=== PATIENT | male | born 1940 | race Caucasian/White ===

== ENCOUNTER 2018-06-26 02:35 | Inpatient (IN) ==
--- NOTE | 2018-06-26 04:06 | ED ---
HPI General Chief Complaint: Fall Stated Complaint: Fell left hip/thigh injury x3hrs Time Seen by Provider: 06/26/18 03:18 History of Present Illness HPI Narrative: Patient fell today in his office while turning of the computers he landed on his left hip he was unable to stand on his own they called paramedics EVAC came and helped stand him up asked if they wanted to be transported to the hospital patient declined transportation but the paramedics help get the patient into the [facility] scar[facility] drove him to our ER complaining of severe left hip pain unable to weight-bear at this time he also has an abrasion to his right forearm no other complaints at this time significant as 3 weeks ago he had an IR interventional radiology did a vascular stent into a prior 9-year-old AAA graft there is no signs of hypotension no signs of tachycardic however he does have pain in the similar area where the iliac artery was entered on the left. MD complaint: fall Onset (ago): hour(s) (11pm 3 hrs prior to presentation) Fall witnessed: yes, by family Place fall occurred: home Loss of consciousness: none Prolonged down time: no Related Data Home Medications Medication Instructions Recorded Confirmed amlodipine 5 mg PO DAILY 05/03/18 06/26/18 lisinopril 20 mg PO DAILY 05/03/18 06/26/18 Allergies Allergy/AdvReac Type Severity Reaction Status Date / Time Sulfa (Sulfonamide Allergy Intermediate Hives,SOB Verified 06/26/18 03:27 Antibiotics) Review of Systems ROS: all other systems reviewed are negative [facility] Social History Social History Substance History: No History of Abuse Second Hand Smoke Exposure: Yes Smoking Status: Current every day smoker Tobacco Type: Cigarettes How Often Do You Have a Drink Containing Alcohol: 2 to 3 times a week Recent Travel [facility] within the Last 8 Weeks: No Recent Out of Country Travel within the Last 8 Weeks: No Immunization History Tetanus Immunization: Unsure Hx Influenza Vaccine This Season: Yes Exam Narrative Exam Narrative: GENERAL: pt in pain can not weigh bare left leg hip SKIN: Warm and dry. bruise abrasion hematoma to right forearm HEAD: Atraumatic. Normocephalic. EYES: Pupils equal and round. No scleral icterus. No injection or drainage. ENT: No nasal bleeding or discharge. Mucous membranes pink and moist. NECK: Trachea midline. No JVD. CARDIOVASCULAR: Regular rate and rhythm. RESPIRATORY: No accessory muscle use. Clear to auscultation. Breath sounds equal bilaterally. GASTROINTESTINAL: Abdomen soft, non-tender, nondistended. Hepatic and splenic margins not palpable. MUSCULOSKELETAL: Extremities unable to weigh bare and severe pain with internal rotation of the femoral head increased pain , pulse 2+ pedal distal NO obvious deformities. No obvious shortening NEUROLOGICAL: Awake and alert. No obvious cranial nerve deficits. Motor grossly within normal limits. Five out of 5 muscle strength in the arms and legs. Normal speech. PSYCHIATRIC: Appropriate mood and affect; insight and judgment normal. Course Initial Documented Vital Signs Temperature 97.9 F 06/26/18 02:43 Pulse Rate 91 H 06/26/18 02:43 Respiratory Rate 18 06/26/18 02:43 Blood Pressure 135/62 06/26/18 02:43 Pulse Oximetry 95 06/26/18 02:43 Last Documented Vital Signs Temperature 97.9 F 06/26/18 02:43 Pulse Rate 80 06/26/18 04:33 Respiratory Rate 18 06/26/18 04:33 Blood Pressure 164/85 H 06/26/18 04:33 Pulse Oximetry 97 06/26/18 04:33 Medical Decision Making [facility] Narrative Medical decision making narrative: pt has left femur neck fracture and need surgery , Dr Fernandez admits pt to [facility] and Ortho will be consulted for OR today pt stable and awke and alert lebs and morphine for transfer to [facility] for OR Medical Screen Exam Complete: Yes Emergency Medical Condition: Yes Differential Diagnosis Differential Diagnosis: femur fracture vs hip frax vs pelvic fracture vs hip contusion vs injue=ry to recent graph ileac stent other Lab Data Result diagrams: 06/26/18 04:20 06/26/18 04:20 Lab Results 06/26/18 06/26/18 06/26/18 Range/Units 04:20 04:20 04:20 CBC w Diff Auto diff final WBC 16.2 H (4.0-11.0) th/mm3 RBC 4.61 (4.50-5.90) mil/mm3 Hgb 15.4 (13.0-17.0) gm/dL Hct 46.1 (39.0-51.0) % MCV 99.9 (80.0-100.0) fL MCH 33.5 (27.0-34.0) pg MCHC 33.5 (32.0-36.0) % RDW 13.0 (11.6-17.2) % Plt Count 198 (150-450) th/mm3 MPV 8.8 (7.0-11.0) fL Neut % (Auto) 76.7 H (16.0-70.0) % Lymph % (Auto) 15.3 (9.0-44.0) % [place] % (Auto) 7.0 (0.0-8.0) % Eos % (Auto) 0.6 (0.0-4.0) % Baso % (Auto) 0.4 (0.0-2.0) % Neut # (Auto) 12.4 H (1.8-7.7) th/mm3 Lymph # (Auto) 2.5 (1.0-4.8) th/mm3 [place] # (Auto) 1.1 H (0.0-0.9) th/mm3 Eos # (Auto) 0.1 (0.0-0.4) th/mm3 Baso # (Auto) 0.1 (0.0-0.2) th/mm3 WBC Differential . Differential Comment . PT 9.8 (9.8-11.6) sec INR 1.0 Ratio Sodium 143 (136-145) meq/L Potassium 4.3 (3.5-5.1) meq/L Chloride 105 (98-107) meq/L Carbon Dioxide 29.0 (21.0-32.0) meq/L Anion Gap 9 (5-15) meq/L BUN 31 H (7-18) mg/dL Creatinine 1.50 H (0.60-1.30) mg/dL Estimated GFR 45 L (>89) mL/min Random Glucose 146 H (74-106) mg/dL Calcium 9.0 (8.5-10.1) mg/dL Total Bilirubin 0.3 (0.2-1.0) mg/dL AST 37 (15-37) U/L ALT 32 (12-78) U/L Alkaline Phosphatase 77 (45-117) U/L Total Protein 7.0 (6.4-8.2) g/dL Albumin 3.8 (3.4-5.0) g/dL Imaging Data Radiologist's impression: Hip X-Ray 06/26/18 04:00 CONCLUSION: 1. Left femoral neck fracture. Discharge Plan Discharge Disposition Patient Disposition: 30 Still Patient Physicians Team ED Provider: Tyler Herron Primary Care Provider: Hilario Martins Attending Provider: Isabelle Christian Other Providers: Stephon Barragan Discharge Interventions Interventions: ED Discharge Assessment Last Done: 06/26/18 06:41 Status ED Status: Admitted Patient
[2018-06-26 04:33] LABS: Baso # (Auto) 0.1 th/mm3 (0.0-0.2); Baso % (Auto) 0.4 % (0.0-2.0); Eos # (Auto) 0.1 th/mm3 (0.0-0.4); Eos % (Auto) 0.6 % (0.0-4.0); Hematocrit 46.1 % (39.0-51.0); Hemoglobin 15.4 gm/dL (13.0-17.0); Lymph # (Auto) 2.5 th/mm3 (1.0-4.8); Lymph % (Auto) 15.3 % (9.0-44.0); Mean Corpuscular HGB Conc 33.5 % (32.0-36.0); Mean Corpuscular Hemoglobin 33.5 pg (27.0-34.0); Mean Corpuscular Volume 99.9 fL (80.0-100.0); Mean Platelet Volume 8.8 fL (7.0-11.0); Mono # (Auto) 1.1 th/mm3 (0.0-0.9); Neut # (Auto) 12.4 th/mm3 (1.8-7.7); Neut % (Auto) 76.7 % (16.0-70.0); Platelet Count 198 th/mm3 (150-450); Red Blood Count 4.61 mil/mm3 (4.50-5.90); White Blood Count 16.2 th/mm3 (4.0-11.0)
[2018-06-26 04:48] LABS: Chloride 105 meq/L (98-107); Potassium 4.3 meq/L (3.5-5.1); Sodium 143 meq/L (136-145)
--- NOTE | 2018-06-26 04:49 | XR ---
EXAM DATE: 06/26/2018 4:26 AM EDT AGE/SEX: 78 years / Male INDICATIONS: Left hip pain post fall today CLINICAL DATA: This is the patient's initial encounter. Patient reports that signs and symptoms have been present for 1 day and indicates a pain score of 8/10. MEDICAL/SURGICAL HISTORY: None. None. COMPARISON: POI, CT ABDOMEN AND PELVIS W/O CONTRAST, 03/22/2018. . FINDINGS: Transverse left femoral neck fracture with mild impaction. Remaining osseous structures are intact. K issing iliac stents in place. Soft tissues are grossly unremarkable. CONCLUSION: 1. Left femoral neck fracture. Electronically signed by: Jayden Guthrie MD 06/26/2018 4:48 AM EDT
[2018-06-26 04:52] LABS: Albumin 3.8 g/dL (3.4-5.0); Anion Gap 9 meq/L (5-15); Blood Urea Nitrogen 31 mg/dL (7-18); Glucose,Random 146 mg/dL (74-106)
[2018-06-26 04:55] LABS: Alanine Aminotransferase 32 U/L (12-78); Aspartate Aminotransferase 37 U/L (15-37); Glomerular Filtration Rate 45 mL/min (>89)
[2018-06-26 04:58] LABS: Alkaline Phosphatase 77 U/L (45-117)
[2018-06-26] MEDS ORDERED: Bisacodyl 10 MG Supp RECTAL PRN (05:00)
[2018-06-26] MEDS ORDERED: Acetaminophen 325 MG Tablet PO PRN (05:00)
[2018-06-26] MEDS ORDERED: Morphine Inj 4 MG/ML Vial IV.PUSH PRN ×2 (05:00→09:46)
[2018-06-26] MEDS: Sod Chloride 0.9% Inj 1,000 ML IV.CONT SCH ×4 (05:31→17:14)
[2018-06-26 05:32] LABS: Prothrombin Time 9.8 sec (9.8-11.6)
[2018-06-26] MEDS ORDERED: Morphine Inj 4 MG/ML Vial IV.PUSH ONE (06:29)
--- NOTE | 2018-06-26 09:39 | P.HPIM ---
History of Present Illness Primary Care Physician: Hilario Martins MD Chief Complaint: I fell History of Present Illness: 78-year-old white male with a history of hypertension, previous history of AAA repair sustained a fall yesterday evening around 11 PM. He states he felt slightly lightheaded however did not lose consciousness after the fall. He complained of significant left hip pain after the fall sustaining a left hip fracture. He denies any other symptoms of chest pain, shortness of breath, palpitations, nor dizziness. He was transferred up to the main hospital for surgical intervention with orthopedics. Inpatient Certification: I certify that the inpatient services were ordered in accordance with Medicare regulations governing the order. This includes certification that hospital inpatient services are reasonable and necessary and in the case of services not specified as inpatient-only under 42 CFR 419.22(n), that they are appropriately provided as inpatient services in accordance to with the 2-midnight benchmark under 43 CFR 412.3(e) Estimated Total Length of Stay (Days): 2 Plans for Post Hospital Care: Not yet determined Review of Systems All other systems reviewed negative except as stated in HPI [facility] - History History Provided By: Patient - Medical History Medical History: Medical History (Last Updated 06/26/18 @ 09:31 by Urmila Fernandez MD) BPH (benign prostatic hyperplasia) AAA (abdominal aortic aneurysm) Cataract Hernia Hypertension Kidney stones Metal bone fixation hardware in place Prostate disorder - Surgical History Surgical History: Surgical History (Last Updated 06/26/18 @ 09:33 by Urmlia Fernandez MD) Hx of hernia repair S/P surgical manipulation of ankle joint History of AAA (abdominal aortic aneurysm) repair Hx of appendectomy - Family History Family History: Family History (Last Updated 06/26/18 @ 09:34 by Urmila Fernandez MD) Mother FHx: stomach cancer - Social History I have reviewed the patient's Social History: Yes - Tobacco History Second Hand Smoke Exposure: Yes Tobacco Use In Past 30 Days: Yes Smoking Status: Current every day smoker Tobacco Type: Cigarettes - Alcohol History How Often Do You Have a Drink Containing Alcohol: 4 or more times a week - Substance Use History Substance History: No History of Abuse - Travel History Recent Travel in the [place] Within the Last 8 Weeks: No Recent Travel Out of the Country Within the Last 8 Weeks: No - Immunization History Tetanus Immunization: Unsure Hx Influenza Vaccine This Season: Yes Medications and Allergies Active Medications: Active Medications Acetaminophen (Tylenol) 650 mg PO Q4H PRN PRN Reason: Temp > 100.4 Al Hydroxide/Mg Hydroxide (Milk Of Magnesia Liq) 30 ml PO Q12H PRN PRN Reason: Mild Constipation Bisacodyl (Dulcolax Supp) 10 mg RECTAL DAILY PRN PRN Reason: SEVERE CONSITIPATION Sodium Chloride (Ns Inj) 1,000 mls @ 100 mls/hr IV.CONT .Q10H [facility] Last Infusion: 06/26/18 06:40 Dose: 100 mls/hr Sodium Chloride (Ns Inj) 1,000 mls @ 100 mls/hr IV.CONT .Q10H [facility] Lactulose (Lactulose Liq) 30 ml PO DAILY PRN PRN Reason: SEVERE CONSITIPATION Morphine Sulfate (Morphine Inj) 2 mg IV.PUSH Q4H PRN PRN Reason: PAIN 6-10 Ondansetron HCl (Zofran Inj) 4 mg IV.PUSH Q6H PRN PRN Reason: NAUSEA OR VOMITING Senna/Docusate Sodium (Libby-Colace) 1 tab PO BID [facility] Sennosides (Senokot) 17.2 mg PO Q12H PRN PRN Reason: Moderate Constipation Allergies Allergy/AdvReac Type Severity Reaction Status Date / Time Sulfa (Sulfonamide Allergy Intermediate Hives,SOB Verified 06/26/18 03:27 Antibiotics) Home Medications Medication Instructions Recorded Confirmed Type amlodipine 5 mg PO DAILY 05/03/18 06/26/18 History lisinopril 20 mg PO DAILY 05/03/18 06/26/18 History Exam Vital signs: Vital Signs 06/26/18 02:43 06/26/18 04:33 Temperature 97.9 F Pulse Rate 91 H 80 Respiratory Rate 18 18 Blood Pressure 135/62 164/85 H Pulse Oximetry 95 97 Intake & Output 06/25/18 06/26/18 06/26/18 18:59 06:59 18:59 Intake Total 100 / 100 Balance 100 / 100 Weight 90.6 kg Intake: IV 100 / 100 NS Inj 1,000 ML @ 100 mls/hr IV 100 / 100 .CONT .Q10H [facility] Rx#:[id number] Narrative: GENERAL: Well-nourished well-developed white male in no acute distress SKIN: Right forearm abrasions from fall HEAD: Atraumatic. Normocephalic. EYES: Pupils equal and round. No scleral icterus. No injection or drainage. ENT: No nasal bleeding or discharge. Mucous membranes pink and moist. NECK: Trachea midline. No JVD. CARDIOVASCULAR: Regular rate and rhythm. RESPIRATORY: No accessory muscle use. Clear to auscultation. Breath sounds equal bilaterally. GASTROINTESTINAL: Abdomen soft, non-tender, nondistended. Hepatic and splenic margins not palpable. MUSCULOSKELETAL: Extremities without clubbing, cyanosis, or edema. Left hip tenderness with external rotation NEUROLOGICAL: Awake and alert to person place time. No obvious cranial nerve deficits. Motor grossly within normal limits bilateral upper extremities PSYCHIATRIC: Appropriate mood and affect; insight and judgment normal. Results - Labs CBC & Chem 7: 06/26/18 04:20 06/26/18 04:20 Labs: Short CBC 06/26/18 Range/Units 04:20 WBC 16.2 H (4.0-11.0) th/mm3 Hgb 15.4 (13.0-17.0) gm/dL Hct 46.1 (39.0-51.0) % Plt Count 198 (150-450) th/mm3 BMP 06/26/18 04:20 Sodium 143 Potassium 4.3 Chloride 105 Carbon Dioxide 29.0 BUN 31 H Creatinine 1.50 H Calcium 9.0 Liver Function 06/26/18 Range/Units 04:20 Total Bilirubin 0.3 (0.2-1.0) mg/dL AST 37 (15-37) U/L ALT 32 (12-78) U/L Alkaline Phosphatase 77 (45-117) U/L Albumin 3.8 (3.4-5.0) g/dL - Imaging Impressions Hip X-Ray 06/26/18 04:00 CONCLUSION: 1. Left femoral neck fracture. Caprini VTE Risk Assessment Caprini VTE Risk Assessment: Moderate/High Risk (score >= 2) Caprini Risk Assessment Model: Point Value = 1 Point Value = 2 Point Value = 3 Point Value = 5 Age 41-60 Minor surgery BMI > 25 kg/m2 Swollen legs Varicose veins or History of unexplained or recurrent spontaneous Oral contraceptives or hormone replacement Sepsis (< 1 month) Serious lung disease, including pneumonia (< 1 month) Abnormal pulmonary function Acute myocardial infarction Congestive heart failure (< 1 month) History of inflammatory bowel disease Medical patient at bed rest Age 61-74 Arthroscopic surgery Major open surgery (> 45 min) Laparoscopic surgery (> 45 min) Malignancy Confined to bed (> 72 hours) Immobilizing plaster cast Central venous access Age >= 75 History of VTE Family history of VTE Factor V Leiden Prothrombin 30250D Lupus anticoagulant Anticardiolipin antibodies Elevated serum homocysteine Heparin-induced thrombocytopenia Other congenital or acquired thrombophilia Stroke (< 1 month) Elective arthroplasty Hip, pelvis, or leg fracture Acute spinal cord injury (< 1 month) Prophylaxis Regimen: Total Risk Factor Score Risk Level Prophylaxis Regimen 0-1 Low Early ambulation 2 Moderate Order ONE of the following: *Sequential Compression Device (SCD) *Heparin 5000 units SQ BID 3-4 Higher Order ONE of the following medications: *Heparin 5000 units SQ TID *Enoxaparin/Lovenox 40 mg SQ daily (WT < 150 kg, CrCl > 30 mL/min) *Enoxaparin/Lovenox 30 mg SQ daily (WT < 150 kg, CrCl > 10-29 mL/min) *Enoxaparin/Lovenox 30 mg SQ BID (WT < 150 kg, CrCl > 30 mL/min) AND/OR *Sequential Compression Device (SCD) 5 or more Highest Order ONE of the following medications: *Heparin 5000 units SQ TID (Preferred with Epidurals) *Enoxaparin/Lovenox 40 mg SQ daily (WT < 150 kg, CrCl > 30 mL/min) *Enoxaparin/Lovenox 30 mg SQ daily (WT < 150 kg, CrCl > 10-29 mL/min) *Enoxaparin/Lovenox 30 mg SQ BID (WT < 150 kg, CrCl > 30 mL/min) AND *Sequential Compression Device (SCD) Assessment and Plan - Plan 78-year-old white male with a history of hypertension presents after a fall sustaining a 1. Left femoral neck fracturepatient is currently n.p.o. with pain control IV morphine for orthopedic surgery evaluation for surgical intervention 2. Hypertension, chronic essentialresume home Amlodipine and lisinopril 3. DVT prophylaxisanticoagulation after surgical repair 4. Tobacco abuse-cessation counseling
[2018-06-26] MEDS ORDERED: Post-op Orders (for Pharmacy) OTHER STA (09:46)
--- NOTE | 2018-06-26 09:46 | P.CONOP ---
[facility] Orthopedics Consult Note - [facility] Consult date: 06/26/18 Chief complaint: femur neck fracture Narrative: Karson is a 78-year-old male. He was at home last night. He was going to turn off his computers. He lost his balance and fell. He denies syncope or loss of consciousness. He landed on his left side. He had immediate left hip pain. Pain was severe and intense when he fell. He was unable to stand or ambulate. He presented to the emergency room where x-rays revealed a displaced left femoral neck fracture. He is currently awake and alert on the orthopedic floor. His only complaint is left hip. Pain is improved with rest and is worse with any motion. He lives at home independently with his . He denies any hip pain prior to his fall. Review of Systems Patient denies fevers, chills, weight loss, headache, visual changes, hearing loss, chest pain, palpitations, shortness of breath, nausea, vomiting, no urinary changes, diarrhea, bowel changes, neck pain, back pain, skin rashes, weakness of extremities, easy bleeding, enlarged lymph nodes, numbness of extremities, anxiety, or depression. Patient's social history, past medical history, and family history were reviewed on chart and with patient. [facility] - History History Provided By: Patient - Medical History Medical History: Medical History (Last Reviewed 06/26/18 @ 09:43 by Stephon Barragan MD) BPH (benign prostatic hyperplasia) AAA (abdominal aortic aneurysm) Cataract Hernia Hypertension Kidney stones Metal bone fixation hardware in place Prostate disorder - Surgical History Surgical History: Surgical History (Last Reviewed 06/26/18 @ 09:43 by Stephon Barragan MD) Hx of hernia repair S/P surgical manipulation of ankle joint History of AAA (abdominal aortic aneurysm) repair Hx of appendectomy - Family History Family History: Family History (Last Reviewed 06/26/18 @ 09:43 by Stephon Barragan MD) Mother FHx: stomach cancer - Social History I have reviewed the patient's Social History: Yes - Tobacco History Second Hand Smoke Exposure: Yes Tobacco Use In Past 30 Days: Yes Smoking Status: Current every day smoker Tobacco Type: Cigarettes - Alcohol History How Often Do You Have a Drink Containing Alcohol: 4 or more times a week - Substance Use History Substance History: No History of Abuse - Travel History Recent Travel in the [facility] Within the Last 8 Weeks: No Recent Travel Out of the Country Within the Last 8 Weeks: No - Immunization History Tetanus Immunization: Unsure Hx Influenza Vaccine This Season: Yes Medications and Allergies Active Medications: Active Medications Acetaminophen (Tylenol) 650 mg PO Q4H PRN PRN Reason: Temp > 100.4 Al Hydroxide/Mg Hydroxide (Milk Of Magnesia Liq) 30 ml PO Q12H PRN PRN Reason: Mild Constipation Amlodipine Besylate (Norvasc) 5 mg PO DAILY [facility] Bisacodyl (Dulcolax Supp) 10 mg RECTAL DAILY PRN PRN Reason: SEVERE CONSITIPATION Sodium Chloride (Ns Inj) 1,000 mls @ 100 mls/hr IV.CONT .Q10H [facility] Last Infusion: 06/26/18 06:40 Dose: 100 mls/hr Sodium Chloride (Ns Inj) 1,000 mls @ 100 mls/hr IV.CONT .Q10H [facility] Lactulose (Lactulose Liq) 30 ml PO DAILY PRN PRN Reason: SEVERE CONSITIPATION Lisinopril (Prinivil) 20 mg PO DAILY [facility] Morphine Sulfate (Morphine Inj) 2 mg IV.PUSH Q4H PRN PRN Reason: PAIN 6-10 Ondansetron HCl (Zofran Inj) 4 mg IV.PUSH Q6H PRN PRN Reason: NAUSEA OR VOMITING Senna/Docusate Sodium (Libby-Colace) 1 tab PO BID [facility] Sennosides (Senokot) 17.2 mg PO Q12H PRN PRN Reason: Moderate Constipation Allergies Allergy/AdvReac Type Severity Reaction Status Date / Time Sulfa (Sulfonamide Allergy Intermediate Hives,SOB Verified 06/26/18 03:27 Antibiotics) Home Medications Medication Instructions Recorded Confirmed Type amlodipine 5 mg PO DAILY 05/03/18 06/26/18 History lisinopril 20 mg PO DAILY 05/03/18 06/26/18 History Exam Vital signs: Vital Signs 06/26/18 02:43 06/26/18 04:33 06/26/18 08:00 Temperature 97.9 F 98.5 F Pulse Rate 91 H 80 60 Respiratory Rate 18 18 16 Blood Pressure 135/62 164/85 H 123/71 Pulse Oximetry 95 97 93 L Intake & Output 06/25/18 06/26/18 06/26/18 18:59 06:59 18:59 Intake Total 100 / 100 Balance 100 / 100 Weight 90.6 kg Intake: IV 100 / 100 NS Inj 1,000 ML @ 100 mls/hr IV 100 / 100 .CONT .Q10H [facility] Rx#:[id number] Narrative: Davi is a pleasant 78-year-old male. General: Awake and alert. No acute distress. Appears well-developed well- nourished Head: Normocephalic, atraumatic pupils are equal Neck: Soft, nontender, trachea midline Abdomen: Soft, nondistended Examination of right arm reveals no pain or deformity with shoulder, elbow, or wrist motion. Skin is intact. Radial pulse is palpable. Normal capillary refill in fingers. Sensation is intact in radial, ulnar, and median nerve distributions. [employer] Specialist strength is +5. No lymphadenopathy noted. Examination of left arm reveals no pain or deformity with shoulder, elbow, or wrist motion. Skin is intact. Radial pulse is palpable. Normal capillary refill in fingers. Sensation is intact in radial, ulnar, and median nerve distributions. [employer] Specialist strength is +5. No lymphadenopathy noted. Examination of left lower extremity reveals pain with any hip motion. He has no pain or deformity around his knee, tibia, or ankle. Skin is intact. Sensation is intact in left foot. Dorsalis pedis pulse is palpable. Normal capillary refill and feet. Thigh and calf compartments are soft. No lymphadenopathy noted. +5 strength of ankle dorsiflexion and plantarflexion. Examination of right lower extremity reveals no pain or deformity with hip, knee , or ankle motion. Skin is intact. Sensation is intact in right foot. Dorsalis pedis pulse is palpable. Normal capillary refill and feet. Thigh and calf compartments are soft. No lymphadenopathy noted. +5 strength of ankle dorsiflexion and plantarflexion. Results - Labs Result Diagrams: 06/26/18 04:20 06/26/18 04:20 Labs: Laboratory Results - last 24 hr 06/26/18 06/26/18 06/26/18 04:20 04:20 04:20 CBC w Diff Auto diff final WBC 16.2 H RBC 4.61 Hgb 15.4 Hct 46.1 MCV 99.9 MCH 33.5 MCHC 33.5 RDW 13.0 Plt Count 198 MPV 8.8 Neut % (Auto) 76.7 H Lymph % (Auto) 15.3 [place] % (Auto) 7.0 Eos % (Auto) 0.6 Baso % (Auto) 0.4 Neut # (Auto) 12.4 H Lymph # (Auto) 2.5 [place] # (Auto) 1.1 H Eos # (Auto) 0.1 Baso # (Auto) 0.1 WBC Differential . Differential Comment . PT 9.8 INR 1.0 Sodium 143 Potassium 4.3 Chloride 105 Carbon Dioxide 29.0 Anion Gap 9 BUN 31 H Creatinine 1.50 H Estimated GFR 45 L Random Glucose 146 H Calcium 9.0 Total Bilirubin 0.3 AST 37 ALT 32 Alkaline Phosphatase 77 Total Protein 7.0 Albumin 3.8 Blood Type Antibody Screen 06/26/18 05:10 CBC w Diff WBC RBC Hgb Hct MCV MCH MCHC RDW Plt Count MPV Neut % (Auto) Lymph % (Auto) [place] % (Auto) Eos % (Auto) Baso % (Auto) Neut # (Auto) Lymph # (Auto) [place] # (Auto) Eos # (Auto) Baso # (Auto) WBC Differential Differential Comment PT INR Sodium Potassium Chloride Carbon Dioxide Anion Gap BUN Creatinine Estimated GFR Random Glucose Calcium Total Bilirubin AST ALT Alkaline Phosphatase Total Protein Albumin Blood Type O Positive Antibody Screen Negative - Diagnostic results Imaging: Impressions Hip X-Ray 06/26/18 04:00 CONCLUSION: 1. Left femoral neck fracture. Hip x-ray: report reviewed, image reviewed Assessment and Plan - Assessment and Plan Davi has a displaced left femoral neck fracture. X-rays reviewed revealing displaced femoral neck fracture. Treatment options were discussed with him. At this point I would recommend a left hip hemiarthroplasty. The risk and benefits of surgery were discussed in depth with patient. All of his questions were answered. The risk and benefits of surgery were discussed in depth with patient. The risk of surgery include bleeding, infection, injuries to arteries, nerves, or blood vessels, infection, wound complications, leg length discrepancy, hip dislocation, trochanteric bursitis, painful hardware, and need for further surgery. I also discussed medical complications including blood clots, pneumonia, stroke, heart attack, and . Informed consent was obtained and all questions were answered. N.p.o.--plan on surgery this morning Calcium and vitamin D supplementation Physical therapy consult Follow-up with Dr. Barragan in 2 weeks MICHELs, Nelli Jacques A mid-level provider in my office (nurse practitioner or physician pediatric dental assistant) may see this patient on follow-up visits and continue to implement the objectives of this plan including: Starting or adjusting medications, injections , cast application, orthotics, brace application, physical therapy, radiological studies (including x-ray, MRI, CT, ultrasound, bone scan), vascular studies, neurologic studies, specialist consultation, and proceeding with surgical management, as appropriate.
[2018-06-26] MEDS ORDERED: ceFAZolin 2 GM Premix Inj 2 GM/50 ML PIGGYBACK IV.SIG ONE (09:52)
[2018-06-26] MEDS ORDERED: Phenylephrine/NS 1000 MCG/10ML Syringe IV.PUSH ONE (10:00)
[2018-06-26] MEDS ORDERED: Neostigmine Inj 5 MG/5 ML Syringe IV.PUSH ONE (10:00)
[2018-06-26] MEDS ORDERED: Lidocaine PF 1% Inj 5 ML Syringe OTHER ONE (10:00)
[2018-06-26] MEDS ORDERED: Glycopyrrolate Inj 1 MG/5 ML Syringe IV.PUSH ONE (10:00)
--- NOTE | 2018-06-26 10:50 | P.OP ---
- Preoperative Diagnosis (1) Left displaced femoral neck fracture Date of procedure: 06/26/18 Procedure: Left hip hemiarthroplasty Anesthesia: GETA Surgeon: Stephon Barragan MD Reconciliation Clerk: GURJIT Wilkins PA-C The surgical procedure was assisted by my physician child care center assistant director. My P.A. presence was necessary throughout this case for the manipulation and positioning of the surgical extremity. My P.A. was assisting me throughout the duration of this procedure. The skill set of a physician child care center assistant director was medically necessary to complete this procedure. During the surgical case the surgical rn was working at the back table and the physician child care center assistant director was directly assisting me. Operation and Findings: PLAN OF ACTIVITY Weight bear as tolerated. IMPLANTS USED DePuy Corail size [16] stem with size [53+5] bipolar head and [standard] neck. DETAILS OF PROCEDURE This patient was brought into the operating room and placed on the OR table. The patient was given anesthesia. The patient received IV antibiotics. The patient was then placed in lateral decubitus position. The hip and leg were prepped with alcohol, followed by Hibiclens and draped in a usual sterile fashion. Clean air was used for this procedure. Time out procedure was performed. The procedure began with a 5 inch incision over the posterolateral hip. The subcutaneous tissue was dissected with the Bovie. The iliotibial band were split in line with fibers. The Charnley retractor was placed. The piriformis and external rotators were released from the femur and tagged with a #1 Vicryl suture. The capsule is now incised and tagged with #1 Vicryl. The femoral neck fracture was now visualized. A corkscrew was now used to remove the femoral head. The femoral head was sized and measured. Soft tissue was now protected. The hip skid was placed underneath the femoral neck. An oscillating saw was used to make a femoral neck cut. At this point attention was turned to preparation of the proximal femur. A box osteotome was used to remove the lateral cortex of the femoral neck. The T- handle reamer was used to open the femoral canal. Next, the canal was broached. A lateralizing reamer was used to help lateralize the prosthesis. At this point a trial head and neck were placed. The hip was reduced. The patient was found to have excellent stability with good range of motion. Trial components were removed. Soft tissue and bone were thoroughly irrigated. A Corail stem was now opened. The stem was now impacted into the proximal femur. Care was taken to keep appropriate anteversion. The head and neck were now impacted onto the stem. The hip was again reduced. The hip was found to have good range of motion and good stability. Leg lengths were clinically equal. The wound was thoroughly irrigated. The capsule, piriformis and iliotibial band were closed with #1 Vicryl. Subcutaneous tissue was closed with 3-0 Vicryl. The skin was closed with pierre. A sterile dressing was applied with Primapore. The patient was placed into a knee immobilizer. The patient was awakened and transferred to the recovery room in stable condition. Needle and sponge counts were correct.
[2018-06-26] MEDS ORDERED: fentaNYL Citrate Inj 100 MCG/2 ML Ampul ONE (11:17)
[2018-06-26] MEDS: Senna/Docusate Sodium 8.6/50 MG Tablet PO SCH ×2 (11:30→20:26)
--- NOTE | 2018-06-26 11:55 | ECG ---
Date Performed: 06/26/2018 Time Performed: 09:34:24 PTAGE: 78 years EKG: ECTOPIC ATRIAL RHYTHM WITH FIRST DEGREE AV BLOCK WITH OCCASIONAL SUPRAVENTRICULAR PREMATURE COMPLEXES INDETERMINATE AXIS INCOMPLETE RIGHT BUNDLE BRANCH BLOCK ST DEVIATION AND MODERATE T-WAVE A BNORMALITY, CONSIDER INFERIOR ISCHEMIA ABNORMAL ECG PREVIOUS TRACING : 09/01/2011 13.11 DOCTOR: Gregorio Galeana Interpretating Date/Time 06/26/2018 11:53:41
--- NOTE | 2018-06-26 12:23 | XR ---
EXAM DATE: 06/26/2018 12:14 PM EDT AGE/SEX: 78 years / Male INDICATIONS: Post-op CLINICAL DATA: This is the patient's initial encounter. Patient reports that signs and symptoms have been present for 1 day and indicates a pain score of Nonresponsive. MEDICAL/SURGICAL HISTORY: None. None. COMPARISON: HPO, HIP LEFT W AP PELVIS 2V, 06/26/2018. . FINDINGS: Left hip arthroplasty appears well seated. Skin pierre and underlying subcutaneous air are noted con sistent with postoperative state. No fractures. CONCLUSION: Status post left hip arthroplasty. Electronically signed by: Darnell Childress MD 06/26/2018 12:21 PM EDT
[2018-06-26] MEDS: Calcium/Vitamin D 250/125 MG Tablet PO SCH ×2 (13:59→17:16)
[2018-06-26] MEDS: ceFAZolin Inj 2,000 MG in Sodium Chlor 0.9% Inj 80 ML IV.SIG SCH ×2 (13:59→20:26)
--- NOTE | 2018-06-26 22:04 | ECG ---
Date Performed: 06/26/2018 Time Performed: 11:27:32 PTAGE: 78 years EKG: ECTOPIC ATRIAL RHYTHM WITH FIRST DEGREE AV BLOCK INDETERMINATE AXIS INFERIOR MYOCARDIAL INF ARCTION , PROBABLY OLD ABNORMAL ECG PREVIOUS TRACING : 06/26/2018 09.34 DOCTOR: Gregorio Galeana Interpretating Date/Time 06/26/2018 22:01:48
[2018-06-27] MEDS: Sod Chloride 0.9% Inj 1,000 ML IV.CONT SCH ×6 (02:37→23:11)
[2018-06-27 04:46] LABS: Baso # (Auto) 0.1 th/mm3 (0.0-0.2); Baso % (Auto) 0.6 % (0.0-2.0); Eos % (Auto) 0.1 % (0.0-4.0); Hematocrit 39.5 % (39.0-51.0); Hemoglobin 13.1 gm/dL (13.0-17.0); Lymph # (Auto) 2.7 th/mm3 (1.0-4.8); Mean Corpuscular HGB Conc 33.2 % (32.0-36.0); Mean Corpuscular Hemoglobin 33.7 pg (27.0-34.0); Mean Corpuscular Volume 101.7 fL (80.0-100.0); Mean Platelet Volume 9.8 fL (7.0-11.0); Mono # (Auto) 1.7 th/mm3 (0.0-0.9); Mono % (Auto) 13.5 % (0.0-8.0); Neut # (Auto) 8.4 th/mm3 (1.8-7.7); Neut % (Auto) 64.8 % (16.0-70.0); Platelet Count 150 th/mm3 (150-450); Red Blood Count 3.88 mil/mm3 (4.50-5.90); Red Cell Distribution Width 13.4 % (11.6-17.2); White Blood Count 12.9 th/mm3 (4.0-11.0)
[2018-06-27] MEDS: ceFAZolin Inj 2,000 MG in Sodium Chlor 0.9% Inj 80 ML IV.SIG SCH (04:50)
[2018-06-27 05:09] LABS: Albumin 3.1 g/dL (3.4-5.0); Anion Gap 8 meq/L (5-15); Aspartate Aminotransferase 39 U/L (15-37); Blood Urea Nitrogen 24 mg/dL (7-18); Calcium 8.6 mg/dL (8.5-10.1); Carbon Dioxide 26.8 meq/L (21.0-32.0); Chloride 107 meq/L (98-107); Glomerular Filtration Rate 71 mL/min (>89); Glucose,Random 107 mg/dL (74-106); Potassium 4.4 meq/L (3.5-5.1); Sodium 142 meq/L (136-145)
[2018-06-27 05:11] LABS: Alanine Aminotransferase 22 U/L (12-78)
[2018-06-27 05:13] LABS: Alkaline Phosphatase 58 U/L (45-117); Total Protein 6.2 g/dL (6.4-8.2)
--- NOTE | 2018-06-27 06:48 | P.PNOP ---
Subjective Interval history: Resting comfortably. Doing well POD 1 from left hip hemiarthroplasty. Knee immobilizer in place Physical Exam Vital signs: Vital Signs 06/26/18 08:00 06/26/18 11:09 06/26/18 11:15 Temperature 98.5 F 98.2 F Pulse Rate 60 64 67 Respiratory Rate 16 19 15 Blood Pressure 123/71 107/54 L 148/67 H Pulse Oximetry 93 L 92 L 96 06/26/18 11:30 06/26/18 11:45 06/26/18 12:00 Temperature 97.4 F L Pulse Rate 79 80 68 Respiratory Rate 18 18 14 Blood Pressure 144/65 H 134/60 99/55 L Pulse Oximetry 98 95 94 L 06/26/18 12:15 06/26/18 16:00 06/26/18 20:00 Temperature 98.4 F 98.3 F Pulse Rate 80 57 L 66 Respiratory Rate 20 14 18 Blood Pressure 126/87 122/61 141/73 H Pulse Oximetry 95 93 L 94 L 06/27/18 00:00 06/27/18 00:30 06/27/18 04:00 Temperature 98.6 F 99.9 F H Pulse Rate 71 78 Respiratory Rate 18 16 18 Blood Pressure 163/75 H 143/69 H Pulse Oximetry 97 94 L Intake & Output 06/26/18 06/26/18 06/27/18 06:59 18:59 06:59 Intake Total 100 / 100 1721 / 1721 1200 / 1200 Output Total 50 / 50 Balance 100 / 100 1671 / 1671 1200 / 1200 Weight 90.6 kg 90.265 kg Intake: IV 100 / 100 1000 / 1000 1200 / 1200 NS Inj 1,000 ML @ 100 mls/hr IV 100 / 100 900 / 900 1000 / 1000 .CONT .Q10H ANTHONY Rx#:[id number] Ancef Inj 2,000 MG In NS Inj 80 100 / 100 200 / 200 ML @ 200 mls/hr IV.SIG Q8H ANTHONY Rx#:[id number] Oral 421 / 421 Anesthesia Amount 300 / 300 Output: Estimated Blood Loss 50 / 50 Other: # Voids 3 Date of Last Bowel Movement 06/25/18 Weight On Admission 90.265 kg Narrative: Left lower extremity: Clean dry dressings intact. Mild swelling. Mild tenderness with range of motion of hip. Knee immobilizer in place. Distally intact sensation with good capillary refills. Active dorsiflexion and plantarflexion of the foot. Results - Labs CBC & Chem 7: 06/27/18 03:35 06/27/18 03:38 Laboratory Results - last 24 hr 06/26/18 06/27/18 06/27/18 05:10 03:35 03:38 WBC 12.9 H RBC 3.88 L Hgb 13.1 D Hct 39.5 MCV 101.7 H MCH 33.7 MCHC 33.2 RDW 13.4 Plt Count 150 MPV 9.8 Neut % (Auto) 64.8 Lymph % (Auto) 21.0 [place] % (Auto) 13.5 H Eos % (Auto) 0.1 Baso % (Auto) 0.6 Neut # (Auto) 8.4 H Lymph # (Auto) 2.7 [place] # (Auto) 1.7 H Eos # (Auto) 0.0 Baso # (Auto) 0.1 WBC Differential . Differential Comment Auto diff final Sodium 142 Potassium 4.4 Chloride 107 Carbon Dioxide 26.8 Anion Gap 8 BUN 24 H Creatinine 1.02 Estimated GFR 71 L Random Glucose 107 H Calcium 8.6 Total Bilirubin 0.6 AST 39 H ALT 22 Alkaline Phosphatase 58 Total Protein 6.2 L D Albumin 3.1 L D Blood Type O Positive Antibody Screen Negative - Imaging Impressions Hip X-Ray 06/26/18 00:00 CONCLUSION: Status post left hip arthroplasty. Hip X-Ray 06/26/18 04:00 CONCLUSION: 1. Left femoral neck fracture. Assessment and Plan - Assessment and Plan Left hip hemiarthroplasty POD 1 Physical therapy weightbearing as tolerated with posterior hip precautions Knee immobilizer while in bed Maintain dressing for 6 days then remove dressing and replacement Primapore. Beginning 07/07/2018 begin adding Xeroform over incision as well as Primapore. Incentive spirometry Lovenox Case management for rehab placement Follow-up appointment with Dr. Fernandez or PA in 2 weeks
--- NOTE | 2018-06-27 08:52 | P.PN ---
Subjective Interval history: Patient doing well overnight. Reports tolerating PO, has no current concerns. Patient feels that he will be able to care for himself at home with help from his . Denies fever or chills. Physical Exam Vital signs: Vital Signs 06/26/18 11:09 06/26/18 11:15 06/26/18 11:30 Temperature 98.2 F Pulse Rate 64 67 79 Respiratory Rate 19 15 18 Blood Pressure 107/54 L 148/67 H 144/65 H Pulse Oximetry 92 L 96 98 06/26/18 11:45 06/26/18 12:00 06/26/18 12:15 Temperature 97.4 F L Pulse Rate 80 68 80 Respiratory Rate 18 14 20 Blood Pressure 134/60 99/55 L 126/87 Pulse Oximetry 95 94 L 95 06/26/18 16:00 06/26/18 20:00 06/27/18 00:00 Temperature 98.4 F 98.3 F 98.6 F Pulse Rate 57 L 66 71 Respiratory Rate 14 18 18 Blood Pressure 122/61 141/73 H 163/75 H Pulse Oximetry 93 L 94 L 97 06/27/18 00:30 06/27/18 04:00 Temperature 99.9 F H Pulse Rate 78 Respiratory Rate 16 18 Blood Pressure 143/69 H Pulse Oximetry 94 L Intake & Output 06/26/18 06/27/18 06/27/18 18:59 06:59 18:59 Intake Total 1721 / 1721 1275 / 1275 1000 / 1000 Output Total 50 / 50 Balance 1671 / 1671 1275 / 1275 1000 / 1000 Weight 90.265 kg Intake: IV 1000 / 1000 1200 / 1200 1000 / 1000 LR 1000 mL Inj 1,000 ML @ 50 1000 / 1000 mls/hr IV.CONT .Q20H ANTHONY Rx#: [id number] NS Inj 1,000 ML @ 100 mls/hr IV 900 / 900 1000 / 1000 .CONT .Q10H ANTHONY Rx#:[id number] Ancef Inj 2,000 MG In NS Inj 80 100 / 100 200 / 200 ML @ 200 mls/hr IV.SIG Q8H ANTHONY Rx#:[id number] Oral 421 / 421 75 / 75 Anesthesia Amount 300 / 300 Output: Estimated Blood Loss 50 / 50 Other: # Voids 3 3 Date of Last Bowel Movement 09/14/18 Weight On Admission 90.265 kg Narrative: GENERAL: well nourished male, in NAD SKIN: Warm and dry. HEAD: Normocephalic. EYES: No scleral icterus. No injection or drainage. NECK: Supple, trachea midline. No JVD or lymphadenopathy. CARDIOVASCULAR: Regular rate and rhythm without murmurs, gallops, or rubs. RESPIRATORY: Breath sounds equal bilaterally. No accessory muscle use. GASTROINTESTINAL: Abdomen soft, non-tender, nondistended. MUSCULOSKELETAL: No cyanosis, or edema. BACK: Nontender without obvious deformity. No CVA tenderness. EXTREMITIES: L Knee immobilizer in place. Distally intact sensation with good capillary refills. Results - Labs CBC & Chem 7: 06/27/18 03:35 06/27/18 03:38 Laboratory Results - last 24 hr 06/27/18 06/27/18 03:35 03:38 WBC 12.9 H RBC 3.88 L Hgb 13.1 D Hct 39.5 MCV 101.7 H MCH 33.7 MCHC 33.2 RDW 13.4 Plt Count 150 MPV 9.8 Neut % (Auto) 64.8 Lymph % (Auto) 21.0 [place] % (Auto) 13.5 H Eos % (Auto) 0.1 Baso % (Auto) 0.6 Neut # (Auto) 8.4 H Lymph # (Auto) 2.7 [place] # (Auto) 1.7 H Eos # (Auto) 0.0 Baso # (Auto) 0.1 WBC Differential . Differential Comment Auto diff final Sodium 142 Potassium 4.4 Chloride 107 Carbon Dioxide 26.8 Anion Gap 8 BUN 24 H Creatinine 1.02 Estimated GFR 71 L Random Glucose 107 H Calcium 8.6 Total Bilirubin 0.6 AST 39 H ALT 22 Alkaline Phosphatase 58 Total Protein 6.2 L D Albumin 3.1 L D - Imaging Impressions Hip X-Ray 06/26/18 00:00 CONCLUSION: Status post left hip arthroplasty. Assessment and Plan - Plan 1. 78 y/o CM with PMHx of AAA s/p repair admitted for IP mgmt of Left femoral neck fx s/p Left hip hemiarthroplasty , POD#1, doing well and pending rehab placement 1. Post op care Managed by Ortho PT weightbearing as tolerated with posterior hip precautions Knee immobilizer while in bed Maintain dressing for 6 days then remove dressing and replacement Primapore. Beginning 07/07/2018 begin adding Xeroform over incision as well as Primapore. Incentive spirometry Lovenox for PPX Case management for rehab placement Follow-up appointment with Dr. Fernandez or PA in 2 weeks upon D/C 2. Hypertension, chronic essential cont. home Amlodipine and Lisinopril 3. HX OF AAA s/p repair: noted. 4. Leukocytosis: afebrile, likely stress reaction due to fx, WBC 12.9 from 16.2 , no signs of infection. F/U CBC in AM. 5. ALMA: Creatinine 1.02 from 1.50, tolerating PO, advised cont. adequate hydration. 6. Dispo: pending placement, rehab versus home with home health 7. DVT PPX: Lovenox 8. Dispo: pending rehab placement per PT reccs
[2018-06-27] MEDS ORDERED: amLODIPine 5 MG Tablet PO SCH (09:00)
[2018-06-27] MEDS: Enoxaparin Inj 40 MG/0.4 ML Syringe SQ SCH (09:29)
[2018-06-27] MEDS: Calcium/Vitamin D 250/125 MG Tablet PO SCH ×3 (09:29→18:08)
[2018-06-27] MEDS: Senna/Docusate Sodium 8.6/50 MG Tablet PO SCH ×2 (09:30→21:16)
[2018-06-27] MEDS: Lisinopril 20 MG Tablet PO SCH (09:31)
[2018-06-27] MEDS: amLODIPine 5 MG Tablet PO SCH (21:16)
--- NOTE | 2018-06-28 06:47 | P.PNOP ---
Subjective Interval history: Resting comfortably. States that he is progressing well with physical therapy. Physical Exam Vital signs: Vital Signs 06/27/18 08:00 06/27/18 12:00 06/27/18 15:28 Temperature 98.7 F 99.0 F 98.9 F Pulse Rate 68 63 80 Respiratory Rate 18 16 17 Blood Pressure 158/63 H 106/55 L 116/56 L Pulse Oximetry 92 L 92 L 93 L 06/27/18 19:40 06/27/18 21:18 06/28/18 01:00 Temperature 100 F H 99.5 F Pulse Rate 86 79 Respiratory Rate 16 17 17 Blood Pressure 110/87 128/62 Pulse Oximetry 96 96 06/28/18 01:30 06/28/18 05:02 06/28/18 05:49 Temperature 98.8 F Pulse Rate 77 Respiratory Rate 17 16 17 Blood Pressure 151/80 H Pulse Oximetry 94 L Intake & Output 06/27/18 06/27/18 06/28/18 06:59 18:59 06:59 Intake Total 1275 / 1275 1880 / 1880 1000 / 1000 Balance 1275 / 1275 1880 / 1880 1000 / 1000 Intake: IV 1200 / 1200 1000 / 1000 1000 / 1000 LR 1000 mL Inj 1,000 ML @ 50 1000 / 1000 1000 / 1000 mls/hr IV.CONT .Q20H ANTHONY Rx#: [id number] NS Inj 1,000 ML @ 100 mls/hr IV 1000 / 1000 .CONT .Q10H ANTHONY Rx#:[id number] Ancef Inj 2,000 MG In NS Inj 80 200 / 200 ML @ 200 mls/hr IV.SIG Q8H ANTHONY Rx#:[id number] Oral 75 / 75 880 / 880 Other: # Voids 3 4 Date of Last Bowel Movement 06/25/18 06/25/18 06/25/18 Narrative: Left lower extremity: Clean dry dressings intact. Knee immobilizer in place. Active dorsiflexion plantar flexion of foot. Intact sensation distally with good capillary refills. No calf tenderness negative Homans sign Results - Labs CBC & Chem 7: 06/27/18 03:35 06/27/18 03:38 Assessment and Plan - Assessment and Plan Left hip hemiarthroplasty POD 2 Physical therapy weightbearing as tolerated with posterior hip precautions Knee immobilizer while in bed Maintain dressing for 6 days then remove dressing and replacement Primapore. Beginning 07/07/2018 begin adding Xeroform over incision as well as Primapore. Incentive spirometry Lovenox Case management for rehab placement - ortho cleared Follow-up appointment with Dr. Fernandez or PA in 2 weeks
[2018-06-28] MEDS: Enoxaparin Inj 40 MG/0.4 ML Syringe SQ SCH (08:18)
[2018-06-28] MEDS: Calcium/Vitamin D 250/125 MG Tablet PO SCH ×3 (08:19→18:08)
[2018-06-28] MEDS: Senna/Docusate Sodium 8.6/50 MG Tablet PO SCH ×2 (08:19→21:14)
[2018-06-28] MEDS: Lisinopril 20 MG Tablet PO SCH (08:19)
--- NOTE | 2018-06-28 09:22 | P.DS ---
Date of admission: 06/26/18 04:58 Primary care physician: Hilario Martins MD Attending physician on discharge: Tiara Dutta Anticipated date of discharge: 06/28/18 Brief History from admission: 78-year-old white male with a history of hypertension, previous history of AAA repair sustained a fall yesterday evening around 11 PM. He states he felt slightly lightheaded however did not lose consciousness after the fall. He complained of significant left hip pain after the fall sustaining a left hip fracture. He denies any other symptoms of chest pain, shortness of breath, palpitations, nor dizziness. He was transferred up to the main hospital for surgical intervention with orthopedics. Patient update on day of discharge: Patient seen and examined. Reports he is feeling well. Denies pain. No CP, SOB, abdominal pain, N/V. Tolerating PO but appetite decreased because he does not care for the hospital food. Denies fever or chills. DS: Diagnosis - Discharge Diagnosis (1) Left displaced femoral neck fracture Status: Acute DS: Medications - Discharge Medications Prescriptions: hydrocodone-acetaminophen [Epsom] 1 tab PO Q4-6H PRN #40 tab PRN Reason: Acute Pain rivaroxaban [Xarelto] 10 mg PO DAILY #14 tab DS: Summary Hospital Course: 78-year-old male with history of hypertension and AAA repair admitted on 06/26 for left hip fracture after a fall. Orthopedic surgery was consulted and patient underwent a left hip hemiarthroplasty on 06/26. He did well postoperatively and was cleared for discharge on 06/28. He was discharged in stable condition to a SNF. - Time Spent with Patient Total time spent providing and/or coordinating discharge services: Greater than 30 minutes - Quality: VTE Deep Vein Thrombosis/Pulmonary Embolism Present on Admission: No Exam Vital signs: Vital Signs 06/27/18 12:00 06/27/18 15:28 06/27/18 19:40 Temperature 99.0 F 98.9 F 100 F H Pulse Rate 63 80 86 Respiratory Rate 16 17 16 Blood Pressure 106/55 L 116/56 L 110/87 Pulse Oximetry 92 L 93 L 96 06/27/18 21:18 06/28/18 01:00 06/28/18 01:30 Temperature 99.5 F Pulse Rate 79 Respiratory Rate 17 17 17 Blood Pressure 128/62 Pulse Oximetry 96 06/28/18 05:02 06/28/18 05:49 Temperature 98.8 F Pulse Rate 77 Respiratory Rate 16 17 Blood Pressure 151/80 H Pulse Oximetry 94 L Intake & Output 06/27/18 06/28/18 06/28/18 18:59 06:59 18:59 Intake Total 1880 / 1880 1000 / 1000 Balance 1880 / 1880 1000 / 1000 Intake: IV 1000 / 1000 1000 / 1000 LR 1000 mL Inj 1,000 ML @ 50 1000 / 1000 1000 / 1000 mls/hr IV.CONT .Q20H ANTHONY Rx#: [id number] Oral 880 / 880 Other: # Voids 4 Date of Last Bowel Movement 06/25/18 06/25/18 Narrative: GENERAL: WN, WD [] resting in bed in NAD. SKIN: Warm and dry. HEENT: AT/NC. Pupils equal and round. MMM. NECK: Supple no tender LAD or JVD. HEART: RRR no m/r/g. LUNGS: CTAB without wheezes or crackles. ABDOMEN: +BS, soft, NT, ND. EXTREMITIES: No LE edema. 2+ pedal pulses. NEURO: Awake and alert. Nonfocal. PSYCH: Appropriate mood and affect. Results Procedures completed during hospitalization: 06/26/18: Left hip hemiarthroplasty - Impressions ITS Impressions Hip X-Ray 06/26/18 04:00 CONCLUSION: 1. Left femoral neck fracture. Discharge Plan - Discharge Disposition Patient Disposition: Discharge to SNF - Discharge Condition Condition: Stable - Discharge Order Discharge Orders: Discharge Order (Routine); Ordered 06/28/18 Ordered By: Tiara Dutta Orthopedic Clear for Discharge (Routine); Ordered 06/28/18 Ordered By: José Miguel Pettit - Discharge Details Anticipated Discharge Date: 06/28/18 - Physicians Team Primary Care Provider: Hilario Martins Attending Provider: Tiara Dutta Other Providers: Stephon Barragan MD ; [facility] ; [employer]
[2018-06-28 09:54] LABS: Hematocrit 35.9 % (39.0-51.0); Hemoglobin 12.1 gm/dL (13.0-17.0); Mean Corpuscular HGB Conc 33.8 % (32.0-36.0); Mean Corpuscular Hemoglobin 33.7 pg (27.0-34.0); Mean Corpuscular Volume 99.8 fL (80.0-100.0); Mean Platelet Volume 10.5 fL (7.0-11.0); Platelet Count 148 th/mm3 (150-450); Red Cell Distribution Width 13.4 % (11.6-17.2); White Blood Count 15.5 th/mm3 (4.0-11.0)
[2018-06-28 10:17] LABS: Calcium 9.2 mg/dL (8.5-10.1); Carbon Dioxide 26.8 meq/L (21.0-32.0); Potassium 3.9 meq/L (3.5-5.1)
[2018-06-28] MEDS: Sod Chloride 0.9% Inj 1,000 ML IV.CONT SCH ×4 (10:39→18:20)
[2018-06-28 12:44] VITALS: RESP 18
--- NOTE | 2018-06-28 16:30 | ECHRPT ---
Indication: Atrial Fib and Flutter CONCLUSIONS The left ventricular systolic function is normal with an estimated ejection fraction in the range of 55-60%. Normal left ventricular size and wall thickness. No regional wall abnormalities. Grade 1 Diastolic Dysfunction. No significant Valvular Heart Disease.. The estimated pulmonary arterial pressure is 41 mmHg. Echolucency likely represents epicardial fat pad rather than a pericardial effusion. However, a tiny insignificant pericardial effusion can not be ruled out completely. No prior echo for comparison. BP: / HR: 72 Rhythm: Afib MEASUREMENTS (Male / Female) Normal Values Technical Quality:Technically difficult study 2D ECHO LV Diastolic Diameter PLAX 5.1 cm 4.2 - 5.9 / 3.9 - 5.3 cm LV Systolic Diameter PLAX 3.6 cm IVS Diastolic Thickness 1.1 cm 0.6 - 1.0 / 0.6 - 0.9 cm LVPW Diastolic Thickness 1.1 cm 0.6 - 1.0 / 0.6 - 0.9 cm LV Relative Wall Thickness 0.4 RV Internal Dim ED PLAX 3.8 cm LVOT Diameter 2.2 cm Aortic Root Diameter 3.0 cm LA Systolic Diameter LX 3.9 cm 3.0 - 4.0 / 2.7 - 3.8 cm DOPPLER AV Peak Velocity 147.0 cm/s AV Peak Gradient 8.6 mmHg LVOT Peak Velocity 118.0 cm/s LVOT Peak Gradient 5.6 mmHg AV Area Cont Eq pk 3.1 cm Mitral E Point Velocity 80.0 cm/s Mitral A Point Velocity 101.0 cm/s Mitral E to A Ratio 0.8 LV E' Lateral Velocity 11.0 cm/s Mitral E to LV E' Lateral Ratio 7.3 LV E' Septal Velocity 11.9 cm/s Mitral E to LV E' Septal Ratio 6.7 TR Peak Velocity 277.0 cm/s TR Peak Gradient 30.7 mmHg Right Atrial Pressure 10.0 mmHg Pulmonary Artery Systolic Pressu 40.7 mmHg Right Ventricular Systolic Press 40.7 mmHg PV Peak Velocity 99.5 cm/s PV Peak Gradient 4.0 mmHg FINDINGS LEFT VENTRICLE Normal left ventricular size. Wall thickness is normal. The left ventricular systolic function is normal with an estimated ejection fraction in the range of 55-60%. Grade 1 Diastolic Dysfunction RIGHT VENTRICLE Normal right ventricular size and systolic function. LEFT ATRIUM The left atrial size is normal. RIGHT ATRIUM The right atrial size is normal. ATRIAL SEPTUM Normal atrial septal thickness without atrial level shunting by limited color doppler interrogation. AORTA The aortic root and proximal ascending aorta are normal in size on limited imaging. MITRAL VALVE Trace mitral valve regurgitation. AORTIC VALVE Trileaflet aortic valve. Trace aortic valve regurgitation. TRICUSPID VALVE There is trace tricuspid valve regurgitation. The estimated pulmonary arterial pressure is 41 mmHg. PULMONARY VALVE No pulmonary valve regurgitation or stenosis. VESSELS The inferior vena cava is normal in size. PERICARDIUM No pericardial effusion. OTHER FINDINGS Echolucency likely represents epicardial fat pad rather than a pericardial effusion. However, a tiny insignificant pericardial effusion can not be ruled out completely. Wing Wu MD (Electronically Signed) Final Date:28 June 2018 16:29
[2018-06-28] MEDS: amLODIPine 5 MG Tablet PO SCH (21:15)
[2018-06-29] MEDS: Sod Chloride 0.9% Inj 1,000 ML IV.CONT SCH ×4 (02:40→15:50)
--- NOTE | 2018-06-29 06:22 | P.PNOP ---
Subjective Interval history: POd 3 s/p right hip hemiarthroplasty doing well. pain controlled. out of bed with therapy and walker Physical Exam Vital signs: Vital Signs 06/28/18 08:00 06/28/18 12:00 06/28/18 16:00 Temperature 98.5 F 98.6 F 98.7 F Pulse Rate 88 67 66 Respiratory Rate 20 18 18 Blood Pressure 128/61 102/54 L 108/53 L Pulse Oximetry 93 L 96 94 L 06/28/18 20:00 06/28/18 20:18 06/29/18 00:00 Temperature 98.3 F 98.7 F Pulse Rate 70 63 73 Respiratory Rate 18 18 Blood Pressure 100/59 L 118/60 Pulse Oximetry 93 L 94 L 06/29/18 00:26 06/29/18 04:00 Temperature 98.6 F Pulse Rate 84 72 Respiratory Rate 18 Blood Pressure 110/62 Pulse Oximetry 94 L Intake & Output 06/28/18 06/28/18 06/29/18 06:59 18:59 06:59 Intake Total 1000 / 1000 600 / 600 Balance 1000 / 1000 600 / 600 Intake: IV 1000 / 1000 LR 1000 mL Inj 1,000 ML @ 50 1000 / 1000 mls/hr IV.CONT .Q20H ANTHONY Rx#: [id number] Oral 600 / 600 Other: # Voids 3 3 Date of Last Bowel Movement 06/25/18 06/25/18 # Bowel Movements 1 Narrative: RLE: dressing clean and dry. intact. NVI. +CKS Results - Labs CBC & Chem 7: 06/28/18 07:53 06/28/18 07:53 Laboratory Results - last 24 hr 06/28/18 06/28/18 07:53 07:53 WBC 15.5 H RBC 3.60 L Hgb 12.1 L Hct 35.9 L MCV 99.8 MCH 33.7 MCHC 33.8 RDW 13.4 Plt Count 148 L MPV 10.5 Sodium 141 Potassium 3.9 Chloride 105 Carbon Dioxide 26.8 Anion Gap 9 BUN 27 H Creatinine 0.86 Estimated GFR 86 L Random Glucose 94 Calcium 9.2 - Procedures 06/26/18: Left hip hemiarthroplasty Assessment and Plan - Assessment and Plan Left hip hemiarthroplasty POD 3 Physical therapy weightbearing as tolerated with posterior hip precautions Knee immobilizer while in bed Maintain dressing for 6 days then remove dressing and replacement Primapore. Beginning 07/07/2018 begin adding Xeroform over incision as well as Primapore. Incentive spirometry Lovenox Case management for rehab placement - ortho cleared DC today to rehab Follow-up appointment with Dr. Fernandez or PA in 2 weeks
[2018-06-29] MEDS: Lisinopril 20 MG Tablet PO SCH (08:08)
[2018-06-29] MEDS: Calcium/Vitamin D 250/125 MG Tablet PO SCH ×2 (08:08→12:22)
[2018-06-29] MEDS: Enoxaparin Inj 40 MG/0.4 ML Syringe SQ SCH (08:08)
[2018-06-29] MEDS: Senna/Docusate Sodium 8.6/50 MG Tablet PO SCH (08:08)
[2018-06-29 10:03] VITALS: O2SAT 96
--- NOTE | 2018-06-29 10:28 | P.PNIM ---
Subjective Interval history: POD3 s/p R hip hemiarthroplasty. D/C order placed yesterday but awaiting bed at SNF. Pt denies complaints. Pain is controlled. No CP, SOB, abdominal pain, N/V. Tolerating PO. Had a BM yesterday. Physical Exam Vital signs: Vital Signs 06/28/18 12:00 06/28/18 16:00 06/28/18 20:00 Temperature 98.6 F 98.7 F 98.3 F Pulse Rate 67 66 70 Respiratory Rate 18 18 18 Blood Pressure 102/54 L 108/53 L 100/59 L Pulse Oximetry 96 94 L 93 L 06/28/18 20:18 06/29/18 00:00 06/29/18 00:26 Temperature 98.7 F Pulse Rate 63 73 84 Respiratory Rate 18 Blood Pressure 118/60 Pulse Oximetry 94 L 06/29/18 04:00 06/29/18 08:00 Temperature 98.6 F 98.2 F Pulse Rate 72 78 Respiratory Rate 18 18 Blood Pressure 110/62 125/61 Pulse Oximetry 94 L 96 Intake & Output 06/28/18 06/29/18 06/29/18 18:59 06:59 18:59 Intake Total 600 / 600 Balance 600 / 600 Intake: Oral 600 / 600 Other: # Voids 3 3 Date of Last Bowel Movement 06/25/18 06/29/18 # Bowel Movements 1 Narrative: GENERAL: WN, WD male resting in bed in [facility]. SKIN: Warm and dry. HEENT: AT/NC. Pinpoint pupils bilaterally. MMM. HEART: RRR no m/r/g. LUNGS: CTAB without wheezes or crackles. ABDOMEN: +BS, soft, NT, ND. EXTREMITIES: RLE with dressing over hip, C/D/I. No LE edema. Neurovascular intact. NEURO: Awake and alert. Results - Labs CBC & Chem 7: 06/28/18 07:53 06/28/18 07:53 - Procedures 06/26/18: Left hip hemiarthroplasty Assessment and Plan - Assessment (1) Left displaced femoral neck fracture Code(s): S72.002A - Fracture of unspecified part of neck of left femur, initial encounter for closed fracture Status: Acute - Plan 78-year-old male with a history of AAA status post repair and hypertension admitted on for left hip fracture. 1. Left femoral neck fracture Orthopedic surgery consulted POD3 s/p L hip hemiarthroplasty Doing well postoperatively Reccs per ortho: * PT weightbearing as tolerated with posterior hip precautions * Knee immobilizer while in bed * Maintain dressing for 6 days then remove dressing and replacement Primapore. Beginning 07/07/2018 begin adding Xeroform over incision as well as Primapore Clear for discharge Case management assisting with SNF placement Incentive spirometer 2. Hypertension BP is stable Amlodipine has been held for low BPs Continue lisinopril 3. Leukocytosis WBC 15.5 on 06/28 Patient remains afebrile and no clinical signs of infection Likely stress reaction due to fracture and recent surgery 4. DAVID Resolved Creatinine down to 0.86 from 1.50 on admission DVT prophylaxis: Lovenox in house, Xarelto on discharge Code Status: Full Discussed Condition With: Patient Discharge Planning: DC to rehab/SNF when bed placement available
[2018-06-29 13:36] VITALS: BP 153/60; PULSE 80; TEMP 98.1
== END 2018-06-29 17:04 ==
LOC: PHED 02:35 → PHEDA 04:58 → N06 07:10
PROVIDERS: ADMIT Family Medicine; ATTEND Family Medicine

== ENCOUNTER 2018-08-03 14:41 | Inpatient (IN) ==
--- NOTE | 2018-08-03 14:54 | ED ---
HPI General Chief complaint: Weakness Stated complaint: Evac/BP Time Seen by Provider: 08/03/18 14:47 Source: patient Mode of arrival: EMS Limitations: no limitations History of Present Illness HPI Narrative: Patient states that Dr. Fernandez performed a left hip surgery approximately 2 months ago. According to patient he has had a complaint of generalized weakness over the last 3-4 days. Today when he was seen by therapist/physical therapist he was advised to call 911 because he was so weak he could not stand on his own. patient denied n/v/d/fever/...occasional dry cough. Patient's primary care physician is Dr. Encarnacion. Past medical history significant for AAA repair, hernia repair, appendectomy, kidney stones, hypertension, BPH. Related Data Home Medications Medication Instructions Recorded Confirmed lisinopril 20 mg PO DAILY 05/03/18 08/04/18 alfuzosin 10 mg PO HS 08/04/18 08/04/18 finasteride 5 mg PO HS 08/04/18 08/04/18 Previous Rx's Medication Instructions Recorded hydrocodone-acetaminophen [[facility]] 1 tab PO Q4-6H PRN #40 tab 06/27/18 rivaroxaban [Xarelto] 10 mg PO DAILY #14 tab 06/27/18 Allergies Allergy/AdvReac Type Severity Reaction Status Date / Time Sulfa (Sulfonamide Allergy Intermediate Hives,SOB Verified 08/03/18 15:01 Antibiotics) [facility] Social History Social History Substance History: No History of Abuse Second Hand Smoke Exposure: No Smoking Status: Former smoker Tobacco Type: Cigarettes How Often Do You Have a Drink Containing Alcohol: 4 or more times a week Recent Travel in [facility] within the Last 8 Weeks: No Recent Out of Country Travel within the Last 8 Weeks: No Exam Narrative Exam Narrative: GENERAL: Elderly male in no apparent distress. However he was noted to be hypotensive initially with a systolic in the 90s SKIN: Warm and dry. Negative jaundice or icterus.. Fully well-healed surgical wound to left hip HEAD: Atraumatic. Normocephalic. EYES: Pupils equal and round. No scleral icterus. No injection or drainage. ENT: No nasal bleeding or discharge. Mucous membranes pink and moist. NECK: Trachea midline. No JVD. CARDIOVASCULAR: Regular rate and rhythm. no rubs or gallops RESPIRATORY: No accessory muscle use. Clear to auscultation. Breath sounds equal bilaterally. GASTROINTESTINAL: Abdomen soft, tenderness to percussion over right upper quadrant , nondistended. No rebound or guarding... Patient arrived with in dwelling cath from home MUSCULOSKELETAL: Extremities without clubbing, cyanosis, or edema. No obvious deformities. NEUROLOGICAL: Awake and alert. No obvious cranial nerve deficits. Motor grossly within normal limits. Five out of 5 muscle strength in the arms and legs. Normal speech. PSYCHIATRIC: Appropriate mood and affect; insight and judgment normal. Course Initial Documented Vital Signs Temperature 97.7 F 08/03/18 14:53 Pulse Rate 82 08/03/18 14:53 Respiratory Rate 16 08/03/18 14:53 Blood Pressure 101/62 08/03/18 14:53 Pulse Oximetry 95 08/03/18 14:53 Last Documented Vital Signs Temperature 98.8 F 08/05/18 08:27 Pulse Rate 76 08/05/18 09:00 Respiratory Rate 24 08/05/18 04:00 Blood Pressure 135/66 08/05/18 04:00 Pulse Oximetry 95 08/05/18 08:00 Critical Care Time Critical Care Time: Yes Total Critical Care Time: 45 Attestation: Aggregate critical care time was 45 minutes. Time to perform other separately billable procedures was not included in the critical care time. My time did not include minutes spent treating any other patients simultaneously or on activities that did not directly contribute to the patient's treatment. The services I provided to this patient were to treat and/or prevent clinically significant deterioration I provided critical care services requiring my management, as noted below: Chart data review, documentation time, medication orders and management, vital sign assessments/reviewing monitor data, ordering and reviewing lab tests, ordering and interpreting/reviewing x-rays and diagnostic studies, care of the patient and discussion of the patient with the admitting physicians. Medical Decision Making MDM Narrative Medical decision making narrative: Leukocytosis with left shift of 82% 15,000 WBC, no anemia and normal platelet count Prerenal azotemia with a BUN of 59 over a creatinine of 1.4, and decreased GFR of 49. 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 As soon as the patient's LFTs were noted to be elevated and his leukocytosis present the patient was provided with Zosyn and Flagyl IV, patient was given 1 L normal saline bolus, and another 1 L repeated in 500 cc bolus aliquots. Case discussed fully with medical team for admission and further evaluation. Medical Screen Exam Complete: Yes Emergency Medical Condition: Yes Lab Data Lab results reviewed: Yes I reviewed the patient's lab results. Result diagrams: 08/04/18 04:25 08/05/18 04:25 Lab Results 08/03/18 08/03/18 08/03/18 Range/Units 15:22 16:05 16:05 CBC w Diff Auto diff final WBC 15.0 H (4.0-11.0) th/mm3 RBC 4.18 L (4.50-5.90) mil/mm3 Hgb 13.3 (13.0-17.0) gm/dL Hct 39.8 (39.0-51.0) % MCV 95.2 (80.0-100.0) fL MCH 31.9 (27.0-34.0) pg MCHC 33.5 (32.0-36.0) % RDW 13.8 (11.6-17.2) % Plt Count 165 D (150-450) th/mm3 MPV 9.5 (7.0-11.0) fL Neut % (Auto) 81.7 H (16.0-70.0) % Lymph % (Auto) 12.0 (9.0-44.0) % [place] % (Auto) 5.5 (0.0-8.0) % Eos % (Auto) 0.3 (0.0-4.0) % Baso % (Auto) 0.5 (0.0-2.0) % Neut # (Auto) 12.3 H (1.8-7.7) th/mm3 Lymph # (Auto) 1.8 (1.0-4.8) th/mm3 [place] # (Auto) 0.8 (0.0-0.9) th/mm3 Eos # (Auto) 0.0 (0.0-0.4) th/mm3 Baso # (Auto) 0.1 (0.0-0.2) th/mm3 WBC Differential . Differential Comment . Sodium 145 (136-145) meq/L Potassium 3.9 (3.5-5.1) meq/L Chloride 109 H (98-107) meq/L Carbon Dioxide 21.3 (21.0-32.0) meq/L Anion Gap 15 (5-15) meq/L BUN 59 H (7-18) mg/dL Creatinine 1.40 H (0.60-1.30) mg/dL Estimated GFR 49 L (>89) mL/min POC Glucose 88 (68-110) mg/dl Random Glucose 88 (74-106) mg/dL Lactic Acid (0.4-2.0) mmol/L Calcium 8.9 (8.5-10.1) mg/dL Total Bilirubin 1.2 H (0.2-1.0) mg/dL Direct Bilirubin (0.0-0.2) mg/dL Indirect Bilirubin (0.0-0.8) mg/dL AST 253 H (15-37) U/L ALT 104 H (12-78) U/L Alkaline Phosphatase 287 H (45-117) U/L Total Creatine Kinase 474 H (39-308) U/L CK-MB (CK-2) 37.1 H (0.5-3.6) ng/mL CK-MB (CK-2) % 7.8 H* (0.0-4.0) % Troponin I Less than 0.02 L (0.02-0.05) ng/mL Total Protein 6.3 L (6.4-8.2) g/dL Albumin 2.5 L (3.4-5.0) g/dL Ur Collection Type Urine Color (Yellw/Straw) Urine Clarity (Clear) Urine pH (5.0-8.5) Ur Specific Williams (1.002-1.035) Urine Protein (Neg-Trace) mg/dL Urine Glucose (UA) (Negative) mg/dL Urine Ketones (Negative) mg/dL Urine Occult Blood (Negative) Urine Nitrate (Negative) Urine Bilirubin (Negative) Urine Urobilinogen (Less than 2) mg/dL Ur Leukocyte Esterase (Negative) Urine RBC (0-3) /hpf Urine WBC (0-5) /hpf Urine WBC Clumps (None) Ur Renal Epithelial Cell (None) /hpf Urine Bacteria (None) /hpf Micro UA Comment Ur Microscopic Review Urine Culture Comments Nasal Screen MRSA (PCR) Acetaminophen (10.0-30.0) mcg/mL Hepatitis A IgM Ab (Nonreactive) Hep Bs Antigen (Nonreactive) Hep B Core IgM Ab (Nonreactive) Hep C IgG Ab (Nonreactive) 08/03/18 08/03/18 08/03/18 Range/Units 16:05 16:55 18:55 CBC w Diff WBC (4.0-11.0) th/mm3 RBC (4.50-5.90) mil/mm3 Hgb (13.0-17.0) gm/dL Hct (39.0-51.0) % MCV (80.0-100.0) fL MCH (27.0-34.0) pg MCHC (32.0-36.0) % RDW (11.6-17.2) % Plt Count (150-450) th/mm3 MPV (7.0-11.0) fL Neut % (Auto) (16.0-70.0) % Lymph % (Auto) (9.0-44.0) % [place] % (Auto) (0.0-8.0) % Eos % (Auto) (0.0-4.0) % Baso % (Auto) (0.0-2.0) % Neut # (Auto) (1.8-7.7) th/mm3 Lymph # (Auto) (1.0-4.8) th/mm3 [place] # (Auto) (0.0-0.9) th/mm3 Eos # (Auto) (0.0-0.4) th/mm3 Baso # (Auto) (0.0-0.2) th/mm3 WBC Differential Differential Comment Sodium (136-145) meq/L Potassium (3.5-5.1) meq/L Chloride (98-107) meq/L Carbon Dioxide (21.0-32.0) meq/L Anion Gap (5-15) meq/L BUN (7-18) mg/dL Creatinine (0.60-1.30) mg/dL Estimated GFR (>89) mL/min POC Glucose (68-110) mg/dl Random Glucose (74-106) mg/dL Lactic Acid 2.5 H 2.0 (0.4-2.0) mmol/L Calcium (8.5-10.1) mg/dL Total Bilirubin (0.2-1.0) mg/dL Direct Bilirubin (0.0-0.2) mg/dL Indirect Bilirubin (0.0-0.8) mg/dL AST (15-37) U/L ALT (12-78) U/L Alkaline Phosphatase (45-117) U/L Total Creatine Kinase (39-308) U/L CK-MB (CK-2) (0.5-3.6) ng/mL CK-MB (CK-2) % (0.0-4.0) % Troponin I (0.02-0.05) ng/mL Total Protein (6.4-8.2) g/dL Albumin (3.4-5.0) g/dL Ur Collection Type Cath Urine Color Yellow (Yellw/Straw) Urine Clarity Cloudy H (Clear) Urine pH 7.5 (5.0-8.5) Ur Specific Williams 1.020 (1.002-1.035) Urine Protein 100 H (Neg-Trace) mg/dL Urine Glucose (UA) Negative (Negative) mg/dL Urine Ketones Negative (Negative) mg/dL Urine Occult Blood Moderate H (Negative) Urine Nitrate Negative (Negative) Urine Bilirubin Small H (Negative) Urine Urobilinogen 1.0 (Less than 2) mg/dL Ur Leukocyte Esterase Moderate H (Negative) Urine RBC 15-50 H (0-3) /hpf Urine WBC Innumerable H (0-5) /hpf Urine WBC Clumps Many H (None) Ur Renal Epithelial Cell 1-5 H (None) /hpf Urine Bacteria Many H (None) /hpf Micro UA Comment Cath-culture ind Ur Microscopic Review Microscopic reviewed Urine Culture Comments Cath-cult indicated Nasal Screen MRSA (PCR) Acetaminophen (10.0-30.0) mcg/mL Hepatitis A IgM Ab (Nonreactive) Hep Bs Antigen (Nonreactive) Hep B Core IgM Ab (Nonreactive) Hep C IgG Ab (Nonreactive) 08/03/18 08/03/18 08/04/18 Range/Units 18:55 23:53 04:25 CBC w Diff Auto diff final WBC 13.0 H (4.0-11.0) th/mm3 RBC 3.96 L (4.50-5.90) mil/mm3 Hgb 12.5 L (13.0-17.0) gm/dL Hct 38.3 L (39.0-51.0) % MCV 96.8 (80.0-100.0) fL MCH 31.6 (27.0-34.0) pg MCHC 32.6 (32.0-36.0) % RDW 14.2 (11.6-17.2) % Plt Count 153 (150-450) th/mm3 MPV 9.8 (7.0-11.0) fL Neut % (Auto) 82.1 H (16.0-70.0) % Lymph % (Auto) 11.4 (9.0-44.0) % [place]ague % (Auto) 6.0 (0.0-8.0) % Eos % (Auto) 0.4 (0.0-4.0) % Baso % (Auto) 0.1 (0.0-2.0) % Neut # (Auto) 10.6 H (1.8-7.7) th/mm3 Lymph # (Auto) 1.5 (1.0-4.8) th/mm3 [place] # (Auto) 0.8 (0.0-0.9) th/mm3 Eos # (Auto) 0.1 (0.0-0.4) th/mm3 Baso # (Auto) 0.0 (0.0-0.2) th/mm3 WBC Differential . Differential Comment . Sodium (136-145) meq/L Potassium (3.5-5.1) meq/L Chloride (98-107) meq/L Carbon Dioxide (21.0-32.0) meq/L Anion Gap (5-15) meq/L BUN (7-18) mg/dL Creatinine (0.60-1.30) mg/dL Estimated GFR (>89) mL/min POC Glucose (68-110) mg/dl Random Glucose (74-106) mg/dL Lactic Acid (0.4-2.0) mmol/L Calcium (8.5-10.1) mg/dL Total Bilirubin (0.2-1.0) mg/dL Direct Bilirubin (0.0-0.2) mg/dL Indirect Bilirubin (0.0-0.8) mg/dL AST (15-37) U/L ALT (12-78) U/L Alkaline Phosphatase (45-117) U/L Total Creatine Kinase (39-308) U/L CK-MB (CK-2) (0.5-3.6) ng/mL CK-MB (CK-2) % (0.0-4.0) % Troponin I (0.02-0.05) ng/mL Total Protein (6.4-8.2) g/dL Albumin (3.4-5.0) g/dL Ur Collection Type Urine Color (Yellw/Straw) Urine Clarity (Clear) Urine pH (5.0-8.5) Ur Specific Williams (1.002-1.035) Urine Protein (Neg-Trace) mg/dL Urine Glucose (UA) (Negative) mg/dL Urine Ketones (Negative) mg/dL Urine Occult Blood (Negative) Urine Nitrate (Negative) Urine Bilirubin (Negative) Urine Urobilinogen (Less than 2) mg/dL Ur Leukocyte Esterase (Negative) Urine RBC (0-3) /hpf Urine WBC (0-5) /hpf Urine WBC Clumps (None) Ur Renal Epithelial Cell (None) /hpf Urine Bacteria (None) /hpf Micro UA Comment Ur Microscopic Review Urine Culture Comments Nasal Screen MRSA (PCR) Cancelled Acetaminophen (10.0-30.0) mcg/mL Hepatitis A IgM Ab Nonreactive (Nonreactive) Hep Bs Antigen Nonreactive (Nonreactive) Hep B Core IgM Ab Nonreactive (Nonreactive) Hep C IgG Ab Nonreactive (Nonreactive) 08/04/18 08/04/18 08/04/18 Range/Units 04:25 04:25 04:25 CBC w Diff WBC (4.0-11.0) th/mm3 RBC (4.50-5.90) mil/mm3 Hgb (13.0-17.0) gm/dL Hct (39.0-51.0) % MCV (80.0-100.0) fL MCH (27.0-34.0) pg MCHC (32.0-36.0) % RDW (11.6-17.2) % Plt Count (150-450) th/mm3 MPV (7.0-11.0) fL Neut % (Auto) (16.0-70.0) % Lymph % (Auto) (9.0-44.0) % [place] % (Auto) (0.0-8.0) % Eos % (Auto) (0.0-4.0) % Baso % (Auto) (0.0-2.0) % Neut # (Auto) (1.8-7.7) th/mm3 Lymph # (Auto) (1.0-4.8) th/mm3 [place] # (Auto) (0.0-0.9) th/mm3 Eos # (Auto) (0.0-0.4) th/mm3 Baso # (Auto) (0.0-0.2) th/mm3 WBC Differential Differential Comment Sodium 150 H (136-145) meq/L Potassium 4.8 D (3.5-5.1) meq/L Chloride 114 H (98-107) meq/L Carbon Dioxide 23.0 (21.0-32.0) meq/L Anion Gap 13 (5-15) meq/L BUN 56 H (7-18) mg/dL Creatinine 1.40 H (0.60-1.30) mg/dL Estimated GFR 49 L (>89) mL/min POC Glucose (68-110) mg/dl Random Glucose 80 (74-106) mg/dL Lactic Acid 1.9 (0.4-2.0) mmol/L Calcium 8.4 L (8.5-10.1) mg/dL Total Bilirubin 1.2 H (0.2-1.0) mg/dL Direct Bilirubin (0.0-0.2) mg/dL Indirect Bilirubin (0.0-0.8) mg/dL AST 237 H (15-37) U/L ALT 93 H (12-78) U/L Alkaline Phosphatase 277 H (45-117) U/L Total Creatine Kinase 477 H (39-308) U/L CK-MB (CK-2) 36.3 H (0.5-3.6) ng/mL CK-MB (CK-2) % 7.6 H* (0.0-4.0) % Troponin I Less than 0.02 L (0.02-0.05) ng/mL Total Protein 5.8 L (6.4-8.2) g/dL Albumin 2.3 L (3.4-5.0) g/dL Ur Collection Type Urine Color (Yellw/Straw) Urine Clarity (Clear) Urine pH (5.0-8.5) Ur Specific Williams (1.002-1.035) Urine Protein (Neg-Trace) mg/dL Urine Glucose (UA) (Negative) mg/dL Urine Ketones (Negative) mg/dL Urine Occult Blood (Negative) Urine Nitrate (Negative) Urine Bilirubin (Negative) Urine Urobilinogen (Less than 2) mg/dL Ur Leukocyte Esterase (Negative) Urine RBC (0-3) /hpf Urine WBC (0-5) /hpf Urine WBC Clumps (None) Ur Renal Epithelial Cell (None) /hpf Urine Bacteria (None) /hpf Micro UA Comment Ur Microscopic Review Urine Culture Comments Nasal Screen MRSA (PCR) Acetaminophen (10.0-30.0) mcg/mL Hepatitis A IgM Ab (Nonreactive) Hep Bs Antigen (Nonreactive) Hep B Core IgM Ab (Nonreactive) Hep C IgG Ab (Nonreactive) 08/04/18 08/04/18 08/05/18 Range/Units 04:25 15:00 04:25 CBC w Diff WBC (4.0-11.0) th/mm3 RBC (4.50-5.90) mil/mm3 Hgb (13.0-17.0) gm/dL Hct (39.0-51.0) % MCV (80.0-100.0) fL MCH (27.0-34.0) pg MCHC (32.0-36.0) % RDW (11.6-17.2) % Plt Count (150-450) th/mm3 MPV (7.0-11.0) fL Neut % (Auto) (16.0-70.0) % Lymph % (Auto) (9.0-44.0) % [place] % (Auto) (0.0-8.0) % Eos % (Auto) (0.0-4.0) % Baso % (Auto) (0.0-2.0) % Neut # (Auto) (1.8-7.7) th/mm3 Lymph # (Auto) (1.0-4.8) th/mm3 [place] # (Auto) (0.0-0.9) th/mm3 Eos # (Auto) (0.0-0.4) th/mm3 Baso # (Auto) (0.0-0.2) th/mm3 WBC Differential Differential Comment Sodium 153 H (136-145) meq/L Potassium 3.5 D (3.5-5.1) meq/L Chloride 119 H (98-107) meq/L Carbon Dioxide 19.7 L (21.0-32.0) meq/L Anion Gap 14 (5-15) meq/L BUN 51 H (7-18) mg/dL Creatinine 1.30 (0.60-1.30) mg/dL Estimated GFR 54 L (>89) mL/min POC Glucose (68-110) mg/dl Random Glucose 89 (74-106) mg/dL Lactic Acid (0.4-2.0) mmol/L Calcium 8.1 L (8.5-10.1) mg/dL Total Bilirubin 1.1 H (0.2-1.0) mg/dL Direct Bilirubin 0.5 H (0.0-0.2) mg/dL Indirect Bilirubin 0.6 (0.0-0.8) mg/dL AST 232 H (15-37) U/L ALT 81 H (12-78) U/L Alkaline Phosphatase 260 H (45-117) U/L Total Creatine Kinase (39-308) U/L CK-MB (CK-2) (0.5-3.6) ng/mL CK-MB (CK-2) % (0.0-4.0) % Troponin I (0.02-0.05) ng/mL Total Protein 5.4 L (6.4-8.2) g/dL Albumin 2.1 L (3.4-5.0) g/dL Ur Collection Type Urine Color (Yellw/Straw) Urine Clarity (Clear) Urine pH (5.0-8.5) Ur Specific Williams (1.002-1.035) Urine Protein (Neg-Trace) mg/dL Urine Glucose (UA) (Negative) mg/dL Urine Ketones (Negative) mg/dL Urine Occult Blood (Negative) Urine Nitrate (Negative) Urine Bilirubin (Negative) Urine Urobilinogen (Less than 2) mg/dL Ur Leukocyte Esterase (Negative) Urine RBC (0-3) /hpf Urine WBC (0-5) /hpf Urine WBC Clumps (None) Ur Renal Epithelial Cell (None) /hpf Urine Bacteria (None) /hpf Micro UA Comment Ur Microscopic Review Urine Culture Comments Nasal Screen MRSA (PCR) Not detected Acetaminophen Less than 2.0 L (10.0-30.0) mcg/mL Hepatitis A IgM Ab (Nonreactive) Hep Bs Antigen (Nonreactive) Hep B Core IgM Ab (Nonreactive) Hep C IgG Ab (Nonreactive) 08/05/18 Range/Units 08:15 CBC w Diff WBC (4.0-11.0) th/mm3 RBC (4.50-5.90) mil/mm3 Hgb (13.0-17.0) gm/dL Hct (39.0-51.0) % MCV (80.0-100.0) fL MCH (27.0-34.0) pg MCHC (32.0-36.0) % RDW (11.6-17.2) % Plt Count (150-450) th/mm3 MPV (7.0-11.0) fL Neut % (Auto) (16.0-70.0) % Lymph % (Auto) (9.0-44.0) % [place] % (Auto) (0.0-8.0) % Eos % (Auto) (0.0-4.0) % Baso % (Auto) (0.0-2.0) % Neut # (Auto) (1.8-7.7) th/mm3 Lymph # (Auto) (1.0-4.8) th/mm3 [place] # (Auto) (0.0-0.9) th/mm3 Eos # (Auto) (0.0-0.4) th/mm3 Baso # (Auto) (0.0-0.2) th/mm3 WBC Differential Differential Comment Sodium (136-145) meq/L Potassium (3.5-5.1) meq/L Chloride (98-107) meq/L Carbon Dioxide (21.0-32.0) meq/L Anion Gap (5-15) meq/L BUN (7-18) mg/dL Creatinine (0.60-1.30) mg/dL Estimated GFR (>89) mL/min POC Glucose (68-110) mg/dl Random Glucose (74-106) mg/dL Lactic Acid (0.4-2.0) mmol/L Calcium (8.5-10.1) mg/dL Total Bilirubin (0.2-1.0) mg/dL Direct Bilirubin (0.0-0.2) mg/dL Indirect Bilirubin (0.0-0.8) mg/dL AST (15-37) U/L ALT (12-78) U/L Alkaline Phosphatase (45-117) U/L Total Creatine Kinase 469 H (39-308) U/L CK-MB (CK-2) 34.7 H (0.5-3.6) ng/mL CK-MB (CK-2) % 7.4 H* (0.0-4.0) % Troponin I (0.02-0.05) ng/mL Total Protein (6.4-8.2) g/dL Albumin (3.4-5.0) g/dL Ur Collection Type Urine Color (Yellw/Straw) Urine Clarity (Clear) Urine pH (5.0-8.5) Ur Specific Williams (1.002-1.035) Urine Protein (Neg-Trace) mg/dL Urine Glucose (UA) (Negative) mg/dL Urine Ketones (Negative) mg/dL Urine Occult Blood (Negative) Urine Nitrate (Negative) Urine Bilirubin (Negative) Urine Urobilinogen (Less than 2) mg/dL Ur Leukocyte Esterase (Negative) Urine RBC (0-3) /hpf Urine WBC (0-5) /hpf Urine WBC Clumps (None) Ur Renal Epithelial Cell (None) /hpf Urine Bacteria (None) /hpf Micro UA Comment Ur Microscopic Review Urine Culture Comments Nasal Screen MRSA (PCR) Acetaminophen (10.0-30.0) mcg/mL Hepatitis A IgM Ab (Nonreactive) Hep Bs Antigen (Nonreactive) Hep B Core IgM Ab (Nonreactive) Hep C IgG Ab (Nonreactive) Imaging Data Attestation: I personally reviewed and interpreted this imaging study as follows : Radiologist's impression: Chest X-Ray 08/03/18 14:47 CONCLUSION: No acute cardiopulmonary disease. Head CT 08/03/18 14:47 CONCLUSION: 1. 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 2. Nothing acute. Chest CTA 08/03/18 14:48 CONCLUSION: 1. Minimal pleural-parenchymal scarring or atelectasis in the right upper lobe. Lungs are otherwise clear. 2. No pulmonary embolus. 3. Atherosclerotic calcification of the coronary arteries. 4. Probable hepatic cysts in the left hepatic lobe. Ultrasound could be performed for confirmation if clinically warranted. Liver Ultrasound 08/03/18 16:43 CONCLUSION: 1. Hepatic and renal cysts. 2. Findings suggesting cirrhosis. 3. Small volume ascites. 4. Sonographic findings suggesting underlying medical renal disease. Abdomen/Pelvis CT 08/04/18 00:00 CONCLUSION: 1. The liver is enlarged and heterogeneous characteristic of hepatocellular disease such as cirrhosis. Several stable hepatic cysts are again demonstrated. No dilated biliary ducts. There is a trace of ascites adjacent to the liver. 2. 1.1 cm stone in the left renal pelvis without causing significant hydronephrosis. There is residual iodinated contrast in both kidneys which obscures visualization of small nonobstructing renal calculi. There are bilateral stable renal cysts. 3. No significant change in the aneurysmal sac compared to the prior study. 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 4. Scattered diverticulosis of the sigmoid colon without inflammatory changes. 5. Aggarwal catheter positioned within a right-sided bladder diverticulum. Recommend check urine output. If there is a discrepancy with regards to urine output, may consider repositioning the Aggarwal catheter. Bile Acid Absorption NM 08/05/18 00:00 CONCLUSION: 1. Negative examination. 2. Normal gallbladder ejection fraction. Patient was asymptomatic during CCK demonstration. Videofluoroscopic Swallow 08/05/18 00:00 CONCLUSION: Recurrent penetration of the supraglottic larynx with thin barium and nectar thick barium with significant pooling in the paired valleculae and piriform sinuses with both substances. Abdomen X-Ray 08/05/18 06:00 CONCLUSION: 1. Bilateral renal calculi demonstrated on CT exam are noted on radiograph, as above. Discharge Plan Discharge Disposition Patient Disposition: 30 Still Patient Discharge Condition Condition: Fair Discharge Details Diagnosis: Dehydration, Abdominal pain, acute, right upper quadrant, Liver cell injury, UTI (urinary tract infection) due to urinary indwelling catheter Physicians Team ED Provider: Ortiz Sandhu Primary Care Provider: Hilario Encarnacion Attending Provider: Rowena Belle Other Providers: Kimberlee Hernandez ; Ben Wyatt ; Perez Guzman ; [employer] Status ED Status: Left Department Discharge Information Discharge Date/Time: 08/03/18 22:08
--- NOTE | 2018-08-03 15:52 | XR ---
EXAM DATE: 08/03/2018 2:47 PM EDT AGE/SEX: 78 years / Male INDICATIONS: Fever, weakness, and low blood pressure. CLINICAL DATA: This is the patient's initial encounter. Patient reports that signs and symptoms have been present for 2 days and indicates a pain score of 0/10. MEDICAL/SURGICAL HISTORY: None. Abdominal aortic aneurysm repair. COMPARISON: No prior exams available for comparison. FINDINGS: The lungs are clear without infiltrate, nodule, or mass. There is no appreciable pleural effusion fo r technique. Heart and mediastinum are unremarkable. CONCLUSION: No acute cardiopulmonary disease. Electronically signed by: Cory Montgomery MD 08/03/2018 3:50 PM EDT
[2018-08-03 16:16] LABS: Baso # (Auto) 0.1 th/mm3 (0.0-0.2); Baso % (Auto) 0.5 % (0.0-2.0); Eos % (Auto) 0.3 % (0.0-4.0); Hematocrit 39.8 % (39.0-51.0); Hemoglobin 13.3 gm/dL (13.0-17.0); Lymph # (Auto) 1.8 th/mm3 (1.0-4.8); Mean Corpuscular HGB Conc 33.5 % (32.0-36.0); Mean Corpuscular Hemoglobin 31.9 pg (27.0-34.0); Mean Corpuscular Volume 95.2 fL (80.0-100.0); Mean Platelet Volume 9.5 fL (7.0-11.0); Mono # (Auto) 0.8 th/mm3 (0.0-0.9); Mono % (Auto) 5.5 % (0.0-8.0); Neut # (Auto) 12.3 th/mm3 (1.8-7.7); Neut % (Auto) 81.7 % (16.0-70.0); Platelet Count 165 th/mm3 (150-450); Red Blood Count 4.18 mil/mm3 (4.50-5.90); Red Cell Distribution Width 13.8 % (11.6-17.2)
[2018-08-03 16:26] LABS: Chloride 109 meq/L (98-107); Potassium 3.9 meq/L (3.5-5.1); Sodium 145 meq/L (136-145)
[2018-08-03 16:29] LABS: Calcium 8.9 mg/dL (8.5-10.1)
[2018-08-03 16:30] LABS: Albumin 2.5 g/dL (3.4-5.0); Anion Gap 15 meq/L (5-15); Blood Urea Nitrogen 59 mg/dL (7-18); Carbon Dioxide 21.3 meq/L (21.0-32.0); Glucose,Random 88 mg/dL (74-106)
[2018-08-03 16:33] LABS: Alanine Aminotransferase 104 U/L (12-78); Aspartate Aminotransferase 253 U/L (15-37); Glomerular Filtration Rate 49 mL/min (>89)
[2018-08-03 16:35] LABS: Total Protein 6.3 g/dL (6.4-8.2)
[2018-08-03 16:36] LABS: Alkaline Phosphatase 287 U/L (45-117); Creatine Kinase 474 U/L (39-308)
[2018-08-03] MEDS ORDERED: Piperacil/Tazo 2.25 GM Premix 50 ML IV.SIG ONE (16:43)
[2018-08-03] MEDS ORDERED: Sod Chloride 0.9% Inj 1,000 ML IV.SIG ONE (16:44)
[2018-08-03 16:48] LABS: Creatine Kinase MB 37.1 ng/mL (0.5-3.6)
[2018-08-03 16:51] LABS: CKMB Percent 7.8 % (0.0-4.0)
[2018-08-03 16:56] LABS: Bilirubin,Urine Small (Negative); Clarity,Urine Cloudy (Clear); Color,Urine Yellow (Yellw/Straw); Glucose,Urine (UA) Negative (Negative); Leukocyte Esterase,Urine Moderate (Negative); Nitrite,Urine Negative (Negative); PH,Urine 7.5 (5.0-8.5)
[2018-08-03 17:01] LABS: Bacteria,Urine Many /hpf; WBC,Urine Innumerable /hpf (0-5)
[2018-08-03] MEDS ORDERED: Sodium Chlor 0.9% Inj 500 ML IV.SIG SCH ×2 (18:00→19:00)
--- NOTE | 2018-08-03 18:08 | CT ---
EXAM DATE: 08/03/2018 3:17 PM EDT AGE/SEX: 78 years / Male INDICATIONS: Generalized weakness, cough and shortness of breath. Recent hip surgery two months ago. CLINICAL DATA: This is the patient's initial encounter. Patient reports that signs and symptoms have been present for 3 days and indicates a pain score of 0/10. MEDICAL/SURGICAL HISTORY: Aneurysm, abdominal. Hypertension. Renal calculi. BPH. Abdominal aort ic aneurysm repair. Appendectomy. Hernia repair. Hip surgery. RADIATION DOSE: 63.71 CTDI (mGy) COMPARISON: [facility], CT BRAIN W/O CONTRAST, 05/23/2015. . TECHNIQUE: CT of the head without contrast. Using automated exposure control and adjustment of the mA and/or kV according to patient size, radiation dose was kept as low as reasonably achievable to ob tain optimal diagnostic quality images. DICOM format image data is available electronically for revi ew and comparison. FINDINGS: Cerebrum: The ventricles are normal for age. Symmetric, mild cortical atrophy. Old lacunar type inf arct in the right basal ganglia. No evidence of midline shift, mass lesion, hemorrhage or acute infar ction. No extraaxial fluid collections are seen. Posterior Fossa: The cerebellum and brainstem are intact. The 4th ventricle is midline. The cerebe llopontine angle is unremarkable. Extracranial: The visualized portion of the orbits is intact. Skull: The calvaria is intact. No evidence of skull fracture. CONCLUSION: 1. 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 2. Nothing acute. Electronically signed by: Juan Robles MD 08/03/2018 6:06 PM EDT
--- NOTE | 2018-08-03 18:12 | CT ---
EXAM DATE: 08/03/2018 3:17 PM EDT AGE/SEX: 78 years / Male INDICATIONS: Generalized weakness, cough and shortness of breath. Recent hip surgery two months ago. CLINICAL DATA: This is the patient's initial encounter. Patient reports that signs and symptoms have been present for 3 days and indicates a pain score of 0/10. MEDICAL/SURGICAL HISTORY: Aneurysm, abdominal. Hypertension. Renal calculi. Abdominal aortic aneu rysm repair. Hernia surgery. Hip surgery. RADIATION DOSE: 18.10 CTDI (mGy) COMPARISON: No prior exams available for comparison. TECHNIQUE: Volumetric scanning was performed using a multi-row detector CT scanner during bolus infu tawnya of 65 ml Omnipaque 350 (iohexol) nonionic water-soluble contrast as a single exam dose. The fanny a was post processed with a variety of visualization algorithms including full volume maximum intensi ty projection and sliding thin slab reformation. Using automated exposure control and adjustment of the mA and/or kV according to patient size, radiation dose was kept as low as reasonably achievable t o obtain optimal diagnostic quality images. DICOM format image data is available electronically for review and comparison. FINDINGS: Pulmonary Arteries: No filling defects are seen in the pulmonary arteries out to the subsegmental ve ssels. The left and right pulmonary arteries are normal in diameter. Lung: Pleural parenchymal scarring or atelectasis posteriorly in the right upper lung. Lungs are oth erwise clear.. Effusion: None. Mediastinum: No evidence of mediastinal or hilar adenopathy. Athetotic calcification of the coronary arteries.. Other: The axilla is unremarkable. Hypodense lesions in the left hepatic lobe are probably cysts. Th e largest measures 2.5 cm in diameter.. CONCLUSION: 1. Minimal pleural-parenchymal scarring or atelectasis in the right upper lobe. Lungs are otherwise clear. 2. No pulmonary embolus. 3. Atherosclerotic calcification of the coronary arteries. 4. Probable hepatic cysts in the left hepatic lobe. Ultrasound could be performed for confirmation i f clinically warranted. Electronically signed by: Juan Robles MD 08/03/2018 6:11 PM EDT
[2018-08-03] MEDS ORDERED: Morphine Inj 4 MG/ML Vial IV.PUSH PRN (18:30)
--- NOTE | 2018-08-03 19:41 | US ---
EXAM DATE: 08/03/2018 4:43 PM EDT AGE/SEX: 78 years / Male INDICATIONS: Elevated LFT's. Possible obstructive hepatitis. CLINICAL DATA: This is the patient's initial encounter. Patient reports that signs and symptoms have been present for 1 day and indicates a pain score of 3/10. MEDICAL/SURGICAL HISTORY: Aneurysm, abdominal. Hypertension. Renal calculi. BPH. Cataract. Hernia. Abdominal aortic aneurysm repair. Appendectomy. Left hip replacement. Right hernia repair . Left surgical manipulation of ankle joint. COMPARISON: POI, CT ABDOMEN AND PELVIS W/O CONTRAST, 03/22/2018 and September 04, 2010 . . MEASUREMENTS: Liver:__ 19.8 cm. Common Bile Duct:__ 3mm. Right Kidney:__ 11.1 x 5.0 x 5.0 cm. FINDINGS: Liver: A heterogeneous echotexture to the liver parenchyma with a lobulated contour. 2.9 cm anechoic focus with posterior acoustical enhancement involving the left lobe consistent with a cyst. A 2.4 cm rim calcified lesion involving the dome of the liver smaller from 2009. No solid mass. No ductal dila tation. Portal Vein: Hepatopedal flow seen in portal vein. Common Duct: No intraluminal mass or stone visualized. Gallbladder: Demonstrates no wall thickening or pericholecystic fluid. No stones visualized. Pancreas: Not well visualized. Right Kidney: Cortical thinning observed. No hydronephrosis. 17 mm anechoic focus involving the lowe r pole and 24 mm anechoic focus involving the lower pole. 7 mm anechoic focus involving the anterior midpole. No solid mass. Other: None. CONCLUSION: 1. Hepatic and renal cysts. 2. Findings suggesting cirrhosis. 3. Small volume ascites. 4. Sonographic findings suggesting underlying medical renal disease. Electronically signed by: Denilson Sharma MD 08/03/2018 7:39 PM EDT
[2018-08-03] MEDS: Sod Chloride 0.9% Inj 1,000 ML IV.CONT SCH (21:52)
[2018-08-03 22:44] LABS: Hepatitis A IgM Antibody Nonreactive (Nonreactive); Hepatitits B Surface Antigen Nonreactive (Nonreactive)
[2018-08-04] MEDS: Piperacil/Tazo 3.375 GM Premix 50 ML IV.SIG SCH ×4 (00:38→23:29)
[2018-08-04] MEDS ORDERED: Chlorhexidine Gluconate 2% 1 Pack (2 Cloths) TOPICAL PRN (04:00)
[2018-08-04] MEDS: Chlorhexidine Gluconate 2% 1 Pack (2 Cloths) TOPICAL SCH (04:50)
[2018-08-04 05:02] LABS: Baso % (Auto) 0.1 % (0.0-2.0); Eos # (Auto) 0.1 th/mm3 (0.0-0.4); Eos % (Auto) 0.4 % (0.0-4.0); Hematocrit 38.3 % (39.0-51.0); Hemoglobin 12.5 gm/dL (13.0-17.0); Lymph # (Auto) 1.5 th/mm3 (1.0-4.8); Lymph % (Auto) 11.4 % (9.0-44.0); Mean Corpuscular HGB Conc 32.6 % (32.0-36.0); Mean Corpuscular Hemoglobin 31.6 pg (27.0-34.0); Mean Corpuscular Volume 96.8 fL (80.0-100.0); Mean Platelet Volume 9.8 fL (7.0-11.0); Mono # (Auto) 0.8 th/mm3 (0.0-0.9); Neut # (Auto) 10.6 th/mm3 (1.8-7.7); Neut % (Auto) 82.1 % (16.0-70.0); Platelet Count 153 th/mm3 (150-450); Red Blood Count 3.96 mil/mm3 (4.50-5.90); Red Cell Distribution Width 14.2 % (11.6-17.2)
[2018-08-04 05:23] LABS: Alanine Aminotransferase 93 U/L (12-78); Albumin 2.3 g/dL (3.4-5.0); Alkaline Phosphatase 277 U/L (45-117); Anion Gap 13 meq/L (5-15); Aspartate Aminotransferase 237 U/L (15-37); Blood Urea Nitrogen 56 mg/dL (7-18); Calcium 8.4 mg/dL (8.5-10.1); Chloride 114 meq/L (98-107); Glomerular Filtration Rate 49 mL/min (>89); Glucose,Random 80 mg/dL (74-106); Potassium 4.8 meq/L (3.5-5.1); Sodium 150 meq/L (136-145); Total Protein 5.8 g/dL (6.4-8.2)
--- NOTE | 2018-08-04 06:57 | ECG ---
Date Performed: 08/03/2018 Time Performed: 15:20:47 PTAGE: 78 years EKG: ECTOPIC ATRIAL RHYTHM With PACs INDETERMINATE AXIS Nonspecific T wave changes ABNORMAL RHYT HM ECG No significant change from prior electrocardiogram. PREVIOUS TRACING : 06/26/2018 11.27 DOCTOR: Sarmad Ariza Interpretating Date/Time 08/04/2018 06:55:28
[2018-08-04] MEDS ORDERED: Diatrizoate Meglum/Diatrizoate Sod Liq 9 ML UDC PO ONE (07:13)
[2018-08-04 08:21] LABS: Creatine Kinase 477 U/L (39-308)
[2018-08-04 08:33] LABS: Creatine Kinase MB 36.3 ng/mL (0.5-3.6)
--- NOTE | 2018-08-04 09:02 | P.HP ---
History of Present Illness Primary Care Physician: Hilario Martins MD Chief Complaint: Profound weakness History of Present Illness: 78-year-old male with known history of hypertension, benign prostatic hypertrophy, indwelling Aggarwal catheter who presented to hospital because of profound weakness, decreased appetite. Patient was just recently admitted to hospital and underwent left hip hemiarthroplasty. Patient states that he went to rehab center for approximately 2 weeks and then was discharged home with home health care. Patient has been doing home health care for the last 2 weeks and over the last 5 days he has had significantly decreased appetite, difficulty in swallowing, he is not really ate anything in 5 days. He states that he has been drinking fluids. Apparently home health care did come by and evaluate the patient he was unable to ambulate so they brought him to the hospital for evaluation. Upon workup in the emergency department patient found to have multiple medical problems to include sepsis. Acute urinary tract infection. Patient states that he is going to Dr. Guzman for benign prostatic hypertrophy. He states that he was on Flomax in the past but it did not help. He was put on another medication but he does not know the name of it. He indicates that his Aggarwal was just changed 1 week ago. Workup also indicated acute liver injury which could be possible shock liver from sepsis/ rhabdomyolysis. Patient states that he has not drank any alcohol in over a month. Upon medical record review patient had normal liver functions approximately 1 month ago. Review of records do not indicate any medication that can cause acute liver injury. Patient admitted to ICU for continued monitoring and management. - Diagnosis (1) Sepsis (2) Elevated liver enzymes (3) Rhabdomyolysis (4) UTI (urinary tract infection) due to urinary indwelling catheter (5) Leukocytosis (6) Dysphagia Inpatient Certification: I certify that the inpatient services were ordered in accordance with Medicare regulations governing the order. This includes certification that hospital inpatient services are reasonable and necessary and in the case of services not specified as inpatient-only under 42 CFR 419.22(n), that they are appropriately provided as inpatient services in accordance to with the 2-midnight benchmark under 43 CFR 412.3(e) Estimated Total Length of Stay (Days): 2 Plans for Post Hospital Care: Home Review of Systems All other systems reviewed negative except as stated in HPI Gastrointestinal: Reports abdominal pain, Reports difficulty swallowing Neurologic: Reports unsteadiness, Reports weakness PMFSH - History History Provided By: Patient - Medical History Medical History: Medical History (Last Reviewed 08/04/18 @ 08:48 by SOREN Hdz) AAA (abdominal aortic aneurysm) BPH (benign prostatic hyperplasia) Cataract Hernia Hypertension Kidney stones Metal bone fixation hardware in place Prostate disorder - Surgical History Surgical History: Surgical History (Last Reviewed 08/04/18 @ 08:48 by SOREN Hdz) History of hip surgery History of AAA (abdominal aortic aneurysm) repair Hx of appendectomy Hx of hernia repair S/P surgical manipulation of ankle joint - Family History Family History: Family History (Last Reviewed 08/04/18 @ 08:48 by SOREN Hdz) Mother FHx: stomach cancer - Tobacco History Second Hand Smoke Exposure: No Tobacco Use In Past 30 Days: No Smoking Status: Former smoker Tobacco Type: Cigarettes - Alcohol History How Often Do You Have a Drink Containing Alcohol: 4 or more times a week - Substance Use History Substance History: No History of Abuse - Travel History Recent Travel in the [place] Within the Last 8 Weeks: No Recent Travel Out of the Country Within the Last 8 Weeks: No - Immunization History Tetanus Immunization: Unsure Hx Influenza Vaccine This Season: No Medications and Allergies Active Medications: Active Medications Chlorhexidine Gluconate (Chlorhexidine 2% Cloth) 3 pack TOPICAL DAILY@0400 ANTHONY Stop: 08/09/18 03:59 Last Admin: 08/04/18 04:50 Dose: 3 pack Chlorhexidine Gluconate (Chlorhexidine 2% Cloth) 3 pack TOPICAL DAILY@0400 PRN PRN Reason: Extra cloth needed Stop: 08/09/18 03:59 Sodium Chloride (Ns Inj) 500 mls @ 0 mls/hr IV.SIG BOLUS ANTHONY Last Infusion: 08/03/18 19:50 Dose: Infused Sodium Chloride (Ns Inj) 500 mls @ 0 mls/hr IV.SIG BOLUS ANTHONY Last Infusion: 08/03/18 19:50 Dose: Infused Sodium Chloride (Ns Inj) 1,000 mls @ 100 mls/hr IV.CONT .Q10H ANTHONY Last Admin: 08/03/18 21:52 Dose: 100 mls/hr Piperacillin/Tazobactam/Dextrose (Zosyn 3.375 Gm Premix) 50 mls @ 100 mls/hr IV.SIG Q8H ANTHONY Last Infusion: 08/04/18 01:08 Dose: Infused Lisinopril (Prinivil) 20 mg PO DAILY [facility] Morphine Sulfate (Morphine Inj) 2 mg IV.PUSH Q4H PRN PRN Reason: pain Ondansetron HCl (Zofran Inj) 4 mg IV.PUSH Q8H PRN PRN Reason: nausea Rivaroxaban (Xarelto) 10 mg PO DAILY [facility] Allergies Allergy/AdvReac Type Severity Reaction Status Date / Time Sulfa (Sulfonamide Allergy Intermediate Hives,SOB Verified 08/03/18 15:01 Antibiotics) Home Medications Medication Instructions Recorded Confirmed Type lisinopril 20 mg PO DAILY 05/03/18 08/04/18 History alfuzosin 10 mg PO HS 08/04/18 08/04/18 History finasteride 5 mg PO HS 08/04/18 08/04/18 History Exam Vital signs: Vital Signs 08/03/18 14:53 08/03/18 15:03 08/03/18 16:00 Temperature 97.7 F Pulse Rate 82 77 72 Respiratory Rate 16 16 Blood Pressure 101/62 101/72 Pulse Oximetry 95 96 08/03/18 16:24 08/03/18 17:33 08/03/18 18:57 Temperature Pulse Rate 84 82 Respiratory Rate 16 16 20 Blood Pressure 129/68 105/59 L 110/57 L Pulse Oximetry 96 94 L 08/03/18 19:00 08/03/18 20:00 08/03/18 21:23 Temperature Pulse Rate 88 98 H Respiratory Rate 27 H Blood Pressure 118/64 Pulse Oximetry 94 L 08/03/18 22:00 08/03/18 23:00 08/04/18 00:00 Temperature 98.1 F Pulse Rate 76 76 78 Respiratory Rate 17 31 H 29 H Blood Pressure 134/62 134/63 133/66 Pulse Oximetry 90 L 96 92 L 08/04/18 01:00 08/04/18 02:00 08/04/18 03:00 Temperature Pulse Rate 74 74 80 Respiratory Rate 15 15 33 H Blood Pressure 121/62 116/64 127/76 Pulse Oximetry 96 96 97 08/04/18 03:15 08/04/18 04:00 08/04/18 04:39 Temperature 97.3 F L Pulse Rate 74 Respiratory Rate 17 Blood Pressure 136/64 Pulse Oximetry 96 95 08/04/18 05:00 08/04/18 06:00 Temperature Pulse Rate 78 74 Respiratory Rate 25 H 18 Blood Pressure 125/65 127/61 Pulse Oximetry 94 L 95 Intake & Output 08/03/18 08/04/18 08/04/18 18:59 06:59 18:59 Intake Total 1050 / 1050 1150 / 1150 Output Total 450 / 450 Balance 1050 / 1050 700 / 700 Weight 88.5 kg 76.6 kg Intake: IV 1050 / 1050 1150 / 1150 Zosyn 2.25 GM Premix 50 ML @ 50 / 50 100 mls/hr IV.SIG ONCE ONE Rx#: [id number] Zosyn 3.375 GM Premix 50 ML @ 50 / 50 100 mls/hr IV.SIG Q8H ANTHONY Rx#: [id number] NS Inj 1,000 ML @ Wide Open IV. 1000 / 1000 SIG BOLUS ONE Rx#:[id number] NS Inj 500 ML @ Wide Open IV. 1000 / 1000 SIG BOLUS ANTHONY Rx#:[id number] Flagyl 500 MG Inj 100 ML @ 100 100 / 100 mls/hr IV.SIG ONCE ONE Rx#: [id number] Output: Urine Amount (Catheter) 450 / 450 Indwelling Urethral Catheter 450 / 450 Other: Weight On Admission 76.2 kg Narrative: GENERAL: Well-developed, well-nourished, in no acute distress. alert and orientated HEENT: Head is normocephalic without any lesions or masses noted. Facial features are symmetric. Eyes: Pupils equal round reactive to light. Extraocular muscles are intact. Conjunctivae were clear. Oropharyngeal: Pharynx without any erythema edema. Tongue is midline without deviation. Buccal mucosa is moist without any masses or lesions NECK: Supple without any masses. Trachea midline no deviation. No JVD, no bruits are appreciated CARDIAC: Regular rhythm, regular rate. S1/S2 are heard. No murmurs gallops or rubs. LUNGS: Clear to auscultation bilaterally. No wheeze, rhonchi or rales. No use of accessory muscles on inspiration or expiration. ABDOMEN: Soft, diffuse bilateral upper quadrant tenderness. Nondistended. Bowel sounds heard in all 4 quadrants. No organomegaly or masses. Negative rebound, negative guarding. Indwelling Aggarwal noted EXTREMITIES: No edema, pulses are equal bilaterally. No cyanosis or clubbing NEUROLOGY: Mood and affect appear appropriate. Cranial nerves II through XII grossly intact. Muscle strength 5/5 in upper and lower extremities bilaterally. Deep tendon reflexes are 2+ in upper and lower extremities bilaterally. Results - Labs CBC & Chem 7: 08/04/18 04:25 08/05/18 04:25 Labs: Laboratory Results - last 24 hr 08/03/18 08/03/18 08/03/18 15:22 16:05 16:05 CBC w Diff Auto diff final WBC 15.0 H RBC 4.18 L Hgb 13.3 Hct 39.8 MCV 95.2 MCH 31.9 MCHC 33.5 RDW 13.8 Plt Count 165 D MPV 9.5 Neut % (Auto) 81.7 H Lymph % (Auto) 12.0 Walton % (Auto) 5.5 Eos % (Auto) 0.3 Baso % (Auto) 0.5 Neut # (Auto) 12.3 H Lymph # (Auto) 1.8 Walton # (Auto) 0.8 Eos # (Auto) 0.0 Baso # (Auto) 0.1 WBC Differential . Differential Comment . Sodium 145 Potassium 3.9 Chloride 109 H Carbon Dioxide 21.3 Anion Gap 15 BUN 59 H Creatinine 1.40 H Estimated GFR 49 L POC Glucose 88 Random Glucose 88 Lactic Acid Calcium 8.9 Total Bilirubin 1.2 H AST 253 H ALT 104 H Alkaline Phosphatase 287 H Total Creatine Kinase 474 H CK-MB (CK-2) 37.1 H CK-MB (CK-2) % 7.8 H* Troponin I Less than 0.02 L Total Protein 6.3 L Albumin 2.5 L Ur Collection Type Urine Color Urine Clarity Urine pH Ur Specific [place] Urine Protein Urine Glucose (UA) Urine Ketones Urine Occult Blood Urine Nitrate Urine Bilirubin Urine Urobilinogen Ur Leukocyte Esterase Urine RBC Urine WBC Urine WBC Clumps Ur Renal Epithelial Cell Urine Bacteria Micro UA Comment Ur Microscopic Review Urine Culture Comments Nasal Screen MRSA (PCR) Acetaminophen Hepatitis A IgM Ab Hep Bs Antigen Hep B Core IgM Ab Hep C IgG Ab 08/03/18 08/03/18 08/03/18 16:05 16:55 18:55 CBC w Diff WBC RBC Hgb Hct MCV MCH MCHC RDW Plt Count MPV Neut % (Auto) Lymph % (Auto) Walton % (Auto) Eos % (Auto) Baso % (Auto) Neut # (Auto) Lymph # (Auto) Walton # (Auto) Eos # (Auto) Baso # (Auto) WBC Differential Differential Comment Sodium Potassium Chloride Carbon Dioxide Anion Gap BUN Creatinine Estimated GFR POC Glucose Random Glucose Lactic Acid 2.5 H 2.0 Calcium Total Bilirubin AST ALT Alkaline Phosphatase Total Creatine Kinase CK-MB (CK-2) CK-MB (CK-2) % Troponin I Total Protein Albumin Ur Collection Type Cath Urine Color Yellow Urine Clarity Cloudy H Urine pH 7.5 Ur Specific [place] 1.020 Urine Protein 100 H Urine Glucose (UA) Negative Urine Ketones Negative Urine Occult Blood Moderate H Urine Nitrate Negative Urine Bilirubin Small H Urine Urobilinogen 1.0 Ur Leukocyte Esterase Moderate H Urine RBC 15-50 H Urine WBC Innumerable H Urine WBC Clumps Many H Ur Renal Epithelial Cell 1-5 H Urine Bacteria Many H Micro UA Comment Cath-culture ind Ur Microscopic Review Microscopic reviewed Urine Culture Comments Cath-cult indicated Nasal Screen MRSA (PCR) Acetaminophen Hepatitis A IgM Ab Hep Bs Antigen Hep B Core IgM Ab Hep C IgG Ab 08/03/18 08/03/18 08/04/18 18:55 23:53 04:25 CBC w Diff Auto diff final WBC 13.0 H RBC 3.96 L Hgb 12.5 L Hct 38.3 L MCV 96.8 MCH 31.6 MCHC 32.6 RDW 14.2 Plt Count 153 MPV 9.8 Neut % (Auto) 82.1 H Lymph % (Auto) 11.4 Walton % (Auto) 6.0 Eos % (Auto) 0.4 Baso % (Auto) 0.1 Neut # (Auto) 10.6 H Lymph # (Auto) 1.5 Walton # (Auto) 0.8 Eos # (Auto) 0.1 Baso # (Auto) 0.0 WBC Differential . Differential Comment . Sodium Potassium Chloride Carbon Dioxide Anion Gap BUN Creatinine Estimated GFR POC Glucose Random Glucose Lactic Acid Calcium Total Bilirubin AST ALT Alkaline Phosphatase Total Creatine Kinase CK-MB (CK-2) CK-MB (CK-2) % Troponin I Total Protein Albumin Ur Collection Type Urine Color Urine Clarity Urine pH Ur Specific [place] Urine Protein Urine Glucose (UA) Urine Ketones Urine Occult Blood Urine Nitrate Urine Bilirubin Urine Urobilinogen Ur Leukocyte Esterase Urine RBC Urine WBC Urine WBC Clumps Ur Renal Epithelial Cell Urine Bacteria Micro UA Comment Ur Microscopic Review Urine Culture Comments Nasal Screen MRSA (PCR) Cancelled Acetaminophen Hepatitis A IgM Ab Nonreactive Hep Bs Antigen Nonreactive Hep B Core IgM Ab Nonreactive Hep C IgG Ab Nonreactive 08/04/18 08/04/18 08/04/18 04:25 04:25 04:25 CBC w Diff WBC RBC Hgb Hct MCV MCH MCHC RDW Plt Count MPV Neut % (Auto) Lymph % (Auto) Walton % (Auto) Eos % (Auto) Baso % (Auto) Neut # (Auto) Lymph # (Auto) Walton # (Auto) Eos # (Auto) Baso # (Auto) WBC Differential Differential Comment Sodium 150 H Potassium 4.8 D Chloride 114 H Carbon Dioxide 23.0 Anion Gap 13 BUN 56 H Creatinine 1.40 H Estimated GFR 49 L POC Glucose Random Glucose 80 Lactic Acid 1.9 Calcium 8.4 L Total Bilirubin 1.2 H AST 237 H ALT 93 H Alkaline Phosphatase 277 H Total Creatine Kinase 477 H CK-MB (CK-2) CK-MB (CK-2) % Troponin I Less than 0.02 L Total Protein 5.8 L Albumin 2.3 L Ur Collection Type Urine Color Urine Clarity Urine pH Ur Specific [place] Urine Protein Urine Glucose (UA) Urine Ketones Urine Occult Blood Urine Nitrate Urine Bilirubin Urine Urobilinogen Ur Leukocyte Esterase Urine RBC Urine WBC Urine WBC Clumps Ur Renal Epithelial Cell Urine Bacteria Micro UA Comment Ur Microscopic Review Urine Culture Comments Nasal Screen MRSA (PCR) Acetaminophen Hepatitis A IgM Ab Hep Bs Antigen Hep B Core IgM Ab Hep C IgG Ab 08/04/18 04:25 CBC w Diff WBC RBC Hgb Hct MCV MCH MCHC RDW Plt Count MPV Neut % (Auto) Lymph % (Auto) Walton % (Auto) Eos % (Auto) Baso % (Auto) Neut # (Auto) Lymph # (Auto) Walton # (Auto) Eos # (Auto) Baso # (Auto) WBC Differential Differential Comment Sodium Potassium Chloride Carbon Dioxide Anion Gap BUN Creatinine Estimated GFR POC Glucose Random Glucose Lactic Acid Calcium Total Bilirubin AST ALT Alkaline Phosphatase Total Creatine Kinase CK-MB (CK-2) CK-MB (CK-2) % Troponin I Total Protein Albumin Ur Collection Type Urine Color Urine Clarity Urine pH Ur Specific [place] Urine Protein Urine Glucose (UA) Urine Ketones Urine Occult Blood Urine Nitrate Urine Bilirubin Urine Urobilinogen Ur Leukocyte Esterase Urine RBC Urine WBC Urine WBC Clumps Ur Renal Epithelial Cell Urine Bacteria Micro UA Comment Ur Microscopic Review Urine Culture Comments Nasal Screen MRSA (PCR) Acetaminophen Less than 2.0 L Hepatitis A IgM Ab Hep Bs Antigen Hep B Core IgM Ab Hep C IgG Ab - Imaging Impressions Chest X-Ray 08/03/18 14:47 CONCLUSION: No acute cardiopulmonary disease. Head CT 08/03/18 14:47 CONCLUSION: 1. 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 2. Nothing acute. Chest CTA 08/03/18 14:48 CONCLUSION: 1. Minimal pleural-parenchymal scarring or atelectasis in the right upper lobe. Lungs are otherwise clear. 2. No pulmonary embolus. 3. Atherosclerotic calcification of the coronary arteries. 4. Probable hepatic cysts in the left hepatic lobe. Ultrasound could be performed for confirmation if clinically warranted. Liver Ultrasound 08/03/18 16:43 CONCLUSION: 1. Hepatic and renal cysts. 2. Findings suggesting cirrhosis. 3. Small volume ascites. 4. Sonographic findings suggesting underlying medical renal disease. Caprini VTE Risk Assessment Caprini VTE Risk Assessment: Moderate/High Risk (score >= 2) Caprini Risk Assessment Model: Point Value = 1 Point Value = 2 Point Value = 3 Point Value = 5 Age 41-60 Minor surgery BMI > 25 kg/m2 Swollen legs Varicose veins or History of unexplained or recurrent spontaneous Oral contraceptives or hormone replacement Sepsis (< 1 month) Serious lung disease, including pneumonia (< 1 month) Abnormal pulmonary function Acute myocardial infarction Congestive heart failure (< 1 month) History of inflammatory bowel disease Medical patient at bed rest Age 61-74 Arthroscopic surgery Major open surgery (> 45 min) Laparoscopic surgery (> 45 min) Malignancy Confined to bed (> 72 hours) Immobilizing plaster cast Central venous access Age >= 75 History of VTE Family history of VTE Factor V Leiden Prothrombin [id number] Lupus anticoagulant Anticardiolipin antibodies Elevated serum homocysteine Heparin-induced thrombocytopenia Other congenital or acquired thrombophilia Stroke (< 1 month) Elective arthroplasty Hip, pelvis, or leg fracture Acute spinal cord injury (< 1 month) Prophylaxis Regimen: Total Risk Factor Score Risk Level Prophylaxis Regimen 0-1 Low Early ambulation 2 Moderate Order ONE of the following: *Sequential Compression Device (SCD) *Heparin 5000 units SQ BID 3-4 Higher Order ONE of the following medications: *Heparin 5000 units SQ TID *Enoxaparin/Lovenox 40 mg SQ daily (WT < 150 kg, CrCl > 30 mL/min) *Enoxaparin/Lovenox 30 mg SQ daily (WT < 150 kg, CrCl > 10-29 mL/min) *Enoxaparin/Lovenox 30 mg SQ BID (WT < 150 kg, CrCl > 30 mL/min) AND/OR *Sequential Compression Device (SCD) 5 or more Highest Order ONE of the following medications: *Heparin 5000 units SQ TID (Preferred with Epidurals) *Enoxaparin/Lovenox 40 mg SQ daily (WT < 150 kg, CrCl > 30 mL/min) *Enoxaparin/Lovenox 30 mg SQ daily (WT < 150 kg, CrCl > 10-29 mL/min) *Enoxaparin/Lovenox 30 mg SQ BID (WT < 150 kg, CrCl > 30 mL/min) AND *Sequential Compression Device (SCD) Assessment and Plan - Assessment (1) Sepsis Code(s): A41.9 - Sepsis, unspecified organism Status: Acute (2) Elevated liver enzymes Code(s): R74.8 - Abnormal levels of other serum enzymes Status: Acute (3) Rhabdomyolysis Code(s): M62.82 - Rhabdomyolysis Status: Acute (4) UTI (urinary tract infection) due to urinary indwelling catheter Code(s): T83.511A - Infection and inflammatory reaction due to indwelling urethral catheter, initial encounter; N39.0 - Urinary tract infection, site not specified Status: Acute (5) Leukocytosis Code(s): D72.829 - Elevated white blood cell count, unspecified Status: Acute (6) Dysphagia Code(s): R13.10 - Dysphagia, unspecified Status: Acute - Plan Sepsis -Met criteria on admission with leukocytosis, lactic acidosis, urinary tract infection -Patient started on Zosyn -Influenza testing was negative -Chest x-ray did not indicate any acute abnormality, pulmonary angiogram did not indicate any infectious process, -Blood cultures are pending -Urine cultures pending Acute liver enzyme elevation, unknown etiology -Upon review of laboratory studies it appears that the patient has had acute liver enzyme elevation since 06/27/2018 -Hepatitis profile was negative, Tylenol level was negative -Liver ultrasound shows hepatic and renal cyst, findings suggestive of cirrhosis , small amount of ascites -We will obtain CT of the abdomen and pelvis to evaluate for any other etiology -Consult GI for further recommendations Profound weakness -This is multifactorial with patient not eating for 5 days, decreased appetite, urinary tract infection, rhabdomyolysis -CT the brain was unremarkable for any acute abnormality -Physical therapy evaluation Rhabdomyolysis -Likely secondary to inactivity at home, patient not on any medications that could cause rhabdomyolysis -Continue IV fluids -Continue monitor his CK-MB Complicated urinary tract infection -Patient does have indwelling Aggarwal that was just replaced 1 week ago -Patient states that he is on medications for large prostate, however he does not know the name, will need to obtain from urologist/family -Await urine culture -May need to consult urologist for Aggarwal replacement Dysphagia -Speech therapy consulted for swallow evaluation -Patient may benefit from modified barium swallow hypertension -Continue home medications DVT prevention -Patient is on Xarelto
[2018-08-04 09:28] LABS: CKMB Percent 7.6 % (0.0-4.0)
[2018-08-04] MEDS: Rivaroxaban 10 MG Tablet PO SCH (09:36)
[2018-08-04] MEDS: Sod Chloride 0.9% Inj 1,000 ML IV.CONT SCH ×3 (09:42→20:17)
[2018-08-04] MEDS: Lisinopril 20 MG Tablet PO SCH (10:08)
--- NOTE | 2018-08-04 10:57 | CT ---
EXAM DATE: 08/04/2018 10:24 AM EDT AGE/SEX: 78 years / Male INDICATIONS: Right upper quadrant pain. Elevated LFT's. General weakness. CLINICAL DATA: This is the patient's initial encounter. Patient reports that signs and symptoms have been present for 1 week and indicates a pain score of 3/10. MEDICAL/SURGICAL HISTORY: Aneurysm, abdominal. Renal calculi. Hypertension. BPH. Abdominal aortic aneurysm repair. Appendectomy. Inguinal hernia repair. RADIATION DOSE: 15.21 CTDI (mGy) COMPARISON: [facility], CT ABDOMEN AND PELVIS W/O CONTRAST, 03/22/2018. . TECHNIQUE: Multiple contiguous axial images were obtained through the abdomen. Images were obtained using multiple row detector helical technique. Using automated exposure control and adjustment of the mA and/or kV according to patient size, radiation dose was kept as low as reasonably achievable to o btain optimal diagnostic quality images. DICOM format image data is available electronically for rev iew and comparison. Lack of IV contrast limits the diagnosis for certain organ pathology FINDINGS: Lower Lungs: The visualized lower lungs are clear. Liver: The liver is prominent and heterogeneous in appearance suggestive of hepatocellular disease. S everal hepatic cysts are again demonstrated which appear to be stable. The largest cyst measures appr oximately 2.8 cm in the left lobe. These were also noted on a recent ultrasound. No dilated biliary d ucts are demonstrated. There is a trace of ascites adjacent to the liver. The gallbladder is grossly unremarkable. Spleen: Homogeneous density without enlargement. Pancreas: Unremarkable without mass or calcification. Kidneys: The kidneys are normal in size, shape and position.. There is a 1.1 cm stone in the left re nal pelvis not causing any significant hydronephrosis. There may be a tiny stone in the proximal righ t ureter not causing any significant hydronephrosis. There appears to be some residual iodinated cont rast in both kidneys which obscure the visualization of renal calculi bilaterally. There are bilatera l renal cysts which appear to be stable compared to the prior examination. There is a cyst along the lower pole the right kidney measuring 2.4 cm. There is a cyst along the mid pole the left kidney mxaimiliano uring 3.5 cm. The mid to distal ureters are nondilated. Adrenal Glands: Unremarkable. Aorta: Evidence of previous aortic aneurysm repair with stent graft. The aneurysmal sac measures ap proximately 6.1 cm in its AP diameter. This is about the same compared to the prior examination. 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 Bowel/Mesentery: The bowel loops are grossly unremarkable. The cecum and sigmoid colon have a normal configuration. Scattered diverticulosis of the sigmoid colon without inflammatory changes. Abdominal Wall: Intact. Retroperitoneum: No evidence of adenopathy in the retrocrural, para-aortic, or deep pelvic regions. Bladder: There is a Aggarwal catheter in urinary bladder which is filled with iodinated contrast. The t ip of the Aggarwal catheter appears to be in a right-sided bladder diverticulum. There is a prominent le ft-sided bladder diverticulum. Several smaller diverticula are also noted. Reproductive Organs: No abnormal masses or calcifications seen. Inguinal: The inguinal region is unremarkable without evidence of adenopathy. Bony Structures: Stable bony degenerative changes. There is a left hip prosthesis in place. Stable c ompression of L3. CONCLUSION: 1. The liver is enlarged and heterogeneous characteristic of hepatocellular disease such as cirrhosi s. Several stable hepatic cysts are again demonstrated. No dilated biliary ducts. There is a trace of ascites adjacent to the liver. 2. 1.1 cm stone in the left renal pelvis without causing significant hydronephrosis. There is residu al iodinated contrast in both kidneys which obscures visualization of small nonobstructing renal calc vicky. There are bilateral stable renal cysts. 3. No significant change in the aneurysmal sac compared to the prior study. 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 4. Scattered diverticulosis of the sigmoid colon without inflammatory changes. 5. Aggarwal catheter positioned within a right-sided bladder diverticulum. Recommend check urine output . If there is a discrepancy with regards to urine output, may consider repositioning the Aggarwal cathet er. Electronically signed by: Devan Frost MD 08/04/2018 10:55 AM EDT
--- NOTE | 2018-08-04 18:16 | MB ---
cc: Perez Guzman MD DATE: 08/04/2018 REASON FOR CONSULTATION: 1. Recurrent urinary retention. 2. Benign prostatic hypertrophy. HISTORY OF PRESENT ILLNESS: The patient is a 78-year-old male with history of BPH with recurrent urinary retention with chronic indwelling Aggarwal catheter, presented to the ER yesterday following physical therapy due to profound weakness, decreased appetite and dehydration. During workup, he was found to have elevated liver enzymes. The patient was admitted to the ICU for continued monitoring and management. The patient had CT abdomen and pelvis with contrast this morning, which showed the Aggarwal catheter in his bladder with the tip of the catheter in a small diverticula on his right side of his bladder; however, the catheter had been draining well. He also was found to have a 1 cm stone in his left renal pelvis that was not causing any hydronephrosis. Urology was consulted for his recurrent urinary retention and chronic Aggarwal catheter. He was scheduled for a cystoscopy yesterday morning in my office in preparation for possible TURP, but he did not show as he obviously presented to the ER with the above problems. The patient currently has been on Flomax. He was recently also started on finasteride 5 mg daily. Currently, he denies any abdominal pain, flank pain, fever or chills, just feels very weak and lethargic. PAST MEDICAL HISTORY: Significant for abdominal aortic aneurysm, BPH, cataracts, hernia, hypertension, kidney stones. PAST SURGICAL HISTORY: He has had a AAA repair, appendectomy, hernia repair, hip surgery. FAMILY HISTORY: Negative for urolithiasis or genitourinary malignancies. MEDICATIONS: Include: 1. Flomax 0.4 mg daily. 2. Finasteride 5 mg daily. 3. Lisinopril. 4. Zosyn. 5. Xarelto 10 mg daily. SOCIAL HISTORY: Smoked cigarettes in the past. Occasional alcohol. Denies illicit drug use. He is currently and retired. ALLERGIES: SULFA. REVIEW OF SYSTEMS: See HPI. All other systems reviewed and otherwise negative. PHYSICAL EXAMINATION: VITAL SIGNS: Temperature 97.5, pulse 74, respiratory rate 15, BP 120/60, saturating 96% on 2 liters nasal cannula oxygen. GENERAL: He is alert, oriented x3, in no apparent distress. He appears older than his staged age. HEENT: Head is normocephalic, atraumatic. Neck is supple, trachea midline. No JVD. Eyes: No scleral icterus. Extraocular muscles intact. External hearing is normal. LUNGS: Clear to auscultation bilaterally. No wheeze or rhonchi. HEART: Regular rate and rhythm. No murmurs, gallops, rubs. ABDOMEN: Soft, nontender, nondistended, positive bowel sounds. GENITOURINARY: He has no CVA tenderness bilaterally. His bladder is nonpalpable. His catheter is currently draining clear but concentrated yellow urine. Phallus was normal. Testicles normal in size and consistency without mass. RECTAL EXAM: Not indicated at this time. EXTREMITIES: Nontender. No clubbing, cyanosis or edema. PSYCHIATRIC: Normal. Flat affect, but answers questions appropriately. NEUROLOGIC: Cranial nerves 2-12 intact. Strength 4/5 in all 4 extremities. SKIN: No ulcers or rashes noted. Warm and dry. LABORATORY DATA: White count 13,000, hemoglobin 12.5, hematocrit 38.3, platelet count 153, sodium 150, potassium 4.0, chloride 104, bicarbonate 23, BUN 56, creatinine 1.40. Urine shows moderate blood, small leukocyte esterase. Culture is currently pending. IMAGING STUDIES: CT abdomen and pelvis with IV contrast images were reviewed with grade 3 apical support. The patient has a chronic indwelling Aggarwal catheter with the tip inside the right eye diverticulum, also has a 1 cm nonobstructing left renal stone. ASSESSMENT AND PLAN: The patient is a 78-year-old male with history of benign prostatic hypertrophy with recurrent urinary retention managed with indwelling Aggarwal catheter, known left renal stone, presents with weakness, fatigue, dehydration and possible urinary tract infection. PLAN: 1. We will restart him on his Flomax and his finasteride. 2. Recommend continuing Aggarwal catheter for now as it seems to be draining. Recommend doing postvoid residuals as needed, but as long as the catheter is draining, no need to reposition at this time. Medical management per ICU team. He can follow up as an outpatient for cystoscopy. We will also obtain a KUB in the morning just to evaluate the left-sided stone. Perez Guzman MD EMF/ct , 05:04 PM , 05:15 PM
--- NOTE | 2018-08-04 19:59 | MB ---
cc: Ben Wyatt MD DATE: 08/04/2018 REASON FOR REFERRAL: Elevated liver function tests. Thank you for the consultation. HISTORY OF PRESENT ILLNESS: A 78-year-old gentleman who has multiple medical problems. The patient had recent surgery to his left hip. The patient was doing okay. He was in the hospital for extended period of time and then he went home with home health 2 weeks, but in the last 5 days, he had significant decrease in his appetite, difficulty swallowing. He is not eating anything for about days and just drinking fluid. The patient had what it looked like UTI with urosepsis and the patient had significant drop in his blood pressure and ended up having almost presyncope. The patient was found to have elevated liver function tests. He also had abdominal pain in the right upper quadrant according to him. He denies any previous GI problem. He is aware that he was told that he has liver damage from drinking alcohol. Currently lying in bed, seems to be comfortable. No complaint at this point, but worried about his symptoms. REVIEW OF SYSTEMS: All 12-point negative except for HPI. PAST MEDICAL HISTORY: Significant for AAA, BPH, cataract, hernia, hypertension, kidney stones, metal bone fixation, prostate disorder. PAST SURGICAL HISTORY: Hip surgery, aortic aneurysm repair, appendectomy, hernia repair. FAMILY HISTORY: Significant for stomach cancer. SOCIAL HISTORY: Negative for tobacco or alcohol at this time. He was heavy drinker and smoker up to about 3 weeks. MEDICATIONS: Reviewed in the chart. ALLERGIES: SULFA. PHYSICAL EXAMINATION: VITAL SIGNS: Stable at this time. No fever. HEENT: Pupils round, reactive to light. NECK: Supple. CHEST: Clear to auscultation and percussion. CARDIAC: Regular rate and rhythm. No murmur or gallop. ABDOMEN: Soft. The patient has tenderness in the right upper quadrant. Positive bowel sounds. Questionable rebound in the right upper quadrant. EXTREMITIES: No edema, clubbing, or cyanosis. NEUROLOGIC: Intact. No focal abnormality. PSYCHOLOGIC: Appropriate. LABORATORY DATA: White count 13.0, hemoglobin 12.5, platelets 153, total bilirubin 1.2, AST 237, ALT 93, alkaline phosphatase 277, seems like the patient has high creatinine kinase. Albumin 2.3, total protein 5.8, BUN 56, creatinine 1.4. Urine consistent with urine infection. Acetaminophen less than 2. Serology negative for hepatitis B, C and A. The patient has gram-negative rods in the urine. CT scan showed enlarged liver heterogeneous character consistent with cirrhosis with several hepatic cysts, 1.1 stone in the left kidney, no hydronephrosis. Ultrasound, hepatic and renal cyst, cirrhosis changes on the ultrasound, small volume ascites, underlying renal disease. ASSESSMENT AND PLAN: A 78-year-old male who has what it looked like urosepsis, hypotension. This could be shock liver, rhabdomyolysis, but also possibility of cholecystitis cannot be ruled out, especially with the pain that the patient is experiencing, so I am going to order a HIDA scan, we will monitor his liver function test, further plan depends on the findings on these tests. Ben Wyatt MD AH/sv , 06:57 PM , 07:12 PM
[2018-08-05] MEDS: Chlorhexidine Gluconate 2% 1 Pack (2 Cloths) TOPICAL SCH (05:16)
[2018-08-05 05:48] LABS: Alanine Aminotransferase 81 U/L (12-78); Albumin 2.1 g/dL (3.4-5.0); Alkaline Phosphatase 260 U/L (45-117); Anion Gap 14 meq/L (5-15); Aspartate Aminotransferase 232 U/L (15-37); Blood Urea Nitrogen 51 mg/dL (7-18); Calcium 8.1 mg/dL (8.5-10.1); Carbon Dioxide 19.7 meq/L (21.0-32.0); Chloride 119 meq/L (98-107); Glomerular Filtration Rate 54 mL/min (>89); Glucose,Random 89 mg/dL (74-106); Potassium 3.5 meq/L (3.5-5.1); Sodium 153 meq/L (136-145); Total Protein 5.4 g/dL (6.4-8.2)
--- NOTE | 2018-08-05 07:53 | XR ---
EXAM DATE: 08/05/2018 6:00 AM EDT AGE/SEX: 78 years / Male INDICATIONS: Calculi. CLINICAL DATA: This is the patient's subsequent encounter. Patient reports that signs and symptoms h ave been present for 3 days and indicates a pain score of 5/10. MEDICAL/SURGICAL HISTORY: Renal calculi. Aneurysm, abdominal. Hypertension. BPH. Hernia. Abdomi nal aortic aneurysm repair. Left hip replacement. Right hernia repair. Left surgical manipulation of ankle joint. Appendectomy. COMPARISON: [facility], CT ABDOMEN & PELVIS W/O CONTRAST, 08/04/2018. . FINDINGS: The 1 cm calculus in the mid left renal pelvis noted on CT exams is demonstrated on radiograph. Ther e are additional calyceal calculi noted bilaterally with adjacent 5 mm and 4 mm calculi in the right renal pelvis. Endoluminal aortic stent graft in place with calcified aortic and left iliac aneurysm s acs. Nonobstructive bowel gas pattern. Left hip arthroplasty in place. Degenerative changes in the lo wer lumbar spine and right hip. CONCLUSION: 1. Bilateral renal calculi demonstrated on CT exam are noted on radiograph, as above. Electronically signed by: Jayden Guthrie MD 08/05/2018 7:52 AM EDT
[2018-08-05] MEDS: Finasteride 5 MG Tablet PO SCH (08:53)
[2018-08-05] MEDS: Dextrose 5%/NaCl 0.45% Inj 1,000 ML IV.CONT SCH ×2 (08:55→20:03)
[2018-08-05] MEDS: Lisinopril 20 MG Tablet PO SCH (08:56)
[2018-08-05] MEDS: Piperacil/Tazo 3.375 GM Premix 50 ML IV.SIG SCH ×3 (08:56→23:50)
[2018-08-05] MEDS: Rivaroxaban 10 MG Tablet PO SCH (08:57)
[2018-08-05] MEDS ORDERED: Sincalide Inj 5 MCG Vial IV.PUSH ONE (11:05)
--- NOTE | 2018-08-05 11:26 | P.PN ---
Subjective Interval history: 78-year-old male who is seen and examined today for follow-up on elevated liver enzymes, profound weakness, dysphagia. Patient resting in bed comfortably. Patient states that he is still very weak, vital signs are stable, patient remains afebrile. Physical Exam Vital signs: Vital Signs 08/04/18 14:34 08/04/18 16:17 08/04/18 20:00 Temperature 99.0 F 98.7 F Pulse Rate 80 84 Respiratory Rate 26 H 24 Blood Pressure 115/67 123/58 L Pulse Oximetry 96 93 L 93 L 08/04/18 20:15 08/04/18 22:00 08/05/18 00:00 Temperature 98 F Pulse Rate 74 74 Respiratory Rate 26 H 20 Blood Pressure 124/58 L Pulse Oximetry 94 L 92 L 08/05/18 02:00 08/05/18 04:00 08/05/18 08:00 Temperature Pulse Rate 80 78 Respiratory Rate 27 H 24 Blood Pressure 135/66 Pulse Oximetry 90 L 95 08/05/18 08:27 Temperature 98.8 F Pulse Rate Respiratory Rate Blood Pressure Pulse Oximetry Intake & Output 08/04/18 08/05/18 08/05/18 18:59 06:59 18:59 Intake Total 1100 / 1100 1050 / 1050 1050 / 1050 Output Total 400 / 400 425 / 425 Balance 700 / 700 625 / 625 1050 / 1050 Weight 77.6 kg Intake: IV 1100 / 1100 1050 / 1050 1050 / 1050 NS Inj 1,000 ML @ 100 mls/hr IV 1000 / 1000 1000 / 1000 1000 / 1000 .CONT .Q10H ANTHONY Rx#:[id number] Zosyn 3.375 GM Premix 50 ML @ 100 / 100 50 / 50 50 / 50 100 mls/hr IV.SIG Q8H ANTHONY Rx#: [id number] Output: Urine Amount (Catheter) 400 / 400 425 / 425 Indwelling Urethral Catheter 400 / 400 425 / 425 Other: Date of Last Bowel Movement 08/05/18 # Bowel Movements 1 Narrative: GENERAL: Well-developed, well-nourished, in no acute distress. alert and orientated HEENT: Head is normocephalic without any lesions or masses noted. Facial features are symmetric. Eyes: Extraocular muscles are intact. Conjunctivae were clear. NECK: Supple without any masses. Trachea midline no deviation. No JVD, CARDIAC: Regular rhythm, regular rate. S1/S2 are heard. No murmurs gallops or rubs. LUNGS: Clear to auscultation bilaterally. No wheeze, rhonchi or rales. No use of accessory muscles on inspiration or expiration. ABDOMEN: Soft, nontender. Nondistended. Bowel sounds heard in all 4 quadrants. No organomegaly or masses. Negative rebound, negative guarding EXTREMITIES: No edema, pulses are equal bilaterally. No cyanosis or clubbing NEUROLOGY: Mood and affect appear appropriate. Cranial nerves II through XII grossly intact. Moving all extremities, speech is clear - Urinary Catheter Management Indwelling Urethral Catheter Cath placed during this visit: yes Reason for continuing: Acute urinary retention Insertion date: 07/30/18 Results - Labs CBC & Chem 7: 08/04/18 04:25 08/05/18 04:25 Laboratory Results - last 24 hr 08/03/18 08/04/18 08/05/18 16:55 15:00 04:25 Sodium 153 H Potassium 3.5 D Chloride 119 H Carbon Dioxide 19.7 L Anion Gap 14 BUN 51 H Creatinine 1.30 Estimated GFR 54 L Random Glucose 89 Calcium 8.1 L Total Bilirubin 1.1 H Direct Bilirubin 0.5 H Indirect Bilirubin 0.6 AST 232 H ALT 81 H Alkaline Phosphatase 260 H Total Protein 5.4 L Albumin 2.1 L Ur Collection Type Cath Urine Color Yellow Urine Clarity Cloudy H Urine pH 7.5 Ur Specific [place] 1.020 Urine Protein 100 H Urine Glucose (UA) Negative Urine Ketones Negative Urine Occult Blood Moderate H Urine Nitrate Negative Urine Bilirubin Small H Urine Urobilinogen 1.0 Ur Leukocyte Esterase Moderate H Urine RBC 15-50 H Urine WBC Innumerable H Urine WBC Clumps Many H Ur Renal Epithelial Cell 1-5 H Urine Bacteria Many H Micro UA Comment Cath-culture ind Ur Microscopic Review Microscopic reviewed Urine Culture Comments Cath-cult indicated Nasal Screen MRSA (PCR) Not detected Microbiology 08/03/18 16:10 Blood - Peripheral Aerobic Blood Culture - Preliminary No growth in 2 days 08/03/18 16:10 Blood - Peripheral Anaerobic Blood Culture - Preliminary No growth in 2 days 08/03/18 16:05 Blood - Peripheral Aerobic Blood Culture - Preliminary No growth in 2 days 08/03/18 16:05 Blood - Peripheral Anaerobic Blood Culture - Preliminary No growth in 2 days 08/03/18 16:55 Clean Catch Urine Urine Culture - Final Citrobacter koseri - Imaging Impressions Abdomen X-Ray 08/05/18 06:00 CONCLUSION: 1. Bilateral renal calculi demonstrated on CT exam are noted on radiograph, as above. Assessment and Plan - Assessment (1) Sepsis Code(s): A41.9 - Sepsis, unspecified organism Status: Acute (2) Elevated liver enzymes Code(s): R74.8 - Abnormal levels of other serum enzymes Status: Acute (3) Rhabdomyolysis Code(s): M62.82 - Rhabdomyolysis Status: Acute (4) UTI (urinary tract infection) due to urinary indwelling catheter Code(s): T83.511A - Infection and inflammatory reaction due to indwelling urethral catheter, initial encounter; N39.0 - Urinary tract infection, site not specified Status: Acute (5) Leukocytosis Code(s): D72.829 - Elevated white blood cell count, unspecified Status: Acute (6) Dysphagia Code(s): R13.10 - Dysphagia, unspecified Status: Acute - Plan Sepsis -Met criteria on admission with leukocytosis, lactic acidosis, urinary tract infection -Patient was continued on Zosyn, will change to oral antibiotics when patient clinically stable -Influenza testing was negative -Chest x-ray did not indicate any acute abnormality, pulmonary angiogram did not indicate any infectious process, -Blood cultures are negative for 2 days -Urine cultures indicating Citrobacter koseri Acute liver enzyme elevation, unknown etiology -Upon review of laboratory studies it appears that the patient has had acute liver enzyme elevation since 06/27/2018 -Hepatitis profile was negative, Tylenol level was negative -Liver ultrasound shows hepatic and renal cyst, findings suggestive of cirrhosis , small amount of ascites -CT the abdomen did indicate liver is enlarged characteristic of hepatocellular disease such as cirrhosis. Several stable hepatic cyst. No dilated biliary ducts. Trace of ascites. -Consult GI for further recommendations -Awaiting HIDA scan Profound weakness -This is multifactorial with patient not eating for 5 days, decreased appetite, urinary tract infection, rhabdomyolysis -CT the brain was unremarkable for any acute abnormality -Physical therapy evaluation was performed and recommending physical therapy at rehab Rhabdomyolysis -Likely secondary to inactivity at home, patient not on any medications that could cause rhabdomyolysis -Continue IV fluids -Continue monitor his CK-MB Complicated urinary tract infection -Patient does have indwelling Aggarwal that was just replaced 1 week ago -Patient resumed on medication for benign prostatic hypertrophy to include finasteride -Urine culture indicating Citrobacter Koseri -Urology consulted and following the patient -CT scan does show 1.1 cm pelvis without causing significant hydronephrosis. Follow-up KUB does show bilateral renal calculi Dysphagia -Speech therapy consulted who indicated that the patient will require mechanical soft diet with thickened liquids, recommending modified barium swallow -Obtain modified barium swallow hypertension -Continue home medications DVT prevention -Patient is on Xarelto
--- NOTE | 2018-08-05 11:52 | NM ---
EXAM DATE: 08/05/2018 11:45 AM EDT AGE/SEX: 78 years / Male INDICATIONS: Abdominal pain. CLINICAL DATA: This is the patient's initial encounter. Patient reports that signs and symptoms have been present for 1 day and indicates a pain score of 3/10. MEDICAL/SURGICAL HISTORY: Hypertension. Inguinal hernia repair. Abdominal aortic aneurysm. COMPARISON: [facility], CT ABDOMEN & PELVIS W/O CONTRAST, 08/04/2018. . DOSE: 4 mCi Tc-99m mebrofenin i.v. Medication: 1.5 mcg Cholecystokinin IV No symptomatic response Cholecystokinin was administered by slow infusion over 8 minutes beginning at 60 minutes. minutes. TECHNIQUE: Following the intravenous administration of radiotracer, dynamic sequential images were pe rformed with continuous acquisition. Time-activity curves were generated. FINDINGS: Hepatic Kinetics: There is prompt uptake of radiotracer in the liver. No focal defects are seen. Ther e is normal rate of washout from the hepatic parenchyma. Biliary Clearance: Activity is first seen in the extrahepatic biliary system at 10 minutes. There is normal excretion into the small bowel. Gallbladder: Activity is first seen in the gallbladder at 20 minutes. Post-CCK: After CCK administration, there is emptying of the gallbladder with a 57% ejection fraction . Common bile duct kinetics are normal and there is no evidence of biliary obstruction. No symptomat ic response after cholecystokinin infusion. Biliary-Enteric Reflux: None observed. CONCLUSION: 1. Negative examination. 2. Normal gallbladder ejection fraction. Patient was asymptomatic during CCK demonstration. Electronically signed by: Jayden Guthrie MD 08/05/2018 11:50 AM EDT
[2018-08-05 12:06] LABS: Creatine Kinase MB 34.7 ng/mL (0.5-3.6)
[2018-08-05 12:11] LABS: CKMB Percent 7.4 % (0.0-4.0)
--- NOTE | 2018-08-05 13:41 | FL ---
EXAM DATE: 08/05/2018 1:35 PM EDT AGE/SEX: 78 years / Male INDICATIONS: Dysphagia. CLINICAL DATA: This is the patient's subsequent encounter. Patient reports that signs and symptoms h ave been present for 4 - 6 days and indicates a pain score of 0/10. MEDICAL/SURGICAL HISTORY: Hypertension. BPH. Hernia. Abdominal aortic aneurysm repair. Left hip replacement. Right hernia repair. Left surgical manipulation of ankle joint. Angioplasty. COMPARISON: None. FLUORO TIME: 2.1 IMAGE COUNT: 0 FINDINGS: A modified barium swallow was performed with speech pathology. Patient was given a variety of liquids to swallow. There is recurrent penetration of the supraglottic larynx with thin barium and nectar th ick barium. Significant pooling occurs in the paired valleculae and piriform sinuses with both substa nces. No naty aspiration occurs. For a full detailed report, see report by the speech pathologist. CONCLUSION: Recurrent penetration of the supraglottic larynx with thin barium and nectar thick barium with signif icant pooling in the paired valleculae and piriform sinuses with both substances. Electronically signed by: Nigel Nelson MD 08/05/2018 1:40 PM EDT
--- NOTE | 2018-08-05 18:46 | P.PNGI ---
Subjective Interval history: Lying in bed seems to be more comfortable, still complaining of abdominal pain in the midepigastric and right upper quadrant, patient had MRI which was unremarkable, liver enzymes still elevated but no sign of biliary obstruction Physical Exam Vital signs: Vital Signs 08/04/18 20:00 08/04/18 20:15 08/04/18 22:00 Temperature 98.7 F Pulse Rate 84 74 Respiratory Rate 24 26 H Blood Pressure 123/58 L Pulse Oximetry 93 L 94 L 08/05/18 00:00 08/05/18 02:00 08/05/18 04:00 Temperature 98 F Pulse Rate 74 80 78 Respiratory Rate 20 27 H 24 Blood Pressure 124/58 L 135/66 Pulse Oximetry 92 L 90 L 08/05/18 08:00 08/05/18 08:27 08/05/18 09:00 Temperature 98.8 F Pulse Rate 76 Respiratory Rate Blood Pressure Pulse Oximetry 95 08/05/18 15:26 08/05/18 16:00 Temperature Pulse Rate 78 78 Respiratory Rate 22 27 H Blood Pressure 138/64 Pulse Oximetry 92 L 97 Intake & Output 08/04/18 08/05/18 08/05/18 18:59 06:59 18:59 Intake Total 1100 / 1100 1050 / 1050 1100 / 1100 Output Total 400 / 400 425 / 425 Balance 700 / 700 625 / 625 1100 / 1100 Weight 77.6 kg Intake: IV 1100 / 1100 1050 / 1050 1100 / 1100 NS Inj 1,000 ML @ 100 mls/hr IV 1000 / 1000 1000 / 1000 1000 / 1000 .CONT .Q10H ANTHONY Rx#:[id number] Zosyn 3.375 GM Premix 50 ML @ 100 / 100 50 / 50 100 / 100 100 mls/hr IV.SIG Q8H ANTHONY Rx#: [id number] Output: Urine Amount (Catheter) 400 / 400 425 / 425 Indwelling Urethral Catheter 400 / 400 425 / 425 Other: Date of Last Bowel Movement 08/05/18 08/04/18 # Bowel Movements 1 - Constitutional no acute distress - Routine HEENT Exam Head: Present: normocephalic Eye: Present: EOMI, PERRL ENT: Present: mucous membranes moist - Routine Neck Exam Present: supple, full ROM - Routine Respiratory Exam Present: CTA bilaterally - Routine Cardiovascular Exam Present: RRR, S1 - Routine Abdominal Exam Present: soft, tenderness - Urinary Catheter Management Indwelling Urethral Catheter Cath placed during this visit: yes Reason for continuing: Acute urinary retention Insertion date: 07/30/18 Results - Labs CBC & Chem 7: 08/04/18 04:25 08/05/18 04:25 Laboratory Results - last 24 hr 08/04/18 08/05/18 08/05/18 15:00 04:25 08:15 Sodium 153 H Potassium 3.5 D Chloride 119 H Carbon Dioxide 19.7 L Anion Gap 14 BUN 51 H Creatinine 1.30 Estimated GFR 54 L Random Glucose 89 Calcium 8.1 L Total Bilirubin 1.1 H Direct Bilirubin 0.5 H Indirect Bilirubin 0.6 AST 232 H ALT 81 H Alkaline Phosphatase 260 H Total Creatine Kinase 469 H CK-MB (CK-2) 34.7 H CK-MB (CK-2) % 7.4 H* Total Protein 5.4 L Albumin 2.1 L Nasal Screen MRSA (PCR) Not detected Microbiology 08/03/18 16:10 Blood - Peripheral Aerobic Blood Culture - Preliminary No growth in 2 days 08/03/18 16:10 Blood - Peripheral Anaerobic Blood Culture - Preliminary No growth in 2 days 08/03/18 16:05 Blood - Peripheral Aerobic Blood Culture - Preliminary No growth in 2 days 08/03/18 16:05 Blood - Peripheral Anaerobic Blood Culture - Preliminary No growth in 2 days 08/03/18 16:55 Clean Catch Urine Urine Culture - Final Citrobacter koseri - Imaging Impressions Bile Acid Absorption NM 08/05/18 00:00 CONCLUSION: 1. Negative examination. 2. Normal gallbladder ejection fraction. Patient was asymptomatic during CCK demonstration. Videofluoroscopic Swallow 08/05/18 00:00 CONCLUSION: Recurrent penetration of the supraglottic larynx with thin barium and nectar thick barium with significant pooling in the paired valleculae and piriform sinuses with both substances. Abdomen X-Ray 08/05/18 06:00 CONCLUSION: 1. Bilateral renal calculi demonstrated on CT exam are noted on radiograph, as above. Assessment and Plan - Plan 78-year-old gentleman with elevated liver function test most likely related to rhabdomyolysis, patient complaining of abdominal pain could be related to kidney disease but cannot rule out peptic ulcer disease so I will be planning on doing upper endoscopy tomorrow Further plan depends on the finding
[2018-08-05] MEDS ORDERED: Melatonin 5 MG Tablet PO ONE (20:30)
[2018-08-05] MEDS: Sod Chloride 0.9% Inj 1,000 ML IV.CONT SCH (21:52)
[2018-08-06] MEDS: Chlorhexidine Gluconate 2% 1 Pack (2 Cloths) TOPICAL SCH (03:04)
[2018-08-06 05:20] LABS: Chloride 119 meq/L (98-107); Potassium 3.2 meq/L (3.5-5.1); Sodium 153 meq/L (136-145)
[2018-08-06 05:26] LABS: Calcium 8.4 mg/dL (8.5-10.1)
[2018-08-06 05:27] LABS: Albumin 2.1 g/dL (3.4-5.0); Anion Gap 11 meq/L (5-15); Blood Urea Nitrogen 49 mg/dL (7-18); Glucose,Random 153 mg/dL (74-106)
[2018-08-06 05:29] LABS: Aspartate Aminotransferase 249 U/L (15-37)
[2018-08-06 05:30] LABS: Alanine Aminotransferase 80 U/L (12-78); Glomerular Filtration Rate 45 mL/min (>89)
[2018-08-06 05:31] LABS: Total Protein 5.5 g/dL (6.4-8.2)
[2018-08-06 05:32] LABS: Alkaline Phosphatase 264 U/L (45-117); Creatine Kinase 470 U/L (39-308)
[2018-08-06 05:33] LABS: Baso % (Auto) 0.2 % (0.0-2.0); Eos # (Auto) 0.1 th/mm3 (0.0-0.4); Eos % (Auto) 0.5 % (0.0-4.0); Hematocrit 35.3 % (39.0-51.0); Hemoglobin 12.1 gm/dL (13.0-17.0); Lymph # (Auto) 1.7 th/mm3 (1.0-4.8); Lymph % (Auto) 11.8 % (9.0-44.0); Mean Corpuscular HGB Conc 34.4 % (32.0-36.0); Mean Corpuscular Hemoglobin 32.3 pg (27.0-34.0); Mono # (Auto) 1.1 th/mm3 (0.0-0.9); Neut # (Auto) 11.2 th/mm3 (1.8-7.7); Neut % (Auto) 79.5 % (16.0-70.0); Platelet Count 145 th/mm3 (150-450); Red Blood Count 3.76 mil/mm3 (4.50-5.90); Red Cell Distribution Width 14.6 % (11.6-17.2); White Blood Count 14.1 th/mm3 (4.0-11.0)
[2018-08-06 06:01] LABS: Creatine Kinase MB 32.4 ng/mL (0.5-3.6)
[2018-08-06 06:05] LABS: Corrected White Blood Count 13.2 th/mm3 (4.0-11.0); Eosinophils 1 % (0-4); Lymphocytes 19 % (9-44); Metamyelocytes 4 % (0-1); Monocytes 6 % (0-8); Myelocytes 1 % (0-0); RBC Morphology Normal (Normal); Tallied Nucleated RBC 7 (0-0)
[2018-08-06 06:06] LABS: Platelet Morphology Normal (Normal)
[2018-08-06 06:10] LABS: CKMB Percent 6.9 % (0.0-4.0)
[2018-08-06] MEDS: Dextrose 5%/NaCl 0.45% Inj 1,000 ML IV.CONT SCH (06:27)
[2018-08-06] MEDS ORDERED: Ketamine Inj 500 MG/10 ML Vial ONE (07:25)
[2018-08-06] MEDS ORDERED: Chlorhexidine Gluconate 2% 1 Pack (2 Cloths) TOPICAL ONE (07:25)
[2018-08-06] MEDS ORDERED: Metoprolol Tartrate 25 MG Tablet PO ONE (07:25)
[2018-08-06] MEDS ORDERED: Lidocaine PF 1% Inj 5 ML Syringe INFILTRATN ONE (07:49)
--- NOTE | 2018-08-06 07:58 | P.PCN ---
Date of procedure: 08/06/18 Procedure: THANK YOU FOR THE REFERRAL Indication; right upper quadrant pain, midepigastric pain, drop in his hemoglobin Procedure Performed; upper endoscopy with biopsy, bleeding control from an ulcer After informing the patient about procedure and possible complications consent was signed. history and physical were updated. Patient was taken to the procedure room and placed in position. Time out was completed. Adequate sedation was performed by anesthesia provider. Upper Endoscopy, the scope was placed in the mouth advanced under video guide to the second portion of the duodenum, then the scope was withdrawal to the stomach and retro-flexion was performed, the scope was withdrawal to the esophagus then out of the mouth without any immediate complication Findings; Esophagus: Grade C esophagitis Stomach severe gastritis biopsy was done from the antrum Duodenum multiple ulcers in the duodenum bulb and in the duodenum 1 of them was deep most likely the reason for the pain, patient also has one ulcer that was oozing blood which was cauterized to control the bleeding Recommendations; 1- Supportive care 2- ok to transfer to recovery area then discharge per protocol 3-no NSAIDs 4-cardiac diet 5- EGD as needed 6-follow-up biopsy 7-no alcohol 8-Protonix 40 mg daily 9-monitor hemoglobin
[2018-08-06] MEDS ORDERED: Sodium Chlor 0.9% Inj 500 ML IV.SIG SCH (08:00)
--- NOTE | 2018-08-06 08:00 | P.PNGI ---
Subjective Interval history: Patient laying in bed, still complaining of some abdominal discomfort epigastric and right upper quadrant Physical Exam Vital signs: Vital Signs 08/05/18 08:00 08/05/18 08:27 08/05/18 09:00 Temperature 98.8 F Pulse Rate 76 Respiratory Rate Blood Pressure Pulse Oximetry 95 08/05/18 15:26 08/05/18 16:00 08/05/18 20:00 Temperature 97.7 F Pulse Rate 78 78 80 Respiratory Rate 22 27 H 22 Blood Pressure 138/64 131/59 L Pulse Oximetry 92 L 97 96 08/06/18 00:00 08/06/18 04:00 08/06/18 06:52 Temperature 97.4 F L 97 F L 98.2 F Pulse Rate 77 78 70 Respiratory Rate 18 20 18 Blood Pressure 122/60 128/74 121/66 Pulse Oximetry 95 95 100 Intake & Output 08/05/18 08/06/18 08/06/18 18:59 06:59 18:59 Intake Total 1100 / 1100 1890 / 1890 Output Total 425 / 425 300 / 300 Balance 675 / 675 1590 / 1590 Weight 77.9 kg Intake: IV 1100 / 1100 1890 / 1890 D5W/1/2 NS Inj 1,000 ML @ 84 1840 / 1840 mls/hr IV.CONT .[id number] ANTHONY Rx# :[id number] NS Inj 1,000 ML @ 100 mls/hr IV 1000 / 1000 .CONT .Q10H ANTHONY Rx#:[id number] Zosyn 3.375 GM Premix 50 ML @ 100 / 100 50 / 50 100 mls/hr IV.SIG Q8H ANTHONY Rx#: [id number] Output: Urine Amount (Catheter) 425 / 425 300 / 300 Indwelling Urethral Catheter 425 / 425 300 / 300 Other: Date of Last Bowel Movement 08/04/18 # Bowel Movements 1 - Constitutional no acute distress - Routine HEENT Exam Head: Present: normocephalic Eye: Present: EOMI, PERRL ENT: Present: mucous membranes moist - Routine Neck Exam Present: supple, full ROM - Routine Respiratory Exam Present: CTA bilaterally - Routine Abdominal Exam Present: soft, tenderness (Tenderness in the midepigastric and right upper quadrant) - Urinary Catheter Management Indwelling Urethral Catheter Cath placed during this visit: yes Reason for continuing: Chronic Urinary Retention Insertion date: 07/30/18 Results - Labs CBC & Chem 7: 08/06/18 04:20 08/06/18 04:20 Laboratory Results - last 24 hr 08/05/18 08/06/18 08/06/18 08:15 04:20 04:20 CBC w Diff Slide review pending WBC 14.1 H Corrected WBC 13.2 H RBC 3.76 L Hgb 12.1 L Hct 35.3 L MCV 94.0 MCH 32.3 MCHC 34.4 RDW 14.6 Plt Count 145 L MPV 9.0 Neut % (Auto) 79.5 H Lymph % (Auto) 11.8 [place] % (Auto) 8.0 Eos % (Auto) 0.5 Baso % (Auto) 0.2 Neut # (Auto) 11.2 H Lymph # (Auto) 1.7 [place] # (Auto) 1.1 H Eos # (Auto) 0.1 Baso # (Auto) 0.0 WBC Differential Manual diff final Seg Neuts % (Manual) 63 Band Neuts % (Manual) 6 Lymphocytes % (Manual) 19 Monocytes % (Manual) 6 Eosinophils % (Manual) 1 Metamyelocytes % (Man) 4 H Myelocytes % (Man) 1 H Abs Neuts (Manual) 9.8 H Nucleated RBCs/100 WBC 7 H Differential Comment . Platelet Estimate Low L Platelet Morphology Normal RBC Morphology Normal Sodium 153 H Potassium 3.2 L Chloride 119 H Carbon Dioxide 23.0 Anion Gap 11 BUN 49 H Creatinine 1.50 H Estimated GFR 45 L Random Glucose 153 H Calcium 8.4 L Total Bilirubin 1.0 AST 249 H ALT 80 H Alkaline Phosphatase 264 H Total Creatine Kinase 469 H 470 H CK-MB (CK-2) 34.7 H 32.4 H CK-MB (CK-2) % 7.4 H* 6.9 H* Total Protein 5.5 L Albumin 2.1 L Microbiology 08/03/18 16:10 Blood - Peripheral Aerobic Blood Culture - Preliminary No growth in 2 days 08/03/18 16:10 Blood - Peripheral Anaerobic Blood Culture - Preliminary No growth in 2 days 08/03/18 16:05 Blood - Peripheral Aerobic Blood Culture - Preliminary No growth in 2 days 08/03/18 16:05 Blood - Peripheral Anaerobic Blood Culture - Preliminary No growth in 2 days 08/03/18 16:55 Clean Catch Urine Urine Culture - Final Citrobacter koseri - Imaging Impressions Bile Acid Absorption NM 08/05/18 00:00 CONCLUSION: 1. Negative examination. 2. Normal gallbladder ejection fraction. Patient was asymptomatic during CCK demonstration. Videofluoroscopic Swallow 08/05/18 00:00 CONCLUSION: Recurrent penetration of the supraglottic larynx with thin barium and nectar thick barium with significant pooling in the paired valleculae and piriform sinuses with both substances. Assessment and Plan - Plan 78-year-old gentleman with elevated liver function test most likely related to rhabdomyolysis, patient complaining of abdominal pain could be related to kidney disease but cannot rule out peptic ulcer disease so I will be planning on doing upper endoscopy tomorrow Further plan depends on the finding 08/06/2018 patient is doing okay today still having some discomfort, had upper endoscopy done Findings; Esophagus: Grade C esophagitis Stomach severe gastritis biopsy was done from the antrum Duodenum multiple ulcers in the duodenum bulb and in the duodenum 1 of them was deep most likely the reason for the pain, patient also has one ulcer that was oozing blood which was cauterized to control the bleeding Recommendations; 1- Supportive care 2- ok to transfer to recovery area then discharge per protocol 3-no NSAIDs 4-cardiac diet 5- EGD as needed 6-follow-up biopsy 7-no alcohol 8-Protonix 40 mg daily 9-monitor hemoglobin
--- NOTE | 2018-08-06 10:02 | CT ---
EXAM DATE: 08/06/2018 9:59 AM EDT AGE/SEX: 78 years / Male INDICATIONS: Dysphagia, thick speech. Evaluate for cerebrovascular accident. CLINICAL DATA: This is the patient's subsequent encounter. Patient reports that signs and symptoms h ave been present for 3 days and indicates a pain score of 0/10. MEDICAL/SURGICAL HISTORY: Aneurysm, abdominal. Hypertension. Renal calculi. BPH. Abdominal aort ic aneurysm repair. Appendectomy. Inguinal hernia repair. RADIATION DOSE: 68.26 CTDI (mGy) ; Patient motion COMPARISON: [facility], CT HEAD W/O CONTRAST, 08/03/2018. . TECHNIQUE: CT of the head without contrast. Using automated exposure control and adjustment of the mA and/or kV according to patient size, radiation dose was kept as low as reasonably achievable to ob tain optimal diagnostic quality images. DICOM format image data is available electronically for revi ew and comparison. FINDINGS: Cerebrum: The ventricles are normal for age. No evidence of midline shift, mass lesion, hemorrhage or acute infarction. No extraaxial fluid collections are seen. Posterior Fossa: The cerebellum and brainstem are intact. The 4th ventricle is midline. The cerebe llopontine angle is unremarkable. Extracranial: The visualized portion of the orbits is intact. Skull: The calvaria is intact. No evidence of skull fracture. CONCLUSION: 1. No acute intracranial abnormalities. Remote lacunar infarct right basal ganglia. . Electronically signed by: Bandar Stewart MD 08/06/2018 10:00 AM EDT
--- NOTE | 2018-08-06 10:16 | CT ---
EXAM DATE: 08/06/2018 10:03 AM EDT AGE/SEX: 78 years / Male INDICATIONS: Dysphagia, thick speech. Evaluate for radiculopathy. CLINICAL DATA: This is the patient's initial encounter. Patient reports that signs and symptoms have been present for 3 days and indicates a pain score of 2/10. MEDICAL/SURGICAL HISTORY: Aneurysm, abdominal. Renal calculi. Hypertension. BPH. Abdominal aortic aneurysm repair. Appendectomy. Inguinal hernia repair. RADIATION DOSE: 26.54 CTDI (mGy) COMPARISON: No prior exams available for comparison. TECHNIQUE: Contiguous axial images were obtained using helical multirow detector technique. The vol umetric data was post-processed with multiplanar reconstruction in oblique axial, sagittal, and coron al planes. Using automated exposure control and adjustment of the mA and/or kV according to patient s ize, radiation dose was kept as low as reasonably achievable to obtain optimal diagnostic quality thanh ges. DICOM format image data is available electronically for review and comparison. FINDINGS: No acute fracture or spondylolisthesis. Broad-based disc osteophyte complexes at C5-6-7 results in mi ld AP canal and lateral recess stenosis. No prevertebral soft tissue swelling. No bony destructive changes. Mild facet arthropathy. CONCLUSION: 1. No acute findings. 2. Broad-based disc protrusions with some osteophytic ridging at C5-7 with mild AP canal and lateral recess stenosis. Electronically signed by: Bandar Stewart MD 08/06/2018 10:15 AM EDT
[2018-08-06] MEDS: Lisinopril 20 MG Tablet PO SCH (10:23)
[2018-08-06] MEDS: Finasteride 5 MG Tablet PO SCH (10:24)
[2018-08-06] MEDS: Rivaroxaban 10 MG Tablet PO SCH (10:24)
[2018-08-06] MEDS: Piperacil/Tazo 3.375 GM Premix 50 ML IV.SIG SCH ×2 (10:26→16:00)
[2018-08-06] MEDS ORDERED: Potassium Chloride 25 MEQ Effervescent Tablet PO ONE (13:02)
--- NOTE | 2018-08-06 13:05 | P.PN ---
Subjective Interval history: 78-year-old male who was seen and examined today after just getting back from endoscopy. Patient appears to be very lethargic. Could be secondary to anesthesia. However in light of the patient's presentation of profound weakness , thick speech, new onset dysphagia, concerning for any acute neurological abnormality. Patient denies any new problems. Vital signs are stable. Patient remains afebrile. Physical Exam Vital signs: Vital Signs 08/05/18 15:26 08/05/18 16:00 08/05/18 20:00 Temperature 97.7 F Pulse Rate 78 78 80 Respiratory Rate 22 27 H 22 Blood Pressure 138/64 131/59 L Pulse Oximetry 92 L 97 96 08/06/18 00:00 08/06/18 04:00 08/06/18 06:52 Temperature 97.4 F L 97 F L 98.2 F Pulse Rate 77 78 70 Respiratory Rate 18 20 18 Blood Pressure 122/60 128/74 121/66 Pulse Oximetry 95 95 100 08/06/18 08:07 08/06/18 08:25 08/06/18 08:45 Temperature 97.5 F L Pulse Rate 70 76 Respiratory Rate 12 16 Blood Pressure 113/51 L 125/62 Pulse Oximetry 95 95 95 08/06/18 08:50 Temperature 97.6 F Pulse Rate 72 Respiratory Rate 16 Blood Pressure 133/63 Pulse Oximetry 93 L Intake & Output 08/05/18 08/06/18 08/06/18 18:59 06:59 18:59 Intake Total 1100 / 1100 1890 / 1890 700 / 700 Output Total 425 / 425 300 / 300 Balance 675 / 675 1590 / 1590 700 / 700 Weight 77.9 kg Intake: IV 1100 / 1100 1890 / 1890 D5W/1/2 NS Inj 1,000 ML @ 84 1840 / 1840 mls/hr IV.CONT .[id number] ANTHONY Rx# :[id number] Inj 1,000 ML @ 100 mls/hr IV 1000 / 1000 .CONT .Q10H ANTHONY Rx#:[id number] Zosyn 3.375 GM Premix 50 ML @ 100 / 100 50 / 50 100 mls/hr IV.SIG Q8H ANTHONY Rx#: [id number] Anesthesia Amount 700 / 700 Output: Urine Amount (Catheter) 425 / 425 300 / 300 Indwelling Urethral Catheter 425 / 425 300 / 300 Other: Date of Last Bowel Movement 08/04/18 08/06/18 # Bowel Movements 1 Narrative: GENERAL: Well-developed, well-nourished, in no acute distress. Appears to be lethargic, however but answers questions appropriately HEENT: Head is normocephalic without any lesions or masses noted. Facial features are symmetric. Eyes: Extraocular muscles are intact. Conjunctivae were clear. NECK: Supple without any masses. Trachea midline no deviation. No JVD, CARDIAC: Regular rhythm, regular rate. S1/S2 are heard. No murmurs gallops or rubs. LUNGS: Clear to auscultation bilaterally. No wheeze, rhonchi or rales. No use of accessory muscles on inspiration or expiration. ABDOMEN: Soft, nontender. Nondistended. Bowel sounds heard in all 4 quadrants. No organomegaly or masses. Negative rebound, negative guarding EXTREMITIES: No edema, pulses are equal bilaterally. No cyanosis or clubbing NEUROLOGY: Mood and affect appear appropriate. Cranial nerves II through XII grossly intact. Moving all extremities, speech is very thick and difficult to comprehend. This has been worsening over the last couple days - Urinary Catheter Management Indwelling Urethral Catheter Cath placed during this visit: yes, but has since been removed by the nurse Reason for continuing: Acute urinary retention Insertion date: 07/30/18 Removal date: 07/30/18 Removal time: 00:00 Results - Labs CBC & Chem 7: 08/06/18 04:20 08/06/18 04:20 Laboratory Results - last 24 hr 08/06/18 08/06/18 04:20 04:20 CBC w Diff Slide review pending WBC 14.1 H Corrected WBC 13.2 H RBC 3.76 L Hgb 12.1 L Hct 35.3 L MCV 94.0 MCH 32.3 MCHC 34.4 RDW 14.6 Plt Count 145 L MPV 9.0 Neut % (Auto) 79.5 H Lymph % (Auto) 11.8 [place] % (Auto) 8.0 Eos % (Auto) 0.5 Baso % (Auto) 0.2 Neut # (Auto) 11.2 H Lymph # (Auto) 1.7 [place] # (Auto) 1.1 H Eos # (Auto) 0.1 Baso # (Auto) 0.0 WBC Differential Manual diff final Seg Neuts % (Manual) 63 Band Neuts % (Manual) 6 Lymphocytes % (Manual) 19 Monocytes % (Manual) 6 Eosinophils % (Manual) 1 Metamyelocytes % (Man) 4 H Myelocytes % (Man) 1 H Abs Neuts (Manual) 9.8 H Nucleated RBCs/100 WBC 7 H Differential Comment . Platelet Estimate Low L Platelet Morphology Normal RBC Morphology Normal Sodium 153 H Potassium 3.2 L Chloride 119 H Carbon Dioxide 23.0 Anion Gap 11 BUN 49 H Creatinine 1.50 H Estimated GFR 45 L Random Glucose 153 H Calcium 8.4 L Total Bilirubin 1.0 AST 249 H ALT 80 H Alkaline Phosphatase 264 H Total Creatine Kinase 470 H CK-MB (CK-2) 32.4 H CK-MB (CK-2) % 6.9 H* Total Protein 5.5 L Albumin 2.1 L Microbiology 08/03/18 16:10 Blood - Peripheral Aerobic Blood Culture - Preliminary No growth in 3 days 08/03/18 16:10 Blood - Peripheral Anaerobic Blood Culture - Preliminary No growth in 3 days 08/03/18 16:05 Blood - Peripheral Aerobic Blood Culture - Preliminary No growth in 3 days 08/03/18 16:05 Blood - Peripheral Anaerobic Blood Culture - Preliminary No growth in 3 days 08/03/18 16:55 Clean Catch Urine Urine Culture - Final Citrobacter koseri - Imaging Impressions Videofluoroscopic Swallow 08/05/18 00:00 CONCLUSION: Recurrent penetration of the supraglottic larynx with thin barium and nectar thick barium with significant pooling in the paired valleculae and piriform sinuses with both substances. Cervical Spine CT 08/06/18 00:00 CONCLUSION: 1. No acute findings. 2. Broad-based disc protrusions with some osteophytic ridging at C5-7 with mild AP canal and lateral recess stenosis. Head CT 08/06/18 00:00 CONCLUSION: 1. No acute intracranial abnormalities. Remote lacunar infarct right basal ganglia. . Assessment and Plan - Assessment (1) Sepsis Code(s): A41.9 - Sepsis, unspecified organism Status: Acute (2) Elevated liver enzymes Code(s): R74.8 - Abnormal levels of other serum enzymes Status: Acute (3) Rhabdomyolysis Code(s): M62.82 - Rhabdomyolysis Status: Acute (4) UTI (urinary tract infection) due to urinary indwelling catheter Code(s): T83.511A - Infection and inflammatory reaction due to indwelling urethral catheter, initial encounter; N39.0 - Urinary tract infection, site not specified Status: Acute (5) Leukocytosis Code(s): D72.829 - Elevated white blood cell count, unspecified Status: Acute (6) Dysphagia Code(s): R13.10 - Dysphagia, unspecified Status: Acute - Plan Sepsis -Met criteria on admission with leukocytosis, lactic acidosis, urinary tract infection -Patient was continued on Zosyn, will change to oral antibiotics when patient clinically stable -Influenza testing was negative -Chest x-ray did not indicate any acute abnormality, pulmonary angiogram did not indicate any infectious process, -Blood cultures are negative for 3 days -Urine cultures indicating Citrobacter koseri Neurological symptoms to include dysphagia, change in mentation, profound weakness, thick speech -Initial CT scan did not indicate any acute abnormality, did indicate remote infarct in the basal ganglia -Patient does have elevated liver enzymes, obtain ammonia level to evaluate for hepatic encephalopathy -MRI was requested, however patient is refusing to have MRI performed. Repeat CT was done today which did not indicate any acute abnormality -CT of the cervical spine did not indicate any abnormality that would contribute to his dysphagia -Neurology consultation will be requested for further recommendations Acute liver enzyme elevation, unknown etiology -Upon review of laboratory studies it appears that the patient has had acute liver enzyme elevation since 06/27/2018 -Hepatitis profile was negative, Tylenol level was negative -Liver ultrasound shows hepatic and renal cyst, findings suggestive of cirrhosis , small amount of ascites -CT the abdomen did indicate liver is enlarged characteristic of hepatocellular disease such as cirrhosis. Several stable hepatic cyst. No dilated biliary ducts. Trace of ascites. -Consult GI for further recommendations -HIDA scan did not indicate any acute biliary abnormality Profound weakness -This is multifactorial with patient not eating for 5 days, decreased appetite, urinary tract infection, rhabdomyolysis -CT the brain was unremarkable for any acute abnormality -Physical therapy evaluation was performed and recommending physical therapy at rehab Dysphagia -Speech therapy consulted who indicated that the patient will require mechanical soft diet with thickened liquids, recommending modified barium swallow -Modified barium swallow was performed and did indicate significant pharyngeal phase dysphagia -EGD was performed which did indicate esophagitis, gastritis, gastric ulcers, bleeding ulcers which were cauterized Hypernatremia -Likely secondary to poor p.o. intake -Continue D5 half-normal saline -Continue monitor sodium level rhabdomyolysis -Likely secondary to inactivity at home, patient not on any medications that could cause rhabdomyolysis -Continue IV fluids -Continue monitor his CK-MB Complicated urinary tract infection -Patient does have indwelling Aggarwal that was just replaced 1 week ago -Patient resumed on medication for benign prostatic hypertrophy to include finasteride -Urine culture indicating Citrobacter Koseri -Urology consulted and following the patient -CT scan does show 1.1 cm pelvis without causing significant hydronephrosis. Follow-up KUB does show bilateral renal calculi hypertension -Continue home medications DVT prevention -Patient is on Xarelto (4) UTI (urinary tract infection) due to urinary indwelling catheter Qualifiers: Indwelling urinary catheter type: indwelling urethral catheter Encounter type : sequela Qualified Code(s): T83.511S - Infection and inflammatory reaction due to indwelling urethral catheter, sequela; N39.0 - Urinary tract infection, site not specified
[2018-08-06 17:44] LABS: ABG Base Excess -3.8 mmol/L (-2-2); ABG PCO2 36 mmHg (38-42); ABG PO2 89 mmHg (61-120)
[2018-08-06 18:13] LABS: Folate 7.1 ng/mL (3.1-17.5)
--- NOTE | 2018-08-06 20:23 | MB ---
cc: Te Ospina MD DATE: 08/06/2018 HISTORY OF PRESENT ILLNESS: A 78-year-old left-handed male with hypertension. Otherwise, he tells me he is very healthy. He was admitted to the emergency room 08/03/2018. Had a hip surgery 2 months ago. Some generalized weakness and abdominal pain, according to the nurse. He has a history of AAA repair, hypertension, BPH. He was awake and alert at that time, moving all his extremities. He has been a little lethargic here. I was asked to see him for change in mental status, possibly some slurred speech. He had some slight aspiration on modified barium swallow. REVIEW OF SYSTEMS: He denies any diabetes, hypercholesterolemia, ID, CABG, cardiac arrhythmia, stent, angioplasty, AFib, Coumadin, renal, hepatic or pulmonary disease, thyroid disease, lupus, ulcer, cancer or stroke. SOCIAL HISTORY: He is a smoker and I have asked him to quit. He has 2 gins a day, seems like half a glass of gin, 2 drinks of that a day. Lives with his . FAMILY HISTORY: Positive for cancer in his mother. Negative for seizure, stroke. MEDICATIONS AT HOME: He was on finasteride, alfuzosin, Xarelto 10 a day, lisinopril, [place]. PAST MEDICAL HISTORY: As above. Evidently on Xarelto due to the recent hip surgery. PHYSICAL EXAMINATION: VITAL SIGNS: Afebrile, 72, 18, 140/50. NECK: There are no carotid bruits. HEART: Regular rate and rhythm. I did not detect a murmur. NEUROLOGIC: Pupils are equal. He has full visual pack. Extraocular movements intact without nystagmus. Face is symmetric with normal sensation. Tongue was midline. No drift. He has normal strength in bilateral upper and, at best testing, bilateral lower extremities. Toes downgoing bilaterally. DTRs absent throughout. Pinprick seemed to be diminished a little bit distally in the lower legs, otherwise intact throughout face and arms bilaterally. Not ataxic on [id number]. Speech is a little bit slow, minimally slurred, but not aphasic. He knew the year, but not the month. Short-term memory was 0/3 at 2 minutes, 1/3 at 4 minutes. LABORATORY DATA: White count is 14,000. Otherwise, his CBC was essentially normal. Sedimentation rate is 39. UA had many white cells, and he had a UTI on 08/03/2018. His sodium is 153 and initially was 145, his creatinine is 1.5. It had been normal prior. BUN is 49, initially it was 59. His LFTs are elevated with an AST of 250 and that has continued throughout the last several days. CPK was 470. Troponin was negative. B12 is pending. Thyroid is normal. RPR is pending. DIAGNOSTIC DATA: A CT scan of the brain shows old right lacunar infarct, otherwise normal. A CT of the cervical spine was basically negative. Mild DJD. Abdominal and pelvis CT: Liver looked enlarged as if he had cirrhosis, trace ascites, left kidney stone. IMPRESSION AND PLAN: Probably more of a metabolic problem, evidently has some cirrhosis. We will check an MRI of the brain, carotid ultrasound with the old small lacunar infarct. I note his ammonia level was elevated to 83. Check a blood gas on him, but looks probably more of a metabolic problem than a primary neurological problem, apparently from the liver. I would hold off on any sedatives on him. We can check an EEG. Apparently, significant alcohol use. MD MAYRA Branch/davin , 05:29 PM , 05:37 PM
--- NOTE | 2018-08-06 21:37 | US ---
EXAM DATE: 08/06/2018 9:31 PM EDT AGE/SEX: 78 years / Male INDICATIONS: Weakness. Dysphagia. CLINICAL DATA: This is the patient's initial encounter. Patient reports that signs and symptoms have been present for 1 day and indicates a pain score of 0/10. MEDICAL/SURGICAL HISTORY: Aneurysm, abdominal. Hypertension. BPH. Kidney stones. Prostate diso rder. Abdominal aortic aneurysm repair. Appendectomy. Hernia repair. COMPARISON: . VELOCITY PARAMETERS: ICA/CCA Ratio: Right 1.0 , Left 0.7 ICA: Right 135 cm/sec, Left 83 cm/sec CCA: Right 132 cm/sec, Left 118 cm/sec ECA: Right 175 cm/sec, Left 86 cm/sec Vertebral: Right 78 cm/sec antegrade, Left 81 cm/sec antegrade FINDINGS: Right Carotid: Scattered plaque in the common carotid artery. No significant plaque is visualized.Th e waveforms are within normal limits. Left Carotid: Scattered plaque in the common carotid artery. No significant plaque is visualized. Th e waveforms are within normal limits. Other: None. CONCLUSION: 1. Right Internal Carotid Artery: Findings indicate <50% stenosis. 2. Left Internal Carotid Artery: Findings indicate <50% stenosis. Electronically signed by: Jayden Guthrie MD 08/06/2018 9:35 PM EDT
[2018-08-07] MEDS: Dextrose 5%/NaCl 0.45% Inj 1,000 ML IV.CONT SCH ×3 (00:17→23:56)
[2018-08-07] MEDS: Piperacil/Tazo 3.375 GM Premix 50 ML IV.SIG SCH ×3 (00:17→18:12)
[2018-08-07] MEDS: Chlorhexidine Gluconate 2% 1 Pack (2 Cloths) TOPICAL SCH (05:08)
[2018-08-07 06:16] LABS: Baso % (Auto) 0.1 % (0.0-2.0); Eos # (Auto) 0.1 th/mm3 (0.0-0.4); Eos % (Auto) 0.9 % (0.0-4.0); Hematocrit 35.4 % (39.0-51.0); Hemoglobin 12.1 gm/dL (13.0-17.0); Lymph # (Auto) 2.1 th/mm3 (1.0-4.8); Mean Corpuscular HGB Conc 34.1 % (32.0-36.0); Mean Corpuscular Hemoglobin 32.3 pg (27.0-34.0); Mean Corpuscular Volume 94.7 fL (80.0-100.0); Mean Platelet Volume 9.7 fL (7.0-11.0); Mono # (Auto) 0.9 th/mm3 (0.0-0.9); Mono % (Auto) 6.2 % (0.0-8.0); Neut # (Auto) 11.9 th/mm3 (1.8-7.7); Neut % (Auto) 78.8 % (16.0-70.0); Platelet Count 150 th/mm3 (150-450); Red Blood Count 3.74 mil/mm3 (4.50-5.90); Red Cell Distribution Width 14.9 % (11.6-17.2)
[2018-08-07 06:20] LABS: Chloride 119 meq/L (98-107); Potassium 3.2 meq/L (3.5-5.1); Sodium 153 meq/L (136-145)
[2018-08-07 06:23] LABS: Albumin 1.9 g/dL (3.4-5.0); Calcium 8.4 mg/dL (8.5-10.1)
[2018-08-07 06:24] LABS: Anion Gap 11 meq/L (5-15); Blood Urea Nitrogen 53 mg/dL (7-18); Glucose,Random 127 mg/dL (74-106)
[2018-08-07 06:27] LABS: Alanine Aminotransferase 73 U/L (12-78); Aspartate Aminotransferase 243 U/L (15-37); Glomerular Filtration Rate 39 mL/min (>89)
[2018-08-07 06:28] LABS: Total Protein 5.1 g/dL (6.4-8.2)
[2018-08-07 06:30] LABS: Alkaline Phosphatase 241 U/L (45-117); Creatine Kinase 446 U/L (39-308)
[2018-08-07 07:00] LABS: Creatine Kinase MB 29.1 ng/mL (0.5-3.6)
[2018-08-07 07:04] LABS: CKMB Percent 6.5 % (0.0-4.0)
[2018-08-07 07:21] LABS: Eosinophils 1 % (0-4); Lymphocytes 8 % (9-44); Metamyelocytes 6 % (0-1); Monocytes 12 % (0-8); Promyelocyte 1 % (0-0); Tallied Nucleated RBC 1 (0-0)
[2018-08-07 07:22] LABS: Platelet Estimate Normal (Normal); Platelet Morphology Normal (Normal); RBC Morphology Normal (Normal); Toxic Granulation 1+
--- NOTE | 2018-08-07 09:55 | MR ---
EXAM DATE: 08/07/2018 9:44 AM EDT AGE/SEX: 78 years / Male INDICATIONS: . Dysphagia. CLINICAL DATA: This is the patient's initial encounter. Patient reports that signs and symptoms have been present for 2 days and indicates a pain score of 5/10. MEDICAL/SURGICAL HISTORY: Non-responsive. . Orthopedic. COMPARISON: [facility], CT HEAD W/O CONTRAST, 08/06/2018. . TECHNIQUE: Multiplanar, multisequence examination of the brain was performed without contrast. FINDINGS: Cerebrum: There is mild generalized atrophy with ventricular size within normal limits given the degr ee of atrophy. No midline shift, mass lesion, hemorrhage or acute infarction. No extraaxial fluid c ollections are seen. The pituitary gland and suprasellar cistern are normal in configuration. There is an old lacune in the right basal ganglia with prominent perivascular spaces bilaterally. White Matter: There is mild periventricular and subcortical white matter signal change. Posterior Fossa: The cerebellum and brainstem demonstrate no acute abnormality. The 4th ventricle is midline. The cerebellopontine angle is within normal limits. The cerebellar tonsils are normal in p osition. Diffusion Imaging: No areas of restricted diffusion are seen. Extracranial: The visualized sinuses are clear. CONCLUSION: 1. No acute intracranial abnormality is identified. There are no findings to indicate recent ischemi a. 2. Chronic findings include generalized atrophy and chronic periventricular white matter change tessa acteristic of chronic microvascular ischemia. Electronically signed by: Donny Monroe MD 08/07/2018 9:54 AM EDT
--- NOTE | 2018-08-07 09:59 | MR ---
EXAM DATE: 08/07/2018 9:44 AM EDT AGE/SEX: 78 years / Male INDICATIONS: . Dysphagia. CLINICAL DATA: This is the patient's initial encounter. Patient reports that signs and symptoms have been present for 2 days and indicates a pain score of 5/10. MEDICAL/SURGICAL HISTORY: Non-responsive. . Orthopedic. COMPARISON: [facility], CT CERVICAL SPINE W/O CONTRAST, 08/06/2018. . TECHNIQUE: Multiplanar, multisequence MRI examination of the cervical spine was performed without co ntrast. FINDINGS: Vertebrae: No bone marrow signal is appreciated. Vertebral body height is maintained. Alignment: No anterolisthesis or retrolisthesis. Cord: Normal signal. Post Fossa: The cerebellar tonsils are normal in position. The craniocervical junction and C1-C2 level demonstrate no acute abnormality. C2-C3: No disc herniation, canal stenosis, or neural foraminal stenosis. C3-C4: Disc desiccation with endplate osteophytes anteriorly and mild posterior disc osteophyte comp leo with small uncovertebral osteophytes. No spinal canal stenosis or neural foraminal stenosis is pr esent. C4-C5: Disc desiccation with endplate osteophytes anteriorly. There is mild posterior disc osteophyt e complex. No spinal canal stenosis or neural foraminal stenosis is appreciated. C5-C6: Decreased disc height with disc desiccation and endplate osteophytes anteriorly. There is lik thais a posterior diffuse disc osteophyte complex with left paracentral disc protrusion. These changes abut the spinal cord mildly narrowing the canal. There is at least mild bilateral neural foraminal na rrowing. C6-C7: Mild decreased disc height with diffuse posterior disc osteophyte complex, largest in a left paracentral location. This material abuts the spinal cord and mildly narrows the canal. There is mild neural foraminal narrowing bilaterally. C7-T1: No disc herniation, canal stenosis, or neural foraminal stenosis. Other: The visualized surrounding structures demonstrate no acute abnormality. CONCLUSION: 1. MRI confirms mild spinal canal stenosis at C5-C6 and C6-C7, as above. 2. No acute cervical spine abnormality is identified. Electronically signed by: Donny Monroe MD 08/07/2018 9:58 AM EDT
--- NOTE | 2018-08-07 10:11 | P.PNGI ---
Subjective Interval history: Patient was at the radiology department getting MRI he received lorazepam because of claustrophobia so he was very sleepy, unable to give good history, talking to the nursing staff the patient was doing okay he denied any abdominal pain and no sign of rectal bleeding, he had some deterioration of his mental status and that is what triggered the MRI Physical Exam Vital signs: Vital Signs 08/06/18 10:31 08/06/18 11:00 08/06/18 12:00 Temperature 98.5 F Pulse Rate 78 74 72 Respiratory Rate 25 H 17 18 Blood Pressure 116/60 115/51 L 140/50 L Pulse Oximetry 95 96 94 L 08/06/18 16:00 08/06/18 16:05 08/06/18 17:00 Temperature 98.2 F Pulse Rate 84 84 72 Respiratory Rate 25 H 29 H 22 Blood Pressure 86/54 L 111/63 84/44 L Pulse Oximetry 93 L 94 L 95 08/06/18 17:02 08/06/18 17:09 08/06/18 17:37 Temperature Pulse Rate 72 72 Respiratory Rate 24 22 Blood Pressure 89/54 L 117/63 Pulse Oximetry 95 97 96 08/06/18 18:00 08/06/18 20:00 08/06/18 20:11 Temperature 97.3 F L Pulse Rate 70 70 Respiratory Rate 22 16 Blood Pressure 100/50 L Pulse Oximetry 95 94 L 08/07/18 00:00 08/07/18 04:00 08/07/18 08:00 Temperature 97.3 F L 97.3 F L 98.2 F Pulse Rate 77 74 75 Respiratory Rate 14 14 19 Blood Pressure 99/57 L 108/43 L 117/55 L Pulse Oximetry 94 L 97 Intake & Output 08/06/18 08/07/18 08/07/18 18:59 06:59 18:59 Intake Total 800 / 800 210 / 210 Output Total 275 / 275 Balance 525 / 525 210 / 210 Weight 78.3 kg Intake: IV 100 / 100 210 / 210 D5W/1/2 NS Inj 1,000 ML @ 84 160 / 160 mls/hr IV.CONT .[id number] ANTHONY Rx# :[id number] Zosyn 3.375 GM Premix 50 ML @ 100 / 100 50 / 50 100 mls/hr IV.SIG Q8H ANTHONY Rx#: [id number] Anesthesia Amount 700 / 700 Output: Urine Amount (Catheter) 275 / 275 Indwelling Urethral Catheter 275 / 275 Other: Date of Last Bowel Movement 08/06/18 08/06/18 # Incontinent Bowel Movements 4 - Constitutional no acute distress, somnolent - Routine HEENT Exam Head: Present: normocephalic Eye: Present: EOMI, PERRL ENT: Present: mucous membranes moist - Routine Neck Exam Present: supple, full ROM - Routine Respiratory Exam Present: CTA bilaterally - Routine Cardiovascular Exam Present: RRR, S1, S2 - Routine Abdominal Exam Present: soft, normoactive bowel sounds, tenderness - Routine Extremities Exam Present: normal capillary refill - Routine Skin Exam Present: intact - Routine Neurological Exam Patient just received lorazepam for MRI and he is arousable but not oriented - Urinary Catheter Management Indwelling Urethral Catheter Cath placed during this visit: yes, but has since been removed by the nurse Reason for continuing: Other continuation reason Insertion date: 07/30/18 Removal date: 07/30/18 Removal time: 00:00 Results - Labs CBC & Chem 7: 08/07/18 05:40 08/07/18 05:40 Laboratory Results - last 24 hr 08/06/18 08/06/18 08/06/18 15:20 15:20 15:20 CBC w Diff WBC RBC Hgb Hct MCV MCH MCHC RDW Plt Count MPV Neut % (Auto) Lymph % (Auto) [place] % (Auto) Eos % (Auto) Baso % (Auto) Neut # (Auto) Lymph # (Auto) [place] # (Auto) Eos # (Auto) Baso # (Auto) WBC Differential Seg Neuts % (Manual) Band Neuts % (Manual) Lymphocytes % (Manual) Monocytes % (Manual) Eosinophils % (Manual) Basophils % (Manual) Metamyelocytes % (Man) Promyelocytes % (Man) Abs Neuts (Manual) Nucleated RBCs/100 WBC Differential Comment Toxic Granulation Platelet Estimate Platelet Morphology RBC Morphology ESR 39 H Puncture Site Patient Temperature O2 Saturation ABG pH ABG pCO2 ABG pO2 ABG HCO3 ABG O2 Content ABG Base Excess ABG Methemoglobin Jonatan Test Hemoglobin Carboxyhemoglobin O2 Delivery Device Liter Flow Critical Value Sodium Potassium Chloride Carbon Dioxide Anion Gap BUN Creatinine Estimated GFR Random Glucose Calcium Total Bilirubin AST ALT Alkaline Phosphatase Ammonia 83 H Total Creatine Kinase CK-MB (CK-2) CK-MB (CK-2) % Total Protein Total Protein (PEP) Albumin Vitamin B12 Greater than 2000 H Folate 7.1 TSH 1.860 Stl C.difficile DNA Amp St C. diff Tox Epid 027 Rheumatoid Factor Scrn 08/06/18 08/06/18 08/06/18 16:35 17:38 19:20 CBC w Diff WBC RBC Hgb Hct MCV MCH MCHC RDW Plt Count MPV Neut % (Auto) Lymph % (Auto) [place] % (Auto) Eos % (Auto) Baso % (Auto) Neut # (Auto) Lymph # (Auto) [place] # (Auto) Eos # (Auto) Baso # (Auto) WBC Differential Seg Neuts % (Manual) Band Neuts % (Manual) Lymphocytes % (Manual) Monocytes % (Manual) Eosinophils % (Manual) Basophils % (Manual) Metamyelocytes % (Man) Promyelocytes % (Man) Abs Neuts (Manual) Nucleated RBCs/100 WBC Differential Comment Toxic Granulation Platelet Estimate Platelet Morphology RBC Morphology ESR Puncture Site Right radial Patient Temperature 98.6 O2 Saturation 95 ABG pH 7.38 ABG pCO2 36 L ABG pO2 89 ABG HCO3 21 L ABG O2 Content 16.2 ABG Base Excess -3.8 L ABG Methemoglobin 0.9 Jonatan Test Present Hemoglobin 12.1 Carboxyhemoglobin 1.1 O2 Delivery Device Nasal cannula Liter Flow 1.50 Critical Value No Sodium Potassium Chloride Carbon Dioxide Anion Gap BUN Creatinine Estimated GFR Random Glucose Calcium Total Bilirubin AST ALT Alkaline Phosphatase Ammonia Total Creatine Kinase CK-MB (CK-2) CK-MB (CK-2) % Total Protein Total Protein (PEP) 5.2 L Albumin Vitamin B12 Folate TSH Stl C.difficile DNA Amp Positive H St C. diff Tox Epid 027 Negative Rheumatoid Factor Scrn Positive H 08/07/18 08/07/18 05:40 05:40 CBC w Diff Slide review pending WBC 15.0 H RBC 3.74 L Hgb 12.1 L Hct 35.4 L MCV 94.7 MCH 32.3 MCHC 34.1 RDW 14.9 Plt Count 150 MPV 9.7 Neut % (Auto) 78.8 H Lymph % (Auto) 14.0 [place] % (Auto) 6.2 Eos % (Auto) 0.9 Baso % (Auto) 0.1 Neut # (Auto) 11.9 H Lymph # (Auto) 2.1 [place] # (Auto) 0.9 Eos # (Auto) 0.1 Baso # (Auto) 0.0 WBC Differential Manual diff final Seg Neuts % (Manual) 64 Band Neuts % (Manual) 6 Lymphocytes % (Manual) 8 L Monocytes % (Manual) 12 H Eosinophils % (Manual) 1 Basophils % (Manual) 2 Metamyelocytes % (Man) 6 H Promyelocytes % (Man) 1 H Abs Neuts (Manual) 11.6 H Nucleated RBCs/100 WBC 1 H Differential Comment . Toxic Granulation 1+ H Platelet Estimate Normal Platelet Morphology Normal RBC Morphology Normal ESR Puncture Site Patient Temperature O2 Saturation ABG pH ABG pCO2 ABG pO2 ABG HCO3 ABG O2 Content ABG Base Excess ABG Methemoglobin Jonatan Test Hemoglobin Carboxyhemoglobin O2 Delivery Device Liter Flow Critical Value Sodium 153 H Potassium 3.2 L Chloride 119 H Carbon Dioxide 23.0 Anion Gap 11 BUN 53 H Creatinine 1.70 H Estimated GFR 39 L Random Glucose 127 H Calcium 8.4 L Total Bilirubin 1.0 AST 243 H ALT 73 Alkaline Phosphatase 241 H Ammonia Total Creatine Kinase 446 H CK-MB (CK-2) 29.1 H CK-MB (CK-2) % 6.5 H* Total Protein 5.1 L Total Protein (PEP) Albumin 1.9 L Vitamin B12 Folate TSH Stl C.difficile DNA Amp St C. diff Tox Epid 027 Rheumatoid Factor Scrn Microbiology 08/03/18 16:10 Blood - Peripheral Aerobic Blood Culture - Preliminary No growth in 3 days 08/03/18 16:10 Blood - Peripheral Anaerobic Blood Culture - Preliminary No growth in 3 days 08/03/18 16:05 Blood - Peripheral Aerobic Blood Culture - Preliminary No growth in 3 days 08/03/18 16:05 Blood - Peripheral Anaerobic Blood Culture - Preliminary No growth in 3 days - Imaging Impressions Carotid Doppler Study 08/06/18 00:00 CONCLUSION: 1. Right Internal Carotid Artery: Findings indicate <50% stenosis. 2. Left Internal Carotid Artery: Findings indicate <50% stenosis. Cervical Spine CT 08/06/18 00:00 CONCLUSION: 1. No acute findings. 2. Broad-based disc protrusions with some osteophytic ridging at C5-7 with mild AP canal and lateral recess stenosis. Cervical Spine MRI 08/07/18 00:00 CONCLUSION: 1. MRI confirms mild spinal canal stenosis at C5-C6 and C6-C7, as above. 2. No acute cervical spine abnormality is identified. Head MRI 08/07/18 07:07 CONCLUSION: 1. No acute intracranial abnormality is identified. There are no findings to indicate recent ischemia. 2. Chronic findings include generalized atrophy and chronic periventricular white matter change characteristic of chronic microvascular ischemia. Assessment and Plan - Plan 78-year-old gentleman with elevated liver function test most likely related to rhabdomyolysis, patient complaining of abdominal pain could be related to kidney disease but cannot rule out peptic ulcer disease so I will be planning on doing upper endoscopy tomorrow Further plan depends on the finding 08/06/2018 patient is doing okay today still having some discomfort, had upper endoscopy done Findings; Esophagus: Grade C esophagitis Stomach severe gastritis biopsy was done from the antrum Duodenum multiple ulcers in the duodenum bulb and in the duodenum 1 of them was deep most likely the reason for the pain, patient also has one ulcer that was oozing blood which was cauterized to control the bleeding Recommendations; 1- Supportive care 2- ok to transfer to recovery area then discharge per protocol 3-no NSAIDs 4-cardiac diet 5- EGD as needed 6-follow-up biopsy 7-no alcohol 8-Protonix 40 mg daily 9-monitor hemoglobin 08/07/2018 patient has still mild elevation of the liver function test most likely related to rhabdomyolysis, liver workup in progress but most likely cirrhosis, ammonia level is high patient was started on lactulose Patient has multiple ulcers in the duodenum and stomach biopsy was done no drop in his hemoglobin will continue antibiotic patient has diarrhea C. difficile DNA was positive were waiting for the antigen and he is in isolation
[2018-08-07] MEDS: Rivaroxaban 10 MG Tablet PO SCH (10:34)
[2018-08-07] MEDS: Lisinopril 20 MG Tablet PO SCH (10:34)
[2018-08-07] MEDS: Finasteride 5 MG Tablet PO SCH (10:38)
--- NOTE | 2018-08-07 11:16 | P.PN ---
Subjective Interval history: 78-year-old male who is seen and examined today for follow-up on encephalopathy, profound weakness, acute liver enzyme elevation. Patient just got back from MRI testing. Patient was given Ativan prior to procedure. Still appears to be a little somnolent. Vital signs are stable. Patient remains afebrile. Was notified at 1630 today that the patient had a blood pressure is 65/40. Requested repeat blood pressure and giving a liter of fluid. When his evaluated the patient he is still appears to be more alert than he has the last couple days, still not completely orientated. Still with difficulty in speech. Patient still with hypotension, had increased O2 supplementation up to 4 L, while in the room patient took his oxygen off and he was on room air at 90-92% O2 saturation. Started fluid resuscitation. Patient still hypotensive. Discussed with critical care team Dr. Scherer. Patient unable to be stabilized in [place]. Patient will need stat transferred to the [facility] for stabilization and management. Physical Exam Vital signs: Vital Signs 08/06/18 12:00 08/06/18 16:00 08/06/18 16:05 Temperature 98.5 F 98.2 F Pulse Rate 72 84 84 Respiratory Rate 18 25 H 29 H Blood Pressure 140/50 L 86/54 L 111/63 Pulse Oximetry 94 L 93 L 94 L 08/06/18 17:00 08/06/18 17:02 08/06/18 17:09 Temperature Pulse Rate 72 72 72 Respiratory Rate 22 24 22 Blood Pressure 84/44 L 89/54 L 117/63 Pulse Oximetry 95 95 97 08/06/18 17:37 08/06/18 18:00 08/06/18 20:00 Temperature 97.3 F L Pulse Rate 70 70 Respiratory Rate 22 16 Blood Pressure 100/50 L Pulse Oximetry 96 95 08/06/18 20:11 08/07/18 00:00 08/07/18 04:00 Temperature 97.3 F L 97.3 F L Pulse Rate 77 74 Respiratory Rate 14 14 Blood Pressure 99/57 L 108/43 L Pulse Oximetry 94 L 94 L 08/07/18 08:00 Temperature 98.2 F Pulse Rate 75 Respiratory Rate 19 Blood Pressure 117/55 L Pulse Oximetry 97 Intake & Output 08/06/18 08/07/18 08/07/18 18:59 06:59 18:59 Intake Total 800 / 800 210 / 210 1000 / 1000 Output Total 275 / 275 Balance 525 / 525 210 / 210 1000 / 1000 Weight 78.3 kg Intake: IV 100 / 100 210 / 210 1000 / 1000 D5W/1/2 NS Inj 1,000 ML @ 84 160 / 160 1000 / 1000 mls/hr IV.CONT .[id number] ANTHONY Rx# :[id number] Zosyn 3.375 GM Premix 50 ML @ 100 / 100 50 / 50 100 mls/hr IV.SIG Q8H ANTHONY Rx#: [id number] Anesthesia Amount 700 / 700 Output: Urine Amount (Catheter) 275 / 275 Indwelling Urethral Catheter 275 / 275 Other: Date of Last Bowel Movement 08/06/18 08/06/18 # Incontinent Bowel Movements 4 Narrative: GENERAL: Well-developed, well-nourished, in no acute distress. Appears to be lethargic, HEENT: Head is normocephalic without any lesions or masses noted. Facial features are symmetric. Eyes: Extraocular muscles are intact. Conjunctivae were clear. NECK: Supple without any masses. Trachea midline no deviation. No JVD, CARDIAC: Regular rhythm, regular rate. S1/S2 are heard. No murmurs gallops or rubs. LUNGS: Clear to auscultation bilaterally. No wheeze, rhonchi or rales. No use of accessory muscles on inspiration or expiration. ABDOMEN: Soft, nontender. Nondistended. Bowel sounds heard in all 4 quadrants. No organomegaly or masses. Negative rebound, negative guarding EXTREMITIES: No edema, pulses are equal bilaterally. No cyanosis or clubbing NEUROLOGY: Mood and affect appear appropriate. Cranial nerves II through XII grossly intact. Moving all extremities, speech is very thick and difficult to comprehend. Reevaluation GENERAL: Well-developed, well-nourished, in no acute distress. Patient appears to be more alert than this morning, still not completely orientated. Moaning frequently HEENT: Head is normocephalic without any lesions or masses noted. Facial features are symmetric. Eyes: Extraocular muscles are intact. Conjunctivae were clear. NECK: Supple without any masses. Trachea midline no deviation. No JVD, CARDIAC: Regular rhythm, regular rate. S1/S2 are heard. No murmurs gallops or rubs. LUNGS: Clear to auscultation bilaterally. No wheeze, rhonchi or rales. No use of accessory muscles on inspiration or expiration. ABDOMEN: Soft, mild tenderness noted in the epigastric region. Nondistended. Bowel sounds heard in all 4 quadrants. No organomegaly or masses. Negative rebound, negative guarding EXTREMITIES: No edema, pulses are equal bilaterally. No cyanosis or clubbing NEUROLOGY: Mood and affect appear appropriate. Cranial nerves II through XII grossly intact. Moving all extremities - Urinary Catheter Management Indwelling Urethral Catheter Cath placed during this visit: yes, but has since been removed by the nurse Reason for continuing: Acute urinary retention Insertion date: 07/30/18 Removal date: 07/30/18 Removal time: 00:00 Results - Labs CBC & Chem 7: 08/09/18 05:05 08/09/18 05:05 Laboratory Results - last 24 hr 08/06/18 08/06/18 08/06/18 15:20 15:20 15:20 CBC w Diff WBC RBC Hgb Hct MCV MCH MCHC RDW Plt Count MPV Neut % (Auto) Lymph % (Auto) Hanson % (Auto) Eos % (Auto) Baso % (Auto) Neut # (Auto) Lymph # (Auto) Hans[place] # (Auto) Eos # (Auto) Baso # (Auto) WBC Differential Seg Neuts % (Manual) Band Neuts % (Manual) Lymphocytes % (Manual) Monocytes % (Manual) Eosinophils % (Manual) Basophils % (Manual) Metamyelocytes % (Man) Promyelocytes % (Man) Abs Neuts (Manual) Nucleated RBCs/100 WBC Differential Comment Toxic Granulation Platelet Estimate Platelet Morphology RBC Morphology ESR 39 H Puncture Site Patient Temperature O2 Saturation ABG pH ABG pCO2 ABG pO2 ABG HCO3 ABG O2 Content ABG Base Excess ABG Methemoglobin Jonatan Test Hemoglobin Carboxyhemoglobin O2 Delivery Device Liter Flow Critical Value Sodium Potassium Chloride Carbon Dioxide Anion Gap BUN Creatinine Estimated GFR Random Glucose Calcium Total Bilirubin AST ALT Alkaline Phosphatase Ammonia 83 H Total Creatine Kinase CK-MB (CK-2) CK-MB (CK-2) % Total Protein Total Protein (PEP) Albumin Vitamin B12 Greater than 2000 H Folate 7.1 TSH 1.860 Stl C.difficile DNA Amp St C. diff Tox Epid 027 Rheumatoid Factor Scrn Rheumatoid Factor Titer 08/06/18 08/06/18 08/06/18 16:35 17:38 19:20 CBC w Diff WBC RBC Hgb Hct MCV MCH MCHC RDW Plt Count MPV Neut % (Auto) Lymph % (Auto) Hanson % (Auto) Eos % (Auto) Baso % (Auto) Neut # (Auto) Lymph # (Auto) Hanson # (Auto) Eos # (Auto) Baso # (Auto) WBC Differential Seg Neuts % (Manual) Band Neuts % (Manual) Lymphocytes % (Manual) Monocytes % (Manual) Eosinophils % (Manual) Basophils % (Manual) Metamyelocytes % (Man) Promyelocytes % (Man) Abs Neuts (Manual) Nucleated RBCs/100 WBC Differential Comment Toxic Granulation Platelet Estimate Platelet Morphology RBC Morphology ESR Puncture Site Right radial Patient Temperature 98.6 O2 Saturation 95 ABG pH 7.38 ABG pCO2 36 L ABG pO2 89 ABG HCO3 21 L ABG O2 Content 16.2 ABG Base Excess -3.8 L ABG Methemoglobin 0.9 Jonatan Test Present Hemoglobin 12.1 Carboxyhemoglobin 1.1 O2 Delivery Device Nasal cannula Liter Flow 1.50 Critical Value No Sodium Potassium Chloride Carbon Dioxide Anion Gap BUN Creatinine Estimated GFR Random Glucose Calcium Total Bilirubin AST ALT Alkaline Phosphatase Ammonia Total Creatine Kinase CK-MB (CK-2) CK-MB (CK-2) % Total Protein Total Protein (PEP) 5.2 L Albumin Vitamin B12 Folate TSH Stl C.difficile DNA Amp Positive H St C. diff Tox Epid 027 Negative Rheumatoid Factor Scrn Positive H Rheumatoid Factor Titer 32.6 H 08/07/18 08/07/18 05:40 05:40 CBC w Diff Slide review pending WBC 15.0 H RBC 3.74 L Hgb 12.1 L Hct 35.4 L MCV 94.7 MCH 32.3 MCHC 34.1 RDW 14.9 Plt Count 150 MPV 9.7 Neut % (Auto) 78.8 H Lymph % (Auto) 14.0 Hanson % (Auto) 6.2 Eos % (Auto) 0.9 Baso % (Auto) 0.1 Neut # (Auto) 11.9 H Lymph # (Auto) 2.1 Hanson # (Auto) 0.9 Eos # (Auto) 0.1 Baso # (Auto) 0.0 WBC Differential Manual diff final Seg Neuts % (Manual) 64 Band Neuts % (Manual) 6 Lymphocytes % (Manual) 8 L Monocytes % (Manual) 12 H Eosinophils % (Manual) 1 Basophils % (Manual) 2 Metamyelocytes % (Man) 6 H Promyelocytes % (Man) 1 H Abs Neuts (Manual) 11.6 H Nucleated RBCs/100 WBC 1 H Differential Comment . Toxic Granulation 1+ H Platelet Estimate Normal Platelet Morphology Normal RBC Morphology Normal ESR Puncture Site Patient Temperature O2 Saturation ABG pH ABG pCO2 ABG pO2 ABG HCO3 ABG O2 Content ABG Base Excess ABG Methemoglobin Jonatan Test Hemoglobin Carboxyhemoglobin O2 Delivery Device Liter Flow Critical Value Sodium 153 H Potassium 3.2 L Chloride 119 H Carbon Dioxide 23.0 Anion Gap 11 BUN 53 H Creatinine 1.70 H Estimated GFR 39 L Random Glucose 127 H Calcium 8.4 L Total Bilirubin 1.0 AST 243 H ALT 73 Alkaline Phosphatase 241 H Ammonia Total Creatine Kinase 446 H CK-MB (CK-2) 29.1 H CK-MB (CK-2) % 6.5 H* Total Protein 5.1 L Total Protein (PEP) Albumin 1.9 L Vitamin B12 Folate TSH Stl C.difficile DNA Amp St C. diff Tox Epid 027 Rheumatoid Factor Scrn Rheumatoid Factor Titer Microbiology 08/03/18 16:10 Blood - Peripheral Aerobic Blood Culture - Preliminary No growth in 4 days 08/03/18 16:10 Blood - Peripheral Anaerobic Blood Culture - Preliminary No growth in 4 days 08/03/18 16:05 Blood - Peripheral Aerobic Blood Culture - Preliminary No growth in 4 days 08/03/18 16:05 Blood - Peripheral Anaerobic Blood Culture - Preliminary No growth in 4 days - Imaging Impressions Carotid Doppler Study 08/06/18 00:00 CONCLUSION: 1. Right Internal Carotid Artery: Findings indicate <50% stenosis. 2. Left Internal Carotid Artery: Findings indicate <50% stenosis. Cervical Spine MRI 08/07/18 00:00 CONCLUSION: 1. MRI confirms mild spinal canal stenosis at C5-C6 and C6-C7, as above. 2. No acute cervical spine abnormality is identified. Head MRI 08/07/18 07:07 CONCLUSION: 1. No acute intracranial abnormality is identified. There are no findings to indicate recent ischemia. 2. Chronic findings include generalized atrophy and chronic periventricular white matter change characteristic of chronic microvascular ischemia. Assessment and Plan - Assessment (1) Sepsis Code(s): A41.9 - Sepsis, unspecified organism Status: Deleted (2) Elevated liver enzymes Code(s): R74.8 - Abnormal levels of other serum enzymes Status: Acute (3) Rhabdomyolysis Code(s): M62.82 - Rhabdomyolysis Status: Deleted (4) UTI (urinary tract infection) due to urinary indwelling catheter Code(s): T83.511A - Infection and inflammatory reaction due to indwelling urethral catheter, initial encounter; N39.0 - Urinary tract infection, site not specified Status: Acute (5) Leukocytosis Code(s): D72.829 - Elevated white blood cell count, unspecified Status: Acute (6) Dysphagia Code(s): R13.10 - Dysphagia, unspecified Status: Acute - Plan Sepsis, resolved -Met criteria on admission with leukocytosis, lactic acidosis, urinary tract infection -Patient was continued on Zosyn, will change to oral antibiotics when patient clinically stable -Influenza testing was negative -Chest x-ray did not indicate any acute abnormality, pulmonary angiogram did not indicate any infectious process, -Blood cultures are negative for 3 days -Urine cultures indicating Citrobacter koseri Neurological symptoms to include dysphagia, change in mentation, profound weakness, thick speech, likely from hepatic encephalopathy -Initial CT scan did not indicate any acute abnormality, 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 We will start lactulose twice daily -B12, folate, TSH were unremarkable -MRI of the brain was performed which did not indicate any acute abnormality -MRI of the cervical spine shows mild spinal stenosis noted at C5-C6 and C6-C7 -Repeat CT was in did not indicate any acute abnormality -CT of the cervical spine did not indicate any abnormality that would contribute to his dysphagia -Neurology consultation was requested for further recommendations, Dr. Lai did order other testing, however indicating likely metabolic in nature Acute liver enzyme elevation, unknown etiology. Improving -Upon review of laboratory studies it appears that the patient has had acute liver enzyme elevation since 06/27/2018 -Hepatitis profile was negative, Tylenol level was negative -Liver ultrasound shows hepatic and renal cyst, findings suggestive of cirrhosis , small amount of ascites -CT the abdomen did indicate liver is enlarged characteristic of hepatocellular disease such as cirrhosis. Several stable hepatic cyst. No dilated biliary ducts. Trace of ascites. -Consult GI for further recommendations -HIDA scan did not indicate any acute biliary abnormality Profound weakness -This is multifactorial with patient not eating for 5 days, decreased appetite, urinary tract infection, rhabdomyolysis -CT the brain was unremarkable for any acute abnormality -Physical therapy evaluation was performed and recommending physical therapy at rehab Dysphagia -Speech therapy consulted who indicated that the patient will require mechanical soft diet with thickened liquids, recommending modified barium swallow -Modified barium swallow was performed and did indicate significant pharyngeal phase dysphagia -EGD was performed which did indicate esophagitis, gastritis, gastric ulcers, bleeding ulcers which were cauterized Loose stools post endoscopy -Diarrhea protocol was initiated and initial C. difficile culture was positive -Awaiting confirmatory testing hypernatremia -Likely secondary to poor p.o. intake -Continue D5 half-normal saline -Continue monitor sodium level rhabdomyolysis -Likely secondary to inactivity at home, patient not on any medications that could cause rhabdomyolysis -Continue IV fluids -Continue monitor his CK-MB Complicated urinary tract infection -Patient does have indwelling Aggarwal that was just replaced 1 week ago -Patient resumed on medication for benign prostatic hypertrophy to include finasteride -Urine culture indicating Citrobacter Koseri -Urology consulted and following the patient -CT scan does show 1.1 cm pelvis without causing significant hydronephrosis. Follow-up KUB does show bilateral renal calculi hypertension -Continue home medications DVT prevention -Patient is on Xarelto NEUROLOGY Hepatic encephalopathy Hyperammonemia Profound weakness Continue monitor neurological function Continue lactulose Continue monitor ammonia level Patient has undergone full neurological workup with CT of the brain, MRI of the brain, awaiting EEG Neurology following the patient Physical therapy following the patient PULMONOLOGY Tachypnea Hypoxia Continue O2 sat mentation maintain O2 sats greater than 92% Start duo nebs every 6 hours while awake and every 2 hours as needed Stat chest x-ray does not indicate any acute abnormality, mild atelectasis Obtain ABG Incentive spirometry CARDIOLOGY Hypotension Rhabdomyolysis Elevated cardiac enzymes Status post 2 L of fluid bolus, continue fluid resuscitation Hold blood pressure medication at this time Start Levophed to maintain map greater than 65 if needed Continue to trend CK, CK-MB GASTROENTEROLOGY Esophagitis Gastritis Duodenal ulcer with bleeding status post cauterization Acute liver enzyme elevation Dysphagia Gastroenterology following the patient Status post endoscopy with cauterization of bleeding ulcer Start Protonix 40 mg IV every 12 hours Speech therapy following the patient still recommending mechanical soft diet, ground meat, nectar thick liquids Patient has undergone modified barium swallow with speech therapy RENAL Acute kidney injury Hypokalemia Hypernatremia Metabolic acidosis Indwelling Aggarwal secondary to urinary retention Continue IV fluid Give 2 Amps sodium bicarb Continue monitor renal function Obtain renal bladder ultrasound INFECTIOUS DISEASE Sepsis Lactic acidosis Complicated urinary tract infection C. difficile testing initially positive awaiting confirmation testing Continue Zosyn, add vancomycin, Flagyl Obtain stat blood cultures Obtain urinalysis Continue to trend lactic acid level Urine cultures indicating Citrobacter koseri ENDOCRINOLOGY Continue monitor glucose, start Accu-Cheks with sliding scale insulin if needed Start Solu-Medrol 40 mg every 6 hours HEMATOLOGY Continue monitor hemoglobin, transfuse if hemoglobin below 8.0 PROPHYLAXIS Protonix for GI protection Xarelto for DVT prevention LINES: Peripheral IVs 2 x 22 gauge, 1 x 20 gauge CODE STATUS: Full code Critical care time: 75 minutes excluding procedures (4) UTI (urinary tract infection) due to urinary indwelling catheter Qualifiers: Indwelling urinary catheter type: indwelling urethral catheter Encounter type : sequela Qualified Code(s): T83.511S - Infection and inflammatory reaction due to indwelling urethral catheter, sequela; N39.0 - Urinary tract infection, site not specified
[2018-08-07] MEDS ORDERED: Potassium Chloride 25 MEQ Effervescent Tablet PO ONE (11:18)
[2018-08-07] MEDS: Potassium Chlor 20 mEq Premix 20 MEQ/100 ML PIGGYBACK IV.SIG SCH ×2 (13:28→19:22)
--- NOTE | 2018-08-07 15:18 | P.PNNEU ---
Subjective Active Medications: Active Medications Chlorhexidine Gluconate (Chlorhexidine 2% Cloth) 3 pack TOPICAL DAILY@0400 ANTHONY Stop: 08/09/18 03:59 Last Admin: 08/07/18 05:08 Dose: Not Given Chlorhexidine Gluconate (Chlorhexidine 2% Cloth) 3 pack TOPICAL DAILY@0400 PRN PRN Reason: Extra cloth needed Stop: 08/09/18 03:59 Finasteride (Proscar) 5 mg PO DAILY [facility] Last Admin: 08/07/18 10:38 Dose: Not Given Piperacillin/Tazobactam/Dextrose (Zosyn 3.375 Gm Premix) 50 mls @ 100 mls/hr IV.SIG Q8H [facility] Last Infusion: 08/07/18 13:28 Dose: Infused Dextrose/Sodium Chloride (D5w/1/2 Ns Inj) 1,000 mls @ 100 mls/hr IV.CONT .Q10H [facility] Last Infusion: 08/07/18 14:34 Dose: 0 mls/hr Sodium Chloride (Ns Inj) 500 mls @ 30 mls/hr IV.SIG .Q10H [facility] Last Admin: 08/06/18 08:31 Dose: Not Given Potassium Chloride (Kcl 20 Meq Premix Inj) 20 meq in 100 mls @ 50 mls/hr IV.SIG Q2H ANTH[facility]Y Stop: 08/07/18 15:59 Last Infusion: 08/07/18 14:33 Dose: 0 mls/hr Lactulose (Lactulose Liq) 30 ml PO BID [facility] Last Admin: 08/07/18 10:33 Dose: 30 ml Lisinopril (Prinivil) 20 mg PO DAILY [facility] Last Admin: 08/07/18 10:34 Dose: 20 mg Ondansetron HCl (Zofran Inj) 4 mg IV.PUSH Q8H PRN PRN Reason: nausea Rivaroxaban (Xarelto) 10 mg PO DAILY [facility] Last Admin: 08/07/18 10:34 Dose: 10 mg Allergies/Adverse Reactions: Allergies Allergy/AdvReac Type Severity Reaction Status Date / Time Sulfa (Sulfonamide Allergy Intermediate Hives,SOB Verified 08/03/18 15:01 Antibiotics) Physical Exam Vital signs: Vital Signs 08/06/18 16:00 08/06/18 16:05 08/06/18 17:00 Temperature 98.2 F Pulse Rate 84 84 72 Respiratory Rate 25 H 29 H 22 Blood Pressure 86/54 L 111/63 84/44 L Pulse Oximetry 93 L 94 L 95 08/06/18 17:02 08/06/18 17:09 08/06/18 17:37 Temperature Pulse Rate 72 72 Respiratory Rate 24 22 Blood Pressure 89/54 L 117/63 Pulse Oximetry 95 97 96 08/06/18 18:00 08/06/18 20:00 08/06/18 20:11 Temperature 97.3 F L Pulse Rate 70 70 Respiratory Rate 22 16 Blood Pressure 100/50 L Pulse Oximetry 95 94 L 08/07/18 00:00 08/07/18 04:00 08/07/18 08:00 Temperature 97.3 F L 97.3 F L 98.2 F Pulse Rate 77 74 75 Respiratory Rate 14 14 19 Blood Pressure 99/57 L 108/43 L 117/55 L Pulse Oximetry 94 L 95 08/07/18 09:00 08/07/18 11:52 08/07/18 12:00 Temperature 97.4 F L Pulse Rate 74 83 Respiratory Rate 24 24 Blood Pressure 104/51 L Pulse Oximetry 94 L Intake & Output 08/06/18 08/07/18 08/07/18 18:59 06:59 18:59 Intake Total 800 / 800 210 / 210 1050 / 1050 Output Total 275 / 275 Balance 525 / 525 210 / 210 1050 / 1050 Weight 78.3 kg Intake: IV 100 / 100 210 / 210 1050 / 1050 D5W/1/2 NS Inj 1,000 ML @ 84 160 / 160 1000 / 1000 mls/hr IV.CONT .[id number] [facility] Rx# :[id number] Zosyn 3.375 GM Premix 50 ML @ 100 / 100 50 / 50 50 / 50 100 mls/hr IV.SIG Q8H [facility] Rx#: [id number] Anesthesia Amount 700 / 700 Output: Urine Amount (Catheter) 275 / 275 Indwelling Urethral Catheter 275 / 275 Other: Date of Last Bowel Movement 08/06/18 08/06/18 08/06/18 # Incontinent Bowel Movements 4 Narrative: awake alert follows commands well seech stronger moves a ll well - Urinary Catheter Management Indwelling Urethral Catheter Cath placed during this visit: yes, but has since been removed by the nurse Reason for continuing: Other continuation reason Insertion date: 07/30/18 Removal date: 07/30/18 Removal time: 00:00 Objective Laboratory Results - last 24 hr 08/06/18 08/06/18 08/06/18 15:20 15:20 15:20 CBC w Diff WBC RBC Hgb Hct MCV MCH MCHC RDW Plt Count MPV Neut % (Auto) Lymph % (Auto) Armstrong % (Auto) Eos % (Auto) Baso % (Auto) Neut # (Auto) Lymph # (Auto) Armstrong # (Auto) Eos # (Auto) Baso # (Auto) WBC Differential Seg Neuts % (Manual) Band Neuts % (Manual) Lymphocytes % (Manual) Monocytes % (Manual) Eosinophils % (Manual) Basophils % (Manual) Metamyelocytes % (Man) Promyelocytes % (Man) Abs Neuts (Manual) Nucleated RBCs/100 WBC Differential Comment Toxic Granulation Platelet Estimate Platelet Morphology RBC Morphology ESR 39 H Puncture Site Patient Temperature O2 Saturation ABG pH ABG pCO2 ABG pO2 ABG HCO3 ABG O2 Content ABG Base Excess ABG Methemoglobin Jonatan Test Hemoglobin Carboxyhemoglobin O2 Delivery Device Liter Flow Critical Value Sodium Potassium Chloride Carbon Dioxide Anion Gap BUN Creatinine Estimated GFR Random Glucose Calcium Total Bilirubin AST ALT Alkaline Phosphatase Ammonia 83 H Total Creatine Kinase CK-MB (CK-2) CK-MB (CK-2) % Total Protein Total Protein (PEP) Albumin Vitamin B12 Greater than 2000 H Folate 7.1 TSH 1.860 Stl C.difficile DNA Amp St C. diff Tox Epid 027 Rheumatoid Factor Scrn Rheumatoid Factor Titer 08/06/18 08/06/18 08/06/18 16:35 17:38 19:20 CBC w Diff WBC RBC Hgb Hct MCV MCH MCHC RDW Plt Count MPV Neut % (Auto) Lymph % (Auto) Armstrong % (Auto) Eos % (Auto) Baso % (Auto) Neut # (Auto) Lymph # (Auto) Armstrong # (Auto) Eos # (Auto) Baso # (Auto) WBC Differential Seg Neuts % (Manual) Band Neuts % (Manual) Lymphocytes % (Manual) Monocytes % (Manual) Eosinophils % (Manual) Basophils % (Manual) Metamyelocytes % (Man) Promyelocytes % (Man) Abs Neuts (Manual) Nucleated RBCs/100 WBC Differential Comment Toxic Granulation Platelet Estimate Platelet Morphology RBC Morphology ESR Puncture Site Right radial Patient Temperature 98.6 O2 Saturation 95 ABG pH 7.38 ABG pCO2 36 L ABG pO2 89 ABG HCO3 21 L ABG O2 Content 16.2 ABG Base Excess -3.8 L ABG Methemoglobin 0.9 Jonatan Test Present Hemoglobin 12.1 Carboxyhemoglobin 1.1 O2 Delivery Device Nasal cannula Liter Flow 1.50 Critical Value No Sodium Potassium Chloride Carbon Dioxide Anion Gap BUN Creatinine Estimated GFR Random Glucose Calcium Total Bilirubin AST ALT Alkaline Phosphatase Ammonia Total Creatine Kinase CK-MB (CK-2) CK-MB (CK-2) % Total Protein Total Protein (PEP) 5.2 L Albumin Vitamin B12 Folate TSH Stl C.difficile DNA Amp Positive H St C. diff Tox Epid 027 Negative Rheumatoid Factor Scrn Positive H Rheumatoid Factor Titer 32.6 H 08/07/18 08/07/18 05:40 05:40 CBC w Diff Slide review pending WBC 15.0 H RBC 3.74 L Hgb 12.1 L Hct 35.4 L MCV 94.7 MCH 32.3 MCHC 34.1 RDW 14.9 Plt Count 150 MPV 9.7 Neut % (Auto) 78.8 H Lymph % (Auto) 14.0 Armstrong % (Auto) 6.2 Eos % (Auto) 0.9 Baso % (Auto) 0.1 Neut # (Auto) 11.9 H Lymph # (Auto) 2.1 Armstrong # (Auto) 0.9 Eos # (Auto) 0.1 Baso # (Auto) 0.0 WBC Differential Manual diff final Seg Neuts % (Manual) 64 Band Neuts % (Manual) 6 Lymphocytes % (Manual) 8 L Monocytes % (Manual) 12 H Eosinophils % (Manual) 1 Basophils % (Manual) 2 Metamyelocytes % (Man) 6 H Promyelocytes % (Man) 1 H Abs Neuts (Manual) 11.6 H Nucleated RBCs/100 WBC 1 H Differential Comment . Toxic Granulation 1+ H Platelet Estimate Normal Platelet Morphology Normal RBC Morphology Normal ESR Puncture Site Patient Temperature O2 Saturation ABG pH ABG pCO2 ABG pO2 ABG HCO3 ABG O2 Content ABG Base Excess ABG Methemoglobin Jonatan Test Hemoglobin Carboxyhemoglobin O2 Delivery Device Liter Flow Critical Value Sodium 153 H Potassium 3.2 L Chloride 119 H Carbon Dioxide 23.0 Anion Gap 11 BUN 53 H Creatinine 1.70 H Estimated GFR 39 L Random Glucose 127 H Calcium 8.4 L Total Bilirubin 1.0 AST 243 H ALT 73 Alkaline Phosphatase 241 H Ammonia Total Creatine Kinase 446 H CK-MB (CK-2) 29.1 H CK-MB (CK-2) % 6.5 H* Total Protein 5.1 L Total Protein (PEP) Albumin 1.9 L Vitamin B12 Folate TSH Stl C.difficile DNA Amp St C. diff Tox Epid 027 Rheumatoid Factor Scrn Rheumatoid Factor Titer Microbiology 08/03/18 16:10 Aerobic Blood Culture - Preliminary Blood - Peripheral No growth in 4 days Anaerobic Blood Culture - Preliminary No growth in 4 days 08/03/18 16:05 Aerobic Blood Culture - Preliminary Blood - Peripheral No growth in 4 days Anaerobic Blood Culture - Preliminary No growth in 4 days Review/Management - Review/Management Plan: imp cirhossis mri brain and abg neg his mri c spine has mod severe spinal stenosis no conditin for surgery now b12 ok rf positive he looks improved neuro godwin met enceph oob low bps
[2018-08-07] MEDS ORDERED: Sod Chloride 0.9% Inj 1,000 ML IV.SIG ONE ×2 (16:57→17:40)
[2018-08-07 17:21] LABS: Baso # (Auto) 0.2 th/mm3 (0.0-0.2); Baso % (Auto) 1.2 % (0.0-2.0); Eos # (Auto) 0.1 th/mm3 (0.0-0.4); Eos % (Auto) 0.5 % (0.0-4.0); Hematocrit 42.1 % (39.0-51.0); Lymph # (Auto) 2.3 th/mm3 (1.0-4.8); Lymph % (Auto) 13.8 % (9.0-44.0); Mean Corpuscular HGB Conc 33.4 % (32.0-36.0); Mean Corpuscular Hemoglobin 31.8 pg (27.0-34.0); Mean Corpuscular Volume 95.5 fL (80.0-100.0); Mean Platelet Volume 8.8 fL (7.0-11.0); Mono # (Auto) 0.5 th/mm3 (0.0-0.9); Mono % (Auto) 2.8 % (0.0-8.0); Neut # (Auto) 13.6 th/mm3 (1.8-7.7); Neut % (Auto) 81.7 % (16.0-70.0); Platelet Count 179 th/mm3 (150-450); Red Blood Count 4.41 mil/mm3 (4.50-5.90); Red Cell Distribution Width 14.3 % (11.6-17.2); White Blood Count 16.7 th/mm3 (4.0-11.0)
--- NOTE | 2018-08-07 17:34 | XR ---
EXAM DATE: 08/07/2018 5:30 PM EDT AGE/SEX: 78 years / Male INDICATIONS: Shock. CLINICAL DATA: This is the patient's initial encounter. Patient reports that signs and symptoms have been present for 1 day and indicates a pain score of Nonresponsive. MEDICAL/SURGICAL HISTORY: Non-responsive. . Orthopedic. COMPARISON: [facility], CHEST 1V SINGLE AP, 08/03/2018. . FINDINGS: A single AP view of the chest demonstrates the lungs to be symmetrically aerated without evidence of mass, infiltrate or effusion. The cardiomediastinal contours are unremarkable. Osseous structures a re intact. CONCLUSION: No active disease. Minimal basilar scarring. Electronically signed by: Bandar Stewart MD 08/07/2018 5:33 PM EDT
[2018-08-07] MEDS ORDERED: Vancomycin Inj 1 GM/200 ML PIGGYBACK IV.SIG ONE (17:44)
[2018-08-07 18:01] LABS: Troponin I 0.04 ng/mL (0.02-0.05)
[2018-08-07 18:07] LABS: Alanine Aminotransferase 82 U/L (12-78); Albumin 2.1 g/dL (3.4-5.0); Alkaline Phosphatase 275 U/L (45-117); Anion Gap 15 meq/L (5-15); Aspartate Aminotransferase 277 U/L (15-37); Blood Urea Nitrogen 58 mg/dL (7-18); Calcium 8.9 mg/dL (8.5-10.1); Chloride 118 meq/L (98-107); Glomerular Filtration Rate 29 mL/min (>89); Glucose,Random 158 mg/dL (74-106); Potassium 4.1 meq/L (3.5-5.1); Sodium 151 meq/L (136-145); Total Protein 6.1 g/dL (6.4-8.2)
[2018-08-07 18:12] LABS: Creatine Kinase MB 31.3 ng/mL (0.5-3.6)
[2018-08-07 18:17] LABS: CKMB Percent 6.7 % (0.0-4.0)
[2018-08-07 18:18] LABS: Lymphocytes 21 % (9-44); Metamyelocytes 11 % (0-1); Monocytes 4 % (0-8); Myelocytes 1 % (0-0); Tallied Nucleated RBC 4 (0-0)
[2018-08-07 18:19] LABS: Platelet Estimate Normal (Normal); Platelet Morphology Normal (Normal); RBC Morphology Normal (Normal)
[2018-08-07] MEDS ORDERED: Sodium Bicarbonate 8.4% Inj 50 MEQ/50 ML Syringe IV.PUSH ONE (18:56)
[2018-08-07 19:00] LABS: ABG Base Excess -8.8 mmol/L (-2-2); ABG PCO2 26 mmHg (38-42); ABG PO2 67 mmHg (61-120)
[2018-08-07] MEDS ORDERED: Vancomycin Inj 1,000 MG in Sodium Chlor 0.9% Inj 250 ML IV.SIG ONE (20:00)
[2018-08-07] MEDS ORDERED: Pantoprazole Inj 40 MG Vial IV.PUSH SCH (20:00)
[2018-08-07] MEDS ORDERED: MethylPREDNISolone Sod Succinate Inj 40 MG/ML Vial IV.PUSH SCH (20:00)
[2018-08-07] MEDS ORDERED: Vancomycin Consult Pharmacy 1 EACH OTHER SCH (20:00)
[2018-08-07] MEDS ORDERED: Etomidate Inj 20 MG/10 ML Ampul IV.PUSH ONE ×2 (20:32→20:44)
[2018-08-07] MEDS ORDERED: fentaNYL 10 mcg/mL Premix Drip 2,500 MCG/250 ML BAG IV.SIG PRN (20:44)
[2018-08-07] MEDS ORDERED: fentaNYL Citrate Inj 100 MCG/2 ML Ampul IV.PUSH ONE (20:44)
[2018-08-07] MEDS ORDERED: Sod Chloride 0.9% Inj 1,000 ML IV.CONT SCH (20:45)
[2018-08-07] MEDS: Vasopressin Inj 40 UNIT in Dextrose 5% in Water Inj 98 ML IV.CONT SCH ×2 (20:56)
[2018-08-07] MEDS: Phenylephrine Inj 40 MG in Dextrose 5% in Water Inj 496 ML IV.CONT PRN ×2 (20:57)
[2018-08-07] MEDS ORDERED: Phenylephrine Inj 40 MG in Dextrose 5% in Water Inj 496 ML IV.CONT PRN ×2 (21:00)
[2018-08-07 21:58] LABS: ABG Base Excess -7.9 mmol/L (-2-2); ABG PCO2 55 mmHg (38-42); ABG PO2 367 mmHg (61-120)
--- NOTE | 2018-08-07 22:41 | XR ---
EXAM DATE: 08/07/2018 10:34 PM EDT AGE/SEX: 78 years / Male INDICATIONS: Post intubation. CLINICAL DATA: This is the patient's initial encounter. Patient reports that signs and symptoms have been present for 1 day and indicates a pain score of Nonresponsive. MEDICAL/SURGICAL HISTORY: . Hypertension. BPH. Hernia. . Abdominal aortic aneurysm repair. Lef t hip replacement. Right hernia repair. Left surgical manipulation of ankle joint. Angioplasty. COMPARISON: [facility], CT CERVICAL SPINE W/O CONTRAST, 08/06/2018. . FINDINGS: Endotracheal tube in good position. Minimal basilar atelectasis. There is underlying emphysema. No si gnificant effusion. No pneumothorax. CONCLUSION: Endotracheal tube in good position. Electronically signed by: Bandar Stewart MD 08/07/2018 10:39 PM EDT
[2018-08-08] MEDS: Hydrocortisone Sod Succinate 100 MG Vial IV.PUSH SCH ×4 (00:09→21:53)
[2018-08-08] MEDS ORDERED: Sodium Bicarbonate 8.4% Inj 50 MEQ/50 ML Syringe ONE ×2 (04:00→06:57)
[2018-08-08] MEDS ORDERED: Pantoprazole Inj 80 MG in Sodium Chlor 0.9% Inj 35 ML IV.SIG ONE (04:01)
[2018-08-08 04:14] LABS: Baso # (Auto) 0.2 th/mm3 (0.0-0.2); Baso % (Auto) 0.9 % (0.0-2.0); Eos # (Auto) 0.1 th/mm3 (0.0-0.4); Eos % (Auto) 0.3 % (0.0-4.0); Hematocrit 39.1 % (39.0-51.0); Hemoglobin 12.1 gm/dL (13.0-17.0); Lymph # (Auto) 3.9 th/mm3 (1.0-4.8); Lymph % (Auto) 19.5 % (9.0-44.0); Mean Corpuscular Hemoglobin 31.5 pg (27.0-34.0); Mean Corpuscular Volume 101.5 fL (80.0-100.0); Mean Platelet Volume 9.3 fL (7.0-11.0); Mono % (Auto) 4.7 % (0.0-8.0); Neut # (Auto) 15.1 th/mm3 (1.8-7.7); Neut % (Auto) 74.6 % (16.0-70.0); Platelet Count 167 th/mm3 (150-450); Red Blood Count 3.85 mil/mm3 (4.50-5.90); Red Cell Distribution Width 16.5 % (11.6-17.2); White Blood Count 20.2 th/mm3 (4.0-11.0)
[2018-08-08] MEDS ORDERED: Amiodarone Inj 150 MG in Dextrose 5% in Water Inj 97 ML IV.SIG ONE ×2 (04:15)
--- NOTE | 2018-08-08 04:15 | P.PCN ---
Date of procedure: 08/08/18 Procedure: DATE: 08/08/18 PROCEDURE: Left radial arterial catheter placement INDICATION: Profound shock in need of continuous hemodynamic monitoring. DETAILS OF PROCEDURE Jonatan's test was performed and adequate collateral perfusion was confirmed. The skin was cleansed with Chloraprep. Additional barrier precautions included large sterile drape, sterile gloves, sterile gown, face mask, and hat. Under direct ultrasound guidance and on the 3rd attempt, the artery was accessed with Arrow radial catheter kit. The guide wire was advanced. The catheter was advanced over the wire and needle and guidewire were removed. The catheter was connected to a transducer line and flushed with saline. The video monitor displayed normal arterial wave forms. The catheter was secured with 2-0 silk. A sterile dressing with antibiotic disc was applied. ESTIMATED BLOOD LOSS: minimal COMPLICATIONS: None
--- NOTE | 2018-08-08 04:15 | P.PCN ---
Date of procedure: 08/08/18 Procedure: DATE: 08/08/18 CENTRAL LINE PLACEMENT: Right internal jugular vein. INDICATION: Central venous access CONSENT Patient is not capacitated for medical decision-making. DESCRIPTION OF THE PROCEDURE The patient was placed in supine position, mild Trendelenburg. The skin was cleansed with Chloraprep x3. Additional barrier precautions included large sterile drape, sterile gloves, sterile gown, face mask, and hat. 1 % lidocaine was used for local anesthesia. Under direct ultrasound guidance and on single attempt, the vein was accessed with an introducer needle. The guide wire was advanced and the tract was dilated. Using Seldinger technique a 7 Iraqi 20 cm antimicrobial coated triple-lumen catheter was advanced to a depth of 18 centimeters. The guide wire was removed. All ports had good return of dark venous blood and flushed easily with saline. The central line was secured with StatLock. A sterile dressing with antibiotic disc was applied. ESTIMATED BLOOD LOSS: Minimal COMPLICATIONS: No apparent complications. STAT chest x-ray demonstrates satisfactory central venous line position without apparent complication.
[2018-08-08 04:20] LABS: INR 1.5 Ratio; Prothrombin Time 15.2 sec (9.8-11.6)
[2018-08-08 04:34] LABS: ABG Base Excess -19.2 mmol/L (-2-2); ABG PCO2 28 mmHg (38-42); ABG PO2 333 mmHG (61-120)
[2018-08-08 04:35] LABS: Albumin 1.7 g/dL (3.4-5.0); Calcium 7.4 mg/dL (8.5-10.1); Magnesium 2.1 mg/dL (1.5-2.5); Potassium 3.9 meq/L (3.5-5.1); Total Protein 4.8 g/dL (6.4-8.2)
[2018-08-08 04:41] LABS: Lymphocytes 27 % (9-44); Metamyelocytes 7 % (0-1); Monocytes 3 % (0-8); Myelocytes 5 % (0-0); Platelet Estimate Normal (Normal); Platelet Morphology Normal (Normal); Tallied Nucleated RBC 16 (0-0)
--- NOTE | 2018-08-08 04:42 | XR ---
EXAM DATE: 08/08/2018 4:38 AM EDT AGE/SEX: 78 years / Male INDICATIONS: Central line placement. CLINICAL DATA: This is the patient's subsequent encounter. Patient reports that signs and symptoms h ave been present for 2 days and indicates a pain score of Nonresponsive. MEDICAL/SURGICAL HISTORY: Hypertension. BPH. Hernia. Abdominal aortic aneurysm repair. Left hi p replacement. COMPARISON: [facility], CHEST 1V SINGLE AP, 08/07/2018. . FINDINGS: ET tube tip well above the anselmo. Gastric tube traverses the [id number]. Right internal jugular c atheter tip projects over the proximal superior vena cava. No evidence of pneumothorax. The lungs are clear. The heart is normal in size. CONCLUSION: Right IJ catheter in good position. No evidence of pneumothorax. Electronically signed by: Denilson Lorenzana MD 08/08/2018 4:40 AM EDT
[2018-08-08] MEDS: Sodium Bicarbonate 8.4% Inj 150 MEQ in Water for Inj, Sterile 850 ML IV.CONT SCH ×3 (04:50→17:19)
[2018-08-08 04:54] LABS: Creatine Kinase MB 35.7 ng/mL (0.5-3.6)
[2018-08-08 04:56] LABS: CKMB Percent 7.7 % (0.0-4.0)
[2018-08-08] MEDS: Chlorhexidine Gluconate 2% 1 Pack (2 Cloths) TOPICAL SCH (05:04)
[2018-08-08] MEDS: Oral Hygiene Kit OROPHARYNG SCH ×4 (05:04→17:50)
[2018-08-08] MEDS: Pantoprazole Inj 80 MG in Sodium Chlor 0.9% Inj 100 ML IV.CONT SCH ×2 (05:05→15:28)
--- NOTE | 2018-08-08 05:49 | P.CONCC ---
History of Present Illness Service: Critical Care Medicine Consult date: 08/08/18 Requesting Physician: Juan Alberto Zepeda Reason for Consult: Shock Primary Care Provider: Hilario Martins MD Chief Complaint: Shock History of Present Illness: 78-year-old male with past medical history of hypertension, BPH, infrarenal abdominal aortic aneurysm status post endograft repair in 2009, recent fall resulting in left femoral neck fracture status post left hip arthroplasty 06/26/[address] Fernandez. After surgery he had been discharged to a SNF and had subsequently been discharged home. He was readmitted to [facility] hospitalist service on 08/03/18 after presenting with generalized weakness, decreased appetite, dysphagia. He appeared septic on admission. He had a chronic indwelling Hunter. Urine culture was positive for Citrobacter koseri for which he has been on Zosyn. He was encephalopathic and extensive neurologic workup was pursued including MRI that was unremarkable. EEG report pending. He did have hyperammonemia and was started on lactulose. CT abdomen and pelvis had showed hepatomegaly, possible cirrhosis, Hunter located within bladder diverticulum, and 1.1 cm renal stone at L renal pelvis without hydronephrosis. He was evaluated by urology and hunter replacement was not recommended unless catheter was obstructed. He was evaluated by gastroenterology and had EGD on 08/06 that demonstrated Grade C esophagitis, severe gastritis, multiple ulcers in the duodenal bulb; one was cauterized to control bleeding. After endoscopy, he had diarrhea and C diff studies were sent and PCR was positive, toxin and antigen pending. On that background, patient became hypotensive around 16:00 on 08/07. Fortunato Zepeda ordered 2 L NS bolus and levophed and broadened antimicrobial therapy to include vancomycin IV and flagyl IV. 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 Therefore, stat transfer was requested. However, when [facility] arrived patients SBP was 55 and his GCS was 9 despite 3 L NS bolus and levophed 20 mcg/min and he was not stable for transfer. Gave additional 2 L of fluid, added vasopressin and stress dose steroids. ED physician at was contacted and Dr. Luis intubated the patient and placed R femoral CVL. I continued aggressive fluid resuscitation and added neosynephrine. Antibiotics had been further broadened to include cefepime, and vancomycin po in addition to IV vanc and IV flagyl. Patient became restless and R femoral CVL was dislodged. He arrived to [facility] with SBP in 50s to 60s, cool and poorly perfused, tachycardic with rate in 150s with levophed 16 mcg and neosynephrine 300 mcg/ min running. Vasopressin was off due to lack of access. Emergently placed RIJ CVL and L radial art line. He is profoundly acidotic, lactic acid 10. Gave pushes of bicarb, started on bicarb drip. Started on amiodarone for combination of multiple runs of V tach ~ 24 seconds, atrial flutter and intermittent A fib. He initially appeared profoundly volume depleted with IJ collapsing completely during respiration while placing CVL. He was given additional 4 L of LR and then IVC was full and non collapsible. He was on Flotrac and numbers after all of these measures (while in sinus rhythm) included CI 3 and SVV 12. Now intermittently in atrial fib so unable to rely on Flotrac. Now able to maintain MAP adequately and will proceed with stat CT imaging to evaluate for complications of C diff, viscous perforation, urinary obstruction or other source of sepsis. Review of Systems unobtainable due to endotracheal tube PMFSH - History History Provided By: Patient - Medical History Medical History: Medical History (Last Updated 08/08/18 @ 08:09 by Melanie Scherer MD) BPH (benign prostatic hyperplasia) Chronic indwelling Hunter catheter AAA (abdominal aortic aneurysm) BPH (benign prostatic hyperplasia) Cataract Hernia Hypertension Kidney stones Metal bone fixation hardware in place - Surgical History Surgical History: Surgical History (Last Reviewed 08/06/18 @ 10:13 by Hermelindo Obrien) History of hip surgery History of AAA (abdominal aortic aneurysm) repair Hx of appendectomy Hx of hernia repair S/P surgical manipulation of ankle joint - Family History Family History: Family History (Last Reviewed 08/04/18 @ 08:48 by SOREN Hdz) Mother FHx: stomach cancer - Tobacco History Second Hand Smoke Exposure: No Tobacco Use In Past 30 Days: No Smoking Status: Former smoker Tobacco Type: Cigarettes - Alcohol History How Often Do You Have a Drink Containing Alcohol: 4 or more times a week - Substance Use History Substance History: No History of Abuse - Travel History Recent Travel in the [place] Within the Last 8 Weeks: No Recent Travel Out of the Country Within the Last 8 Weeks: No - Immunization History Tetanus Immunization: Unsure Hx Influenza Vaccine This Season: No Medications and Allergies Active Medications: Active Medications Albuterol (Duoneb Neb (Prn)) 1 ampul NEB Q2HR NEB PRN PRN Reason: SHORTNESS OF BREATH/WHEEZING Albuterol (Duoneb Neb (Gen)) 1 ampul NEB Q6HR WHILE AWAKE NEB [facility] Last Admin: 08/07/18 21:51 Dose: 1 ampul Chlorhexidine Gluconate (Chlorhexidine 2% Cloth) 3 pack TOPICAL DAILY@0400 GEN Stop: 08/09/18 03:59 Last Admin: 08/08/18 05:04 Dose: 3 pack Chlorhexidine Gluconate (Chlorhexidine 2% Cloth) 3 pack TOPICAL DAILY@0400 PRN PRN Reason: Extra cloth needed Stop: 08/09/18 03:59 Chlorhexidine Gluconate (Peridex 0.12% Oral Kit) 15 ml OROPHARYNG BID@0800, 2000 [facility] Finasteride (Proscar) 5 mg PO DAILY [facility] Last Admin: 08/07/18 10:38 Dose: Not Given Hydrocortisone Sodium Succinate (Solucortef Inj) 100 mg IV.PUSH Q8HR [facility] Last Admin: 08/08/18 05:33 Dose: 100 mg Dextrose/Sodium Chloride (D5w/1/2 Ns Inj) 1,000 mls @ 100 mls/hr IV.CONT .Q10H [facility] Last Admin: 08/07/18 23:56 Dose: Not Given Sodium Chloride (Ns Inj) 500 mls @ 30 mls/hr IV.SIG .Q10H [facility] Last Admin: 08/06/18 08:31 Dose: Not Given Metronidazole/Sodium Chloride (Flagyl 500 Mg Inj) 100 mls @ 100 mls/hr IV.SIG Q8H [facility] Last Admin: 08/08/18 05:24 Dose: 100 mls/hr Pharmacy Profile Note (Vancomycin Consult Pharmacy) 0 mls @ 0 mls/hr OTHER UNSCH [facility] Norepinephrine Bitartrate (Levophed-Dextrose 4 Mg/250 Ml Drip) 4 mg in 250 mls @ 7.5 mls/hr IV.SIG TITRATE PRN; Protocol PRN Reason: Per Protocol Last Admin: 08/08/18 05:28 Dose: 12 mcg/min, 45 mls/hr Vasopressin 40 unit/ Dextrose 100 mls @ 6 mls/hr IV.CONT CONT GEN; Protocol Last Infusion: 08/08/18 03:50 Dose: 0.04 units/min, 6 mls/hr Phenylephrine HCl 40 mg/ (Dextrose) 500 mls @ 30 mls/hr IV.CONT TITRATE PRN; Protocol PRN Reason: Per Protocol Last Titration: 08/08/18 05:33 Dose: 0 mcg/min, 0 mls/hr Midazolam HCl (Versed Inj) 50 mg in 50 mls @ 2 mls/hr IV.CONT TITRATE PRN; Protocol PRN Reason: Per Protocol Fentanyl (Fentanyl 10 Mcg/Ml Premix Drip) 2,500 mcg in 250 mls @ 5 mls/hr IV.SIG TITRATE PRN; Protocol PRN Reason: Per Protocol Cefepime HCl 2,000 mg/ Sodium (Chloride) 100 mls @ 200 mls/hr IV.SIG Q12H [facility] Last Admin: 08/08/18 00:33 Dose: 200 mls/hr Sodium Bicarbonate 150 meq/ (Sterile Water) 1,000 mls @ 150 mls/hr IV.CONT .Q6H40M [facility] Last Admin: 08/08/18 04:50 Dose: 150 mls/hr Pantoprazole Sodium 80 mg/ (Sodium Chloride) 100 mls @ 10 mls/hr IV.CONT Q10H [facility] Last Admin: 08/08/18 05:05 Dose: 10 mls/hr Amiodarone HCl 450 mg/ (Dextrose) 250 mls @ 33.33 mls/hr IV.CONT TITRATE PRN; Protocol PRN Reason: Per Protocol Micafungin Sodium 100 mg/ (Sodium Chloride) 100 mls @ 100 mls/hr IV.SIG Q24H [facility] Lactulose (Lactulose Liq) 30 ml PO BID GEN Last Admin: 08/08/18 00:09 Dose: 30 ml Miscellaneous Medication () 1 each OROPHARYNG 0000,0400,1200,1600 [facility] Last Admin: 08/08/18 05:04 Dose: 1 each Ondansetron HCl (Zofran Inj) 4 mg IV.PUSH Q8H PRN PRN Reason: nausea Rifaximin (Xifaxan) 550 mg NG/OG Q12HR GEN Rivaroxaban (Xarelto) 10 mg PO DAILY [facility] Last Admin: 08/07/18 10:34 Dose: 10 mg Terbutaline Sulfate (Brethine Inj) 1 mg SQ UNSCH PRN PRN Reason: For Extravasation Vancomycin HCl (Vancomycin Po) 500 mg NG/OG QID [facility] Last Admin: 08/08/18 00:19 Dose: 500 mg Allergies Allergy/AdvReac Type Severity Reaction Status Date / Time Sulfa (Sulfonamide Allergy Intermediate Hives,SOB Verified 08/03/18 15:01 Antibiotics) Home Medications Medication Instructions Recorded Confirmed Type lisinopril 20 mg PO DAILY 05/03/18 08/04/18 History alfuzosin 10 mg PO HS 08/04/18 08/04/18 History finasteride 5 mg PO 08/04/18 08/04/18 History Physical Exam Vital signs: Vital Signs 08/07/18 08:00 08/07/18 09:00 08/07/18 11:52 Temperature 98.2 F Pulse Rate 75 74 Respiratory Rate 19 24 Blood Pressure 117/55 L Pulse Oximetry 95 08/07/18 12:00 08/07/18 16:00 08/07/18 17:00 Temperature 97.4 F L 99.1 F Pulse Rate 83 117 H 120 H Respiratory Rate 24 24 33 H Blood Pressure 104/51 L 74/45 L 70/43 L Pulse Oximetry 94 L 93 L 08/07/18 17:17 08/07/18 17:30 08/07/18 17:39 Temperature Pulse Rate 120 H 120 H 120 H Respiratory Rate 33 H 44 H 27 H Blood Pressure 66/45 L 69/43 L 72/49 L Pulse Oximetry 98 91 L 92 L 08/07/18 17:50 08/07/18 17:55 08/07/18 18:05 Temperature Pulse Rate 124 H 120 H 118 H Respiratory Rate 34 H 31 H 26 H Blood Pressure 68/43 L 63/45 L 78/45 L Pulse Oximetry 92 L 95 94 L 08/07/18 18:10 08/07/18 18:34 08/07/18 18:50 Temperature Pulse Rate 116 H 120 H 122 H Respiratory Rate 31 H 29 H 33 H Blood Pressure 75/48 L 62/45 L 55/42 L Pulse Oximetry 94 L 88 L 08/07/18 18:59 08/07/18 19:00 08/07/18 19:14 Temperature Pulse Rate 124 H 124 H 128 H Respiratory Rate 28 H 35 H 26 H Blood Pressure 56/45 L 66/56 L Pulse Oximetry 94 L 94 L 100 08/07/18 19:19 08/07/18 19:30 08/07/18 19:42 Temperature Pulse Rate 132 H 140 H Respiratory Rate 37 H 35 H Blood Pressure 94/49 L 85/52 L Pulse Oximetry 100 97 100 08/07/18 19:45 08/07/18 19:55 08/07/18 20:00 Temperature Pulse Rate 144 H 134 H 148 H Respiratory Rate 36 H 34 H 34 H Blood Pressure 87/48 L 65/45 L 66/52 L Pulse Oximetry 98 99 98 08/07/18 20:04 08/07/18 20:06 08/07/18 20:08 Temperature Pulse Rate 148 H 146 H 148 H Respiratory Rate 36 H 35 H 35 H Blood Pressure 81/53 L 74/50 L 105/38 L Pulse Oximetry 99 96 96 08/07/18 20:15 08/07/18 20:30 08/07/18 20:34 Temperature 97.8 F Pulse Rate 146 H 152 H 152 H Respiratory Rate 35 H 32 H 33 H Blood Pressure 132/71 67/54 L 74/58 L Pulse Oximetry 100 98 95 08/07/18 20:45 08/07/18 20:49 08/07/18 21:00 Temperature Pulse Rate 168 H 166 H 162 H Respiratory Rate 16 16 16 Blood Pressure 75/45 L 79/50 L 99/60 L Pulse Oximetry 98 100 08/07/18 21:15 08/07/18 21:30 08/07/18 21:45 Temperature Pulse Rate 154 H 156 H 150 H Respiratory Rate 16 16 12 Blood Pressure 111/77 111/60 105/67 Pulse Oximetry 100 100 08/07/18 21:52 08/07/18 22:00 08/07/18 22:15 Temperature Pulse Rate 140 H 154 H 158 H Respiratory Rate 16 16 27 H Blood Pressure 111/60 97/71 L Pulse Oximetry 100 99 08/07/18 22:30 08/07/18 22:45 08/07/18 23:00 Temperature Pulse Rate 156 H 150 H Respiratory Rate 28 H 31 H Blood Pressure 80/58 L 83/56 L 102/72 Pulse Oximetry 100 99 08/07/18 23:20 08/07/18 23:22 08/07/18 23:36 Temperature Pulse Rate 156 H 156 H 160 H Respiratory Rate 31 H 22 29 H Blood Pressure 61/51 L 82/42 L 66/51 L Pulse Oximetry 97 97 100 08/07/18 23:50 08/08/18 00:04 08/08/18 00:11 Temperature 97.0 F L Pulse Rate 156 H 156 H 156 H Respiratory Rate 27 H 31 H 28 H Blood Pressure 90/60 L 117/83 86/42 L Pulse Oximetry 95 95 100 08/08/18 00:18 08/08/18 00:21 08/08/18 00:28 Temperature Pulse Rate 146 H 150 H 156 H Respiratory Rate 27 H 27 H 41 H Blood Pressure 59/51 L 96/73 L 54/32 L Pulse Oximetry 98 98 96 08/08/18 00:36 08/08/18 00:37 08/08/18 00:49 Temperature Pulse Rate 156 H 156 H 158 H Respiratory Rate 30 H 29 H 27 H Blood Pressure 85/57 L 88/52 L 98/46 L Pulse Oximetry 100 100 100 08/08/18 01:01 08/08/18 01:07 08/08/18 01:10 Temperature Pulse Rate 157 H Respiratory Rate 25 H 24 Blood Pressure 62/35 L 66/26 L Pulse Oximetry 98 98 98 08/08/18 01:19 08/08/18 01:33 08/08/18 02:10 Temperature Pulse Rate 163 H 160 H Respiratory Rate 20 31 H 28 H Blood Pressure 100/60 80/40 L Pulse Oximetry 98 99 08/08/18 04:15 Temperature Pulse Rate Respiratory Rate 24 Blood Pressure Pulse Oximetry 100 Intake & Output 08/07/18 08/07/18 08/08/18 06:59 18:59 06:59 Intake Total 210 / 210 1550 / 1550 5000 / 5000 Output Total 250 / 250 Balance 210 / 210 1300 / 1300 5000 / 5000 Weight 78.3 kg 85 kg Intake: IV 210 / 210 1550 / 1550 5000 / 5000 D5W/1/2 NS Inj 1,000 ML @ 100 160 / 160 1400 / 1400 mls/hr IV.CONT .Q10H [facility] Rx#: [id number] Neosynephrine Inj 40 MG In D5W 250 / 250 Inj 496 ML @ 40 MCG/MIN 30 mls/ hr IV.CONT TITRATE PRN Rx#: [id number] NS Inj 1,000 ML @ 1000 mls/hr 1000 / 1000 IV.CONT .Q1H [facility] Rx#:[id number] LR 1000 mL Inj 1,000 ML @ Wide 1000 / 1000 Open IV.SIG BOLUS ONE Rx#: [id number] Levophed-Dextrose 4 mg/250 ml 250 / 250 Drip 4 mg In 250 ml @ 2 MCG/MIN 7.5 mls/hr IV.SIG TITRATE PRN Rx#:[id number] Zosyn 3.375 GM Premix 50 ML @ 50 / 50 50 / 50 50 / 50 100 mls/hr IV.SIG Q8H [facility] Rx#: [id number] KCl 20 mEq Premix Inj 20 meq In 100 / 100 100 / 100 100 ml @ 50 mls/hr IV.SIG Q2H [facility] Rx#:[id number] NS Inj 1,000 ML @ Wide Open IV. 1999 SIG BOLUS ONE Rx#:[id number] Vancomycin Inj 1,000 MG In NS 250 / 250 Inj 250 ML @ 250 mls/hr IV.SIG ONCE ONE Rx#:[id number] Flagyl 500 MG Inj 100 ML @ 100 100 / 100 mls/hr IV.SIG Q8H GEN Rx#: [id number] Output: Urine Amount (Catheter) 250 / 250 Indwelling Urethral Catheter 250 / 250 Other: Date of Last Bowel Movement 08/06/18 08/06/18 08/06/18 Narrative: GENERAL: Elderly critically-ill and moribund appearing male who is intubated, on no sedation and profoundly hypotensive. SKIN: Cool, mottled skin. Dusky fingers and feet. Poor skin turgor. HEAD: Atraumatic. Normocephalic. EYES: Pupils equal and round, pinpoint bilaterally. No scleral icterus. No injection or drainage. ENT: No nasal bleeding or discharge. Mucous membranes dry. NECK: Trachea midline. Jugular veins flat. CARDIOVASCULAR: Tachycardic, regular, rate 150s on monitor. No MRG. RESPIRATORY: Orotracheally intubated, overbreathing vent. Clear to auscultation bilaterally. No wheezes or rales. GASTROINTESTINAL: Abdomen distended, tender in RUQ, not rigid, unable to appreciate rebound or guarding. Irregular scar in lower abdomen. Hunter in place with no urine output, old cloudy urine in the bag. No urine in bladder by bedside u/s. MUSCULOSKELETAL: Extremities without clubbing, or edema. NEUROLOGICAL: No eye opening. +facial grimace. Withdraws upper extremities to noxious stimuli. - Urinary Catheter Management Indwelling Urethral Catheter Cath placed during this visit: yes, but has since been removed by the nurse Reason for continuing: Hourly intake/output Insertion date: 08/04/18 Removal date: 07/30/18 Removal time: 00:00 Septic Shock Reassessment Septic shock perfusion: reassessment completed Assessment and Plan - Problem List (1) Elevated liver enzymes Code(s): R74.8 - Abnormal levels of other serum enzymes Status: Acute (2) UTI (urinary tract infection) due to urinary indwelling catheter Code(s): T83.511A - Infection and inflammatory reaction due to indwelling urethral catheter, initial encounter; N39.0 - Urinary tract infection, site not specified Status: Acute (3) Leukocytosis Code(s): D72.829 - Elevated white blood cell count, unspecified Status: Acute (4) Dysphagia Code(s): R13.10 - Dysphagia, unspecified Status: Acute (5) Septic shock Code(s): A41.9 - Sepsis, unspecified organism; R65.21 - Severe sepsis with septic shock Status: Acute (6) Hepatic encephalopathy Code(s): K72.90 - Hepatic failure, unspecified without coma Status: Acute (7) Multiorgan failure Status: Acute (8) Lactic acidemia Code(s): E87.2 - Acidosis Status: Acute (9) UTI (urinary tract infection) Code(s): N39.0 - Urinary tract infection, site not specified Status: Acute (10) CKD (chronic kidney disease), stage III Code(s): N18.3 - Chronic kidney disease, stage 3 (moderate) Status: Acute (11) DAVID (acute kidney injury) Code(s): N17.9 - Acute kidney failure, unspecified Status: Acute (12) Respiratory failure Code(s): J96.90 - Respiratory failure, unspecified, unspecified whether with hypoxia or hypercapnia Status: Acute (13) Cirrhosis Code(s): K74.60 - Unspecified cirrhosis of liver Status: Acute (14) Metabolic acidemia Code(s): E87.2 - Acidosis Status: Acute (15) Esophagitis Code(s): K20.9 - Esophagitis, unspecified Status: Acute (16) Gastritis Code(s): K29.70 - Gastritis, unspecified, without bleeding Status: Acute (17) Duodenal ulcer disease Code(s): K26.9 - Duodenal ulcer, unspecified as acute or chronic, without hemorrhage or perforation Status: Acute (18) Coffee ground emesis Code(s): K92.0 - Hematemesis Status: Acute - Assessment and Plan Plan: NEURO: Acute metabolic encephalopathy Hepatic encephalopathy 08/07MRI -no acute intracranial abnormalities. No recent evidence of ischemia. Chronic findings include atrophy and chronic periventricular white matter change and chronic microvascular ischemia EEG report pending. Neurology following, Dr. Ospina Ammonia level has been elevated (83). Trended down to the 60s. Stop lactulose in view of concern for C diff/diarrhea and volume depletion. Rifaximin 550 bid. RESP: Acute respiratory failure Prior tobacco abuse PRVC, TV 600 but unable to comply with low-tidal volume recommendations due to severe life threatening metabolic acidemia Continue Albuterol q6 hours and q2 prn. CV: Septic shock with multiorgan failure Severe metabolic acidemia Lactic acidemia Type II NSTEMI Received 8 L of crystalloid overnight due to profound shock On levophed 25 mcg/min, vasopressin 0.04 units/min. Weaned off neosynephrine as it appeared to be compromising cardiac contractility when it was at the 300 mcg/ min dose. Hydrocortisone 100 mg IV [id number] Bicarb 100 MEQ given x2 and started on Bicarb 150 MEQ @ 150 ml/hr. Amiodarone initiated due to multiple runs of nonsustained Vtach. Also intermittent atrial flutter and Afib RVR rate 150s. Rate improved to 110-120 range. Noted there is hepatic dysfunction however given the situation, benefit of amio felt to outweigh risk. Trend lactic acid. GI: Cirrhosis Transaminase elevation Gastritis, class C esophagitis, multiple duodenal ulcers status post cauterization 08/06/18 hx AAA s/p endograft repair 2009 ([facility]ablo) OGT to LIWS with coffee ground output ~125 ml. Monitoring hemoglobin Protonix 80 mg IV bolus and Protonix drip Gastroenterology following stat CT abd/pelvis FEN/RENAL: Severe metabolic acidemia DAVID overlying CKD III Anuria 1.1 cm kidney stone left renal pelvis, no hydronephrosis on CT 08/[address] Hunter was located in bladder diverticulum on CT 08/04. Was evaluated by urology, Dr. Guzman and recommended not replacing or repositioning Hunter as long as it was draining. Now patient is anuric, but this appears to be secondary to DAVID and shock as my bedside ultrasound shows nondistended bladder. Will f/u CT abd/pelvis. On bicarb drip as per above discussion. Nephrology consult as may need renal replacement therapy to address profound acidemia ID: Septic shock with multiorgan failure UTI Citrobacter koseri. - associated with chronic indwelling Hunter present on admission Has been treated with Zosyn but now decompensating so will change to cefepime as Citrobacter can have inducible in vivo resistance to Zosyn (Amp-C) Possible C. difficile colitis C. difficile PCR is positive. Antigen and toxin are pending. Will cover with Flagyl IV and vancomycin p.o. for now Continue Vancomycin IV (pharmacy dosing) Based on continued decompensation despite all these measures and concern for possibility of foregut perforation (deep duodenal ulcer), initiated Micafungin. Obtaining CT chest/abdomen/pelvis to determine if there is additional complicating diagnosis that will need to be addressed procedurally for source control. f/u repeat blood cultures 08/07. sputum cx. HEME: Monitor CBC, repeat at noon. ENDO: Hydrocortisone as per above. Monitor bedside glucose q4 hours and administer low-dose insulin sliding scale as indicated PROPH: SCD for DVT prophylaxis. Had been on rivaroxaban for DVT prophylaxis following L hip arthoplasty, will hold for now in view of bleeding ulcer and hemodynamic instability, may need procedure. ACCESS: Right IJ central venous line placed 08/08 #1. Left radial art line placed 08/08 #1 right femoral central venous line placed by ED physician 08/08/#1 has been dislodged (2) UTI (urinary tract infection) due to urinary indwelling catheter Qualifiers: Indwelling urinary catheter type: indwelling urethral catheter Encounter type : sequela Qualified Code(s): T83.511S - Infection and inflammatory reaction due to indwelling urethral catheter, sequela; N39.0 - Urinary tract infection, site not specified
[2018-08-08 06:00] LABS: ABG Base Excess -14.8 mmol/L (-2-2); ABG PCO2 30 mmHg (38-42); ABG PO2 205 mmHG (61-120)
[2018-08-08] MEDS ORDERED: Dextrose 50% in Water 50 ML Vial IV.PUSH PRN (08:42)
--- NOTE | 2018-08-08 08:43 | CT ---
EXAM DATE: 08/08/2018 8:25 AM EDT AGE/SEX: 78 years / Male INDICATIONS: Abdominal pain. CLINICAL DATA: This is the patient's initial encounter. Patient reports that signs and symptoms have been present for 1 day and indicates a pain score of Nonresponsive. MEDICAL/SURGICAL HISTORY: Aneurysm, abdominal. Hypertension. Renal calculi. Appendectomy. her augustine repair, hip surgery RADIATION DOSE: 17.15 CTDI (mGy) ; Combined studies COMPARISON: [facility], CT ABDOMEN & PELVIS W/O CONTRAST, 08/04/2018. [facility], CT ABDOMEN AND PELVIS W/O C ONTRAST, 03/22/2018. . TECHNIQUE: Multiple contiguous axial images were obtained through the abdomen. Images were obtained using multiple row detector helical technique. Using automated exposure control and adjustment of the mA and/or kV according to patient size, radiation dose was kept as low as reasonably achievable to o btain optimal diagnostic quality images. DICOM format image data is available electronically for rev iew and comparison. FINDINGS: Lower chest: There is trace pleural fluid bilaterally, left greater than right with compressive atele ctasis in the lower lobes. Severe coronary artery calcification is present. Hepatobiliary: The liver measures 16.7 cm in length and demonstrates a nodular contour. There is a st able 2.8 cm left hepatic cyst and there are innumerable hypodensities throughout the liver. Given the liver a very heterogeneous appearance, stable from the study from 4 days ago but representing a rueda ge from 03/22/2018. At the liver dome there is a stable rim calcified lesion measuring 2 cm. No calcif ied gallstones are present. Kidneys: There are 2 exophytic low-density lesions at the lower pole the right kidney measuring 1.7 c m and 2.6 cm. Both have density measurements characteristic of cysts. In the left mid kidney there is a 2.5 cm cyst. A nonobstructing stone in the left mid collecting system measures 7 x 6 mm and there is a stone in the left extrarenal pelvis measuring 8 x 8 mm. No significant hydronephrosis is present . Adrenal Glands: Within normal limits. Spleen: Within normal limits. Pancreas: Within normal limits. Vascular: There is severe atherosclerotic disease with infrarenal aneurysm sac measuring up to 6.8 x 6.6 cm, stable from the prior studies. High density material in the aneurysm sac just prior endoleak treatment. There is severe atherosclerotic disease within the iliac arteries. Common iliac arteries a re tortuous. 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 Bowel/Mesentery: There is a nasogastric tube in the stomach with tip in the gastric body. Small bowel is within normal limits. Clips adjacent to the cecum may be related to prior appendectomy. There is no acute colon abnormality. No free intraperitoneal air is present but there is a small volume of lety e fluid in the abdomen and pelvis, increased from the study from 4 days ago. Abdominal Wall: No hernia is visualized. Retroperitoneum: No lymphadenopathy. Bladder: Urinary bladder is decompressed with a Aggarwal catheter present. Wall is trabeculated with mul tiple diverticula. The left-sided diverticulum contains a 6 mm stone and layering high density materi al. Reproductive: Prostate gland demonstrates no abnormality. Inguinal: No lymphadenopathy or significant hernia. Musculoskeletal: There are degenerative changes throughout the lumbar spine and there has been prior kyphoplasty at L3. Left hip bipolar arthroplasty hardware causes beam hardening artifact. CONCLUSION: 1. There is an 8 mm stone in the left extrarenal pelvis. It is not causing any hydronephrosis. 2. There is increased free fluid in the abdomen and pelvis and there are new small bilateral pleural effusions. 3. Liver demonstrates appearance characteristic of cirrhosis. There are a few cysts and incompletely characterized small lesions but there are diffuse nodular hypodensities that are new since 03/22/2018 . These are incompletely characterized and nonspecific but could represent regenerative nodules, atyp ical appearance of steatosis, or multiple liver lesions including metastatic disease. The liver shoul d ideally be further characterized at some point with liver protocol MRI with and without intravenous contrast. 4. 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 Electronically signed by: Donny Monroe MD 08/08/2018 8:41 AM EDT
--- NOTE | 2018-08-08 08:54 | CT ---
EXAM DATE: 08/08/2018 8:32 AM EDT AGE/SEX: 78 years / Male INDICATIONS: Shortness of breath. CLINICAL DATA: This is the patient's initial encounter. Patient reports that signs and symptoms have been present for 1 day and indicates a pain score of Nonresponsive. MEDICAL/SURGICAL HISTORY: Aneurysm, abdominal. Hypertension. Renal calculi. Appendectomy. hernia repair, hip surgery RADIATION DOSE: 17.15 CTDI (mGy) ; Combined studies COMPARISON: [facility], CTA PULMONARY W CONTRAST W 3D, 08/03/2018. . TECHNIQUE: Multiple contiguous axial images were obtained through the chest without contrast. Image s were obtained in suspended respiration using multiple row detector helical technique. Using automa pia exposure control and adjustment of the mA and/or kV according to patient size, radiation dose was kept as low as reasonably achievable to obtain optimal diagnostic quality images. DICOM format imag e data is available electronically for review and comparison. FINDINGS: Lungs: There is mild centrilobular emphysema in the upper lobes bilaterally. Mild respiratory motion artifact is present. There is mild compressive atelectasis in both lower lobes adjacent to the pleur al fluid. In the right upper lobe on image 41 there is a 2 mm noncalcified pulmonary nodule. No other pulmonary nodule is identified. Mediastinum: The heart and great vessels demonstrate no acute abnormality. Endotracheal tube and na sogastric tube are present. Right IJ line distal tip is in the SVC. There is severe coronary artery c alcification and atherosclerotic disease of the aorta. Multiple enlarged lymph nodes are present incl uding a prevascular or right supraclavicular lymph node measuring 1.2 cm in short axis diameter, a pr etracheal lymph node measuring 1.5 cm in short axis diameter, a right paratracheal lymph node measuri ng 2.2 cm in short axis diameter and a precarinal lymph node measuring 2.8 x 2.0 cm. Pleurae: There are small bilateral pleural effusions, left slightly larger than right. No pleural th ickening is visualized. Axillae: No lymphadenopathy. Musculoskeletal: The bones and soft tissues demonstrate no acute abnormality. There are degenerativ e changes of the thoracic spine. Other: Please refer to abdomen and pelvis CT report for description of the subdiaphragmatic findings . CONCLUSION: 1. Very small bilateral pleural effusions, left slightly larger than right with associated compressi ve atelectasis. Mild centrilobular emphysema is present. 2. Abnormal mediastinal lymphadenopathy, as above. Etiology is uncertain but metastatic disease is o ne consideration given the abnormal liver. 3. Severe coronary artery calcification and atherosclerotic disease of the aorta. Electronically signed by: Donny Monroe MD 08/08/2018 8:53 AM EDT
[2018-08-08] MEDS: Dextrose 5%/NaCl 0.45% Inj 1,000 ML IV.CONT SCH ×2 (09:04→17:18)
[2018-08-08] MEDS: Chlorhexidine 0.12% Oral Kit 15 ML UDC OROPHARYNG SCH ×2 (09:36→21:53)
[2018-08-08] MEDS: rifAXIMin 550 MG Tablet NG/OG SCH ×2 (09:43→21:53)
--- NOTE | 2018-08-08 10:41 | US ---
EXAM DATE: 08/08/2018 10:25 AM EDT AGE/SEX: 78 years / Male INDICATIONS: Elevated labs. CLINICAL DATA: This is the patient's initial encounter. Patient reports that signs and symptoms have been present for 1 day and indicates a pain score of 0/10. MEDICAL/SURGICAL HISTORY: Aneurysm, abdominal. Hypertension. BPH. Nephrolithiasis. Abdominal aortic aneurysm repair. Appendectomy. Left hip. Hernia repair. Left ankle. COMPARISON: [facility] [place] ABDOMEN & PELVIS W/O CONTRAST, 08/08/2018. . MEASUREMENTS: Right Kidney:__9.0 x 4.9 x 5.1 cm Left Kidney:__10.0 x 5.4 x 6.0 cm FINDINGS: Right Kidney: Normal echogenicity and cortical thickness. In the mid kidney there is a simple cyst me asuring approximately 8 mm. Exophytic cyst at the lower pole are not visualized. There is no hydronep hrosis. Left Kidney: Normal echogenicity with lobulated contour. There is a simple cyst in the mid aspect clifford suring up to 2.7 cm. There is no hydronephrosis. The nonobstructing left renal stone documented on to day's CT is not visualized. Bladder: Aggarwal catheter is present. Bladder decompressed. Other: None. CONCLUSION: 1. There is no hydronephrosis or acute renal abnormality. Bilateral benign-appearing renal cysts are present. 2. The 7 mm nonobstructing left renal stone is not appreciated on this ultrasound but was documented on the CT from earlier today. Electronically signed by: Donny Monroe MD 08/08/2018 10:40 AM EDT
--- NOTE | 2018-08-08 11:23 | ECHRPT ---
Indication: SHORT OF BREATH CONCLUSIONS Images not suitable fo interpretation- very poor quality; please re-order when patient is more able to cooperate BP: / HR: Rhythm: MEASUREMENTS (Male / Female) Normal Values Technical Quality:Very technically difficult study 2D ECHO LVOT Diameter 2.2 cm DOPPLER AV Peak Velocity 59.0 cm/s AV Peak Gradient 1.4 mmHg LVOT Peak Velocity 54.3 cm/s LVOT Peak Gradient 1.2 mmHg AV Area Cont Eq pk 3.5 cm Mitral E Point Velocity 71.6 cm/s TR Peak Velocity 175.0 cm/s TR Peak Gradient 12.3 mmHg Right Atrial Pressure 10.0 mmHg Pulmonary Artery Systolic Pressu 22.3 mmHg Right Ventricular Systolic Press 22.3 mmHg Karen Quick MD, FACC (Electronically Signed) Final Date:08 August 2018 11:22
[2018-08-08 12:04] LABS: ABG Base Excess -8.8 mmol/L (-2-2); ABG PCO2 29 mmHg (38-42); ABG PO2 216 mmHG (61-120)
[2018-08-08 12:14] LABS: Hematocrit 37.4 % (39.0-51.0); Hemoglobin 12.2 gm/dL (13.0-17.0); Mean Corpuscular HGB Conc 32.6 % (32.0-36.0); Mean Corpuscular Hemoglobin 31.3 pg (27.0-34.0); Mean Corpuscular Volume 96.2 fL (80.0-100.0); Mean Platelet Volume 9.5 fL (7.0-11.0); Platelet Count 136 th/mm3 (150-450); Red Blood Count 3.89 mil/mm3 (4.50-5.90); Red Cell Distribution Width 15.3 % (11.6-17.2); White Blood Count 19.8 th/mm3 (4.0-11.0)
[2018-08-08] MEDS: Insulin NovoLOG Aspart Correctional Sugar Inj SQ SCH ×3 (12:24→22:33)
[2018-08-08 12:39] LABS: Calcium 7.4 mg/dL (8.5-10.1); Carbon Dioxide 18.4 meq/L (21.0-32.0); Potassium 3.6 meq/L (3.5-5.1)
[2018-08-08 12:51] LABS: Total Protein 4.8 g/dL (6.4-8.2)
[2018-08-08] MEDS ORDERED: Bumetanide Inj 25 MG/100 ML BAG IV.CONT SCH (13:00)
--- NOTE | 2018-08-08 14:14 | MB ---
cc: Saúl Gaming MD,Melanie Santana MD DATE: 08/08/2018 REQUESTING PHYSICIAN: Melanie Scherer MD REASON FOR CONSULTATION: Septic shock, Citrobacter koseri UTI, possible C. diff. HISTORY OF PRESENT ILLNESS: This is a 78-year-old white male who was admitted to the hospital with generalized weakness. The patient was brought to the ED when 911 was called because he was having weakness during the process of physical therapy treatments and the patient was noted to be unable to stand on his own. He was eventually admitted to the hospital. On admission, his white blood cell count was 15.0 and he was afebrile. He was noted to have elevated liver function tests. The patient was felt to have possible hepatocellular disease such as cirrhosis on abdominal CT scan, and several hepatic cysts were noted in the liver. The patient was noted to have abdominal pain. He eventually ended up getting an endoscopy which revealed duodenal ulceration with some active bleeding that was cauterized. Urine culture on admission came back showing Citrobacter. Blood cultures had no growth. The patient was afebrile and has remained during the admission. His white count remained elevated. The patient deteriorated overnight and required intubation. He was noted to be hypotensive. New cultures have been obtained. He currently is on the ventilator and is on Levophed. He had SVT episodes early this morning as well. The patient is having loose stools and stool C. diff was sent on 08/06/2018 and so far, the C. difficile DNA amplification test is positive. He is now having dark loose stools. The patient has had markedly decreased urine output and his creatinine has decreased markedly. A CT scan was performed today of the abdomen and pelvis. The liver demonstrates characteristics of cirrhosis and a few cysts and small lesions are noted in the liver. There is also an 8 mm stone in the left extrarenal pelvis without hydronephrosis. The patient's lactic acid is currently at 10. He is currently on Levophed 18 mcg and is also on vasopressin. Information is obtained from the medical record because the patient is intubated. 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 ALLERGIES: SULFA. MEDICATIONS: 1. Cefepime. 2. Vancomycin p.o. 3. Metronidazole. 4. Micafungin. 5. Vasopressin. 6. Norepinephrine. 7. Xarelto. 8. Rifaximin. 9. Pantoprazole. 10. Solu-Cortef. SOCIAL HISTORY: The patient is . He smokes close to 2 packs of cigarettes a day. Positive daily alcohol use. No illicit drugs. FAMILY HISTORY: Unable to obtain. REVIEW OF SYSTEMS: Unable to obtain. PHYSICAL EXAMINATION: GENERAL: This is a well-developed male who is unresponsive and on a ventilator. VITAL SIGNS: Temperature 97.8, BP 117/68, heart rate 123. The patient is on 50% FiO2. HEENT: Unable to assess due to the patient is on a ventilator. Oropharynx is intubated. NECK: Supple without adenopathy. LUNGS: Clear breath sounds bilaterally. HEART: Irregular rate and rhythm. No audible murmurs, rubs or gallops. ABDOMEN: Bowel sounds markedly diminished, soft, unable to appreciate tenderness. RECTAL: Not performed. EXTREMITIES: No clubbing or cyanosis. Trace edema of the upper extremities. SKIN: No rash. NEUROLOGIC: Unable to assess. PSYCHIATRIC: Unable to assess. LABORATORY DATA: WBC 20.2, platelets 167, 74% neutrophils, 19% lymphocytes, hemoglobin 12.1, 14% bands. Creatinine 2.78, BUN 55, sodium 151, AST 378, ALT 93, alkaline phosphatase 220. Hepatitis serology negative. ASSESSMENT: 1. Septic shock. 2. Acute respiratory failure. 3. Urinary tract infection. 4. Clostridium difficile colitis. 5. Acute kidney disease. RECOMMENDATIONS: 1. Continue p.o. vancomycin for C. difficile. 2. Continue Flagyl for C. difficile. 3. Continue cefepime. 4. Continue micafungin. 5. Monitor blood cultures. 6. Monitor sputum culture. 7. Monitor repeat urine culture. 8. Monitor clinical status and response to antibiotic treatment. The patient is very critically ill. Thank you for this consultation. I will monitor his progress with you and will make further recommendations on followup. MD DIANNE Mosqueda/jaime , 10:41 AM , 10:59 AM
--- NOTE | 2018-08-08 14:21 | P.PCN ---
Date of procedure: 08/08/18 Pre-op diagnosis: Renal failure, severe metabolic acidosis Post-op diagnosis: same Procedure: Left subclavian hemodialysis catheter placement Central line checklist completed, timeout completed. I wore a surgical cap, mask with protective eyewear, full gown and sterile gloves throughout the procedure. Left shoulder region was prepped using chlorhexidine scrub and draped in sterile fashion. Anesthesia was achieved over the vein using 1% lidocaine. The introducer needle was inserted into the left subclavian vein. Venous blood was withdrawn. The syringe was removed and a guidewire was advanced into the introducer needle. A small incision was made at the skin surface with a scalpel and the introducer needle was exchanged for a dilator over the guidewire. After appropriate dilation was obtained, the dilator was exchanged over the wire for a double lumen, 14F, 20 CM hemodialysis catheter. The wire was removed and the catheter was sutured in place at 18 cm. A sterile central line dressing was placed over the catheter at the insertion site. The patient tolerated the procedure. At time of procedure completion, all ports aspirated and flushed properly. Post-procedure chest x-ray is pending at this time. Anesthesia: local Surgeon: Rossy Hines Estimated blood loss (mL): 2 Condition: critical Disposition: ICU
--- NOTE | 2018-08-08 14:25 | P.CONNP ---
<Jorge LuistriPeggy - Last Filed: 08/08/18 14:02> History of Present Illness Service: Nephrology Consult date: 08/08/18 Requesting Physician: Melanie Scherer Reason for Consult: Acute kidney injury, anuria, and sever metabolic acidosis. Primary Care Provider: Hilario Maritns MD Chief Complaint: Shock History of Present Illness: Patient is a 78-year-old male with past medical history of hypertension, benign prostatic hypertrophy, indwelling Hunter catheter who presented to [facility] because of profound weakness, decreased appetite. Patient was just recently admitted to hospital and underwent left hip hemiarthroplasty. While at [facility] patient became hypotensive on 08/07 stat [place] [facility] [place] he was hypotensive with a SBP in the 50's-60's on pressor support. Nephrology is consulted for acute renal failure, anuria, and metabolic acidosis. Creatinine of 2.54 and HCO3 of 18.4. He is currently on pressor support with being bloused with IVF's. Review of Systems unobtainable due to endotracheal tube, unobtainable due to mental status PMFSH - History History Provided By: Patient - Medical History Medical History: Medical History (Last Updated 08/08/18 @ 08:09 by Melanie Scherer MD) BPH (benign prostatic hyperplasia) Chronic indwelling Hunter catheter AAA (abdominal aortic aneurysm) BPH (benign prostatic hyperplasia) Cataract Hernia Hypertension Kidney stones Metal bone fixation hardware in place - Surgical History Surgical History: Surgical History (Last Reviewed 08/06/18 @ 10:13 by Hermelindo Obrien) History of hip surgery History of AAA (abdominal aortic aneurysm) repair Hx of appendectomy Hx of hernia repair S/P surgical manipulation of ankle joint - Family History Family History: Family History (Last Reviewed 08/04/18 @ 08:48 by SOREN Hdz) Mother FHx: stomach cancer - Tobacco History Second Hand Smoke Exposure: No Tobacco Use In Past 30 Days: No Smoking Status: Former smoker Tobacco Type: Cigarettes - Alcohol History How Often Do You Have a Drink Containing Alcohol: 4 or more times a week - Substance Use History Substance History: No History of Abuse - Travel History Recent Travel in the [place] Within the Last 8 Weeks: No Recent Travel Out of the Country Within the Last 8 Weeks: No - Immunization History Tetanus Immunization: Unsure Hx Influenza Vaccine This Season: No Medications and Allergies Allergies Allergy/AdvReac Type Severity Reaction Status Date / Time Sulfa (Sulfonamide Allergy Intermediate Hives,SOB Verified 08/03/18 15:01 Antibiotics) Home Medications Medication Instructions Recorded Confirmed Type lisinopril 20 mg PO DAILY 05/03/18 08/04/18 History alfuzosin 10 mg PO HS 08/04/18 08/04/18 History finasteride 5 mg PO HS 08/04/18 08/04/18 History Active Medications: Active Medications Albuterol (Duoneb Neb (Prn)) 1 ampul NEB Q2HR NEB PRN PRN Reason: SHORTNESS OF BREATH/WHEEZING Albuterol (Duoneb Neb (Gen)) 1 ampul NEB Q6HR WHILE AWAKE NEB [facility] Last Admin: 08/08/18 08:32 Dose: 1 ampul Chlorhexidine Gluconate (Chlorhexidine 2% Cloth) 3 pack TOPICAL DAILY@0400 GEN Stop: 08/09/18 03:59 Last Admin: 08/08/18 05:04 Dose: 3 pack Chlorhexidine Gluconate (Chlorhexidine 2% Cloth) 3 pack TOPICAL DAILY@0400 PRN PRN Reason: Extra cloth needed Stop: 08/09/18 03:59 Chlorhexidine Gluconate (Peridex 0.12% Oral Kit) 15 ml OROPHARYNG BID@0800, 2000 [facility] Last Admin: 08/08/18 09:36 Dose: 15 ml Dextrose (D50w Vial) 50 ml IV.PUSH UNSCH PRN PRN Reason: PER HYPOGLYCEMIA PROTOCOL Finasteride (Proscar) 5 mg PO DAILY [facility] Last Admin: 08/07/18 10:38 Dose: Not Given Glucagon (Glucagon Inj) 1 mg OTHER PRN PRN PRN Reason: for Hypoglycemia Protocol Hydrocortisone Sodium Succinate (Solucortef Inj) 100 mg IV.PUSH Q8HR [facility] Last Admin: 08/08/18 05:33 Dose: 100 mg Dextrose/Sodium Chloride (D5w/1/2 Ns Inj) 1,000 mls @ 100 mls/hr IV.CONT .Q10H [facility] Last Admin: 08/08/18 09:04 Dose: Not Given Sodium Chloride (Ns Inj) 500 mls @ 30 mls/hr IV.SIG .Q10H [facility] Last Admin: 08/06/18 08:31 Dose: Not Given Metronidazole/Sodium Chloride (Flagyl 500 Mg Inj) 100 mls @ 100 mls/hr IV.SIG Q8H [facility] Last Infusion: 08/08/18 11:09 Dose: Infused Pharmacy Profile Note (Vancomycin Consult Pharmacy) 0 mls @ 0 mls/hr OTHER UNSCH [facility] Norepinephrine Bitartrate (Levophed-Dextrose 4 Mg/250 Ml Drip) 4 mg in 250 mls @ 7.5 mls/hr IV.SIG TITRATE PRN; Protocol PRN Reason: Per Protocol Last Admin: 08/08/18 13:58 Dose: 16 mcg/min, 60 mls/hr Vasopressin 40 unit/ Dextrose 100 mls @ 6 mls/hr IV.CONT CONT GEN; Protocol Last Infusion: 08/08/18 03:50 Dose: 0.04 units/min, 6 mls/hr Phenylephrine HCl 40 mg/ (Dextrose) 500 mls @ 30 mls/hr IV.CONT TITRATE PRN; Protocol PRN Reason: Per Protocol Last Titration: 08/08/18 05:33 Dose: 0 mcg/min, 0 mls/hr Midazolam HCl (Versed Inj) 50 mg in 50 mls @ 2 mls/hr IV.CONT TITRATE PRN; Protocol PRN Reason: Per Protocol Fentanyl (Fentanyl 10 Mcg/Ml Premix Drip) 2,500 mcg in 250 mls @ 5 mls/hr IV.SIG TITRATE PRN; Protocol PRN Reason: Per Protocol Sodium Bicarbonate 150 meq/ (Sterile Water) 1,000 mls @ 150 mls/hr IV.CONT .Q6H40M [facility] Last Admin: 08/08/18 11:34 Dose: 150 mls/hr Pantoprazole Sodium 80 mg/ (Sodium Chloride) 100 mls @ 10 mls/hr IV.CONT Q10H [facility] Last Admin: 08/08/18 05:05 Dose: 10 mls/hr Amiodarone HCl 450 mg/ (Dextrose) 250 mls @ 33.33 mls/hr IV.CONT TITRATE PRN; Protocol PRN Reason: Per Protocol Micafungin Sodium 100 mg/ (Sodium Chloride) 100 mls @ 100 mls/hr IV.SIG Q24H [facility] Last Infusion: 08/08/18 11:09 Dose: Infused Cefepime HCl 2,000 mg/ Sodium (Chloride) 100 mls @ 200 mls/hr IV.SIG Q24H [facility] Insulin Aspart (Novolog Insulin Correctional Sugar Inj) 0 unit SQ Q4HR [facility]; Protocol Last Admin: 08/08/18 12:24 Dose: 1 unit Lactulose (Lactulose Liq) 30 ml PO BID [facility] Last Admin: 08/08/18 00:09 Dose: 30 ml Miscellaneous Medication () 1 each OROPHARYNG 0000,0400,1200,1600 [facility] Last Admin: 08/08/18 12:24 Dose: 1 each Ondansetron HCl (Zofran Inj) 4 mg IV.PUSH Q8H PRN PRN Reason: nausea Rifaximin (Xifaxan) 550 mg NG/OG Q12HR [facility] Last Admin: 08/08/18 09:43 Dose: 550 mg Rivaroxaban (Xarelto) 10 mg PO DAILY [facility] Last Admin: 08/07/18 10:34 Dose: 10 mg Terbutaline Sulfate (Brethine Inj) 1 mg SQ UNSCH PRN PRN Reason: For Extravasation Vancomycin HCl (Vancomycin Po) 500 mg NG/OG QID [facility] Last Admin: 08/08/18 12:24 Dose: 500 mg Exam Vital signs: Vital Signs 08/07/18 16:00 08/07/18 17:00 08/07/18 17:17 Temperature 99.1 F Pulse Rate 117 H 120 H 120 H Respiratory Rate 24 33 H 33 H Blood Pressure 74/45 L 70/43 L 66/45 L Pulse Oximetry 93 L 98 08/07/18 17:30 08/07/18 17:39 08/07/18 17:50 Temperature Pulse Rate 120 H 120 H 124 H Respiratory Rate 44 H 27 H 34 H Blood Pressure 69/43 L 72/49 L 68/43 L Pulse Oximetry 91 L 92 L 92 L 08/07/18 17:55 08/07/18 18:05 08/07/18 18:10 Temperature Pulse Rate 120 H 118 H 116 H Respiratory Rate 31 H 26 H 31 H Blood Pressure 63/45 L 78/45 L 75/48 L Pulse Oximetry 95 94 L 94 L 08/07/18 18:34 08/07/18 18:50 08/07/18 18:59 Temperature Pulse Rate 120 H 122 H 124 H Respiratory Rate 29 H 33 H 28 H Blood Pressure 62/45 L 55/42 L 56/45 L Pulse Oximetry 88 L 94 L 08/07/18 19:00 08/07/18 19:14 08/07/18 19:19 Temperature Pulse Rate 124 H 128 H 132 H Respiratory Rate 35 H 26 H 37 H Blood Pressure 66/56 L 94/49 L Pulse Oximetry 94 L 100 100 08/07/18 19:30 08/07/18 19:42 08/07/18 19:45 Temperature Pulse Rate 140 H 144 H Respiratory Rate 35 H 36 H Blood Pressure 85/52 L 87/48 L Pulse Oximetry 97 100 98 08/07/18 19:55 08/07/18 20:00 08/07/18 20:04 Temperature Pulse Rate 134 H 148 H 148 H Respiratory Rate 34 H 34 H 36 H Blood Pressure 65/45 L 66/52 L 81/53 L Pulse Oximetry 99 98 99 08/07/18 20:06 08/07/18 20:08 08/07/18 20:15 Temperature Pulse Rate 146 H 148 H 146 H Respiratory Rate 35 H 35 H 35 H Blood Pressure 74/50 L 105/38 L 132/71 Pulse Oximetry 96 96 100 08/07/18 20:30 08/07/18 20:34 08/07/18 20:45 Temperature 97.8 F Pulse Rate 152 H 152 H 168 H Respiratory Rate 32 H 33 H 16 Blood Pressure 67/54 L 74/58 L 75/45 L Pulse Oximetry 98 95 98 08/07/18 20:49 08/07/18 21:00 08/07/18 21:15 Temperature Pulse Rate 166 H 162 H 154 H Respiratory Rate 16 16 16 Blood Pressure 79/50 L 99/60 L 111/77 Pulse Oximetry 100 100 08/07/18 21:30 08/07/18 21:45 08/07/18 21:52 Temperature Pulse Rate 156 H 150 H 140 H Respiratory Rate 16 12 16 Blood Pressure 111/60 105/67 Pulse Oximetry 100 08/07/18 22:00 08/07/18 22:15 08/07/18 22:30 Temperature Pulse Rate 154 H 158 H 156 H Respiratory Rate 16 27 H 28 H Blood Pressure 111/60 97/71 L 80/58 L Pulse Oximetry 100 99 100 08/07/18 22:45 08/07/18 23:00 08/07/18 23:20 Temperature Pulse Rate 150 H 156 H Respiratory Rate 31 H 31 H Blood Pressure 83/56 L 102/72 61/51 L Pulse Oximetry 99 97 08/07/18 23:22 08/07/18 23:36 08/07/18 23:50 Temperature Pulse Rate 156 H 160 H 156 H Respiratory Rate 22 29 H 27 H Blood Pressure 82/42 L 66/51 L 90/60 L Pulse Oximetry 97 100 95 08/08/18 00:04 08/08/18 00:11 08/08/18 00:18 Temperature 97.0 F L Pulse Rate 156 H 156 H 146 H Respiratory Rate 31 H 28 H 27 H Blood Pressure 117/83 86/42 L 59/51 L Pulse Oximetry 95 100 98 08/08/18 00:21 08/08/18 00:28 08/08/18 00:36 Temperature Pulse Rate 150 H 156 H 156 H Respiratory Rate 27 H 41 H 30 H Blood Pressure 96/73 L 54/32 L 85/57 L Pulse Oximetry 98 96 100 08/08/18 00:37 08/08/18 00:49 08/08/18 01:01 Temperature Pulse Rate 156 H 158 H 157 H Respiratory Rate 29 H 27 H Blood Pressure 88/52 L 98/46 L 62/35 L Pulse Oximetry 100 100 98 08/08/18 01:07 08/08/18 01:10 08/08/18 01:19 Temperature Pulse Rate 163 H Respiratory Rate 25 H 24 20 Blood Pressure 66/26 L 100/60 Pulse Oximetry 98 98 08/08/18 01:33 08/08/18 02:10 08/08/18 04:00 Temperature 99.0 F Pulse Rate 160 H 140 H Respiratory Rate 31 H 28 H 23 Blood Pressure 80/40 L Pulse Oximetry 98 99 99 08/08/18 04:15 08/08/18 05:29 08/08/18 05:32 Temperature Pulse Rate 127 H 128 H Respiratory Rate 24 24 24 Blood Pressure 184/79 H 158/91 H Pulse Oximetry 100 100 100 08/08/18 05:34 08/08/18 05:36 08/08/18 05:38 Temperature Pulse Rate 127 H 118 H 120 H Respiratory Rate 23 23 23 Blood Pressure 146/68 H 203/74 H 197/72 H Pulse Oximetry 100 100 100 08/08/18 05:40 08/08/18 05:43 08/08/18 05:44 Temperature Pulse Rate 118 H 130 H 132 H Respiratory Rate 23 23 24 Blood Pressure 141/65 H 161/67 H 155/64 H Pulse Oximetry 100 100 100 08/08/18 05:46 08/08/18 05:48 08/08/18 05:50 Temperature Pulse Rate 130 H 117 H 116 H Respiratory Rate 22 22 23 Blood Pressure 147/65 H 168/68 H 181/77 H Pulse Oximetry 100 100 100 08/08/18 05:52 08/08/18 05:56 08/08/18 05:58 Temperature Pulse Rate 118 H 119 H 121 H Respiratory Rate 23 22 22 Blood Pressure 201/79 H 111/87 110/59 L Pulse Oximetry 100 100 100 08/08/18 06:00 08/08/18 06:05 08/08/18 06:06 Temperature Pulse Rate 117 H 114 H 109 H Respiratory Rate 23 22 22 Blood Pressure 153/74 H 161/72 H 174/67 H Pulse Oximetry 100 100 100 08/08/18 06:08 08/08/18 06:13 08/08/18 06:31 Temperature Pulse Rate 111 H 104 H 103 H Respiratory Rate 22 22 20 Blood Pressure 187/70 H 177/67 H 171/65 H Pulse Oximetry 100 100 100 08/08/18 07:00 08/08/18 07:31 08/08/18 07:48 Temperature Pulse Rate 108 H 108 H 111 H Respiratory Rate 20 20 20 Blood Pressure 186/65 H 214/81 H 196/79 H Pulse Oximetry 100 100 100 08/08/18 08:00 08/08/18 08:50 08/08/18 09:00 Temperature 97.8 F Pulse Rate 112 H 124 H Respiratory Rate 32 H 20 21 Blood Pressure 204/82 H Pulse Oximetry 100 99 98 08/08/18 10:00 08/08/18 12:34 Temperature Pulse Rate 120 H Respiratory Rate 20 20 Blood Pressure Pulse Oximetry 100 99 Intake & Output 08/07/18 08/08/18 08/08/18 18:59 06:59 18:59 Intake Total 1550 / 1550 5000 / 5000 4035 / 4035 Output Total 250 / 250 180 / 180 Balance 1300 / 1300 4820 / 4820 4035 / 4035 Weight 89 kg Intake: IV 1550 / 1550 5000 / 5000 4035 / 4035 D5W/1/2 NS Inj 1,000 ML @ 100 1400 / 1400 mls/hr IV.CONT .Q10H GEN Rx#: [id number] Neosynephrine Inj 40 MG In D5W 250 / 250 Inj 496 ML @ 40 MCG/MIN 30 mls/ hr IV.CONT TITRATE PRN Rx#: [id number] NS Inj 1,000 ML @ 1000 mls/hr 1000 / 1000 IV.CONT .Q1H GEN Rx#:[id number] Sodium Bicarbonate 8.4% Inj 150 1000 / 1000 MEQ In Sterile Water for Inj 850 ML @ 150 mls/hr IV.CONT . Q6H40M GEN Rx#:[id number] Cordarone Inj 150 MG In D5W Inj 100 / 100 97 ML @ 600 mls/hr IV.SIG ONCE ONE Rx#:[id number] Maxipime Inj 2,000 MG In NS Inj 100 / 100 100 ML @ 200 mls/hr IV.SIG Q12H GEN Rx#:[id number] LR 1000 mL Inj 1,000 ML @ Wide 1000 / 1000 1999 / 1999 Open IV.SIG BOLUS ONE Rx#: [id number] Mycamine Inj 100 MG In NS Inj 100 / 100 100 ML @ 100 mls/hr IV.SIG Q24H GEN Rx#:[id number] Levophed-Dextrose 4 mg/250 ml 250 / 250 500 / 500 Drip 4 mg In 250 ml @ 2 MCG/MIN 7.5 mls/hr IV.SIG TITRATE PRN Rx#:[id number] Protonix Inj 80 MG In NS Inj 35 35 / 35 ML @ 420 mls/hr IV.SIG BOLUS ONE Rx#:[id number] Zosyn 3.375 GM Premix 50 ML @ 50 / 50 50 / 50 100 mls/hr IV.SIG Q8H GEN Rx#: [id number] KCl 20 mEq Premix Inj 20 meq In 100 / 100 100 / 100 100 ml @ 50 mls/hr IV.SIG Q2H GEN Rx#:[id number] NS Inj 1,000 ML @ Wide Open IV. 1999 SIG BOLUS ONE Rx#:[id number] Vancomycin Inj 1,000 MG In NS 250 / 250 Inj 250 ML @ 250 mls/hr IV.SIG ONCE ONE Rx#:[id number] Flagyl 500 MG Inj 100 ML @ 100 100 / 100 200 / 200 mls/hr IV.SIG Q8H GEN Rx#: [id number] Oral 0 / 0 Oral Supplement 0 / 0 Output: Stool 60 / 60 Urine Amount (Catheter) 250 / 250 90 / 90 Indwelling Urethral Catheter 250 / 250 90 / 90 Gastric Drainage Oral Orogastric Tube Other: Date of Last Bowel Movement 08/06/18 08/08/18 08/06/18 # Bowel Movements 1 # Incontinent Bowel Movements 1 Narrative: GENERAL: Orally intubated no sedation SKIN: Warm and dry. NECK: Supple, trachea midline. No JVD distention. CARDIOVASCULAR: Tachycardia, Regular rate and rhythm without murmurs, gallops, or rubs. RESPIRATORY: Breath sounds diminished bilaterally. GASTROINTESTINAL: Abdomen soft, non-tender, hypoactive bowel sounds. OG tube GENITOURINARY: Indwelling Hunter catheter MUSCULOSKELETAL: No cyanosis, generalized edema Results - Lab Results 08/08/18 12:00 08/08/18 12:00 Most recent lab results ABG pH 7.36 (7.380-7.420) L 08/08/18 11:55 ABG pCO2 29 mmHg (38-42) L 08/08/18 11:55 ABG pO2 216 mmHG (61-120) H 08/08/18 11:55 ABG HCO3 16 mmol/L (22-26) L* 08/08/18 11:55 Calcium 7.4 mg/dL (8.5-10.1) L* 08/08/18 12:00 Phosphorus 5.0 mg/dL (2.5-4.9) H 08/08/18 03:59 Magnesium 2.1 mg/dL (1.5-2.5) 08/08/18 03:59 - Image Kidney/bladder ultrasound: report reviewed Assessment and Plan - Assessment (1) DAVID (acute kidney injury) Code(s): N17.9 - Acute kidney failure, unspecified Status: Acute Plan: Acute renal failure with creatinine of 2.54, HCo3 18.4, and anuric. Acute tubular necrosis from hypotension. Renal US noted. Chest CT with small bilateral pleural effusions. Avoid nephrotoxic agents. Maintain MAP of 65 mmg if possible. Maintain strict I+O, indwelling hunter catheter. Discussed per Dr. Hines and Dr Dawn will proceed with CRRT. 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 Dialysis has been contacted. (2) Respiratory failure Code(s): J96.90 - Respiratory failure, unspecified, unspecified whether with hypoxia or hypercapnia Status: Acute Plan: Intubated, FiO2 at 50 %. Hemodynamically unstable. (3) Septic shock Code(s): A41.9 - Sepsis, unspecified organism; R65.21 - Severe sepsis with septic shock Status: Acute Plan: ID consulted. Continue antibiotics per recommendation. Renal dose as appropriate <Teresa Dawn - Last Filed: 08/10/18 18:11> History of Present Illness Primary Care Provider: Hilario Martins MD [facility] - Medical History Medical History: Medical History (Last Updated 08/08/18 @ 08:09 by Melanie Scherer MD) BPH (benign prostatic hyperplasia) Chronic indwelling Hunter catheter AAA (abdominal aortic aneurysm) BPH (benign prostatic hyperplasia) Cataract Hernia Hypertension Kidney stones Metal bone fixation hardware in place - Surgical History Surgical History: Surgical History (Last Reviewed 08/06/18 @ 10:13 by Hermelindo Obrien) History of hip surgery History of AAA (abdominal aortic aneurysm) repair Hx of appendectomy Hx of hernia repair S/P surgical manipulation of ankle joint - Family History Family History: Family History (Last Reviewed 08/04/18 @ 08:48 by SOREN Hdz) Mother FHx: stomach cancer Exam Vital signs: Vital Signs 08/09/18 18:31 08/09/18 19:00 08/09/18 19:01 Temperature Pulse Rate 81 69 68 Respiratory Rate 20 20 20 Blood Pressure 143/86 H 154/125 H 08/09/18 19:31 08/09/18 20:00 08/09/18 20:01 Temperature 96 F L Pulse Rate 67 66 70 Respiratory Rate 20 20 20 Blood Pressure 128/90 117/71 08/09/18 20:31 08/09/18 21:00 08/09/18 21:02 Temperature Pulse Rate 64 63 63 Respiratory Rate 20 20 20 Blood Pressure 120/60 117/56 L Intake & Output 08/09/18 08/10/18 08/10/18 18:59 06:59 18:59 Intake Total 80447 / 80651 3100 / 3100 Output Total 150 / 150 Balance 82711 / 98377 3100 / 3100 Intake: [place] 45072 / 92011 3100 / 3100 Cordarone Inj 450 MG In D5W Inj 27 / 27 241 ML @ 1 MG/MIN 33.33 mls/hr IV.CONT TITRATE PRN Rx#: [id number] EPINEPHrine (1:1000) Inj 4 MG 500 / 500 250 / 250 In D5W Inj 246 ML @ 3 MCG/MIN 11.25 mls/hr IV.CONT TITRATE PRN Rx#:[id number] Versed Inj 50 mg In 50 ml @ 2 50 / 50 MG/HR 2 mls/hr IV.CONT TITRATE PRN Rx#:[id number] Levophed Inj 16 MG In D5W Inj 250 / 250 234 ML @ 2 MCG/MIN 1.87 mls/hr IV.CONT TITRATE PRN Rx#: [id number] Protonix Inj 80 MG In NS Inj 100 / 100 100 / 100 100 ML @ 10 mls/hr IV.CONT Q10H GEN Rx#:[id number] Neosynephrine Inj 40 MG In D5W 1999 / 1999 500 / 500 Inj 496 ML @ 40 MCG/MIN 30 mls/ hr IV.CONT TITRATE PRN Rx#: [id number] Sodium Bicarbonate 8.4% Inj 100 14443 / 68962 2200 / 2200 MEQ In 1/2 Normal Saline Inj 1 ,000 ML @ 1000 mls/hr IV.CONT . Q1H6M GEN Rx#:[id number] Pitressin Inj 40 UNIT In D5W 100 / 100 Inj 98 ML @ 0.04 UNITS/MIN 6 mls/hr IV.CONT CONT GEN Rx#: [id number] Mycamine Inj 100 MG In NS Inj 100 / 100 100 ML @ 100 mls/hr IV.SIG Q24H GEN Rx#:[id number] Flagyl 500 MG Inj 100 ML @ 100 200 / 200 mls/hr IV.SIG Q8H GEN Rx#: [id number] Tube Irrigant 180 / 180 Output: Urine Amount (Catheter) 0 / 0 Indwelling Urethral Catheter 0 / 0 Gastric Drainage 150 / 150 Oral Orogastric Tube 150 / 150 Other: Date of Last Bowel Movement 08/08/18 08/08/18 # Bowel Movements 0 Results - Lab Results 08/09/18 05:05 08/09/18 05:05 Most recent lab results ABG pH 7.36 (7.380-7.420) L 08/08/18 11:55 ABG pCO2 29 mmHg (38-42) L 08/08/18 11:55 ABG pO2 216 mmHG (61-120) H 08/08/18 11:55 ABG HCO3 16 mmol/L (22-26) L* 08/08/18 11:55 Calcium 6.5 mg/dL (8.5-10.1) L* D 08/09/18 05:05 Phosphorus 6.1 mg/dL (2.5-4.9) H D 08/09/18 05:05 Magnesium 1.9 mg/dL (1.5-2.5) 08/09/18 05:05 Assessment and Plan - Assessment (1) DAVID (acute kidney injury) Code(s): N17.9 - Acute kidney failure, unspecified Status: Acute Plan: Patient seen and examine, agree with above. Patient with Hypotension, on multiple pressors. Most likely has ATN and DAVID. Urine out put is minimal. Has severe metabolic acidosis due to Lactic acidosis. Start CRRT, replace NaHco3, D/W the and Dr. Hines. (2) Respiratory failure Code(s): J96.90 - Respiratory failure, unspecified, unspecified whether with hypoxia or hypercapnia Status: Acute (3) Septic shock Code(s): A41.9 - Sepsis, unspecified organism; R65.21 - Severe sepsis with septic shock Status: Acute
--- NOTE | 2018-08-08 14:37 | XR ---
EXAM DATE: 08/08/2018 2:33 PM EDT AGE/SEX: 78 years / Male INDICATIONS: Left subclavian vas cath placement CLINICAL DATA: This is the patient's subsequent encounter. Patient reports that signs and symptoms h ave been present for 2 days and indicates a pain score of Nonresponsive. MEDICAL/SURGICAL HISTORY: . Aneurysm, abdominal. Hypertension. BPH. Nephrolithiasis. . Abdomi nal aortic aneurysm repair. Appendectomy. Left hip. Hernia repair. Left ankle. COMPARISON: [facility], CHEST 1V SINGLE AP, 08/08/2018. . FINDINGS: There is a new left subclavian Vas-Cath with its tip overlying the SVC. There is no visible pneumotho rax. Heart and mediastinum unremarkable. The ET tube and NG tube are both in good position. Right-ann marie ed IJ catheter in good position CONCLUSION: Left subclavian vascular catheter in excellent position. Electronically signed by: Garcia Vazquez MD 08/08/2018 2:36 PM EDT
[2018-08-08] MEDS ORDERED: Sodium Bicarbonate 8.4% Inj 50 MEQ/50 ML Syringe IV.PUSH PRN (15:14)
--- NOTE | 2018-08-08 16:38 | P.PNGI ---
Subjective Interval history: Ventilator management no response, critically ill, unable to assess any ROS Physical Exam Vital signs: Vital Signs 08/07/18 17:00 08/07/18 17:17 08/07/18 17:30 Temperature Pulse Rate 120 H 120 H 120 H Respiratory Rate 33 H 33 H 44 H Blood Pressure 70/43 L 66/45 L 69/43 L Pulse Oximetry 93 L 98 91 L 08/07/18 17:39 08/07/18 17:50 08/07/18 17:55 Temperature Pulse Rate 120 H 124 H 120 H Respiratory Rate 27 H 34 H 31 H Blood Pressure 72/49 L 68/43 L 63/45 L Pulse Oximetry 92 L 92 L 95 08/07/18 18:05 08/07/18 18:10 08/07/18 18:34 Temperature Pulse Rate 118 H 116 H 120 H Respiratory Rate 26 H 31 H 29 H Blood Pressure 78/45 L 75/48 L 62/45 L Pulse Oximetry 94 L 94 L 88 L 08/07/18 18:50 08/07/18 18:59 08/07/18 19:00 Temperature Pulse Rate 122 H 124 H 124 H Respiratory Rate 33 H 28 H 35 H Blood Pressure 55/42 L 56/45 L Pulse Oximetry 94 L 94 L 08/07/18 19:14 08/07/18 19:19 08/07/18 19:30 Temperature Pulse Rate 128 H 132 H 140 H Respiratory Rate 26 H 37 H 35 H Blood Pressure 66/56 L 94/49 L 85/52 L Pulse Oximetry 100 100 97 08/07/18 19:42 08/07/18 19:45 08/07/18 19:55 Temperature Pulse Rate 144 H 134 H Respiratory Rate 36 H 34 H Blood Pressure 87/48 L 65/45 L Pulse Oximetry 100 98 99 08/07/18 20:00 08/07/18 20:04 08/07/18 20:06 Temperature Pulse Rate 148 H 148 H 146 H Respiratory Rate 34 H 36 H 35 H Blood Pressure 66/52 L 81/53 L 74/50 L Pulse Oximetry 98 99 96 08/07/18 20:08 08/07/18 20:15 08/07/18 20:30 Temperature 97.8 F Pulse Rate 148 H 146 H 152 H Respiratory Rate 35 H 35 H 32 H Blood Pressure 105/38 L 132/71 67/54 L Pulse Oximetry 96 100 98 08/07/18 20:34 08/07/18 20:45 08/07/18 20:49 Temperature Pulse Rate 152 H 168 H 166 H Respiratory Rate 33 H 16 16 Blood Pressure 74/58 L 75/45 L 79/50 L Pulse Oximetry 95 98 08/07/18 21:00 08/07/18 21:15 08/07/18 21:30 Temperature Pulse Rate 162 H 154 H 156 H Respiratory Rate 16 16 16 Blood Pressure 99/60 L 111/77 111/60 Pulse Oximetry 100 100 100 08/07/18 21:45 08/07/18 21:52 08/07/18 22:00 Temperature Pulse Rate 150 H 140 H 154 H Respiratory Rate 12 16 16 Blood Pressure 105/67 111/60 Pulse Oximetry 100 08/07/18 22:15 08/07/18 22:30 08/07/18 22:45 Temperature Pulse Rate 158 H 156 H Respiratory Rate 27 H 28 H Blood Pressure 97/71 L 80/58 L 83/56 L Pulse Oximetry 99 100 08/07/18 23:00 08/07/18 23:20 08/07/18 23:22 Temperature Pulse Rate 150 H 156 H 156 H Respiratory Rate 31 H 31 H 22 Blood Pressure 102/72 61/51 L 82/42 L Pulse Oximetry 99 97 97 08/07/18 23:36 08/07/18 23:50 08/08/18 00:04 Temperature 97.0 F L Pulse Rate 160 H 156 H 156 H Respiratory Rate 29 H 27 H 31 H Blood Pressure 66/51 L 90/60 L 117/83 Pulse Oximetry 100 95 95 08/08/18 00:11 08/08/18 00:18 08/08/18 00:21 Temperature Pulse Rate 156 H 146 H 150 H Respiratory Rate 28 H 27 H 27 H Blood Pressure 86/42 L 59/51 L 96/73 L Pulse Oximetry 100 98 98 08/08/18 00:28 08/08/18 00:36 08/08/18 00:37 Temperature Pulse Rate 156 H 156 H 156 H Respiratory Rate 41 H 30 H 29 H Blood Pressure 54/32 L 85/57 L 88/52 L Pulse Oximetry 96 100 100 08/08/18 00:49 08/08/18 01:01 08/08/18 01:07 Temperature Pulse Rate 158 H 157 H Respiratory Rate 27 H 25 H Blood Pressure 98/46 L 62/35 L Pulse Oximetry 100 98 98 08/08/18 01:10 08/08/18 01:19 08/08/18 01:33 Temperature Pulse Rate 163 H 160 H Respiratory Rate 24 20 31 H Blood Pressure 66/26 L 100/60 80/40 L Pulse Oximetry 98 98 08/08/18 02:10 08/08/18 04:00 08/08/18 04:15 Temperature 99.0 F Pulse Rate 140 H Respiratory Rate 28 H 23 24 Blood Pressure Pulse Oximetry 99 99 100 08/08/18 05:29 08/08/18 05:32 08/08/18 05:34 Temperature Pulse Rate 127 H 128 H 127 H Respiratory Rate 24 24 23 Blood Pressure 184/79 H 158/91 H 146/68 H Pulse Oximetry 100 100 100 08/08/18 05:36 08/08/18 05:38 08/08/18 05:40 Temperature Pulse Rate 118 H 120 H 118 H Respiratory Rate 23 23 23 Blood Pressure 203/74 H 197/72 H 141/65 H Pulse Oximetry 100 100 100 08/08/18 05:43 08/08/18 05:44 08/08/18 05:46 Temperature Pulse Rate 130 H 132 H 130 H Respiratory Rate 23 24 22 Blood Pressure 161/67 H 155/64 H 147/65 H Pulse Oximetry 100 100 100 08/08/18 05:48 08/08/18 05:50 08/08/18 05:52 Temperature Pulse Rate 117 H 116 H 118 H Respiratory Rate 22 23 23 Blood Pressure 168/68 H 181/77 H 201/79 H Pulse Oximetry 100 100 100 08/08/18 05:56 08/08/18 05:58 08/08/18 06:00 Temperature Pulse Rate 119 H 121 H 117 H Respiratory Rate 22 22 23 Blood Pressure 111/87 110/59 L 153/74 H Pulse Oximetry 100 100 100 08/08/18 06:05 08/08/18 06:06 08/08/18 06:08 Temperature Pulse Rate 114 H 109 H 111 H Respiratory Rate 22 22 22 Blood Pressure 161/72 H 174/67 H 187/70 H Pulse Oximetry 100 100 100 08/08/18 06:13 08/08/18 06:31 08/08/18 07:00 Temperature Pulse Rate 104 H 103 H 108 H Respiratory Rate 22 20 20 Blood Pressure 177/67 H 171/65 H 186/65 H Pulse Oximetry 100 100 100 08/08/18 07:31 08/08/18 07:48 08/08/18 08:00 Temperature 97.8 F Pulse Rate 108 H 111 H 112 H Respiratory Rate 20 20 32 H Blood Pressure 214/81 H 196/79 H 204/82 H Pulse Oximetry 100 100 100 08/08/18 08:50 08/08/18 09:00 08/08/18 10:00 Temperature Pulse Rate 124 H 120 H Respiratory Rate 20 21 20 Blood Pressure Pulse Oximetry 99 98 100 08/08/18 11:00 08/08/18 12:00 08/08/18 12:24 Temperature 98.6 F Pulse Rate 116 H 114 H 119 H Respiratory Rate 19 22 21 Blood Pressure 178/140 H Pulse Oximetry 100 100 100 08/08/18 12:30 08/08/18 12:34 08/08/18 13:00 Temperature Pulse Rate 119 H 118 H Respiratory Rate 21 20 21 Blood Pressure 175/122 H Pulse Oximetry 100 99 100 08/08/18 13:01 08/08/18 13:31 08/08/18 13:38 Temperature Pulse Rate 119 H 116 H 109 H Respiratory Rate 21 21 21 Blood Pressure 160/92 H 148/58 H 68/30 L Pulse Oximetry 100 100 100 08/08/18 13:39 08/08/18 14:00 08/08/18 14:01 Temperature Pulse Rate 109 H 113 H 114 H Respiratory Rate 18 21 21 Blood Pressure 141/91 H 138/103 H Pulse Oximetry 100 100 100 08/08/18 14:31 08/08/18 15:00 08/08/18 15:01 Temperature 97.8 F Pulse Rate 117 H 118 H 118 H Respiratory Rate 22 18 22 Blood Pressure 134/66 196/126 H Pulse Oximetry 100 100 100 08/08/18 15:30 08/08/18 16:00 08/08/18 16:01 Temperature Pulse Rate 125 H 127 H 126 H Respiratory Rate 16 14 15 Blood Pressure 200/129 H 170/74 H Pulse Oximetry 100 100 100 Intake & Output 08/07/18 08/08/18 08/08/18 18:59 06:59 18:59 Intake Total 1550 / 1550 5000 / 5000 4135 / 4135 Output Total 250 / 250 180 / 180 Balance 1300 / 1300 4820 / 4820 4135 / 4135 Weight 89 kg Intake: IV 1550 / 1550 5000 / 5000 4135 / 4135 D5W/1/2 NS Inj 1,000 ML @ 100 1400 / 1400 mls/hr IV.CONT .Q10H [facility] Rx#: [id number] Protonix Inj 80 MG In NS Inj 100 / 100 100 ML @ 10 mls/hr IV.CONT Q10H [facility] Rx#:[id number] Neosynephrine Inj 40 MG In D5W 250 / 250 Inj 496 ML @ 40 MCG/MIN 30 mls/ hr IV.CONT TITRATE PRN Rx#: [id number] NS Inj 1,000 ML @ 1000 mls/hr 1000 / 1000 IV.CONT .Q1H [facility] Rx#:[id number] Sodium Bicarbonate 8.4% Inj 150 1000 / 1000 MEQ In Sterile Water for Inj 850 ML @ 150 mls/hr IV.CONT . Q6H40M [facility] Rx#:[id number] Cordarone Inj 150 MG In D5W Inj 100 / 100 97 ML @ 600 mls/hr IV.SIG ONCE ONE Rx#:[id number] Maxipime Inj 2,000 MG In NS Inj 100 / 100 100 ML @ 200 mls/hr IV.SIG Q12H [facility] Rx#:[id number] LR 1000 mL Inj 1,000 ML @ Wide 1000 / 1000 2000 / 2000 Open IV.SIG BOLUS ONE Rx#: [id number] Mycamine Inj 100 MG In NS Inj 100 / 100 100 ML @ 100 mls/hr IV.SIG Q24H [facility] Rx#:[id number] Levophed-Dextrose 4 mg/250 ml 250 / 250 500 / 500 Drip 4 mg In 250 ml @ 2 MCG/MIN 7.5 mls/hr IV.SIG TITRATE PRN Rx#:[id number] Protonix Inj 80 MG In NS Inj 35 35 / 35 ML @ 420 mls/hr IV.SIG BOLUS ONE Rx#:[id number] Zosyn 3.375 GM Premix 50 ML @ 50 / 50 50 / 50 100 mls/hr IV.SIG Q8H [facility] Rx#: [id number] KCl 20 mEq Premix Inj 20 meq In 100 / 100 100 / 100 100 ml @ 50 mls/hr IV.SIG Q2H [facility] Rx#:[id number] NS Inj 1,000 ML @ Wide Open IV. 1999 SIG BOLUS ONE Rx#:[id number] Vancomycin Inj 1,000 MG In NS 250 / 250 Inj 250 ML @ 250 mls/hr IV.SIG ONCE ONE Rx#:[id number] Flagyl 500 MG Inj 100 ML @ 100 100 / 100 200 / 200 mls/hr IV.SIG Q8H [facility] Rx#: [id number] Oral 0 / 0 Oral Supplement 0 / 0 Output: Stool 60 / 60 Urine Amount (Catheter) 250 / 250 90 / 90 Indwelling Urethral Catheter 250 / 250 90 / 90 Gastric Drainage / Oral Orogastric Tube Other: Date of Last Bowel Movement 08/06/18 08/08/18 08/06/18 # Bowel Movements 1 # Incontinent Bowel Movements 1 - Constitutional severe distress (Secondary to his condition) - Routine HEENT Exam ENT: Present: mucous membranes dry (Very pale) - Routine Respiratory Exam Present: patient mechanically ventilated - Routine Cardiovascular Exam Present: S1, S2 - Routine Abdominal Exam Present: firm (taut, no bowel sounds) - Urinary Catheter Management Indwelling Urethral Catheter Cath placed during this visit: yes, but has since been removed by the nurse Reason for continuing: Other continuation reason Insertion date: 08/04/18 Removal date: 07/30/18 Removal time: 00:00 Results - Labs CBC & Chem 7: 08/09/18 05:05 08/09/18 05:05 Laboratory Results - last 24 hr 08/07/18 08/07/18 08/07/18 17:11 17:11 17:11 CBC w Diff Slide review pending WBC 16.7 H RBC 4.41 L Hgb 14.0 Hct 42.1 MCV 95.5 MCH 31.8 MCHC 33.4 RDW 14.3 Plt Count 179 MPV 8.8 Prelim Diff (Auto) Neut % (Auto) 81.7 H Lymph % (Auto) 13.8 [place] % (Auto) 2.8 Eos % (Auto) 0.5 Baso % (Auto) 1.2 Neut # (Auto) 13.6 H Lymph # (Auto) 2.3 [place] # (Auto) 0.5 Eos # (Auto) 0.1 Baso # (Auto) 0.2 WBC Differential Manual diff final Seg Neuts % (Manual) 61 Band Neuts % (Manual) 2 Lymphocytes % (Manual) 21 Monocytes % (Manual) 4 Metamyelocytes % (Man) 11 H Myelocytes % (Man) 1 H Abs Neuts (Manual) 12.5 H Nucleated RBCs/100 WBC 4 H Differential Comment . Platelet Estimate Normal Platelet Morphology Normal RBC Morphology Normal PT INR APTT Fibrinogen Puncture Site Patient Temperature O2 Saturation ABG pH ABG pCO2 ABG pO2 ABG HCO3 ABG O2 Content ABG Base Excess ABG Methemoglobin Jonatan Test Hemoglobin Carboxyhemoglobin O2 Delivery Device Liter Flow Vent Setting Inspired O2 Critical Value Sodium 151 H Potassium 4.1 D Chloride 118 H Carbon Dioxide 18.0 L Anion Gap 15 BUN 58 H Creatinine 2.20 H Estimated GFR 29 L POC Glucose Random Glucose 158 H Lactic Acid 4.1 H* Calcium 8.9 Prot Corrected Calcium Phosphorus Magnesium Total Bilirubin 1.3 H AST 277 H ALT 82 H Alkaline Phosphatase 275 H Ammonia Total Creatine Kinase CK-MB (CK-2) CK-MB (CK-2) % Troponin I Total Protein 6.1 L D Albumin 2.1 L Lipase Nasal Screen MRSA (PCR) Blood Type Antibody Screen 08/07/18 08/07/18 08/07/18 17:11 18:45 21:45 CBC w Diff WBC RBC Hgb Hct MCV MCH MCHC RDW Plt Count MPV Prelim Diff (Auto) Neut % (Auto) Lymph % (Auto) [place] % (Auto) Eos % (Auto) Baso % (Auto) Neut # (Auto) Lymph # (Auto) [place] # (Auto) Eos # (Auto) Baso # (Auto) WBC Differential Seg Neuts % (Manual) Band Neuts % (Manual) Lymphocytes % (Manual) Monocytes % (Manual) Metamyelocytes % (Man) Myelocytes % (Man) Abs Neuts (Manual) Nucleated RBCs/100 WBC Differential Comment Platelet Estimate Platelet Morphology RBC Morphology PT INR APTT Fibrinogen Puncture Site Left radial Left femoral Patient Temperature 98.6 98.6 O2 Saturation 92 98 ABG pH 7.38 7.17 L* ABG pCO2 26 L 55 H* ABG pO2 67 367 H ABG HCO3 15 L* 19 L ABG O2 Content 16.4 19.1 ABG Base Excess -8.8 L -7.9 L ABG Methemoglobin 0.7 0.8 Jonatan Test Present Hemoglobin 12.7 13.2 Carboxyhemoglobin 1.0 0.3 O2 Delivery Device Nasal cannula Ventilator Liter Flow 6.00 Vent Setting Ac/500/16/5peep Inspired O2 100 Critical Value Yes Yes Sodium Potassium Chloride Carbon Dioxide Anion Gap BUN Creatinine Estimated GFR POC Glucose Random Glucose Lactic Acid Calcium Prot Corrected Calcium Phosphorus Magnesium Total Bilirubin AST ALT Alkaline Phosphatase Ammonia Total Creatine Kinase 466 H CK-MB (CK-2) 31.3 H CK-MB (CK-2) % 6.7 H* Troponin I 0.04 Total Protein Albumin Lipase Nasal Screen MRSA (PCR) Blood Type Antibody Screen 08/07/18 08/07/18 08/08/18 23:30 23:30 03:35 CBC w Diff WBC RBC Hgb Hct MCV MCH MCHC RDW Plt Count MPV Prelim Diff (Auto) Neut % (Auto) Lymph % (Auto) [place] % (Auto) Eos % (Auto) Baso % (Auto) Neut # (Auto) Lymph # (Auto) [place] # (Auto) Eos # (Auto) Baso # (Auto) WBC Differential Seg Neuts % (Manual) Band Neuts % (Manual) Lymphocytes % (Manual) Monocytes % (Manual) Metamyelocytes % (Man) Myelocytes % (Man) Abs Neuts (Manual) Nucleated RBCs/100 WBC Differential Comment Platelet Estimate Platelet Morphology RBC Morphology PT INR APTT Fibrinogen Puncture Site Art line Patient Temperature 98.6 O2 Saturation 97 ABG pH 7.11 L* ABG pCO2 28 L ABG pO2 333 H ABG HCO3 9 L* ABG O2 Content 16.9 ABG Base Excess -19.2 L ABG Methemoglobin 1.7 Jonatan Test Hemoglobin 11.8 L Carboxyhemoglobin 0.0 O2 Delivery Device Ventilator Liter Flow Vent Setting Ac 16/600/5peep Inspired O2 70 Critical Value Yes Sodium Potassium Chloride Carbon Dioxide Anion Gap BUN Creatinine Estimated GFR POC Glucose Random Glucose Lactic Acid 6.0 H* Calcium Prot Corrected Calcium Phosphorus Magnesium Total Bilirubin AST ALT Alkaline Phosphatase Ammonia 63 H Total Creatine Kinase CK-MB (CK-2) CK-MB (CK-2) % Troponin I Total Protein Albumin Lipase Nasal Screen MRSA (PCR) Blood Type Antibody Screen 08/08/18 08/08/18 08/08/18 03:59 03:59 03:59 CBC w Diff WBC 20.2 H RBC 3.85 L Hgb 12.1 L Hct 39.1 MCV 101.5 H D MCH 31.5 MCHC 31.0 L RDW 16.5 Plt Count 167 MPV 9.3 Prelim Diff (Auto) Slide review pending Neut % (Auto) 74.6 H Lymph % (Auto) 19.5 [place] % (Auto) 4.7 Eos % (Auto) 0.3 Baso % (Auto) 0.9 Neut # (Auto) 15.1 H Lymph # (Auto) 3.9 [place] # (Auto) 1.0 H Eos # (Auto) 0.1 Baso # (Auto) 0.2 WBC Differential Manual diff final Seg Neuts % (Manual) 44 Band Neuts % (Manual) 14 H Lymphocytes % (Manual) 27 Monocytes % (Manual) 3 Metamyelocytes % (Man) 7 H Myelocytes % (Man) 5 H Abs Neuts (Manual) 14.1 H Nucleated RBCs/100 WBC 16 H Differential Comment . Platelet Estimate Normal Platelet Morphology Normal RBC Morphology PT INR APTT Fibrinogen Puncture Site Patient Temperature O2 Saturation ABG pH ABG pCO2 ABG pO2 ABG HCO3 ABG O2 Content ABG Base Excess ABG Methemoglobin Jonatan Test Hemoglobin Carboxyhemoglobin O2 Delivery Device Liter Flow Vent Setting Inspired O2 Critical Value Sodium 151 H Potassium 3.9 Chloride 120 H Carbon Dioxide 13.0 L Anion Gap 18 H BUN 55 H Creatinine 2.78 H Estimated GFR 22 L POC Glucose Random Glucose 196 H Lactic Acid Calcium 7.4 L* D Prot Corrected Calcium 8.7 Phosphorus 5.0 H Magnesium 2.1 Total Bilirubin 0.9 AST 378 H ALT 93 H Alkaline Phosphatase 220 H Ammonia Total Creatine Kinase 461 H CK-MB (CK-2) 35.7 H CK-MB (CK-2) % 7.7 H* Troponin I Total Protein 4.8 L D Albumin 1.7 L Lipase 547 H Nasal Screen MRSA (PCR) Blood Type O Positive Antibody Screen Negative 08/08/18 08/08/18 08/08/18 03:59 03:59 03:59 CBC w Diff WBC RBC Hgb Hct MCV MCH MCHC RDW Plt Count MPV Prelim Diff (Auto) Neut % (Auto) Lymph % (Auto) [place] % (Auto) Eos % (Auto) Baso % (Auto) Neut # (Auto) Lymph # (Auto) [place] # (Auto) Eos # (Auto) Baso # (Auto) WBC Differential Seg Neuts % (Manual) Band Neuts % (Manual) Lymphocytes % (Manual) Monocytes % (Manual) Metamyelocytes % (Man) Myelocytes % (Man) Abs Neuts (Manual) Nucleated RBCs/100 WBC Differential Comment Platelet Estimate Platelet Morphology RBC Morphology PT 15.2 H INR 1.5 APTT 37.0 H Fibrinogen 361 Puncture Site Patient Temperature O2 Saturation ABG pH ABG pCO2 ABG pO2 ABG HCO3 ABG O2 Content ABG Base Excess ABG Methemoglobin Jonatan Test Hemoglobin Carboxyhemoglobin O2 Delivery Device Liter Flow Vent Setting Inspired O2 Critical Value Sodium Potassium Chloride Carbon Dioxide Anion Gap BUN Creatinine Estimated GFR POC Glucose Random Glucose Lactic Acid 10.0 H* Calcium Prot Corrected Calcium Phosphorus Magnesium Total Bilirubin AST ALT Alkaline Phosphatase Ammonia Total Creatine Kinase CK-MB (CK-2) CK-MB (CK-2) % Troponin I 0.56 H Total Protein Albumin Lipase Nasal Screen MRSA (PCR) Blood Type Antibody Screen 08/08/18 08/08/18 08/08/18 04:40 05:44 09:50 CBC w Diff WBC RBC Hgb Hct MCV MCH MCHC RDW Plt Count MPV Prelim Diff (Auto) Neut % (Auto) Lymph % (Auto) [place] % (Auto) Eos % (Auto) Baso % (Auto) Neut # (Auto) Lymph # (Auto) [place] # (Auto) Eos # (Auto) Baso # (Auto) WBC Differential Seg Neuts % (Manual) Band Neuts % (Manual) Lymphocytes % (Manual) Monocytes % (Manual) Metamyelocytes % (Man) Myelocytes % (Man) Abs Neuts (Manual) Nucleated RBCs/100 WBC Differential Comment Platelet Estimate Platelet Morphology RBC Morphology PT INR APTT Fibrinogen Puncture Site Art line Patient Temperature 98.6 O2 Saturation 97 ABG pH 7.21 L* ABG pCO2 30 L ABG pO2 205 H ABG HCO3 12 L* ABG O2 Content 15.0 ABG Base Excess -14.8 L ABG Methemoglobin 1.7 Jonatan Test Hemoglobin 10.7 L Carboxyhemoglobin 0.2 O2 Delivery Device Ventilator Liter Flow Vent Setting Ac16/600/5peep Inspired O2 50 Critical Value Yes Sodium Potassium Chloride Carbon Dioxide Anion Gap BUN Creatinine Estimated GFR POC Glucose Random Glucose Lactic Acid 9.2 H* Calcium Prot Corrected Calcium Phosphorus Magnesium Total Bilirubin AST ALT Alkaline Phosphatase Ammonia Total Creatine Kinase CK-MB (CK-2) CK-MB (CK-2) % Troponin I Total Protein Albumin Lipase Nasal Screen MRSA (PCR) Not detected Blood Type Antibody Screen 08/08/18 08/08/18 08/08/18 11:55 12:00 12:00 CBC w Diff WBC 19.8 H RBC 3.89 L Hgb 12.2 L Hct 37.4 L MCV 96.2 D MCH 31.3 MCHC 32.6 RDW 15.3 Plt Count 136 L MPV 9.5 Prelim Diff (Auto) Neut % (Auto) Lymph % (Auto) [place] % (Auto) Eos % (Auto) Baso % (Auto) Neut # (Auto) Lymph # (Auto) [place] # (Auto) Eos # (Auto) Baso # (Auto) WBC Differential Seg Neuts % (Manual) Band Neuts % (Manual) Lymphocytes % (Manual) Monocytes % (Manual) Metamyelocytes % (Man) Myelocytes % (Man) Abs Neuts (Manual) Nucleated RBCs/100 WBC Differential Comment Platelet Estimate Platelet Morphology RBC Morphology PT INR APTT Fibrinogen Puncture Site Art line Patient Temperature 98.6 O2 Saturation 97 ABG pH 7.36 L ABG pCO2 29 L ABG pO2 216 H ABG HCO3 16 L* ABG O2 Content 16.6 ABG Base Excess -8.8 L ABG Methemoglobin 1.7 Jonatan Test Hemoglobin 11.8 L Carboxyhemoglobin 0.3 O2 Delivery Device Ventilator Liter Flow Vent Setting A/c 600/20/5peep Inspired O2 50 Critical Value Yes Sodium Potassium Chloride Carbon Dioxide Anion Gap BUN Creatinine Estimated GFR POC Glucose Random Glucose Lactic Acid 9.5 H* Calcium Prot Corrected Calcium Phosphorus Magnesium Total Bilirubin AST ALT Alkaline Phosphatase Ammonia Total Creatine Kinase CK-MB (CK-2) CK-MB (CK-2) % Troponin I Total Protein Albumin Lipase Nasal Screen MRSA (PCR) Blood Type Antibody Screen 08/08/18 08/08/18 12:00 12:03 CBC w Diff WBC RBC Hgb Hct MCV MCH MCHC RDW Plt Count MPV Prelim Diff (Auto) Neut % (Auto) Lymph % (Auto) [place] % (Auto) Eos % (Auto) Baso % (Auto) Neut # (Auto) Lymph # (Auto) [place] # (Auto) Eos # (Auto) Baso # (Auto) WBC Differential Seg Neuts % (Manual) Band Neuts % (Manual) Lymphocytes % (Manual) Monocytes % (Manual) Metamyelocytes % (Man) Myelocytes % (Man) Abs Neuts (Manual) Nucleated RBCs/100 WBC Differential Comment Platelet Estimate Platelet Morphology RBC Morphology PT INR APTT Fibrinogen Puncture Site Patient Temperature O2 Saturation ABG pH ABG pCO2 ABG pO2 ABG HCO3 ABG O2 Content ABG Base Excess ABG Methemoglobin Jonatan Test Hemoglobin Carboxyhemoglobin O2 Delivery Device Liter Flow Vent Setting Inspired O2 Critical Value Sodium 149 H Potassium 3.6 Chloride 113 H Carbon Dioxide 18.4 L Anion Gap 18 H BUN 56 H Creatinine 2.54 H Estimated GFR 25 L POC Glucose 152 H Random Glucose 177 H Lactic Acid Calcium 7.4 L* Prot Corrected Calcium 8.7 Phosphorus Magnesium Total Bilirubin AST ALT Alkaline Phosphatase Ammonia Total Creatine Kinase CK-MB (CK-2) CK-MB (CK-2) % Troponin I Total Protein 4.8 L Albumin Lipase Nasal Screen MRSA (PCR) Blood Type Antibody Screen Microbiology 08/07/18 23:30 Blood - Peripheral Aerobic Blood Culture - Preliminary No growth in 1 day 08/07/18 23:30 Blood - Peripheral Anaerobic Blood Culture - Preliminary No growth in 1 day 08/07/18 23:30 Blood - Peripheral Aerobic Blood Culture - Preliminary No growth in 1 day 08/07/18 23:30 Blood - Peripheral Anaerobic Blood Culture - Preliminary No growth in 1 day 08/03/18 16:10 Blood - Peripheral Aerobic Blood Culture - Final No growth in 5 days 08/03/18 16:10 Blood - Peripheral Anaerobic Blood Culture - Final No growth in 5 days 08/03/18 16:05 Blood - Peripheral Aerobic Blood Culture - Final No growth in 5 days 08/03/18 16:05 Blood - Peripheral Anaerobic Blood Culture - Final No growth in 5 days - Imaging Impressions Chest X-Ray 08/07/18 00:00 CONCLUSION: No active disease. Minimal basilar scarring. Chest X-Ray 08/07/18 21:48 CONCLUSION: Endotracheal tube in good position. Chest X-Ray 08/08/18 03:40 CONCLUSION: Right IJ catheter in good position. No evidence of pneumothorax. Abdomen/Pelvis CT 08/08/18 07:07 CONCLUSION: 1. There is an 8 mm stone in the left extrarenal pelvis. It is not causing any hydronephrosis. 2. There is increased free fluid in the abdomen and pelvis and there are new small bilateral pleural effusions. 3. Liver demonstrates appearance characteristic of cirrhosis. There are a few cysts and incompletely characterized small lesions but there are diffuse nodular hypodensities that are new since 03/22/2018. These are incompletely characterized and nonspecific but could represent regenerative nodules, atypical appearance of steatosis, or multiple liver lesions including metastatic disease. The liver should ideally be further characterized at some point with liver protocol MRI with and without intravenous contrast. 4. 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 Chest CT 08/08/18 07:07 CONCLUSION: 1. Very small bilateral pleural effusions, left slightly larger than right with associated compressive atelectasis. Mild centrilobular emphysema is present. 2. Abnormal mediastinal lymphadenopathy, as above. Etiology is uncertain but metastatic disease is one consideration given the abnormal liver. 3. Severe coronary artery calcification and atherosclerotic disease of the aorta. Chest X-Ray 08/08/18 14:10 CONCLUSION: Left subclavian vascular catheter in excellent position. Abdomen/Bladder Ultrasound 08/08/18 18:59 CONCLUSION: 1. There is no hydronephrosis or acute renal abnormality. Bilateral benign- appearing renal cysts are present. 2. The 7 mm nonobstructing left renal stone is not appreciated on this ultrasound but was documented on the CT from earlier today. Assessment and Plan - Plan 78-year-old gentleman with elevated liver function test most likely related to rhabdomyolysis, patient complaining of abdominal pain could be related to kidney disease but cannot rule out peptic ulcer disease so I will be planning on doing upper endoscopy tomorrow Further plan depends on the finding 08/06/2018 patient is doing okay today still having some discomfort, had upper endoscopy done Findings; Esophagus: Grade C esophagitis Stomach severe gastritis biopsy was done from the antrum Duodenum multiple ulcers in the duodenum bulb and in the duodenum 1 of them was deep most likely the reason for the pain, patient also has one ulcer that was oozing blood which was cauterized to control the bleeding 08/07/2018 patient has still mild elevation of the liver function test most likely related to rhabdomyolysis, liver workup in progress but most likely cirrhosis, ammonia level is high patient was started on lactulose Patient has multiple ulcers in the duodenum and stomach biopsy was done no drop in his hemoglobin will continue antibiotic patient has diarrhea C. difficile DNA was positive were waiting for the antigen and he is in isolation 08/08/2018 patient was transitioned from the [facility] here to [facility] in the intensive care setting patient has continued to deteriorate and is now requiring ventilator management, sedation, no responsiveness, amiodarone drip. Current labs reviewed with WBC count 19.8, hemoglobin 12.2, INR 1.5, rheumatoid factor screening positive and FRANTZ negative, RPR pending hepatitis panel nonreactive, C. difficile DNA positive toxin is pending. NG tube in place CT scan shows liver characteristic appearances of cirrhosis with a few cyst and incompletely characterized small lesions that are diffuse nodular hypodensities that are new since 03/22/2018 could represent regenerative nodules atypical appearance of steatosis or multiple liver lesions including metastatic disease. EGD as needed in the future Bilirubin and LFTs reviewed as well as lipase level increased to 547 characteristic of acute pancreatitis AST increased at 378 ALT increased at 93, due to recent intubation could be shock liver related/hypotensive Patient is now seriously ill, no further GI procedures for now but will monitor labs and follow patient for any acute needs Note the previous EGD findings on 08/06/[address] [facility]. Plan Diet n.p.o. gastric tube No NSAIDs or alcohol PPI Monitor hemoglobin monitor labs Will continue to monitor labs, Patient was seen per myself and Dr. Lowe, note was written on his behalf
[2018-08-08] MEDS: Vasopressin Inj 40 UNIT in Dextrose 5% in Water Inj 98 ML IV.CONT SCH ×2 (17:23)
[2018-08-08] MEDS: Midazolam 50 MG/50 ML Inj 50 MG/50 ML BAG IV.CONT PRN (17:28)
[2018-08-08] MEDS ORDERED: Sodium Bicarbonate 8.4% Inj 50 MEQ in Sodium Chloride 0.45 % Inj 1,000 ML IV.CONT PRN (18:14)
--- NOTE | 2018-08-08 18:39 | MG ---
cc: Te Ospina MD ELECTROENCEPHALOGRAM NUMBER: [id number] CLINICAL HISTORY: Slurred speech, lethargy. MEDICATIONS: Xarelto. DESCRIPTION: The recording shows diffuse alpha and beta rhythms of 9 Hz, 50 microvolts. Symmetric posterior driving is noted. Photic stimulation is performed without significant posterior driving. No hemisphere asymmetry is noted. The patient may be in a very low-amplitude stage II sleep with sleep spindles towards the end. He had some head shaking that did not correlate with any abnormality and some moaning. Hyperventilation was not performed. He is noted to be snoring. IMPRESSION: Generally unremarkable electroencephalogram. MD MAYRA Branch/jaime , 03:23 PM , 03:27 PM
[2018-08-08] MEDS: Albumin Human 25% Inj 100 ML IV.SIG SCH ×2 (20:45→21:52)
[2018-08-08] MEDS: Sodium Bicarbonate 8.4% Inj 50 MEQ in Sodium Chloride 0.45 % Inj 1,000 ML IV.CONT SCH ×2 (20:46→22:34)
[2018-08-08] MEDS: Phenylephrine Inj 40 MG in Dextrose 5% in Water Inj 496 ML IV.CONT PRN ×4 (20:48→22:37)
[2018-08-09] MEDS: Pantoprazole Inj 80 MG in Sodium Chlor 0.9% Inj 100 ML IV.CONT SCH ×3 (00:21→21:34)
[2018-08-09] MEDS: Oral Hygiene Kit OROPHARYNG SCH ×4 (00:21→15:59)
[2018-08-09] MEDS: Insulin NovoLOG Aspart Correctional Sugar Inj SQ SCH ×6 (00:21→20:50)
[2018-08-09] MEDS: Sodium Bicarbonate 8.4% Inj 50 MEQ in Sodium Chloride 0.45 % Inj 1,000 ML IV.CONT SCH ×6 (01:35→11:28)
[2018-08-09] MEDS: Phenylephrine Inj 40 MG in Dextrose 5% in Water Inj 496 ML IV.CONT PRN ×14 (01:36→18:33)
[2018-08-09] MEDS: Sodium Bicarbonate 8.4% Inj 150 MEQ in Water for Inj, Sterile 850 ML IV.CONT SCH (02:26)
[2018-08-09] MEDS: Dextrose 5%/NaCl 0.45% Inj 1,000 ML IV.CONT SCH (02:27)
--- NOTE | 2018-08-09 03:55 | XR ---
EXAM DATE: 08/09/2018 3:51 AM EDT AGE/SEX: 78 years / Male INDICATIONS: Shortness of breath, possible pulmonary disease. CLINICAL DATA: This is the patient's subsequent encounter. Patient reports that signs and symptoms h ave been present for 3 days and indicates a pain score of Nonresponsive. MEDICAL/SURGICAL HISTORY: Aneurysm, abdominal. Hypertension. BPH. Nephrolithiasis. Abdominal aortic aneurysm repair. Appendectomy. COMPARISON: [facility] [place], CHEST 1V SINGLE AP, 08/08/2018. . FINDINGS: Mild consolidation and small effusion again seen left base, not significantly changed. No pneumothora x. Heart size stable, within normal limits. Endotracheal tube tip is approximately 4 cm above the anselmo. There are right internal jugular and le ft subclavian central venous catheters with tips in the superior vena cava. Nasogastric tube courses into the stomach. CONCLUSION: 1. Mild left base consolidation and small effusion not significantly changed. 2. Appropriately positioned lines and tubes as above, also not significantly changed. Electronically signed by: Donny Fleming MD 08/09/2018 3:53 AM EDT
[2018-08-09 05:22] LABS: Hematocrit 32.1 % (39.0-51.0); Hemoglobin 10.2 gm/dL (13.0-17.0); Mean Corpuscular HGB Conc 31.8 % (32.0-36.0); Mean Corpuscular Volume 100.5 fL (80.0-100.0); Mean Platelet Volume 9.4 fL (7.0-11.0); Platelet Count 90 th/mm3 (150-450); Red Cell Distribution Width 16.2 % (11.6-17.2); White Blood Count 18.8 th/mm3 (4.0-11.0)
[2018-08-09] MEDS: Hydrocortisone Sod Succinate 100 MG Vial IV.PUSH SCH ×3 (05:57→21:35)
[2018-08-09 06:11] LABS: Albumin 2.7 g/dL (3.4-5.0); Calcium 6.5 mg/dL (8.5-10.1); Carbon Dioxide 8.7 meq/L (21.0-32.0); Magnesium 1.9 mg/dL (1.5-2.5); Phosphorus 6.1 mg/dL (2.5-4.9); Potassium 5.3 meq/L (3.5-5.1); Total Protein 5.5 g/dL (6.4-8.2); Vancomycin,Random 5.2 Comment
--- NOTE | 2018-08-09 08:07 | P.PNCC ---
Subjective Subjective Remarks/Hospital Course: 78-year-old male with past medical history of hypertension, BPH, infrarenal abdominal aortic aneurysm status post endograft repair in 2009, recent fall resulting in left femoral neck fracture status post left hip arthroplasty 06/26/[address] Fernandez. After surgery he had been discharged to a SNF and had subsequently been discharged home. He was readmitted to [facility] hospitalist service on 08/03/18 after presenting with generalized weakness, decreased appetite, dysphagia. He appeared septic on admission. He had a chronic indwelling Hunter. Urine culture was positive for Citrobacter koseri for which he has been on Zosyn. He was encephalopathic and extensive neurologic workup was pursued including MRI that was unremarkable. EEG report pending. He did have hyperammonemia and was started on lactulose. CT abdomen and pelvis had showed hepatomegaly, possible cirrhosis, Hunter located within bladder diverticulum, and 1.1 cm renal stone at L renal pelvis without hydronephrosis. He was evaluated by urology and hunter replacement was not recommended unless catheter was obstructed. He was evaluated by gastroenterology and had EGD on 08/06 that demonstrated Grade C esophagitis, severe gastritis, multiple ulcers in the duodenal bulb; one was cauterized to control bleeding. After endoscopy, he had diarrhea and C diff studies were sent and PCR was positive, toxin and antigen pending. On that background, patient became hypotensive around 16:00 on 08/07. Fortunato Zepeda ordered 2 L NS bolus and levophed and broadened antimicrobial therapy to include vancomycin IV and flagyl IV. He requested facilities maintenance manager consultation around 7 pm, however I was on fast food shift supervisor at [facility] and not allowed to leave that facility. Therefore, stat transfer was requested. However, when [facility] arrived patients SBP was 55 and his GCS was 9 despite 3 L NS bolus and levophed 20 mcg/min and he was not stable for transfer. Gave additional 2 L of fluid, added vasopressin and stress dose steroids. ED physician at was contacted and Dr. Luis intubated the patient and placed R femoral CVL. I continued aggressive fluid resuscitation and added neosynephrine. Antibiotics had been further broadened to include cefepime, and vancomycin po in addition to IV vanc and IV flagyl. Patient became restless and R femoral CVL was dislodged. He arrived to [facility] with SBP in 50s to 60s, cool and poorly perfused, tachycardic with rate in 150s with levophed 16 mcg and neosynephrine 300 mcg/ min running. Vasopressin was off due to lack of access. Emergently placed RIJ CVL and L radial art line. He is profoundly acidotic, lactic acid 10. Gave pushes of bicarb, started on bicarb drip. Started on amiodarone for combination of multiple runs of V tach ~ 24 seconds, atrial flutter and intermittent A fib. He initially appeared profoundly volume depleted with IJ collapsing completely during respiration while placing CVL. He was given additional 4 L of LR and then IVC was full and non collapsible. He was on Flotrac and numbers after all of these measures (while in sinus rhythm) included CI 3 and SVV 12. Now intermittently in atrial fib so unable to rely on Flotrac. Now able to maintain MAP adequately and will proceed with stat CT imaging to evaluate for complications of C diff, viscous perforation, urinary obstruction or other source of sepsis. 08/08 Patient is sedated with Versed and Fentanyl infusion, currently maxed out on all 4 pressors ( Neosyn 300 mics, Levophed 30 mics, Vasopressin 0.04, Epi) in addition to Amio and Protonix drips. On CVVHD, Lactic acid 16.6 this morning. Objective Vital Signs / I&O: Vital Signs 08/08/18 07:48 08/08/18 08:00 08/08/18 08:50 Temperature 97.8 F Pulse Rate 111 H 112 H Respiratory Rate 20 32 H 20 Blood Pressure 196/79 H 204/82 H Pulse Oximetry 100 100 99 08/08/18 09:00 08/08/18 10:00 08/08/18 11:00 Temperature Pulse Rate 124 H 120 H 116 H Respiratory Rate 21 20 19 Blood Pressure Pulse Oximetry 98 100 100 08/08/18 12:00 08/08/18 12:24 08/08/18 12:30 Temperature 98.6 F Pulse Rate 114 H 119 H 119 H Respiratory Rate 22 21 21 Blood Pressure 178/140 H 175/122 H Pulse Oximetry 100 100 100 08/08/18 12:34 08/08/18 13:00 08/08/18 13:01 Temperature Pulse Rate 118 H 119 H Respiratory Rate 20 21 21 Blood Pressure 160/92 H Pulse Oximetry 99 100 100 08/08/18 13:31 08/08/18 13:38 08/08/18 13:39 Temperature Pulse Rate 116 H 109 H 109 H Respiratory Rate 21 21 18 Blood Pressure 148/58 H 68/30 L 141/91 H Pulse Oximetry 100 100 100 08/08/18 14:00 08/08/18 14:01 08/08/18 14:31 Temperature 97.8 F Pulse Rate 113 H 114 H 117 H Respiratory Rate 21 21 22 Blood Pressure 138/103 H 134/66 Pulse Oximetry 100 100 100 08/08/18 15:00 08/08/18 15:01 08/08/18 15:30 Temperature Pulse Rate 118 H 118 H 125 H Respiratory Rate 18 22 16 Blood Pressure 196/126 H 200/129 H Pulse Oximetry 100 100 100 08/08/18 16:00 08/08/18 16:01 08/08/18 16:55 Temperature Pulse Rate 127 H 126 H 120 H Respiratory Rate 14 15 20 Blood Pressure 170/74 H Pulse Oximetry 100 100 100 08/08/18 17:47 08/08/18 19:00 08/08/18 19:01 Temperature Pulse Rate 127 H 119 H 119 H Respiratory Rate 23 23 Blood Pressure 87/56 L 119/81 Pulse Oximetry 100 100 08/08/18 19:30 08/08/18 20:00 08/08/18 20:01 Temperature Pulse Rate 115 H 102 H 103 H Respiratory Rate 22 22 21 Blood Pressure 113/75 86/59 L Pulse Oximetry 100 96 97 08/08/18 20:35 08/08/18 21:00 08/08/18 21:11 Temperature Pulse Rate 109 H 109 H Respiratory Rate 22 16 22 Blood Pressure 141/99 H Pulse Oximetry 92 L 08/08/18 21:31 08/08/18 22:00 08/08/18 22:01 Temperature Pulse Rate 106 H 105 H 105 H Respiratory Rate 16 17 18 Blood Pressure 139/59 L 129/57 L 129/57 L Pulse Oximetry 100 100 100 08/08/18 22:30 08/08/18 23:00 08/08/18 23:31 Temperature Pulse Rate 104 H 103 H 100 H Respiratory Rate 20 20 21 Blood Pressure 155/73 H 132/99 H Pulse Oximetry 100 100 100 08/08/18 23:50 08/09/18 00:00 08/09/18 00:01 Temperature 94 F L Pulse Rate 100 H 99 H Respiratory Rate 20 21 21 Blood Pressure 116/90 Pulse Oximetry 100 97 94 L 08/09/18 00:10 08/09/18 00:31 08/09/18 01:00 Temperature 94 F L Pulse Rate 99 H 97 H Respiratory Rate 20 20 Blood Pressure 89/55 L Pulse Oximetry 100 100 08/09/18 01:01 08/09/18 02:00 08/09/18 02:01 Temperature Pulse Rate 97 H 90 96 H Respiratory Rate 20 21 21 Blood Pressure 88/51 L 107/55 L Pulse Oximetry 100 100 100 08/09/18 02:30 08/09/18 03:00 08/09/18 03:01 Temperature Pulse Rate 95 H 94 H 93 H Respiratory Rate 21 22 20 Blood Pressure 111/78 80/44 L Pulse Oximetry 100 100 100 08/09/18 03:31 08/09/18 04:00 08/09/18 04:15 Temperature 96 F L Pulse Rate 92 H 92 H Respiratory Rate 21 20 22 Blood Pressure 92/41 L 99/59 L Pulse Oximetry 100 100 100 08/09/18 04:31 08/09/18 06:00 Temperature Pulse Rate 91 H 87 Respiratory Rate 21 Blood Pressure 92/53 L Pulse Oximetry 100 Intake & Output 08/08/18 08/09/18 08/09/18 18:59 06:59 18:59 Intake Total 5042 / 5042 9050 / 9050 1000 / 1000 Output Total 425 / 425 0 / 0 Balance 4617 / 4617 9050 / 9050 1000 / 1000 Weight 93.5 kg Intake: IV 5042 / 5042 9050 / 9050 1000 / 1000 Bumex Inj 25 mg In 100 ml @ 0.5 2 / 2 MG/HR 2 mls/hr IV.CONT .Q24H [facility] Rx#:[id number] EPINEPHrine (1:1000) Inj 4 MG 500 / 500 In D5W Inj 246 ML @ 3 MCG/MIN 11.25 mls/hr IV.CONT TITRATE PRN Rx#:[id number] Levophed Inj 16 MG In D5W Inj 500 / 500 234 ML @ 2 MCG/MIN 1.87 mls/hr IV.CONT TITRATE PRN Rx#: [id number] Protonix Inj 80 MG In NS Inj 100 / 100 100 / 100 100 ML @ 10 mls/hr IV.CONT Q10H [facility] Rx#:[id number] Neosynephrine Inj 40 MG In D5W 1999 / 1999 Inj 496 ML @ 40 MCG/MIN 30 mls/ hr IV.CONT TITRATE PRN Rx#: [id number] Sodium Bicarbonate 8.4% Inj 50 4200 / 4200 1000 / 1000 MEQ In 1/2 Normal Saline Inj 1, 000 ML @ 500 mls/hr IV.CONT . Q2H6M [facility] Rx#:[id number] Sodium Bicarbonate 8.4% Inj 150 1805 / 1805 MEQ In Sterile Water for Inj 850 ML @ 150 mls/hr IV.CONT . Q6H40M [facility] Rx#:[id number] Pitressin Inj 40 UNIT In D5W 100 / 100 Inj 98 ML @ 0.04 UNITS/MIN 6 mls/hr IV.CONT CONT [facility] Rx#: [id number] Flexbumin 25% Inj 100 ML @ 60 200 / 200 mls/hr IV.SIG Q100M [facility] Rx#: [id number] Cordarone Inj 150 MG In D5W Inj 100 / 100 97 ML @ 600 mls/hr IV.SIG ONCE ONE Rx#:[id number] Maxipime Inj 2,000 MG In NS Inj 100 / 100 100 / 100 100 ML @ 200 mls/hr IV.SIG Q24H [facility] Rx#:[id number] LR 1000 mL Inj 1,000 ML @ Wide 1999 / 1999 Open IV.SIG BOLUS ONE Rx#: [id number] Mycamine Inj 100 MG In NS Inj 100 / 100 100 ML @ 100 mls/hr IV.SIG Q24H [facility] Rx#:[id number] Levophed-Dextrose 4 mg/250 ml 500 / 500 250 / 250 Drip 4 mg In 250 ml @ 2 MCG/MIN 7.5 mls/hr IV.SIG TITRATE PRN Rx#:[id number] Protonix Inj 80 MG In NS Inj 35 35 / 35 ML @ 420 mls/hr IV.SIG BOLUS ONE Rx#:[id number] Flagyl 500 MG Inj 100 ML @ 100 200 / 200 200 / 200 mls/hr IV.SIG Q8H [facility] Rx#: [id number] Output: Urine Amount (Catheter) 125 / 125 0 / 0 Indwelling Urethral Catheter 125 / 125 0 / 0 Gastric Drainage 300 / 300 Oral Orogastric Tube 300 / 300 Other: Date of Last Bowel Movement 08/08/18 08/08/18 # Bowel Movements 2 # Incontinent Bowel Movements 2 Result Diagrams: 08/09/18 05:05 08/09/18 05:05 Other Results: Laboratory Results - last 12 hr 08/08/18 08/08/18 08/08/18 09:00 22:18 22:19 WBC RBC Hgb Hct MCV MCH MCHC RDW Plt Count MPV Sodium Potassium Chloride Carbon Dioxide Anion Gap BUN Creatinine Estimated GFR POC Glucose 275 H Random Glucose Lactic Acid 16.2 H* Calcium Prot Corrected Calcium Phosphorus Magnesium Total Bilirubin AST ALT Alkaline Phosphatase Total Protein Albumin Nasal Screen MRSA (PCR) Cancelled Random Vancomycin 08/09/18 08/09/18 08/09/18 00:00 00:37 04:22 WBC RBC Hgb Hct MCV MCH MCHC RDW Plt Count MPV Sodium Potassium Chloride Carbon Dioxide Anion Gap BUN Creatinine Estimated GFR POC Glucose 193 H 278 H Random Glucose Lactic Acid 15.5 H* Calcium Prot Corrected Calcium Phosphorus Magnesium Total Bilirubin AST ALT Alkaline Phosphatase Total Protein Albumin Nasal Screen MRSA (PCR) Random Vancomycin 08/09/18 08/09/18 08/09/18 04:23 04:35 05:05 WBC 18.8 H RBC 3.20 L Hgb 10.2 L D Hct 32.1 L MCV 100.5 H D MCH 32.0 MCHC 31.8 L RDW 16.2 Plt Count 90 L D MPV 9.4 Sodium Potassium Chloride Carbon Dioxide Anion Gap BUN Creatinine Estimated GFR POC Glucose 224 H Random Glucose Lactic Acid 16.6 H* Calcium Prot Corrected Calcium Phosphorus Magnesium Total Bilirubin AST ALT Alkaline Phosphatase Total Protein Albumin Nasal Screen MRSA (PCR) Random Vancomycin 08/09/18 05:05 WBC RBC Hgb Hct MCV MCH MCHC RDW Plt Count MPV Sodium 132 L D Potassium 5.3 H D Chloride 96 L D Carbon Dioxide 8.7 L D Anion Gap 27 H BUN 42 H Creatinine 2.53 H Estimated GFR 25 L POC Glucose Random Glucose 297 H D Lactic Acid Calcium 6.5 L* D Prot Corrected Calcium 7.3 L* D Phosphorus 6.1 H D Magnesium 1.9 Total Bilirubin 2.0 H AST 4315 H ALT 667 H Alkaline Phosphatase 226 H Total Protein 5.5 L D Albumin 2.7 L D Nasal Screen MRSA (PCR) Random Vancomycin 5.2 Imaging: Chest CTA 08/03/18 14:48 CONCLUSION: 1. Minimal pleural-parenchymal scarring or atelectasis in the right upper lobe. Lungs are otherwise clear. 2. No pulmonary embolus. 3. Atherosclerotic calcification of the coronary arteries. 4. Probable hepatic cysts in the left hepatic lobe. Ultrasound could be performed for confirmation if clinically warranted. Liver Ultrasound 08/03/18 16:43 CONCLUSION: 1. Hepatic and renal cysts. 2. Findings suggesting cirrhosis. 3. Small volume ascites. 4. Sonographic findings suggesting underlying medical renal disease. Bile Acid Absorption NM 08/05/18 00:00 CONCLUSION: 1. Negative examination. 2. Normal gallbladder ejection fraction. Patient was asymptomatic during CCK demonstration. Videofluoroscopic Swallow 08/05/18 00:00 CONCLUSION: Recurrent penetration of the supraglottic larynx with thin barium and nectar thick barium with significant pooling in the paired valleculae and piriform sinuses with both substances. Abdomen X-Ray 08/05/18 06:00 CONCLUSION: 1. Bilateral renal calculi demonstrated on CT exam are noted on radiograph, as above. Carotid Doppler Study 08/06/18 00:00 CONCLUSION: 1. Right Internal Carotid Artery: Findings indicate <50% stenosis. 2. Left Internal Carotid Artery: Findings indicate <50% stenosis. Cervical Spine CT 08/06/18 00:00 CONCLUSION: 1. No acute findings. 2. Broad-based disc protrusions with some osteophytic ridging at C5-7 with mild AP canal and lateral recess stenosis. Head CT 08/06/18 00:00 CONCLUSION: 1. No acute intracranial abnormalities. Remote lacunar infarct right basal ganglia. . Cervical Spine MRI 08/07/18 00:00 CONCLUSION: 1. MRI confirms mild spinal canal stenosis at C5-C6 and C6-C7, as above. 2. No acute cervical spine abnormality is identified. Head MRI 08/07/18 07:07 CONCLUSION: 1. No acute intracranial abnormality is identified. There are no findings to indicate recent ischemia. 2. Chronic findings include generalized atrophy and chronic periventricular white matter change characteristic of chronic microvascular ischemia. Abdomen/Pelvis CT 08/08/18 07:07 CONCLUSION: 1. There is an 8 mm stone in the left extrarenal pelvis. It is not causing any hydronephrosis. 2. There is increased free fluid in the abdomen and pelvis and there are new small bilateral pleural effusions. 3. Liver demonstrates appearance characteristic of cirrhosis. There are a few cysts and incompletely characterized small lesions but there are diffuse nodular hypodensities that are new since 03/22/2018. These are incompletely characterized and nonspecific but could represent regenerative nodules, atypical appearance of steatosis, or multiple liver lesions including metastatic disease. The liver should ideally be further characterized at some point with liver protocol MRI with and without intravenous contrast. 4. 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 Chest CT 08/08/18 07:07 CONCLUSION: 1. Very small bilateral pleural effusions, left slightly larger than right with associated compressive atelectasis. Mild centrilobular emphysema is present. 2. Abnormal mediastinal lymphadenopathy, as above. Etiology is uncertain but metastatic disease is one consideration given the abnormal liver. 3. Severe coronary artery calcification and atherosclerotic disease of the aorta. Abdomen/Bladder Ultrasound 08/08/18 18:59 CONCLUSION: 1. There is no hydronephrosis or acute renal abnormality. Bilateral benign- appearing renal cysts are present. 2. The 7 mm nonobstructing left renal stone is not appreciated on this ultrasound but was documented on the CT from earlier today. Chest X-Ray 08/09/18 00:00 CONCLUSION: 1. Mild left base consolidation and small effusion not significantly changed. 2. Appropriately positioned lines and tubes as above, also not significantly changed. Objective Remarks: GENERAL: Patient is 78 yo critically ill on multiple pressors SKIN: Warm and dry. HEAD: Normocephalic. EYES: No scleral icterus. No injection or drainage. NECK: Supple, trachea midline. No JVD or lymphadenopathy. CARDIOVASCULAR: Regular rate and rhythm without murmurs, gallops, or rubs. RESPIRATORY: Breath sounds equal bilaterally. No accessory muscle use. GASTROINTESTINAL: Abdomen soft, non-tender, nondistended. MUSCULOSKELETAL: No cyanosis, or edema. Neuro: Sedated and intubated Assessment and Plan - Problem List (1) Elevated liver enzymes Code(s): R74.8 - Abnormal levels of other serum enzymes Status: Acute (2) UTI (urinary tract infection) due to urinary indwelling catheter Code(s): T83.511A - Infection and inflammatory reaction due to indwelling urethral catheter, initial encounter; N39.0 - Urinary tract infection, site not specified Status: Acute (3) Leukocytosis Code(s): D72.829 - Elevated white blood cell count, unspecified Status: Acute (4) Dysphagia Code(s): R13.10 - Dysphagia, unspecified Status: Acute (5) Septic shock Code(s): A41.9 - Sepsis, unspecified organism; R65.21 - Severe sepsis with septic shock Status: Acute (6) Hepatic encephalopathy Code(s): K72.90 - Hepatic failure, unspecified without coma Status: Acute (7) Multiorgan failure Status: Acute (8) Lactic acidemia Code(s): E87.2 - Acidosis Status: Acute (9) UTI (urinary tract infection) Code(s): N39.0 - Urinary tract infection, site not specified Status: Acute (10) CKD (chronic kidney disease), stage III Code(s): N18.3 - Chronic kidney disease, stage 3 (moderate) Status: Acute (11) DAVID (acute kidney injury) Code(s): N17.9 - Acute kidney failure, unspecified Status: Acute (12) Respiratory failure Code(s): J96.90 - Respiratory failure, unspecified, unspecified whether with hypoxia or hypercapnia Status: Acute (13) Cirrhosis Code(s): K74.60 - Unspecified cirrhosis of liver Status: Acute (14) Metabolic acidemia Code(s): E87.2 - Acidosis Status: Acute (15) Esophagitis Code(s): K20.9 - Esophagitis, unspecified Status: Acute (16) Gastritis Code(s): K29.70 - Gastritis, unspecified, without bleeding Status: Acute (17) Duodenal ulcer disease Code(s): K26.9 - Duodenal ulcer, unspecified as acute or chronic, without hemorrhage or perforation Status: Acute (18) Coffee ground emesis Code(s): K92.0 - Hematemesis Status: Acute - Assessment and Plan Plan: NEURO: Acute metabolic encephalopathy Hepatic encephalopathy On Versed and Fentnayl infusion for sedation. Daily sedation vacation 08/07MRI -no acute intracranial abnormalities. No recent evidence of ischemia. Chronic findings include atrophy and chronic periventricular white matter change and chronic microvascular ischemia EEG within normal 08/08 Neurology following, Dr. Ospina Ammonia level trending down Rifaximin 550 bid. RESP: Acute respiratory failure Prior tobacco abuse Continue with vent support keep sats >92% Continue Albuterol q6 hours and q2 prn. ICU vent bundle. Not a candidate for SBT. CV: Septic shock with multiorgan failure Severe metabolic acidemia Lactic acidemia Type II NSTEMI Received 8 L of crystalloid overnight due to profound shock On levophed 30 mcg/min, vasopressin 0.04 units/min, Neosyn 300 mcg/min dose, Epi. Hydrocortisone 100 mg IV [id number] On CVVHD, give 2 amps bicarb now. Hold Amio drip. Trend lactic acid. GI: Cirrhosis Transaminase elevation Gastritis, class C esophagitis, multiple duodenal ulcers status post cauterization 08/06/18 hx AAA s/p endograft repair 2009 (Pablo) OGT to [facility] Monitoring CBC On Protonix drip Gastroenterology following FEN/RENAL: Severe metabolic acidemia DAVID overlying CKD III Anuria 1.1 cm kidney stone left renal pelvis, no hydronephrosis on CT 08/04 Monitor renal function, I/O's, avoid nephrotoxins On CVVHD, renal is following- Dr. Dawn. Give 2amps sodium bicarb now, ID: Septic shock with multiorgan failure UTI Citrobacter koseri. - associated with chronic indwelling Hunter present on admission C. difficile colitis C. difficile PCR is positive. Antigen and toxin are pending. Continue Cefepime, Micafungin, Flagyl IV and vancomycin p.o. for C-diff ID is following f/u repeat blood cultures 08/07. sputum cx. HEME: Monitor CBC, ENDO: Hydrocortisone as per above. Monitor bedside glucose q4 hours and administer low-dose insulin sliding scale as indicated PROPH: SCD for DVT prophylaxis. Had been on rivaroxaban for DVT prophylaxis following L hip arthoplasty, will hold for now in view of bleeding ulcer and hemodynamic instability ACCESS: Right IJ central venous line placed 08/08. Left radial art line placed 08/08 Consult palliative care to asses with goals of care. Patient is critically ill with multiple pressors and multiple organ failure. Very poor prognosis CCT 40 mins Addendum: I was asked to pronounce the patient. On my eval there was no puls no blood pressure, no breathing over the vent and no response to pain. Pupils fixed. Patient declared at 2219 on 08/09/18 (2) UTI (urinary tract infection) due to urinary indwelling catheter Qualifiers: Indwelling urinary catheter type: indwelling urethral catheter Encounter type : sequela Qualified Code(s): T83.511S - Infection and inflammatory reaction due to indwelling urethral catheter, sequela; N39.0 - Urinary tract infection, site not specified
[2018-08-09] MEDS: rifAXIMin 550 MG Tablet NG/OG SCH ×2 (08:08→20:50)
[2018-08-09] MEDS: Chlorhexidine 0.12% Oral Kit 15 ML UDC OROPHARYNG SCH ×2 (08:09→20:50)
[2018-08-09] MEDS ORDERED: Sodium Bicarbonate 8.4% Inj 50 MEQ/50 ML Syringe IV.PUSH ONE (09:00)
--- NOTE | 2018-08-09 10:20 | P.PNGI ---
Subjective Interval history: Patient is critically ill, currently on ventilator management and now dialysis. Color pasty, no response <Allison Stark M - Last Filed: 08/09/18 10:27> Physical Exam Vital signs: Vital Signs 08/08/18 11:00 08/08/18 12:00 08/08/18 12:24 Temperature 98.6 F Pulse Rate 116 H 114 H 119 H Respiratory Rate 19 22 21 Blood Pressure 178/140 H Pulse Oximetry 100 100 100 08/08/18 12:30 08/08/18 12:34 08/08/18 13:00 Temperature Pulse Rate 119 H 118 H Respiratory Rate 21 20 21 Blood Pressure 175/122 H Pulse Oximetry 100 99 100 08/08/18 13:01 08/08/18 13:31 08/08/18 13:38 Temperature Pulse Rate 119 H 116 H 109 H Respiratory Rate 21 21 21 Blood Pressure 160/92 H 148/58 H 68/30 L Pulse Oximetry 100 100 100 08/08/18 13:39 08/08/18 14:00 08/08/18 14:01 Temperature Pulse Rate 109 H 113 H 114 H Respiratory Rate 18 21 21 Blood Pressure 141/91 H 138/103 H Pulse Oximetry 100 100 100 08/08/18 14:31 08/08/18 15:00 08/08/18 15:01 Temperature 97.8 F Pulse Rate 117 H 118 H 118 H Respiratory Rate 22 18 22 Blood Pressure 134/66 196/126 H Pulse Oximetry 100 100 100 08/08/18 15:30 08/08/18 16:00 08/08/18 16:01 Temperature Pulse Rate 125 H 127 H 126 H Respiratory Rate 16 14 15 Blood Pressure 200/129 H 170/74 H Pulse Oximetry 100 100 100 08/08/18 16:55 08/08/18 17:47 08/08/18 19:00 Temperature Pulse Rate 120 H 127 H 119 H Respiratory Rate 20 23 Blood Pressure 87/56 L Pulse Oximetry 100 100 08/08/18 19:01 08/08/18 19:30 08/08/18 20:00 Temperature Pulse Rate 119 H 115 H 102 H Respiratory Rate 23 22 22 Blood Pressure 119/81 113/75 Pulse Oximetry 100 100 96 08/08/18 20:01 08/08/18 20:35 08/08/18 21:00 Temperature Pulse Rate 103 H 109 H Respiratory Rate 21 22 16 Blood Pressure 86/59 L 141/99 H Pulse Oximetry 97 92 L 08/08/18 21:11 08/08/18 21:31 08/08/18 22:00 Temperature Pulse Rate 109 H 106 H 105 H Respiratory Rate 22 16 17 Blood Pressure 139/59 L 129/57 L Pulse Oximetry 100 100 08/08/18 22:01 08/08/18 22:30 08/08/18 23:00 Temperature Pulse Rate 105 H 104 H 103 H Respiratory Rate 18 20 20 Blood Pressure 129/57 L 155/73 H Pulse Oximetry 100 100 100 08/08/18 23:31 08/08/18 23:50 08/09/18 00:00 Temperature Pulse Rate 100 H 100 H Respiratory Rate 21 20 21 Blood Pressure 132/99 H Pulse Oximetry 100 100 97 08/09/18 00:01 08/09/18 00:10 08/09/18 00:31 Temperature 94 F L 94 F L Pulse Rate 99 H 99 H Respiratory Rate 21 20 Blood Pressure 116/90 89/55 L Pulse Oximetry 94 L 100 08/09/18 01:00 08/09/18 01:01 08/09/18 02:00 Temperature Pulse Rate 97 H 97 H 90 Respiratory Rate 20 20 21 Blood Pressure 88/51 L Pulse Oximetry 100 100 100 08/09/18 02:01 08/09/18 02:30 08/09/18 03:00 Temperature Pulse Rate 96 H 95 H 94 H Respiratory Rate 21 21 22 Blood Pressure 107/55 L 111/78 Pulse Oximetry 100 100 100 08/09/18 03:01 08/09/18 03:31 08/09/18 04:00 Temperature 96 F L Pulse Rate 93 H 92 H 92 H Respiratory Rate 20 21 20 Blood Pressure 80/44 L 92/41 L 99/59 L Pulse Oximetry 100 100 100 08/09/18 04:15 08/09/18 04:31 08/09/18 05:00 Temperature Pulse Rate 91 H 90 Respiratory Rate 22 21 20 Blood Pressure 92/53 L Pulse Oximetry 100 100 100 08/09/18 05:01 08/09/18 05:31 08/09/18 06:00 Temperature Pulse Rate 90 86 87 Respiratory Rate 20 20 22 Blood Pressure 72/43 L 65/38 L Pulse Oximetry 100 100 100 08/09/18 06:01 08/09/18 06:31 08/09/18 07:00 Temperature Pulse Rate 87 87 87 Respiratory Rate 20 21 21 Blood Pressure 54/33 L 44/27 L Pulse Oximetry 100 100 100 08/09/18 07:31 08/09/18 08:00 08/09/18 08:01 Temperature 96.8 F L Pulse Rate 87 87 87 Respiratory Rate 25 H 21 20 Blood Pressure 115/51 L 107/52 L Pulse Oximetry 98 96 97 08/09/18 08:32 Temperature Pulse Rate 66 Respiratory Rate 16 Blood Pressure Pulse Oximetry Intake & Output 08/08/18 08/09/18 08/09/18 18:59 06:59 18:59 Intake Total 5042 / 5042 9050 / 9050 3850 / 3850 Output Total 425 / 425 0 / 0 Balance 4617 / 4617 9050 / 9050 3850 / 3850 Weight 93.5 kg Intake: IV 5042 / 5042 9050 / 9050 3850 / 3850 Bumex Inj 25 mg In 100 ml @ 0.5 2 / 2 MG/HR 2 mls/hr IV.CONT .Q24H [facility] Rx#:[id number] EPINEPHrine (1:1000) Inj 4 MG 500 / 500 250 / 250 In D5W Inj 246 ML @ 3 MCG/MIN 11.25 mls/hr IV.CONT TITRATE PRN Rx#:[id number] Levophed Inj 16 MG In D5W Inj 500 / 500 234 ML @ 2 MCG/MIN 1.87 mls/hr IV.CONT TITRATE PRN Rx#: [id number] Protonix Inj 80 MG In NS Inj 100 / 100 100 / 100 100 ML @ 10 mls/hr IV.CONT Q10H [facility] Rx#:[id number] Neosynephrine Inj 40 MG In D5W 2000 / 2000 500 / 500 Inj 496 ML @ 40 MCG/MIN 30 mls/ hr IV.CONT TITRATE PRN Rx#: [id number] Sodium Bicarbonate 8.4% Inj 50 4200 / 4200 3000 / 3000 MEQ In 1/2 Normal Saline Inj 1, 000 ML @ 500 mls/hr IV.CONT . Q2H6M [facility] Rx#:[id number] Sodium Bicarbonate 8.4% Inj 150 1805 / 1805 MEQ In Sterile Water for Inj 850 ML @ 150 mls/hr IV.CONT . Q6H40M [facility] Rx#:[id number] Pitressin Inj 40 UNIT In D5W 100 / 100 Inj 98 ML @ 0.04 UNITS/MIN 6 mls/hr IV.CONT CONT [facility] Rx#: [id number] Flexbumin 25% Inj 100 ML @ 60 200 / 200 mls/hr IV.SIG Q100M [facility] Rx#: [id number] Cordarone Inj 150 MG In D5W Inj 100 / 100 97 ML @ 600 mls/hr IV.SIG ONCE ONE Rx#:[id number] Maxipime Inj 2,000 MG In NS Inj 100 / 100 100 / 100 100 ML @ 200 mls/hr IV.SIG Q24H [facility] Rx#:[id number] LR 1000 mL Inj 1,000 ML @ Wide 2000 / 1999 Open IV.SIG BOLUS ONE Rx#: [id number] Mycamine Inj 100 MG In NS Inj 100 / 100 100 / 100 100 ML @ 100 mls/hr IV.SIG Q24H [facility] Rx#:[id number] Levophed-Dextrose 4 mg/250 ml 500 / 500 250 / 250 Drip 4 mg In 250 ml @ 2 MCG/MIN 7.5 mls/hr IV.SIG TITRATE PRN Rx#:[id number] Protonix Inj 80 MG In NS Inj 35 35 / 35 ML @ 420 mls/hr IV.SIG BOLUS ONE Rx#:[id number] Flagyl 500 MG Inj 100 ML @ 100 200 / 200 200 / 200 mls/hr IV.SIG Q8H [facility] Rx#: [id number] Output: Urine Amount (Catheter) 125 / 125 0 / 0 Indwelling Urethral Catheter 125 / 125 0 / 0 Gastric Drainage 300 / 300 Oral Orogastric Tube 300 / 300 Other: Date of Last Bowel Movement 08/08/18 08/08/18 08/08/18 # Bowel Movements 2 # Incontinent Bowel Movements 2 - Constitutional severe distress - Routine HEENT Exam ENT: Present: mucous membranes dry (Colored ) - Routine Respiratory Exam Present: patient mechanically ventilated - Routine Abdominal Exam Present: soft (Round,) - Urinary Catheter Management Indwelling Urethral Catheter Cath placed during this visit: yes, but has since been removed by the nurse Reason for continuing: Terminally ill/Comfort care Insertion date: 08/04/18 Removal date: 07/30/18 Removal time: 00:00 <Mi,Allison M - Last Filed: 08/09/18 10:27> Vital signs: Vital Signs 08/08/18 12:00 08/08/18 12:24 08/08/18 12:30 Temperature 98.6 F Pulse Rate 114 H 119 H 119 H Respiratory Rate 22 21 21 Blood Pressure 178/140 H 175/122 H Pulse Oximetry 100 100 100 08/08/18 12:34 08/08/18 13:00 08/08/18 13:01 Temperature Pulse Rate 118 H 119 H Respiratory Rate 20 21 21 Blood Pressure 160/92 H Pulse Oximetry 99 100 100 08/08/18 13:31 08/08/18 13:38 08/08/18 13:39 Temperature Pulse Rate 116 H 109 H 109 H Respiratory Rate 21 21 18 Blood Pressure 148/58 H 68/30 L 141/91 H Pulse Oximetry 100 100 100 08/08/18 14:00 08/08/18 14:01 08/08/18 14:31 Temperature 97.8 F Pulse Rate 113 H 114 H 117 H Respiratory Rate 21 21 22 Blood Pressure 138/103 H 134/66 Pulse Oximetry 100 100 100 08/08/18 15:00 08/08/18 15:01 08/08/18 15:30 Temperature Pulse Rate 118 H 118 H 125 H Respiratory Rate 18 22 16 Blood Pressure 196/126 H 200/129 H Pulse Oximetry 100 100 100 08/08/18 16:00 08/08/18 16:01 08/08/18 16:55 Temperature Pulse Rate 127 H 126 H 120 H Respiratory Rate 14 15 20 Blood Pressure 170/74 H Pulse Oximetry 100 100 100 08/08/18 17:47 08/08/18 19:00 08/08/18 19:01 Temperature Pulse Rate 127 H 119 H 119 H Respiratory Rate 23 23 Blood Pressure 87/56 L 119/81 Pulse Oximetry 100 100 08/08/18 19:30 08/08/18 20:00 08/08/18 20:01 Temperature Pulse Rate 115 H 102 H 103 H Respiratory Rate 22 22 21 Blood Pressure 113/75 86/59 L Pulse Oximetry 100 96 97 08/08/18 20:35 08/08/18 21:00 08/08/18 21:11 Temperature Pulse Rate 109 H 109 H Respiratory Rate 22 16 22 Blood Pressure 141/99 H Pulse Oximetry 92 L 10/28/18 21:31 08/08/18 22:00 08/08/18 22:01 Temperature Pulse Rate 106 H 105 H 105 H Respiratory Rate 16 17 18 Blood Pressure 139/59 L 129/57 L 129/57 L Pulse Oximetry 100 100 100 08/08/18 22:30 08/08/18 23:00 08/08/18 23:31 Temperature Pulse Rate 104 H 103 H 100 H Respiratory Rate 20 20 21 Blood Pressure 155/73 H 132/99 H Pulse Oximetry 100 100 100 08/08/18 23:50 08/09/18 00:00 08/09/18 00:01 Temperature 94 F L Pulse Rate 100 H 99 H Respiratory Rate 20 21 21 Blood Pressure 116/90 Pulse Oximetry 100 97 94 L 08/09/18 00:10 08/09/18 00:31 08/09/18 01:00 Temperature 94 F L Pulse Rate 99 H 97 H Respiratory Rate 20 20 Blood Pressure 89/55 L Pulse Oximetry 100 100 08/09/18 01:01 08/09/18 02:00 08/09/18 02:01 Temperature Pulse Rate 97 H 90 96 H Respiratory Rate 20 21 21 Blood Pressure 88/51 L 107/55 L Pulse Oximetry 100 100 100 08/09/18 02:30 08/09/18 03:00 08/09/18 03:01 Temperature Pulse Rate 95 H 94 H 93 H Respiratory Rate 21 22 20 Blood Pressure 111/78 80/44 L Pulse Oximetry 100 100 100 08/09/18 03:31 08/09/18 04:00 08/09/18 04:15 Temperature 96 F L Pulse Rate 92 H 92 H Respiratory Rate 21 20 22 Blood Pressure 92/41 L 99/59 L Pulse Oximetry 100 100 100 08/09/18 04:31 08/09/18 05:00 08/09/18 05:01 Temperature Pulse Rate 91 H 90 90 Respiratory Rate 21 20 20 Blood Pressure 92/53 L 72/43 L Pulse Oximetry 100 100 100 08/09/18 05:31 08/09/18 06:00 08/09/18 06:01 Temperature Pulse Rate 86 87 87 Respiratory Rate 20 22 20 Blood Pressure 65/38 L 54/33 L Pulse Oximetry 100 100 100 08/09/18 06:31 08/09/18 07:00 08/09/18 07:31 Temperature Pulse Rate 87 87 87 Respiratory Rate 21 21 25 H Blood Pressure 44/27 L 115/51 L Pulse Oximetry 100 100 98 08/09/18 08:00 08/09/18 08:01 08/09/18 08:32 Temperature 96.8 F L Pulse Rate 87 87 66 Respiratory Rate 22 20 16 Blood Pressure 107/52 L Pulse Oximetry 94 L 97 08/09/18 10:00 Temperature Pulse Rate 93 H Respiratory Rate Blood Pressure 82/54 L Pulse Oximetry Intake & Output 08/08/18 08/09/18 08/09/18 18:59 06:59 18:59 Intake Total 5042 / 5042 9050 / 9050 3850 / 3850 Output Total 425 / 425 0 / 0 Balance 4617 / 4617 9050 / 9050 3850 / 3850 Weight 93.5 kg Intake: IV 5042 / 5042 9050 / 9050 3850 / 3850 Bumex Inj 25 mg In 100 ml @ 0.5 2 / 2 MG/HR 2 mls/hr IV.CONT .Q24H [facility] Rx#:[id number] EPINEPHrine (1:1000) Inj 4 MG 500 / 500 250 / 250 In D5W Inj 246 ML @ 3 MCG/MIN 11.25 mls/hr IV.CONT TITRATE PRN Rx#:[id number] Levophed Inj 16 MG In D5W Inj 500 / 500 234 ML @ 2 MCG/MIN 1.87 mls/hr IV.CONT TITRATE PRN Rx#: [id number] Protonix Inj 80 MG In NS Inj 100 / 100 100 / 100 100 ML @ 10 mls/hr IV.CONT Q10H [facility] Rx#:[id number] Neosynephrine Inj 40 MG In D5W 1999 / 1999 500 / 500 Inj 496 ML @ 40 MCG/MIN 30 mls/ hr IV.CONT TITRATE PRN Rx#: [id number] Sodium Bicarbonate 8.4% Inj 50 4200 / 4200 3000 / 3000 MEQ In 1/2 Normal Saline Inj 1, 000 ML @ 500 mls/hr IV.CONT . Q2H6M [facility] Rx#:[id number] Sodium Bicarbonate 8.4% Inj 150 1805 / 1805 MEQ In Sterile Water for Inj 850 ML @ 150 mls/hr IV.CONT . Q6H40M [facility] Rx#:[id number] Pitressin Inj 40 UNIT In D5W 100 / 100 Inj 98 ML @ 0.04 UNITS/MIN 6 mls/hr IV.CONT CONT [facility] Rx#: [id number] Flexbumin 25% Inj 100 ML @ 60 200 / 200 mls/hr IV.SIG Q100M [facility] Rx#: [id number] Cordarone Inj 150 MG In D5W Inj 100 / 100 97 ML @ 600 mls/hr IV.SIG ONCE ONE Rx#:[id number] Maxipime Inj 2,000 MG In NS Inj 100 / 100 100 / 100 100 ML @ 200 mls/hr IV.SIG Q24H [facility] Rx#:[id number] LR 1000 mL Inj 1,000 ML @ Wide 2000 / 2000 Open IV.SIG BOLUS ONE Rx#: [id number] Mycamine Inj 100 MG In NS Inj 100 / 100 100 / 100 100 ML @ 100 mls/hr IV.SIG Q24H [facility] Rx#:[id number] Levophed-Dextrose 4 mg/250 ml 500 / 500 250 / 250 Drip 4 mg In 250 ml @ 2 MCG/MIN 7.5 mls/hr IV.SIG TITRATE PRN Rx#:[id number] Protonix Inj 80 MG In NS Inj 35 35 / 35 ML @ 420 mls/hr IV.SIG BOLUS ONE Rx#:[id number] Flagyl 500 MG Inj 100 ML @ 100 200 / 200 200 / 200 mls/hr IV.SIG Q8H [facility] Rx#: [id number] Output: Urine Amount (Catheter) 125 / 125 0 / 0 Indwelling Urethral Catheter 125 / 125 0 / 0 Gastric Drainage 300 / 300 Oral Orogastric Tube 300 / 300 Other: Date of Last Bowel Movement 08/08/18 08/08/18 08/08/18 # Bowel Movements 2 # Incontinent Bowel Movements 2 - Urinary Catheter Management Indwelling Urethral Catheter Cath placed during this visit: no <Ben Wytat - Last Filed: 08/09/18 11:05> Results - Labs CBC & Chem 7: 08/09/18 05:05 08/09/18 05:05 Laboratory Results - last 24 hr 08/06/18 08/08/18 08/08/18 15:20 04:40 09:00 WBC RBC Hgb Hct MCV MCH MCHC RDW Plt Count MPV Puncture Site Patient Temperature O2 Saturation ABG pH ABG pCO2 ABG pO2 ABG HCO3 ABG O2 Content ABG Base Excess ABG Methemoglobin Hemoglobin Carboxyhemoglobin O2 Delivery Device Vent Setting Inspired O2 Critical Value Sodium Potassium Chloride Carbon Dioxide Anion Gap BUN Creatinine Estimated GFR POC Glucose Random Glucose Lactic Acid Calcium Prot Corrected Calcium Phosphorus Magnesium Total Bilirubin AST ALT Alkaline Phosphatase Total Protein Albumin Nasal Screen MRSA (PCR) Not detected Cancelled Random Vancomycin RPR Nonreactive 08/08/18 08/08/18 08/08/18 09:50 11:55 12:00 WBC RBC Hgb Hct MCV MCH MCHC RDW Plt Count MPV Puncture Site Art line Patient Temperature 98.6 O2 Saturation 97 ABG pH 7.36 L ABG pCO2 29 L ABG pO2 216 H ABG HCO3 16 L* ABG O2 Content 16.6 ABG Base Excess -8.8 L ABG Methemoglobin 1.7 Hemoglobin 11.8 L Carboxyhemoglobin 0.3 O2 Delivery Device Ventilator Vent Setting A/c 600/20/5peep Inspired O2 50 Critical Value Yes Sodium Potassium Chloride Carbon Dioxide Anion Gap BUN Creatinine Estimated GFR POC Glucose Random Glucose Lactic Acid 9.2 H* 9.5 H* Calcium Prot Corrected Calcium Phosphorus Magnesium Total Bilirubin AST ALT Alkaline Phosphatase Total Protein Albumin Nasal Screen MRSA (PCR) Random Vancomycin RPR 08/08/18 08/08/18 08/08/18 12:00 12:00 12:03 WBC 19.8 H RBC 3.89 L Hgb 12.2 L Hct 37.4 L MCV 96.2 D MCH 31.3 MCHC 32.6 RDW 15.3 Plt Count 136 L MPV 9.5 Puncture Site Patient Temperature O2 Saturation ABG pH ABG pCO2 ABG pO2 ABG HCO3 ABG O2 Content ABG Base Excess ABG Methemoglobin Hemoglobin Carboxyhemoglobin O2 Delivery Device Vent Setting Inspired O2 Critical Value Sodium 149 H Potassium 3.6 Chloride 113 H Carbon Dioxide 18.4 L Anion Gap 18 H BUN 56 H Creatinine 2.54 H Estimated GFR 25 L POC Glucose 152 H Random Glucose 177 H Lactic Acid Calcium 7.4 L* Prot Corrected Calcium 8.7 Phosphorus Magnesium Total Bilirubin AST ALT Alkaline Phosphatase Total Protein 4.8 L Albumin Nasal Screen MRSA (PCR) Random Vancomycin RPR 08/08/18 08/08/18 08/08/18 16:35 17:24 22:18 WBC RBC Hgb Hct MCV MCH MCHC RDW Plt Count MPV Puncture Site Patient Temperature O2 Saturation ABG pH ABG pCO2 ABG pO2 ABG HCO3 ABG O2 Content ABG Base Excess ABG Methemoglobin Hemoglobin Carboxyhemoglobin O2 Delivery Device Vent Setting Inspired O2 Critical Value Sodium Potassium Chloride Carbon Dioxide Anion Gap BUN Creatinine Estimated GFR POC Glucose 144 H 275 H Random Glucose Lactic Acid 10.5 H* Calcium Prot Corrected Calcium Phosphorus Magnesium Total Bilirubin AST ALT Alkaline Phosphatase Total Protein Albumin Nasal Screen MRSA (PCR) Random Vancomycin RPR 08/08/18 08/09/18 08/09/18 22:19 00:00 00:37 WBC RBC Hgb Hct MCV MCH MCHC RDW Plt Count MPV Puncture Site Patient Temperature O2 Saturation ABG pH ABG pCO2 ABG pO2 ABG HCO3 ABG O2 Content ABG Base Excess ABG Methemoglobin Hemoglobin Carboxyhemoglobin O2 Delivery Device Vent Setting Inspired O2 Critical Value Sodium Potassium Chloride Carbon Dioxide Anion Gap BUN Creatinine Estimated GFR POC Glucose 193 H Random Glucose Lactic Acid 16.2 H* 15.5 H* Calcium Prot Corrected Calcium Phosphorus Magnesium Total Bilirubin AST ALT Alkaline Phosphatase Total Protein Albumin Nasal Screen MRSA (PCR) Random Vancomycin RPR 08/09/18 08/09/18 08/09/18 04:22 04:23 04:35 WBC RBC Hgb Hct MCV MCH MCHC RDW Plt Count MPV Puncture Site Patient Temperature O2 Saturation ABG pH ABG pCO2 ABG pO2 ABG HCO3 ABG O2 Content ABG Base Excess ABG Methemoglobin Hemoglobin Carboxyhemoglobin O2 Delivery Device Vent Setting Inspired O2 Critical Value Sodium Potassium Chloride Carbon Dioxide Anion Gap BUN Creatinine Estimated GFR POC Glucose 278 H 224 H Random Glucose Lactic Acid 16.6 H* Calcium Prot Corrected Calcium Phosphorus Magnesium Total Bilirubin AST ALT Alkaline Phosphatase Total Protein Albumin Nasal Screen MRSA (PCR) Random Vancomycin RPR 08/09/18 08/09/18 08/09/18 05:05 05:05 07:58 WBC 18.8 H RBC 3.20 L Hgb 10.2 L D Hct 32.1 L MCV 100.5 H D MCH 32.0 MCHC 31.8 L RDW 16.2 Plt Count 90 L D MPV 9.4 Puncture Site Patient Temperature O2 Saturation ABG pH ABG pCO2 ABG pO2 ABG HCO3 ABG O2 Content ABG Base Excess ABG Methemoglobin Hemoglobin Carboxyhemoglobin O2 Delivery Device Vent Setting Inspired O2 Critical Value Sodium 132 L D Potassium 5.3 H D Chloride 96 L D Carbon Dioxide 8.7 L D Anion Gap 27 H BUN 42 H Creatinine 2.53 H Estimated GFR 25 L POC Glucose Random Glucose 297 H D Lactic Acid 16.1 H* Calcium 6.5 L* D Prot Corrected Calcium 7.3 L* D Phosphorus 6.1 H D Magnesium 1.9 Total Bilirubin 2.0 H AST 4315 H ALT 667 H Alkaline Phosphatase 226 H Total Protein 5.5 L D Albumin 2.7 L D Nasal Screen MRSA (PCR) Random Vancomycin 5.2 RPR 08/09/18 08/09/18 07:58 08:42 WBC RBC Hgb Hct MCV MCH MCHC RDW Plt Count MPV Puncture Site Patient Temperature O2 Saturation ABG pH ABG pCO2 ABG pO2 ABG HCO3 ABG O2 Content ABG Base Excess ABG Methemoglobin Hemoglobin Carboxyhemoglobin O2 Delivery Device Vent Setting Inspired O2 Critical Value Sodium Potassium Chloride Carbon Dioxide Anion Gap BUN Creatinine Estimated GFR POC Glucose 343 H 369 H Random Glucose Lactic Acid Calcium Prot Corrected Calcium Phosphorus Magnesium Total Bilirubin AST ALT Alkaline Phosphatase Total Protein Albumin Nasal Screen MRSA (PCR) Random Vancomycin RPR Microbiology 08/07/18 23:30 Blood - Peripheral Aerobic Blood Culture - Preliminary No growth in 1 day 08/07/18 23:30 Blood - Peripheral Anaerobic Blood Culture - Preliminary No growth in 1 day 08/07/18 23:30 Blood - Peripheral Aerobic Blood Culture - Preliminary No growth in 1 day 08/07/18 23:30 Blood - Peripheral Anaerobic Blood Culture - Preliminary No growth in 1 day 08/03/18 16:10 Blood - Peripheral Aerobic Blood Culture - Final No growth in 5 days 08/03/18 16:10 Blood - Peripheral Anaerobic Blood Culture - Final No growth in 5 days 08/03/18 16:05 Blood - Peripheral Aerobic Blood Culture - Final No growth in 5 days 08/03/18 16:05 Blood - Peripheral Anaerobic Blood Culture - Final No growth in 5 days - Imaging Impressions Chest X-Ray 08/08/18 14:10 CONCLUSION: Left subclavian vascular catheter in excellent position. Abdomen/Bladder Ultrasound 08/08/18 18:59 CONCLUSION: 1. There is no hydronephrosis or acute renal abnormality. Bilateral benign- appearing renal cysts are present. 2. The 7 mm nonobstructing left renal stone is not appreciated on this ultrasound but was documented on the CT from earlier today. Chest X-Ray 08/09/18 00:00 CONCLUSION: 1. Mild left base consolidation and small effusion not significantly changed. 2. Appropriately positioned lines and tubes as above, also not significantly changed. <MiBelénAllison M - Last Filed: 08/09/18 10:27> - Labs CBC & Chem 7: 08/09/18 05:05 08/09/18 05:05 Laboratory Results - last 24 hr 08/06/18 08/08/18 08/08/18 15:20 04:40 09:00 WBC RBC Hgb Hct MCV MCH MCHC RDW Plt Count MPV Puncture Site Patient Temperature O2 Saturation ABG pH ABG pCO2 ABG pO2 ABG HCO3 ABG O2 Content ABG Base Excess ABG Methemoglobin Hemoglobin Carboxyhemoglobin O2 Delivery Device Vent Setting Inspired O2 Critical Value Sodium Potassium Chloride Carbon Dioxide Anion Gap BUN Creatinine Estimated GFR POC Glucose Random Glucose Lactic Acid Calcium Prot Corrected Calcium Phosphorus Magnesium Total Bilirubin AST ALT Alkaline Phosphatase Total Protein Albumin Nasal Screen MRSA (PCR) Not detected Cancelled Random Vancomycin RPR Nonreactive 08/08/18 08/08/18 08/08/18 11:55 12:00 12:00 WBC 19.8 H RBC 3.89 L Hgb 12.2 L Hct 37.4 L MCV 96.2 D MCH 31.3 MCHC 32.6 RDW 15.3 Plt Count 136 L MPV 9.5 Puncture Site Art line Patient Temperature 98.6 O2 Saturation 97 ABG pH 7.36 L ABG pCO2 29 L ABG pO2 216 H ABG HCO3 16 L* ABG O2 Content 16.6 ABG Base Excess -8.8 L ABG Methemoglobin 1.7 Hemoglobin 11.8 L Carboxyhemoglobin 0.3 O2 Delivery Device Ventilator Vent Setting A/c 600/20/5peep Inspired O2 50 Critical Value Yes Sodium Potassium Chloride Carbon Dioxide Anion Gap BUN Creatinine Estimated GFR POC Glucose Random Glucose Lactic Acid 9.5 H* Calcium Prot Corrected Calcium Phosphorus Magnesium Total Bilirubin AST ALT Alkaline Phosphatase Total Protein Albumin Nasal Screen MRSA (PCR) Random Vancomycin RPR 08/08/18 08/08/18 08/08/18 12:00 12:03 16:35 WBC RBC Hgb Hct MCV MCH MCHC RDW Plt Count MPV Puncture Site Patient Temperature O2 Saturation ABG pH ABG pCO2 ABG pO2 ABG HCO3 ABG O2 Content ABG Base Excess ABG Methemoglobin Hemoglobin Carboxyhemoglobin O2 Delivery Device Vent Setting Inspired O2 Critical Value Sodium 149 H Potassium 3.6 Chloride 113 H Carbon Dioxide 18.4 L Anion Gap 18 H BUN 56 H Creatinine 2.54 H Estimated GFR 25 L POC Glucose 152 H 144 H Random Glucose 177 H Lactic Acid Calcium 7.4 L* Prot Corrected Calcium 8.7 Phosphorus Magnesium Total Bilirubin AST ALT Alkaline Phosphatase Total Protein 4.8 L Albumin Nasal Screen MRSA (PCR) Random Vancomycin RPR 08/08/18 08/08/18 08/08/18 17:24 22:18 22:19 WBC RBC Hgb Hct MCV MCH MCHC RDW Plt Count MPV Puncture Site Patient Temperature O2 Saturation ABG pH ABG pCO2 ABG pO2 ABG HCO3 ABG O2 Content ABG Base Excess ABG Methemoglobin Hemoglobin Carboxyhemoglobin O2 Delivery Device Vent Setting Inspired O2 Critical Value Sodium Potassium Chloride Carbon Dioxide Anion Gap BUN Creatinine Estimated GFR POC Glucose 275 H Random Glucose Lactic Acid 10.5 H* 16.2 H* Calcium Prot Corrected Calcium Phosphorus Magnesium Total Bilirubin AST ALT Alkaline Phosphatase Total Protein Albumin Nasal Screen MRSA (PCR) Random Vancomycin RPR 08/09/18 08/09/18 08/09/18 00:00 00:37 04:22 WBC RBC Hgb Hct MCV MCH MCHC RDW Plt Count MPV Puncture Site Patient Temperature O2 Saturation ABG pH ABG pCO2 ABG pO2 ABG HCO3 ABG O2 Content ABG Base Excess ABG Methemoglobin Hemoglobin Carboxyhemoglobin O2 Delivery Device Vent Setting Inspired O2 Critical Value Sodium Potassium Chloride Carbon Dioxide Anion Gap BUN Creatinine Estimated GFR POC Glucose 193 H 278 H Random Glucose Lactic Acid 15.5 H* Calcium Prot Corrected Calcium Phosphorus Magnesium Total Bilirubin AST ALT Alkaline Phosphatase Total Protein Albumin Nasal Screen MRSA (PCR) Random Vancomycin RPR 08/09/18 08/09/18 08/09/18 04:23 04:35 05:05 WBC 18.8 H RBC 3.20 L Hgb 10.2 L D Hct 32.1 L MCV 100.5 H D MCH 32.0 MCHC 31.8 L RDW 16.2 Plt Count 90 L D MPV 9.4 Puncture Site Patient Temperature O2 Saturation ABG pH ABG pCO2 ABG pO2 ABG HCO3 ABG O2 Content ABG Base Excess ABG Methemoglobin Hemoglobin Carboxyhemoglobin O2 Delivery Device Vent Setting Inspired O2 Critical Value Sodium Potassium Chloride Carbon Dioxide Anion Gap BUN Creatinine Estimated GFR POC Glucose 224 H Random Glucose Lactic Acid 16.6 H* Calcium Prot Corrected Calcium Phosphorus Magnesium Total Bilirubin AST ALT Alkaline Phosphatase Total Protein Albumin Nasal Screen MRSA (PCR) Random Vancomycin RPR 08/09/18 08/09/18 08/09/18 05:05 07:58 07:58 WBC RBC Hgb Hct MCV MCH MCHC RDW Plt Count MPV Puncture Site Patient Temperature O2 Saturation ABG pH ABG pCO2 ABG pO2 ABG HCO3 ABG O2 Content ABG Base Excess ABG Methemoglobin Hemoglobin Carboxyhemoglobin O2 Delivery Device Vent Setting Inspired O2 Critical Value Sodium 132 L D Potassium 5.3 H D Chloride 96 L D Carbon Dioxide 8.7 L D Anion Gap 27 H BUN 42 H Creatinine 2.53 H Estimated GFR 25 L POC Glucose 343 H Random Glucose 297 H D Lactic Acid 16.1 H* Calcium 6.5 L* D Prot Corrected Calcium 7.3 L* D Phosphorus 6.1 H D Magnesium 1.9 Total Bilirubin 2.0 H AST 4315 H ALT 667 H Alkaline Phosphatase 226 H Total Protein 5.5 L D Albumin 2.7 L D Nasal Screen MRSA (PCR) Random Vancomycin 5.2 RPR 08/09/18 08:42 WBC RBC Hgb Hct MCV MCH MCHC RDW Plt Count MPV Puncture Site Patient Temperature O2 Saturation ABG pH ABG pCO2 ABG pO2 ABG HCO3 ABG O2 Content ABG Base Excess ABG Methemoglobin Hemoglobin Carboxyhemoglobin O2 Delivery Device Vent Setting Inspired O2 Critical Value Sodium Potassium Chloride Carbon Dioxide Anion Gap BUN Creatinine Estimated GFR POC Glucose 369 H Random Glucose Lactic Acid Calcium Prot Corrected Calcium Phosphorus Magnesium Total Bilirubin AST ALT Alkaline Phosphatase Total Protein Albumin Nasal Screen MRSA (PCR) Random Vancomycin RPR Microbiology 08/07/18 23:30 Blood - Peripheral Aerobic Blood Culture - Preliminary No growth in 2 days 08/07/18 23:30 Blood - Peripheral Anaerobic Blood Culture - Preliminary No growth in 2 days 08/07/18 23:30 Blood - Peripheral Aerobic Blood Culture - Preliminary No growth in 2 days 08/07/18 23:30 Blood - Peripheral Anaerobic Blood Culture - Preliminary No growth in 2 days 08/08/18 05:20 Sputum - Endotracheal Gram Stain - Final 08/03/18 16:10 Blood - Peripheral Aerobic Blood Culture - Final No growth in 5 days 08/03/18 16:10 Blood - Peripheral Anaerobic Blood Culture - Final No growth in 5 days 08/03/18 16:05 Blood - Peripheral Aerobic Blood Culture - Final No growth in 5 days 08/03/18 16:05 Blood - Peripheral Anaerobic Blood Culture - Final No growth in 5 days - Imaging Impressions Chest X-Ray 08/08/18 14:10 CONCLUSION: Left subclavian vascular catheter in excellent position. Chest X-Ray 08/09/18 00:00 CONCLUSION: 1. Mild left base consolidation and small effusion not significantly changed. 2. Appropriately positioned lines and tubes as above, also not significantly changed. <Ben Wyatt - Last Filed: 08/09/18 11:05> Assessment and Plan - Plan 78-year-old gentleman with elevated liver function test most likely related to rhabdomyolysis, patient complaining of abdominal pain could be related to kidney disease but cannot rule out peptic ulcer disease so I will be planning on doing upper endoscopy tomorrow Further plan depends on the finding 08/06/2018 patient is doing okay today still having some discomfort, had upper endoscopy done Findings; Esophagus: Grade C esophagitis Stomach severe gastritis biopsy was done from the antrum Duodenum multiple ulcers in the duodenum bulb and in the duodenum 1 of them was deep most likely the reason for the pain, patient also has one ulcer that was oozing blood which was cauterized to control the bleeding 08/07/2018 patient has still mild elevation of the liver function test most likely related to rhabdomyolysis, liver workup in progress but most likely cirrhosis, ammonia level is high patient was started on lactulose Patient has multiple ulcers in the duodenum and stomach biopsy was done no drop in his hemoglobin will continue antibiotic patient has diarrhea C. difficile DNA was positive were waiting for the antigen and he is in isolation 08/08/2018 patient was transitioned from the [facility] here to [facility] in the intensive care setting patient has continued to deteriorate and is now requiring ventilator management, sedation, no responsiveness, amiodarone drip. Current labs reviewed with WBC count 19.8, hemoglobin 12.2, INR 1.5, rheumatoid factor screening positive and FRANTZ negative, RPR pending hepatitis panel nonreactive, C. difficile DNA positive toxin is pending. NG tube in place CT scan shows liver characteristic appearances of cirrhosis with a few cyst and incompletely characterized small lesions that are diffuse nodular hypodensities that are new since 03/22/2018 could represent regenerative nodules atypical appearance of steatosis or multiple liver lesions including metastatic disease. EGD as needed in the future Bilirubin and LFTs reviewed as well as lipase level increased to 547 characteristic of acute pancreatitis AST increased at 378 ALT increased at 93, due to recent intubation could be shock liver related/hypotensive Patient is now seriously ill, no further GI procedures for now but will monitor labs and follow patient for any acute needs Note the previous EGD findings on 08/06/2018 at the [facility]. 08/09/2018 patient continues to be critically ill, and now placed on dialysis with multiple pressors. No response from voice palpation or deep stimuli. Current labs reviewed with hemoglobin mildly decreased to 10.2, WBC count 18.8, platelet count decreased to 90, bilirubin 2, AST 4315 ALT 667, acute elevation of liver enzymes probably related to shock liver. Patient's prognosis is very poor and GI can follow-up as needed or sign off, unless needed,. Or as needed to monitor labs Patient was seen per myself and Dr. Wyatt, note was written on his behalf <Allison Stark - Last Filed: 08/09/18 10:27> - Plan Patient was seen and examined, agree with above note, since patient seems to have sepsis and possibly shock liver, deteriorated significantly, intubated sedated, he was made DNR yesterday, discussed the case with Dr. Mcleod from ICU, he feels that the patient is not going to survive and with poor prognosis but were doing all the supportive care that is possible, GI godwin no sign of active bleeding his hemoglobin is stable slightly dropped to 10.2 but not a candidate for any GI procedure, elevated liver function test most likely related to hypotension we will monitor <Ben Wyatt - Last Filed: 08/09/18 11:05>
--- NOTE | 2018-08-09 11:03 | P.CONPAL ---
Consult Service: Palliative Care Requesting Physician: Angela Case Reason for Consult: a. To assist with evaluation and management of symptoms including: pain, dyspnea. b. To assist medical decision maker(s) with: better understanding of current medical conditions; weighing benefits/burdens of medical treatment options; making medical treatment decisions. Primary Care Provider: Hilario Martins MD History of Present Illness History of Present Illness: Mr. Maher is a 78 year old male with past medical history of hypertension, AAA, kidney stones, urinary retention, BPH with indwelling Aggarwal catheter, cataracts and hernia. Patient was being followed by Dr. Guzman for benign prostatic hypertrophy, was previously on Flomax but it did not help. He had an Aggarwal that was changed 1 week ago. Patient was just recently admitted to hospital and underwent left hip hemiarthroplasty, DC to rehab for 2 weeks, then went home. Apparently when home health care came for evaluation, he was unable to ambulate so they sent him to the hospital for further evaluation. Patient presented to [facility] emergency department on 08/03/18 with profound weakness and decreased appetite in the 5 days prior to presentation. He reported he had not really eaten in 5 days, was drinking fluids. He was admitted with UTI, sepsis. Workup also indicated acute liver injury which could be possible shock liver from sepsis/rhabdomyolysis. No reported alcohol use in over 1 month. Patient admitted to ICU for continued monitoring and management. Urology, Dr. Guzman was consulted with recommendation to continue indwelling Aggarwal catheter, restart Flomax and finasteride. Gastroenterology, Dr. Delacruz was consulted for evaluation of elevated LFTs. HIDA scan was negative with normal gall bladder ejection fraction. Carotid ultrasound with bilateral carotid stenosis < 50%. Neurology, Dr. Ospina was consulted. MRI head was negative, chronic findings including generalized atrophy and chronic perivetriculr white matter change characteristic of chronic microvascular ischemia. On 08/07/18 patient became hypotensive, he was given 2 L NS bolus, Levophed and broadened antimicrobial therapy to include vancomycin IV and Flagyl IV. He was to be transferred from [place] to [place] via [facility], upon arrival SBP was 55 and his GCS was 9 despite fluids and Levophed 20 mcg/min and he was not stable for transfer. Gave additional 2 L of fluid, added vasopressin and stress dose steroids. ED physician at was contacted and Dr. Luis intubated the patient and placed R femoral CVL. Aggressive fluid resuscitation was continued pressor support. Patient became restless and right femoral CVL was dislodged. Patient arrived to [facility] with SBP in 50s to 60s, cool and poorly perfused, tachycardic with rate in 150s with Levophed 16 mcg and Neosynephrine 300 mcg/ min running. Vasopressin was off due to lack of access. Emergent A-line and central lines were placed. Lactic acid 10. Started on bicarb drip. Started on amiodarone for combination of multiple runs of V tach ~ 24 seconds, atrial flutter and intermittent A fib. He initially appeared profoundly volume depleted with IJ collapsing completely during respiration while placing CVL. He was given additional 4 L of LR and then IVC was full and non collapsible. He was on Flotrac. CT abdomen and pelvis revealed 8 mm stone in the left extrarenal pelvis, not causing any hydronephrosis, increased free fluid in the abdomen and pelvis and there are new small bilateral pleural effusions, liver demonstrates appearance characteristic of cirrhosis, few cysts and incompletely characterized small lesions but there are diffuse nodular hypodensities that are new since 03/22/2018 , incompletely characterized and nonspecific but could represent regenerative nodules, atypical appearance of steatosis, or multiple liver lesions including metastatic disease, stable nonacute findings include 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 CT chest showed very small bilateral pleural effusions, left slightly larger than right with associated compressive atelectasis, mild centrilobular emphysema , abnormal mediastinal lymphadenopathy, uncertain etiology, severe coronary artery calcification and atherosclerotic disease of the aorta. Infectious disease, Dr. Gaming was consulted for sepsis, C. Diff positive, UTI with antibiotic recommendations. Nephrology was consulted with worsening renal function likely ATN due to hypotension. Patient was anuric with creatinine 2.54, HCO3 18.4. Vas-cath was placed and patient was started on CRRT. Patient is unresponsive on mech vent, continuous dialysis. Palliative care was consulted to assist with further clarifcation of goals of medical treatment in this critically ill patient. Function/Cognitive Trajectory: Patient was living at home with his in his normal state of health prior to a fall he suffered on 06/26/18 where he fractured his hip. He has had recent trajectory of decline since leaving rehab a few weeks ago. Was able to ambulate with a walker. Review of Systems ROS prior to admission per report. Unabwle to complete ROS today to due critical illness and intubation. unobtainable due to mental status Constitutional: Reports anorexia, Reports fatigue, Reports lack of energy Neurologic: Reports unsteadiness, Reports weakness PMFSH - History History Provided By: Patient, Family Member () - Medical History Medical History: Medical History (Last Updated 08/08/18 @ 08:09 by Melanie Scherer MD) BPH (benign prostatic hyperplasia) Chronic indwelling Aggarwal catheter AAA (abdominal aortic aneurysm) BPH (benign prostatic hyperplasia) Cataract Hernia Hypertension Kidney stones Metal bone fixation hardware in place - Surgical History Surgical History: Surgical History (Last Reviewed 08/06/18 @ 10:13 by Hermelindo Obrien) History of hip surgery History of AAA (abdominal aortic aneurysm) repair Hx of appendectomy Hx of hernia repair S/P surgical manipulation of ankle joint - Family History Family History: Family History (Last Updated 08/09/18 @ 15:03 by Natalie Barraza) Mother FHx: stomach cancer Father Suicide - Social History I have reviewed the patient's Social History: Yes - Tobacco History Second Hand Smoke Exposure: No Tobacco Use In Past 30 Days: No Smoking Status: Former smoker Tobacco Type: Cigarettes years: 50 - Alcohol History How Often Do You Have a Drink Containing Alcohol: 4 or more times a week (about 2 drinks a day for 50 years) - Substance Use History Substance History: No History of Abuse - Travel History Recent Travel in the [place] Within the Last 8 Weeks: No Recent Travel Out of the Country Within the Last 8 Weeks: No - Immunization History Tetanus Immunization: Unsure Hx Influenza Vaccine This Season: No Medications and Allergies Active Medications: Active Medications Albuterol (Duoneb Neb (Prn)) 1 ampul NEB Q2HR NEB PRN PRN Reason: SHORTNESS OF BREATH/WHEEZING Albuterol (Duoneb Neb (Gen)) 1 ampul NEB Q6HR WHILE AWAKE NEB GEN Last Admin: 08/09/18 08:32 Dose: 1 ampul Chlorhexidine Gluconate (Peridex 0.12% Oral Kit) 15 ml OROPHARYNG BID@0800, 2000 GEN Last Admin: 08/09/18 08:09 Dose: 15 ml Dextrose (D50w Vial) 50 ml IV.PUSH UNSCH PRN PRN Reason: PER HYPOGLYCEMIA PROTOCOL Finasteride (Proscar) 5 mg PO DAILY [facility] Last Admin: 08/07/18 10:38 Dose: Not Given Glucagon (Glucagon Inj) 1 mg OTHER PRN PRN PRN Reason: for Hypoglycemia Protocol Hydrocortisone Sodium Succinate (Solucortef Inj) 100 mg IV.PUSH Q8HR [facility] Last Admin: 08/09/18 05:57 Dose: 100 mg Sodium Chloride (Ns Inj) 500 mls @ 30 mls/hr IV.SIG .Q10H [facility] Last Admin: 08/06/18 08:31 Dose: Not Given Metronidazole/Sodium Chloride (Flagyl 500 Mg Inj) 100 mls @ 100 mls/hr IV.SIG Q8H [facility] Last Infusion: 08/09/18 04:29 Dose: Infused Pharmacy Profile Note (Vancomycin Consult Pharmacy) 0 mls @ 0 mls/hr OTHER UNSCH [facility] Vasopressin 40 unit/ Dextrose 100 mls @ 6 mls/hr IV.CONT CONT [facility]; Protocol Last Admin: 08/08/18 17:23 Dose: 0.04 units/min, 6 mls/hr Phenylephrine HCl 40 mg/ (Dextrose) 500 mls @ 30 mls/hr IV.CONT TITRATE PRN; Protocol PRN Reason: Per Protocol Last Admin: 08/09/18 09:15 Dose: 300 mcg/min, 225 mls/hr Midazolam HCl (Versed Inj) 50 mg in 50 mls @ 2 mls/hr IV.CONT TITRATE PRN; Protocol PRN Reason: Per Protocol Last Titration: 08/08/18 21:20 Dose: 2 mg/hr, 2 mls/hr Fentanyl (Fentanyl 10 Mcg/Ml Premix Drip) 2,500 mcg in 250 mls @ 5 mls/hr IV.SIG TITRATE PRN; Protocol PRN Reason: Per Protocol Pantoprazole Sodium 80 mg/ (Sodium Chloride) 100 mls @ 10 mls/hr IV.CONT Q10H [facility] Last Admin: 08/09/18 00:21 Dose: 10 mls/hr Amiodarone HCl 450 mg/ (Dextrose) 250 mls @ 33.33 mls/hr IV.CONT TITRATE PRN; Protocol PRN Reason: Per Protocol Last Titration: 08/09/18 07:00 Dose: 0 mg/min, 0 mls/hr Micafungin Sodium 100 mg/ (Sodium Chloride) 100 mls @ 100 mls/hr IV.SIG Q24H [facility] Last Infusion: 08/09/18 07:00 Dose: Infused Cefepime HCl 2,000 mg/ Sodium (Chloride) 100 mls @ 200 mls/hr IV.SIG Q24H [facility] Last Infusion: 08/09/18 01:35 Dose: Infused Sodium Chloride (Ns Inj) 1,000 mls @ 0 mls/hr IV.SIG .Q0M PRN PRN Reason: SEE LABEL COMMENTS Norepinephrine Bitartrate 16 (mg/ Dextrose) 250 mls @ 1.87 mls/hr IV.CONT TITRATE PRN; Protocol PRN Reason: See Protocol Last Admin: 08/09/18 04:46 Dose: 30 mcg/min, 28.12 mls/hr Sodium Bicarbonate 50 meq/ (Sodium Chloride) 1,050 mls @ 500 mls/hr IV.CONT .Q2H6M [facility] Last Admin: 08/09/18 09:14 Dose: 500 mls/hr Epinephrine HCl 4 mg/ Dextrose 250 mls @ 11.25 mls/hr IV.CONT TITRATE PRN; Protocol PRN Reason: See protocol Last Admin: 08/09/18 09:17 Dose: 15 mcg/min, 56.25 mls/hr Insulin Aspart (Novolog Insulin Correctional Sugar Inj) 0 unit SQ Q4HR GEN; Protocol Last Admin: 08/09/18 08:08 Dose: 7 unit Lactulose (Lactulose Liq) 30 ml PO BID GEN Last Admin: 08/08/18 00:09 Dose: 30 ml Miscellaneous Medication () 1 each OROPHARYNG 0000,0400,1200,1600 GEN Last Admin: 08/09/18 04:41 Dose: 1 each Ondansetron HCl (Zofran Inj) 4 mg IV.PUSH Q8H PRN PRN Reason: nausea Rifaximin (Xifaxan) 550 mg NG/OG Q12HR GEN Last Admin: 08/09/18 08:08 Dose: 550 mg Rivaroxaban (Xarelto) 10 mg PO DAILY GEN Last Admin: 08/07/18 10:34 Dose: 10 mg Terbutaline Sulfate (Brethine Inj) 1 mg SQ UNSCH PRN PRN Reason: For Extravasation Terbutaline Sulfate (Brethine Inj) 1 mg SQ UNSCH PRN PRN Reason: For Extravasation Vancomycin HCl (Vancomycin Po) 500 mg NG/OG QID GEN Last Admin: 08/09/18 08:08 Dose: 500 mg Allergies Allergy/AdvReac Type Severity Reaction Status Date / Time Sulfa (Sulfonamide Allergy Intermediate Hives,SOB Verified 08/03/18 15:01 Antibiotics) Home Medications Medication Instructions Recorded Confirmed Type lisinopril 20 mg PO DAILY 05/03/18 08/04/18 History alfuzosin 10 mg PO HS 08/04/18 08/04/18 History finasteride 5 mg PO HS 08/04/18 08/04/18 History Advance Directives Living Will: Yes Healthcare Surrogate: No Health Care Surrogate Name and Number: Health care proxy: : Urvashi Maher, [phone] Power of Broomcorn Seeder: No Today's verbally stated goals: Patient is not capacitated to make his own health care decisions, will not regain capacity. Family/friends goals: does not think patient would want to live like this, she does not want him to suffer. Considering withdrawal of life support, not ready to make this decision today, wants me to speak with her daughter. Called daughter, she told me she needs to get some rest and will call me later. Ethical and Legal Issues: Patient is not capacitated to make his own health care decisions, will not regain capacity. According to [place] statutes, health care proxy decision making falls to his spouse, Urvashi Maher. Physical Exam Vital Signs: Vital Signs - 24 hr 08/08/18 11:00 08/08/18 12:00 08/08/18 12:24 Temperature 98.6 F Pulse Rate 116 H 114 H 119 H Respiratory Rate 19 22 21 Blood Pressure 178/140 H Pulse Oximetry 100 100 100 08/08/18 12:30 08/08/18 12:34 08/08/18 13:00 Temperature Pulse Rate 119 H 118 H Respiratory Rate 21 20 21 Blood Pressure 175/122 H Pulse Oximetry 100 99 100 08/08/18 13:01 08/08/18 13:31 08/08/18 13:38 Temperature Pulse Rate 119 H 116 H 109 H Respiratory Rate 21 21 21 Blood Pressure 160/92 H 148/58 H 68/30 L Pulse Oximetry 100 100 100 08/08/18 13:39 08/08/18 14:00 08/08/18 14:01 Temperature Pulse Rate 109 H 113 H 114 H Respiratory Rate 18 21 21 Blood Pressure 141/91 H 138/103 H Pulse Oximetry 100 100 100 08/08/18 14:31 08/08/18 15:00 08/08/18 15:01 Temperature 97.8 F Pulse Rate 117 H 118 H 118 H Respiratory Rate 22 18 22 Blood Pressure 134/66 196/126 H Pulse Oximetry 100 100 100 08/08/18 15:30 08/08/18 16:00 08/08/18 16:01 Temperature Pulse Rate 125 H 127 H 126 H Respiratory Rate 16 14 15 Blood Pressure 200/129 H 170/74 H Pulse Oximetry 100 100 100 08/08/18 16:55 08/08/18 17:47 08/08/18 19:00 Temperature Pulse Rate 120 H 127 H 119 H Respiratory Rate 20 23 Blood Pressure 87/56 L Pulse Oximetry 100 100 08/08/18 19:01 08/08/18 19:30 08/08/18 20:00 Temperature Pulse Rate 119 H 115 H 102 H Respiratory Rate 23 22 22 Blood Pressure 119/81 113/75 Pulse Oximetry 100 100 96 08/08/18 20:01 08/08/18 20:35 08/08/18 21:00 Temperature Pulse Rate 103 H 109 H Respiratory Rate 21 22 16 Blood Pressure 86/59 L 141/99 H Pulse Oximetry 97 92 L 08/08/18 21:11 08/08/18 21:31 08/08/18 22:00 Temperature Pulse Rate 109 H 106 H 105 H Respiratory Rate 22 16 17 Blood Pressure 139/59 L 129/57 L Pulse Oximetry 100 100 08/08/18 22:01 08/08/18 22:30 08/08/18 23:00 Temperature Pulse Rate 105 H 104 H 103 H Respiratory Rate 18 20 20 Blood Pressure 129/57 L 155/73 H Pulse Oximetry 100 100 100 08/08/18 23:31 08/08/18 23:50 08/09/18 00:00 Temperature Pulse Rate 100 H 100 H Respiratory Rate 21 20 21 Blood Pressure 132/99 H Pulse Oximetry 100 100 97 08/09/18 00:01 08/09/18 00:10 08/09/18 00:31 Temperature 94 F L 94 F L Pulse Rate 99 H 99 H Respiratory Rate 21 20 Blood Pressure 116/90 89/55 L Pulse Oximetry 94 L 100 08/09/18 01:00 08/09/18 01:01 08/09/18 02:00 Temperature Pulse Rate 97 H 97 H 90 Respiratory Rate 20 20 21 Blood Pressure 88/51 L Pulse Oximetry 100 100 100 08/09/18 02:01 08/09/18 02:30 08/09/18 03:00 Temperature Pulse Rate 96 H 95 H 94 H Respiratory Rate 21 21 22 Blood Pressure 107/55 L 111/78 Pulse Oximetry 100 100 100 08/09/18 03:01 08/09/18 03:31 08/09/18 04:00 Temperature 96 F L Pulse Rate 93 H 92 H 92 H Respiratory Rate 20 21 20 Blood Pressure 80/44 L 92/41 L 99/59 L Pulse Oximetry 100 100 100 08/09/18 04:15 08/09/18 04:31 08/09/18 05:00 Temperature Pulse Rate 91 H 90 Respiratory Rate 22 21 20 Blood Pressure 92/53 L Pulse Oximetry 100 100 100 08/09/18 05:01 08/09/18 05:31 08/09/18 06:00 Temperature Pulse Rate 90 86 87 Respiratory Rate 20 20 22 Blood Pressure 72/43 L 65/38 L Pulse Oximetry 100 100 100 08/09/18 06:01 08/09/18 06:31 08/09/18 07:00 Temperature Pulse Rate 87 87 87 Respiratory Rate 20 21 21 Blood Pressure 54/33 L 44/27 L Pulse Oximetry 100 100 100 08/09/18 07:31 08/09/18 08:00 08/09/18 08:01 Temperature 96.8 F L Pulse Rate 87 87 87 Respiratory Rate 25 H 22 20 Blood Pressure 115/51 L 107/52 L Pulse Oximetry 98 94 L 97 08/09/18 08:32 Temperature Pulse Rate 66 Respiratory Rate 16 Blood Pressure Pulse Oximetry I&O: Intake & Output 08/07/18 08/08/18 08/09/18 08/10/18 06:59 06:59 06:59 06:59 Intake Total 1010 / 1010 6550 / 6550 97465 / 72820 3850 / 3850 Output Total 275 / 275 430 / 430 425 / 425 Balance 735 / 735 6120 / 6120 31982 / 94322 3850 / 3850 Weight 78.3 kg 89 kg 93.5 kg Physical Exam: CONSTITUTIONAL/GENERAL: This is elderly, critically ill patient, on mech vent and continuous dialysis. TUBES/LINES/DRAINS: ETT, OF, right IJ CL, left subclavian vas-cath, PIV, A line , Aggarwal, wrist restraints, SCDs. SKIN: Color dusky, grayish. Ecchymoses on upper extremities. No wounds seen anteriorly. Skin temperature appropriate. Not diaphoretic. HEAD: Atraumatic. Normocephalic. EYES: Eyes closed. ENT: Unable to assess hearing. Nose without bleeding or purulent drainage. Throat difficult to visualize due to tubes. NECK: Trachea midline. CARDIOVASCULAR: Regular rate and rhythm without murmurs, gallops, or rubs. RESPIRATORY/CHEST: On mech vent. Breath sounds equal bilaterally. GASTROINTESTINAL: Abdomen soft, nondistended. No guarding. GENITOURINARY: Without palpable bladder distension. Aggarwal catheter in place. MUSCULOSKELETAL: Extremities with cyanosis and edema. + mottling. LYMPHATICS: Not examined. NEUROLOGICAL: Unresponsive. PSYCHIATRIC: Unresponsive lightly sedated. Diagnostic Tests Laboratory: Laboratory Results - last 72 hr 08/06/18 08/06/18 08/06/18 15:20 15:20 15:20 CBC w Diff WBC RBC Hgb Hct MCV MCH MCHC RDW Plt Count MPV Prelim Diff (Auto) Neut % (Auto) Lymph % (Auto) [place] % (Auto) Eos % (Auto) Baso % (Auto) Neut # (Auto) Lymph # (Auto) [place] # (Auto) Eos # (Auto) Baso # (Auto) WBC Differential Seg Neuts % (Manual) Band Neuts % (Manual) Lymphocytes % (Manual) Monocytes % (Manual) Eosinophils % (Manual) Basophils % (Manual) Metamyelocytes % (Man) Myelocytes % (Man) Promyelocytes % (Man) Abs Neuts (Manual) Nucleated RBCs/100 WBC Differential Comment Toxic Granulation Platelet Estimate Platelet Morphology RBC Morphology ESR PT INR APTT Fibrinogen Puncture Site Patient Temperature O2 Saturation ABG pH ABG pCO2 ABG pO2 ABG HCO3 ABG O2 Content ABG Base Excess ABG Methemoglobin Jonatan Test Hemoglobin Carboxyhemoglobin O2 Delivery Device Liter Flow Vent Setting Inspired O2 Critical Value Sodium Potassium Chloride Carbon Dioxide Anion Gap BUN Creatinine Estimated GFR POC Glucose Random Glucose Lactic Acid Calcium Prot Corrected Calcium Phosphorus Magnesium Total Bilirubin AST ALT Alkaline Phosphatase Ammonia 83 H Total Creatine Kinase CK-MB (CK-2) CK-MB (CK-2) % Troponin I Total Protein Total Protein (PEP) Albumin Lipase Vitamin B12 Greater than 2000 H Folate 7.1 TSH 1.860 Nasal Screen MRSA (PCR) Stl C.difficile DNA Amp St C. diff Tox Epid 027 Random Vancomycin Rheumatoid Factor Scrn Rheumatoid Factor Titer RPR Nonreactive Blood Type Antibody Screen 08/06/18 08/06/18 08/06/18 15:20 16:35 17:38 CBC w Diff WBC RBC Hgb Hct MCV MCH MCHC RDW Plt Count MPV Prelim Diff (Auto) Neut % (Auto) Lymph % (Auto) [place] % (Auto) Eos % (Auto) Baso % (Auto) Neut # (Auto) Lymph # (Auto) [place] # (Auto) Eos # (Auto) Baso # (Auto) WBC Differential Seg Neuts % (Manual) Band Neuts % (Manual) Lymphocytes % (Manual) Monocytes % (Manual) Eosinophils % (Manual) Basophils % (Manual) Metamyelocytes % (Man) Myelocytes % (Man) Promyelocytes % (Man) Abs Neuts (Manual) Nucleated RBCs/100 WBC Differential Comment Toxic Granulation Platelet Estimate Platelet Morphology RBC Morphology ESR 39 H PT INR APTT Fibrinogen Puncture Site Right radial Patient Temperature 98.6 O2 Saturation 95 ABG pH 7.38 ABG pCO2 36 L ABG pO2 89 ABG HCO3 21 L ABG O2 Content 16.2 ABG Base Excess -3.8 L ABG Methemoglobin 0.9 Jonatan Test Present Hemoglobin 12.1 Carboxyhemoglobin 1.1 O2 Delivery Device Nasal cannula Liter Flow 1.50 Vent Setting Inspired O2 Critical Value No Sodium Potassium Chloride Carbon Dioxide Anion Gap BUN Creatinine Estimated GFR POC Glucose Random Glucose Lactic Acid Calcium Prot Corrected Calcium Phosphorus Magnesium Total Bilirubin AST ALT Alkaline Phosphatase Ammonia Total Creatine Kinase CK-MB (CK-2) CK-MB (CK-2) % Troponin I Total Protein Total Protein (PEP) Albumin Lipase Vitamin B12 Folate TSH Nasal Screen MRSA (PCR) Stl C.difficile DNA Amp Positive H St C. diff Tox Epid 027 Negative Random Vancomycin Rheumatoid Factor Scrn Rheumatoid Factor Titer RPR Blood Type Antibody Screen 08/06/18 08/07/18 08/07/18 19:20 05:40 05:40 CBC w Diff Slide review pending WBC 15.0 H RBC 3.74 L Hgb 12.1 L Hct 35.4 L MCV 94.7 MCH 32.3 MCHC 34.1 RDW 14.9 Plt Count 150 MPV 9.7 Prelim Diff (Auto) Neut % (Auto) 78.8 H Lymph % (Auto) 14.0 [place] % (Auto) 6.2 Eos % (Auto) 0.9 Baso % (Auto) 0.1 Neut # (Auto) 11.9 H Lymph # (Auto) 2.1 [place] # (Auto) 0.9 Eos # (Auto) 0.1 Baso # (Auto) 0.0 WBC Differential Manual diff final Seg Neuts % (Manual) 64 Band Neuts % (Manual) 6 Lymphocytes % (Manual) 8 L Monocytes % (Manual) 12 H Eosinophils % (Manual) 1 Basophils % (Manual) 2 Metamyelocytes % (Man) 6 H Myelocytes % (Man) Promyelocytes % (Man) 1 H Abs Neuts (Manual) 11.6 H Nucleated RBCs/100 WBC 1 H Differential Comment . Toxic Granulation 1+ H Platelet Estimate Normal Platelet Morphology Normal RBC Morphology Normal ESR PT INR APTT Fibrinogen Puncture Site Patient Temperature O2 Saturation ABG pH ABG pCO2 ABG pO2 ABG HCO3 ABG O2 Content ABG Base Excess ABG Methemoglobin Jonatan Test Hemoglobin Carboxyhemoglobin O2 Delivery Device Liter Flow Vent Setting Inspired O2 Critical Value Sodium 153 H Potassium 3.2 L Chloride 119 H Carbon Dioxide 23.0 Anion Gap 11 BUN 53 H Creatinine 1.70 H Estimated GFR 39 L POC Glucose Random Glucose 127 H Lactic Acid Calcium 8.4 L Prot Corrected Calcium Phosphorus Magnesium Total Bilirubin 1.0 AST 243 H ALT 73 Alkaline Phosphatase 241 H Ammonia Total Creatine Kinase 446 H CK-MB (CK-2) 29.1 H CK-MB (CK-2) % 6.5 H* Troponin I Total Protein 5.1 L Total Protein (PEP) 5.2 L Albumin 1.9 L Lipase Vitamin B12 Folate TSH Nasal Screen MRSA (PCR) Stl C.difficile DNA Amp St C. diff Tox Epid 027 Random Vancomycin Rheumatoid Factor Scrn Positive H Rheumatoid Factor Titer 32.6 H RPR Blood Type Antibody Screen 1008/07/18 08/07/18 17:11 17:11 17:11 CBC w Diff Slide review pending WBC 16.7 H RBC 4.41 L Hgb 14.0 Hct 42.1 MCV 95.5 MCH 31.8 MCHC 33.4 RDW 14.3 Plt Count 179 MPV 8.8 Prelim Diff (Auto) Neut % (Auto) 81.7 H Lymph % (Auto) 13.8 [place] % (Auto) 2.8 Eos % (Auto) 0.5 Baso % (Auto) 1.2 Neut # (Auto) 13.6 H Lymph # (Auto) 2.3 [place] # (Auto) 0.5 Eos # (Auto) 0.1 Baso # (Auto) 0.2 WBC Differential Manual diff final Seg Neuts % (Manual) 61 Band Neuts % (Manual) 2 Lymphocytes % (Manual) 21 Monocytes % (Manual) 4 Eosinophils % (Manual) Basophils % (Manual) Metamyelocytes % (Man) 11 H Myelocytes % (Man) 1 H Promyelocytes % (Man) Abs Neuts (Manual) 12.5 H Nucleated RBCs/100 WBC 4 H Differential Comment . Toxic Granulation Platelet Estimate Normal Platelet Morphology Normal RBC Morphology Normal ESR PT INR APTT Fibrinogen Puncture Site Patient Temperature O2 Saturation ABG pH ABG pCO2 ABG pO2 ABG HCO3 ABG O2 Content ABG Base Excess ABG Methemoglobin Jonatan Test Hemoglobin Carboxyhemoglobin O2 Delivery Device Liter Flow Vent Setting Inspired O2 Critical Value Sodium 151 H Potassium 4.1 D Chloride 118 H Carbon Dioxide 18.0 L Anion Gap 15 BUN 58 H Creatinine 2.20 H Estimated GFR 29 L POC Glucose Random Glucose 158 H Lactic Acid 4.1 H* Calcium 8.9 Prot Corrected Calcium Phosphorus Magnesium Total Bilirubin 1.3 H AST 277 H ALT 82 H Alkaline Phosphatase 275 H Ammonia Total Creatine Kinase CK-MB (CK-2) CK-MB (CK-2) % Troponin I Total Protein 6.1 L D Total Protein (PEP) Albumin 2.1 L Lipase Vitamin B12 Folate TSH Nasal Screen MRSA (PCR) Stl C.difficile DNA Amp St C. diff Tox Epid 027 Random Vancomycin Rheumatoid Factor Scrn Rheumatoid Factor Titer RPR Blood Type Antibody Screen 08/07/18 08/07/18 08/07/18 17:11 18:45 21:45 CBC w Diff WBC RBC Hgb Hct MCV MCH MCHC RDW Plt Count MPV Prelim Diff (Auto) Neut % (Auto) Lymph % (Auto) [place] % (Auto) Eos % (Auto) Baso % (Auto) Neut # (Auto) Lymph # (Auto) [place] # (Auto) Eos # (Auto) Baso # (Auto) WBC Differential Seg Neuts % (Manual) Band Neuts % (Manual) Lymphocytes % (Manual) Monocytes % (Manual) Eosinophils % (Manual) Basophils % (Manual) Metamyelocytes % (Man) Myelocytes % (Man) Promyelocytes % (Man) Abs Neuts (Manual) Nucleated RBCs/100 WBC Differential Comment Toxic Granulation Platelet Estimate Platelet Morphology RBC Morphology ESR PT INR APTT Fibrinogen Puncture Site Left radial Left femoral Patient Temperature 98.6 98.6 O2 Saturation 92 98 ABG pH 7.38 7.17 L* ABG pCO2 26 L 55 H* ABG pO2 67 367 H ABG HCO3 15 L* 19 L ABG O2 Content 16.4 19.1 ABG Base Excess -8.8 L -7.9 L ABG Methemoglobin 0.7 0.8 Jonatan Test Present Hemoglobin 12.7 13.2 Carboxyhemoglobin 1.0 0.3 O2 Delivery Device Nasal cannula Ventilator Liter Flow 6.00 Vent Setting Ac/500/16/5peep Inspired O2 100 Critical Value Yes Yes Sodium Potassium Chloride Carbon Dioxide Anion Gap BUN Creatinine Estimated GFR POC Glucose Random Glucose Lactic Acid Calcium Prot Corrected Calcium Phosphorus Magnesium Total Bilirubin AST ALT Alkaline Phosphatase Ammonia Total Creatine Kinase 466 H CK-MB (CK-2) 31.3 H CK-MB (CK-2) % 6.7 H* Troponin I 0.04 Total Protein Total Protein (PEP) Albumin Lipase Vitamin B12 Folate TSH Nasal Screen MRSA (PCR) Stl C.difficile DNA Amp St C. diff Tox Epid 027 Random Vancomycin Rheumatoid Factor Scrn Rheumatoid Factor Titer RPR Blood Type Antibody Screen 08/07/18 08/07/18 08/08/18 23:30 23:30 03:35 CBC w Diff WBC RBC Hgb Hct MCV MCH MCHC RDW Plt Count MPV Prelim Diff (Auto) Neut % (Auto) Lymph % (Auto) [place] % (Auto) Eos % (Auto) Baso % (Auto) Neut # (Auto) Lymph # (Auto) [place] # (Auto) Eos # (Auto) Baso # (Auto) WBC Differential Seg Neuts % (Manual) Band Neuts % (Manual) Lymphocytes % (Manual) Monocytes % (Manual) Eosinophils % (Manual) Basophils % (Manual) Metamyelocytes % (Man) Myelocytes % (Man) Promyelocytes % (Man) Abs Neuts (Manual) Nucleated RBCs/100 WBC Differential Comment Toxic Granulation Platelet Estimate Platelet Morphology RBC Morphology ESR PT INR APTT Fibrinogen Puncture Site Art line Patient Temperature 98.6 O2 Saturation 97 ABG pH 7.11 L* ABG pCO2 28 L ABG pO2 333 H ABG HCO3 9 L* ABG O2 Content 16.9 ABG Base Excess -19.2 L ABG Methemoglobin 1.7 Jonatan Test Hemoglobin 11.8 L Carboxyhemoglobin 0.0 O2 Delivery Device Ventilator Liter Flow Vent Setting Ac 16/600/5peep Inspired O2 70 Critical Value Yes Sodium Potassium Chloride Carbon Dioxide Anion Gap BUN Creatinine Estimated GFR POC Glucose Random Glucose Lactic Acid 6.0 H* Calcium Prot Corrected Calcium Phosphorus Magnesium Total Bilirubin AST ALT Alkaline Phosphatase Ammonia 63 H Total Creatine Kinase CK-MB (CK-2) CK-MB (CK-2) % Troponin I Total Protein Total Protein (PEP) Albumin Lipase Vitamin B12 Folate TSH Nasal Screen MRSA (PCR) Stl C.difficile DNA Amp St C. diff Tox Epid 027 Random Vancomycin Rheumatoid Factor Scrn Rheumatoid Factor Titer RPR Blood Type Antibody Screen 08/08/18 08/08/18 08/08/18 03:59 03:59 03:59 CBC w Diff WBC 20.2 H RBC 3.85 L Hgb 12.1 L Hct 39.1 MCV 101.5 H D MCH 31.5 MCHC 31.0 L RDW 16.5 Plt Count 167 MPV 9.3 Prelim Diff (Auto) Slide review pending Neut % (Auto) 74.6 H Lymph % (Auto) 19.5 [place] % (Auto) 4.7 Eos % (Auto) 0.3 Baso % (Auto) 0.9 Neut # (Auto) 15.1 H Lymph # (Auto) 3.9 [place] # (Auto) 1.0 H Eos # (Auto) 0.1 Baso # (Auto) 0.2 WBC Differential Manual diff final Seg Neuts % (Manual) 44 Band Neuts % (Manual) 14 H Lymphocytes % (Manual) 27 Monocytes % (Manual) 3 Eosinophils % (Manual) Basophils % (Manual) Metamyelocytes % (Man) 7 H Myelocytes % (Man) 5 H Promyelocytes % (Man) Abs Neuts (Manual) 14.1 H Nucleated RBCs/100 WBC 16 H Differential Comment . Toxic Granulation Platelet Estimate Normal Platelet Morphology Normal RBC Morphology ESR PT INR APTT Fibrinogen Puncture Site Patient Temperature O2 Saturation ABG pH ABG pCO2 ABG pO2 ABG HCO3 ABG O2 Content ABG Base Excess ABG Methemoglobin Jonatan Test Hemoglobin Carboxyhemoglobin O2 Delivery Device Liter Flow Vent Setting Inspired O2 Critical Value Sodium 151 H Potassium 3.9 Chloride 120 H Carbon Dioxide 13.0 L Anion Gap 18 H BUN 55 H Creatinine 2.78 H Estimated GFR 22 L POC Glucose Random Glucose 196 H Lactic Acid Calcium 7.4 L* D Prot Corrected Calcium 8.7 Phosphorus 5.0 H Magnesium 2.1 Total Bilirubin 0.9 AST 378 H ALT 93 H Alkaline Phosphatase 220 H Ammonia Total Creatine Kinase 461 H CK-MB (CK-2) 35.7 H CK-MB (CK-2) % 7.7 H* Troponin I Total Protein 4.8 L D Total Protein (PEP) Albumin 1.7 L Lipase 547 H Vitamin B12 Folate TSH Nasal Screen MRSA (PCR) Stl C.difficile DNA Amp St C. diff Tox Epid 027 Random Vancomycin Rheumatoid Factor Scrn Rheumatoid Factor Titer RPR Blood Type O Positive Antibody Screen Negative 08/08/18 08/08/18 08/08/18 03:59 03:59 03:59 CBC w Diff WBC RBC Hgb Hct MCV MCH MCHC RDW Plt Count MPV Prelim Diff (Auto) Neut % (Auto) Lymph % (Auto) [place] % (Auto) Eos % (Auto) Baso % (Auto) Neut # (Auto) Lymph # (Auto) [place] # (Auto) Eos # (Auto) Baso # (Auto) WBC Differential Seg Neuts % (Manual) Band Neuts % (Manual) Lymphocytes % (Manual) Monocytes % (Manual) Eosinophils % (Manual) Basophils % (Manual) Metamyelocytes % (Man) Myelocytes % (Man) Promyelocytes % (Man) Abs Neuts (Manual) Nucleated RBCs/100 WBC Differential Comment Toxic Granulation Platelet Estimate Platelet Morphology RBC Morphology ESR PT 15.2 H INR 1.5 APTT 37.0 H Fibrinogen 361 Puncture Site Patient Temperature O2 Saturation ABG pH ABG pCO2 ABG pO2 ABG HCO3 ABG O2 Content ABG Base Excess ABG Methemoglobin Jonatan Test Hemoglobin Carboxyhemoglobin O2 Delivery Device Liter Flow Vent Setting Inspired O2 Critical Value Sodium Potassium Chloride Carbon Dioxide Anion Gap BUN Creatinine Estimated GFR POC Glucose Random Glucose Lactic Acid 10.0 H* Calcium Prot Corrected Calcium Phosphorus Magnesium Total Bilirubin AST ALT Alkaline Phosphatase Ammonia Total Creatine Kinase CK-MB (CK-2) CK-MB (CK-2) % Troponin I 0.56 H Total Protein Total Protein (PEP) Albumin Lipase Vitamin B12 Folate TSH Nasal Screen MRSA (PCR) Stl C.difficile DNA Amp St C. diff Tox Epid 027 Random Vancomycin Rheumatoid Factor Scrn Rheumatoid Factor Titer RPR Blood Type Antibody Screen 08/08/18 08/08/18 08/08/18 04:40 05:44 09:00 CBC w Diff WBC RBC Hgb Hct MCV MCH MCHC RDW Plt Count MPV Prelim Diff (Auto) Neut % (Auto) Lymph % (Auto) [place] % (Auto) Eos % (Auto) Baso % (Auto) Neut # (Auto) Lymph # (Auto) [place] # (Auto) Eos # (Auto) Baso # (Auto) WBC Differential Seg Neuts % (Manual) Band Neuts % (Manual) Lymphocytes % (Manual) Monocytes % (Manual) Eosinophils % (Manual) Basophils % (Manual) Metamyelocytes % (Man) Myelocytes % (Man) Promyelocytes % (Man) Abs Neuts (Manual) Nucleated RBCs/100 WBC Differential Comment Toxic Granulation Platelet Estimate Platelet Morphology RBC Morphology ESR PT INR APTT Fibrinogen Puncture Site Art line Patient Temperature 98.6 O2 Saturation 97 ABG pH 7.21 L* ABG pCO2 30 L ABG pO2 205 H ABG HCO3 12 L* ABG O2 Content 15.0 ABG Base Excess -14.8 L ABG Methemoglobin 1.7 Jonatan Test Hemoglobin 10.7 L Carboxyhemoglobin 0.2 O2 Delivery Device Ventilator Liter Flow Vent Setting Ac16/600/5peep Inspired O2 50 Critical Value Yes Sodium Potassium Chloride Carbon Dioxide Anion Gap BUN Creatinine Estimated GFR POC Glucose Random Glucose Lactic Acid Calcium Prot Corrected Calcium Phosphorus Magnesium Total Bilirubin AST ALT Alkaline Phosphatase Ammonia Total Creatine Kinase CK-MB (CK-2) CK-MB (CK-2) % Troponin I Total Protein Total Protein (PEP) Albumin Lipase Vitamin B12 Folate TSH Nasal Screen MRSA (PCR) Not detected Cancelled Stl C.difficile DNA Amp St C. diff Tox Epid 027 Random Vancomycin Rheumatoid Factor Scrn Rheumatoid Factor Titer RPR Blood Type Antibody Screen 08/08/18 08/08/18 08/08/18 09:50 11:55 12:00 CBC w Diff WBC RBC Hgb Hct MCV MCH MCHC RDW Plt Count MPV Prelim Diff (Auto) Neut % (Auto) Lymph % (Auto) [place] % (Auto) Eos % (Auto) Baso % (Auto) Neut # (Auto) Lymph # (Auto) [place] # (Auto) Eos # (Auto) Baso # (Auto) WBC Differential Seg Neuts % (Manual) Band Neuts % (Manual) Lymphocytes % (Manual) Monocytes % (Manual) Eosinophils % (Manual) Basophils % (Manual) Metamyelocytes % (Man) Myelocytes % (Man) Promyelocytes % (Man) Abs Neuts (Manual) Nucleated RBCs/100 WBC Differential Comment Toxic Granulation Platelet Estimate Platelet Morphology RBC Morphology ESR PT INR APTT Fibrinogen Puncture Site Art line Patient Temperature 98.6 O2 Saturation 97 ABG pH 7.36 L ABG pCO2 29 L ABG pO2 216 H ABG HCO3 16 L* ABG O2 Content 16.6 ABG Base Excess -8.8 L ABG Methemoglobin 1.7 Jonatan Test Hemoglobin 11.8 L Carboxyhemoglobin 0.3 O2 Delivery Device Ventilator Liter Flow Vent Setting A/c 600/20/5peep Inspired O2 50 Critical Value Yes Sodium Potassium Chloride Carbon Dioxide Anion Gap BUN Creatinine Estimated GFR POC Glucose Random Glucose Lactic Acid 9.2 H* 9.5 H* Calcium Prot Corrected Calcium Phosphorus Magnesium Total Bilirubin AST ALT Alkaline Phosphatase Ammonia Total Creatine Kinase CK-MB (CK-2) CK-MB (CK-2) % Troponin I Total Protein Total Protein (PEP) Albumin Lipase Vitamin B12 Folate TSH Nasal Screen MRSA (PCR) Stl C.difficile DNA Amp St C. diff Tox Epid 027 Random Vancomycin Rheumatoid Factor Scrn Rheumatoid Factor Titer RPR Blood Type Antibody Screen 08/08/18 08/08/18 08/08/18 12:00 12:00 12:03 CBC w Diff WBC 19.8 H RBC 3.89 L Hgb 12.2 L Hct 37.4 L MCV 96.2 D MCH 31.3 MCHC 32.6 RDW 15.3 Plt Count 136 L MPV 9.5 Prelim Diff (Auto) Neut % (Auto) Lymph % (Auto) [place] % (Auto) Eos % (Auto) Baso % (Auto) Neut # (Auto) Lymph # (Auto) [place] # (Auto) Eos # (Auto) Baso # (Auto) WBC Differential Seg Neuts % (Manual) Band Neuts % (Manual) Lymphocytes % (Manual) Monocytes % (Manual) Eosinophils % (Manual) Basophils % (Manual) Metamyelocytes % (Man) Myelocytes % (Man) Promyelocytes % (Man) Abs Neuts (Manual) Nucleated RBCs/100 WBC Differential Comment Toxic Granulation Platelet Estimate Platelet Morphology RBC Morphology ESR PT INR APTT Fibrinogen Puncture Site Patient Temperature O2 Saturation ABG pH ABG pCO2 ABG pO2 ABG HCO3 ABG O2 Content ABG Base Excess ABG Methemoglobin Jonatan Test Hemoglobin Carboxyhemoglobin O2 Delivery Device Liter Flow Vent Setting Inspired O2 Critical Value Sodium 149 H Potassium 3.6 Chloride 113 H Carbon Dioxide 18.4 L Anion Gap 18 H BUN 56 H Creatinine 2.54 H Estimated GFR 25 L POC Glucose 152 H Random Glucose 177 H Lactic Acid Calcium 7.4 L* Prot Corrected Calcium 8.7 Phosphorus Magnesium Total Bilirubin AST ALT Alkaline Phosphatase Ammonia Total Creatine Kinase CK-MB (CK-2) CK-MB (CK-2) % Troponin I Total Protein 4.8 L Total Protein (PEP) Albumin Lipase Vitamin B12 Folate TSH Nasal Screen MRSA (PCR) Stl C.difficile DNA Amp St C. diff Tox Epid 027 Random Vancomycin Rheumatoid Factor Scrn Rheumatoid Factor Titer RPR Blood Type Antibody Screen 08/08/18 08/08/18 08/08/18 16:35 17:24 22:18 CBC w Diff WBC RBC Hgb Hct MCV MCH MCHC RDW Plt Count MPV Prelim Diff (Auto) Neut % (Auto) Lymph % (Auto) [place] % (Auto) Eos % (Auto) Baso % (Auto) Neut # (Auto) Lymph # (Auto) [place] # (Auto) Eos # (Auto) Baso # (Auto) WBC Differential Seg Neuts % (Manual) Band Neuts % (Manual) Lymphocytes % (Manual) Monocytes % (Manual) Eosinophils % (Manual) Basophils % (Manual) Metamyelocytes % (Man) Myelocytes % (Man) Promyelocytes % (Man) Abs Neuts (Manual) Nucleated RBCs/100 WBC Differential Comment Toxic Granulation Platelet Estimate Platelet Morphology RBC Morphology ESR PT INR APTT Fibrinogen Puncture Site Patient Temperature O2 Saturation ABG pH ABG pCO2 ABG pO2 ABG HCO3 ABG O2 Content ABG Base Excess ABG Methemoglobin Jonatan Test Hemoglobin Carboxyhemoglobin O2 Delivery Device Liter Flow Vent Setting Inspired O2 Critical Value Sodium Potassium Chloride Carbon Dioxide Anion Gap BUN Creatinine Estimated GFR POC Glucose 144 H 275 H Random Glucose Lactic Acid 10.5 H* Calcium Prot Corrected Calcium Phosphorus Magnesium Total Bilirubin AST ALT Alkaline Phosphatase Ammonia Total Creatine Kinase CK-MB (CK-2) CK-MB (CK-2) % Troponin I Total Protein Total Protein (PEP) Albumin Lipase Vitamin B12 Folate TSH Nasal Screen MRSA (PCR) Stl C.difficile DNA Amp St C. diff Tox Epid 027 Random Vancomycin Rheumatoid Factor Scrn Rheumatoid Factor Titer RPR Blood Type Antibody Screen 08/08/18 08/09/18 08/09/18 22:19 00:00 00:37 CBC w Diff WBC RBC Hgb Hct MCV MCH MCHC RDW Plt Count MPV Prelim Diff (Auto) Neut % (Auto) Lymph % (Auto) [place] % (Auto) Eos % (Auto) Baso % (Auto) Neut # (Auto) Lymph # (Auto) [place] # (Auto) Eos # (Auto) Baso # (Auto) WBC Differential Seg Neuts % (Manual) Band Neuts % (Manual) Lymphocytes % (Manual) Monocytes % (Manual) Eosinophils % (Manual) Basophils % (Manual) Metamyelocytes % (Man) Myelocytes % (Man) Promyelocytes % (Man) Abs Neuts (Manual) Nucleated RBCs/100 WBC Differential Comment Toxic Granulation Platelet Estimate Platelet Morphology RBC Morphology ESR PT INR APTT Fibrinogen Puncture Site Patient Temperature O2 Saturation ABG pH ABG pCO2 ABG pO2 ABG HCO3 ABG O2 Content ABG Base Excess ABG Methemoglobin Jonatan Test Hemoglobin Carboxyhemoglobin O2 Delivery Device Liter Flow Vent Setting Inspired O2 Critical Value Sodium Potassium Chloride Carbon Dioxide Anion Gap BUN Creatinine Estimated GFR POC Glucose 193 H Random Glucose Lactic Acid 16.2 H* 15.5 H* Calcium Prot Corrected Calcium Phosphorus Magnesium Total Bilirubin AST ALT Alkaline Phosphatase Ammonia Total Creatine Kinase CK-MB (CK-2) CK-MB (CK-2) % Troponin I Total Protein Total Protein (PEP) Albumin Lipase Vitamin B12 Folate TSH Nasal Screen MRSA (PCR) Stl C.difficile DNA Amp St C. diff Tox Epid 027 Random Vancomycin Rheumatoid Factor Scrn Rheumatoid Factor Titer RPR Blood Type Antibody Screen 08/09/18 08/09/18 08/09/18 04:22 04:23 04:35 CBC w Diff WBC RBC Hgb Hct MCV MCH MCHC RDW Plt Count MPV Prelim Diff (Auto) Neut % (Auto) Lymph % (Auto) [place] % (Auto) Eos % (Auto) Baso % (Auto) Neut # (Auto) Lymph # (Auto) [place] # (Auto) Eos # (Auto) Baso # (Auto) WBC Differential Seg Neuts % (Manual) Band Neuts % (Manual) Lymphocytes % (Manual) Monocytes % (Manual) Eosinophils % (Manual) Basophils % (Manual) Metamyelocytes % (Man) Myelocytes % (Man) Promyelocytes % (Man) Abs Neuts (Manual) Nucleated RBCs/100 WBC Differential Comment Toxic Granulation Platelet Estimate Platelet Morphology RBC Morphology ESR PT INR APTT Fibrinogen Puncture Site Patient Temperature O2 Saturation ABG pH ABG pCO2 ABG pO2 ABG HCO3 ABG O2 Content ABG Base Excess ABG Methemoglobin Jonatan Test Hemoglobin Carboxyhemoglobin O2 Delivery Device Liter Flow Vent Setting Inspired O2 Critical Value Sodium Potassium Chloride Carbon Dioxide Anion Gap BUN Creatinine Estimated GFR POC Glucose 278 H 224 H Random Glucose Lactic Acid 16.6 H* Calcium Prot Corrected Calcium Phosphorus Magnesium Total Bilirubin AST ALT Alkaline Phosphatase Ammonia Total Creatine Kinase CK-MB (CK-2) CK-MB (CK-2) % Troponin I Total Protein Total Protein (PEP) Albumin Lipase Vitamin B12 Folate TSH Nasal Screen MRSA (PCR) Stl C.difficile DNA Amp St C. diff Tox Epid 027 Random Vancomycin Rheumatoid Factor Scrn Rheumatoid Factor Titer RPR Blood Type Antibody Screen 08/09/18 08/09/18 08/09/18 05:05 05:05 07:58 CBC w Diff WBC 18.8 H RBC 3.20 L Hgb 10.2 L D Hct 32.1 L MCV 100.5 H D MCH 32.0 MCHC 31.8 L RDW 16.2 Plt Count 90 L D MPV 9.4 Prelim Diff (Auto) Neut % (Auto) Lymph % (Auto) [place] % (Auto) Eos % (Auto) Baso % (Auto) Neut # (Auto) Lymph # (Auto) [place] # (Auto) Eos # (Auto) Baso # (Auto) WBC Differential Seg Neuts % (Manual) Band Neuts % (Manual) Lymphocytes % (Manual) Monocytes % (Manual) Eosinophils % (Manual) Basophils % (Manual) Metamyelocytes % (Man) Myelocytes % (Man) Promyelocytes % (Man) Abs Neuts (Manual) Nucleated RBCs/100 WBC Differential Comment Toxic Granulation Platelet Estimate Platelet Morphology RBC Morphology ESR PT INR APTT Fibrinogen Puncture Site Patient Temperature O2 Saturation ABG pH ABG pCO2 ABG pO2 ABG HCO3 ABG O2 Content ABG Base Excess ABG Methemoglobin Jonatan Test Hemoglobin Carboxyhemoglobin O2 Delivery Device Liter Flow Vent Setting Inspired O2 Critical Value Sodium 132 L D Potassium 5.3 H D Chloride 96 L D Carbon Dioxide 8.7 L D Anion Gap 27 H BUN 42 H Creatinine 2.53 H Estimated GFR 25 L POC Glucose Random Glucose 297 H D Lactic Acid 16.1 H* Calcium 6.5 L* D Prot Corrected Calcium 7.3 L* D Phosphorus 6.1 H D Magnesium 1.9 Total Bilirubin 2.0 H AST 4315 H ALT 667 H Alkaline Phosphatase 226 H Ammonia Total Creatine Kinase CK-MB (CK-2) CK-MB (CK-2) % Troponin I Total Protein 5.5 L D Total Protein (PEP) Albumin 2.7 L D Lipase Vitamin B12 Folate TSH Nasal Screen MRSA (PCR) Stl C.difficile DNA Amp St C. diff Tox Epid 027 Random Vancomycin 5.2 Rheumatoid Factor Scrn Rheumatoid Factor Titer RPR Blood Type Antibody Screen 08/09/18 08/09/18 07:58 08:42 CBC w Diff WBC RBC Hgb Hct MCV MCH MCHC RDW Plt Count MPV Prelim Diff (Auto) Neut % (Auto) Lymph % (Auto) [place] % (Auto) Eos % (Auto) Baso % (Auto) Neut # (Auto) Lymph # (Auto) [place] # (Auto) Eos # (Auto) Baso # (Auto) WBC Differential Seg Neuts % (Manual) Band Neuts % (Manual) Lymphocytes % (Manual) Monocytes % (Manual) Eosinophils % (Manual) Basophils % (Manual) Metamyelocytes % (Man) Myelocytes % (Man) Promyelocytes % (Man) Abs Neuts (Manual) Nucleated RBCs/100 WBC Differential Comment Toxic Granulation Platelet Estimate Platelet Morphology RBC Morphology ESR PT INR APTT Fibrinogen Puncture Site Patient Temperature O2 Saturation ABG pH ABG pCO2 ABG pO2 ABG HCO3 ABG O2 Content ABG Base Excess ABG Methemoglobin Jonatan Test Hemoglobin Carboxyhemoglobin O2 Delivery Device Liter Flow Vent Setting Inspired O2 Critical Value Sodium Potassium Chloride Carbon Dioxide Anion Gap BUN Creatinine Estimated GFR POC Glucose 343 H 369 H Random Glucose Lactic Acid Calcium Prot Corrected Calcium Phosphorus Magnesium Total Bilirubin AST ALT Alkaline Phosphatase Ammonia Total Creatine Kinase CK-MB (CK-2) CK-MB (CK-2) % Troponin I Total Protein Total Protein (PEP) Albumin Lipase Vitamin B12 Folate TSH Nasal Screen MRSA (PCR) Stl C.difficile DNA Amp St C. diff Tox Epid 027 Random Vancomycin Rheumatoid Factor Scrn Rheumatoid Factor Titer RPR Blood Type Antibody Screen Result Diagrams: 08/09/18 05:05 08/09/18 05:05 Microbiology: Microbiology 08/07/18 23:30 Aerobic Blood Culture - Preliminary Blood - Peripheral No growth in 1 day Anaerobic Blood Culture - Preliminary No growth in 1 day 08/07/18 23:30 Aerobic Blood Culture - Preliminary Blood - Peripheral No growth in 1 day Anaerobic Blood Culture - Preliminary No growth in 1 day 08/03/18 16:10 Aerobic Blood Culture - Final Blood - Peripheral No growth in 5 days Anaerobic Blood Culture - Final No growth in 5 days 08/03/18 16:05 Aerobic Blood Culture - Final Blood - Peripheral No growth in 5 days Anaerobic Blood Culture - Final No growth in 5 days Patient/Family Conference Issues Discussed: * Palliative care role, purpose, approach * Additional medical, psychosocial, and spiritual history * Patients general health, functional status, and cognitive changes in the months leading up to the current hospitalization * Patient/family understanding of the current medical problems * Patient/family understanding of prognosis * Patients goals of care as best understood from advance directives and/or conversations and/or values * Current medical treatment options and benefits/burdens of those options * Likely scenarios comparing ongoing aggressive care with a transition to comfort measures only * Questions answered to the best of my ability * Palliative care contact information provided Assessment and Plan - Disease Oriented Problem List (1) UTI (urinary tract infection) due to urinary indwelling catheter (2) Elevated liver enzymes (3) Septic shock (4) Hepatic encephalopathy (5) Multiorgan failure (6) Lactic acidemia (7) UTI (urinary tract infection) (8) CKD (chronic kidney disease), stage III (9) Cirrhosis (10) Gastritis (11) Prostate disorder - Symptom Scale (1) Pain 0-10 Scale: Unable to quantify (2) Dyspnea 0-10 Scale: Unable to quantify Pertinent Non-Medical Issues: Psychosocial: . Moved to [place] 28 years ago. Previously lived in [facility]. Has 1 daughter, Nga and 1 granddaughter who is 18, both live local. [place]. 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 Legal:Patient is not capacitated to make his own health care decisions, will not regain capacity. According to [place] statutes, health care proxy decision making falls to his spouse, Urvashi Maher. Ethical issues impacting care: None. Important Contacts: * Urvashi Maher, /HCP: [phone] * Nga, daughter: [phone] or [phone] Prognosis: Patient is not expected to survive this hospitalization. Code Status: No Code DNR Plan: * Patient is not capacitated to make his own health care decisions, will not regain capacity. According to [place] statutes, health care proxy decision making falls to his spouse, Urvashi Mhaer. * NO CODE * does not think patient would want to live like this, she does not want him to suffer. Considering withdrawal of life support, not ready to make this decision today, wants me to speak with her daughter. Called daughter, she told me she needs to get some rest and will call me later. * SYMPTOMS: Pain and dyspnea: Sedated on Versed 2mg on mech vent. No obvious signs of pain or dyspnea. * Palliative care number provided. * Palliative care will continue to follow to assist with symptom management and further clarification of goals of medical treatment. Appreciation Thank you for the opportunity to participate in the care of Davi Maher. Attestation Attestation: To help prompt me to consider important information that might be impacting today's encounter and assessment, information from prior notes written by myself or my colleagues may have been "brought forward" into today's note. My signature on this note, however, is an attestation that I personally performed the exam, history, and/or decision-making noted today, and, unless otherwise indicated, the interactions with patient, family, and staff as well as the review of records all occurred today. I also attest that the listed assessment and stated plan reflect my best clinical judgment today based on the combination of historical information, prior notes, and today's exam/ interactions. When time spent is documented, it refers only to time spent today by the signer, or if indicated, combined time spent today by collaborating physician/nurse practitioner.
--- NOTE | 2018-08-09 11:08 | P.PNID ---
Subjective Remarks: Patient is on the ventilator. Unresponsive. He is blood pressure is 82/50. He is hypothermic. He is on maximum doses of Levophed, vasopressin, phenylephrine. No urine output. Receiving CVVHD. Lactic acid remain markedly elevated. LFTs remain markedly elevated. Currently on warming blanket. This is a 78-year-old white male who was admitted to the hospital with generalized weakness. The patient was brought to the ED when 911 was called because he was having weakness during the process of physical therapy treatments and the patient was noted to be unable to stand on his own. He was eventually admitted to the hospital. On admission, his white blood cell count was 15.0 and he was afebrile. He was noted to have elevated liver function tests. The patient was felt to have possible hepatocellular disease such as cirrhosis on abdominal CT scan, and several hepatic cysts were noted in the liver. The patient was noted to have abdominal pain. He eventually ended up getting an endoscopy which revealed duodenal ulceration with some active bleeding that was cauterized. Urine culture on admission came back showing Citrobacter. Blood cultures had no growth. The patient was afebrile and has remained during the admission. His white count remained elevated. The patient deteriorated overnight and required intubation. He was noted to be hypotensive. New cultures have been obtained. 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 Allergies/Adverse Reactions: Allergies Sulfa (Sulfonamide Antibiotics) Allergy (Intermediate, Verified 08/03/18 15:01) Hives,SOB Objective Vital Signs 08/08/18 11:00 08/08/18 12:00 08/08/18 12:24 Temperature 98.6 F Pulse Rate 116 H 114 H 119 H Respiratory Rate 19 22 21 Blood Pressure 178/140 H Pulse Oximetry 100 100 100 08/08/18 12:30 08/08/18 12:34 08/08/18 13:00 Temperature Pulse Rate 119 H 118 H Respiratory Rate 21 20 21 Blood Pressure 175/122 H Pulse Oximetry 100 99 100 08/08/18 13:01 08/08/18 13:31 08/08/18 13:38 Temperature Pulse Rate 119 H 116 H 109 H Respiratory Rate 21 21 21 Blood Pressure 160/92 H 148/58 H 68/30 L Pulse Oximetry 100 100 100 08/08/18 13:39 08/08/18 14:00 08/08/18 14:01 Temperature Pulse Rate 109 H 113 H 114 H Respiratory Rate 18 21 21 Blood Pressure 141/91 H 138/103 H Pulse Oximetry 100 100 100 08/08/18 14:31 08/08/18 15:00 08/08/18 15:01 Temperature 97.8 F Pulse Rate 117 H 118 H 118 H Respiratory Rate 22 18 22 Blood Pressure 134/66 196/126 H Pulse Oximetry 100 100 100 08/08/18 15:30 08/08/18 16:00 08/08/18 16:01 Temperature Pulse Rate 125 H 127 H 126 H Respiratory Rate 16 14 15 Blood Pressure 200/129 H 170/74 H Pulse Oximetry 100 100 100 08/08/18 16:55 08/08/18 17:47 08/08/18 19:00 Temperature Pulse Rate 120 H 127 H 119 H Respiratory Rate 20 23 Blood Pressure 87/56 L Pulse Oximetry 100 100 08/08/18 19:01 08/08/18 19:30 08/08/18 20:00 Temperature Pulse Rate 119 H 115 H 102 H Respiratory Rate 23 22 22 Blood Pressure 119/81 113/75 Pulse Oximetry 100 100 96 08/08/18 20:01 08/08/18 20:35 08/08/18 21:00 Temperature Pulse Rate 103 H 109 H Respiratory Rate 21 22 16 Blood Pressure 86/59 L 141/99 H Pulse Oximetry 97 92 L 08/08/18 21:11 08/08/18 21:31 08/08/18 22:00 Temperature Pulse Rate 109 H 106 H 105 H Respiratory Rate 22 16 17 Blood Pressure 139/59 L 129/57 L Pulse Oximetry 100 100 08/08/18 22:01 08/08/18 22:30 08/08/18 23:00 Temperature Pulse Rate 105 H 104 H 103 H Respiratory Rate 18 20 20 Blood Pressure 129/57 L 155/73 H Pulse Oximetry 100 100 100 08/08/18 23:31 08/08/18 23:50 08/09/18 00:00 Temperature Pulse Rate 100 H 100 H Respiratory Rate 21 20 21 Blood Pressure 132/99 H Pulse Oximetry 100 100 97 08/09/18 00:01 08/09/18 00:10 08/09/18 00:31 Temperature 94 F L 94 F L Pulse Rate 99 H 99 H Respiratory Rate 21 20 Blood Pressure 116/90 89/55 L Pulse Oximetry 94 L 100 08/09/18 01:00 08/09/18 01:01 08/09/18 02:00 Temperature Pulse Rate 97 H 97 H 90 Respiratory Rate 20 20 21 Blood Pressure 88/51 L Pulse Oximetry 100 100 100 08/09/18 02:01 08/09/18 02:30 08/09/18 03:00 Temperature Pulse Rate 96 H 95 H 94 H Respiratory Rate 21 21 22 Blood Pressure 107/55 L 111/78 Pulse Oximetry 100 100 100 08/09/18 03:01 08/09/18 03:31 08/09/18 04:00 Temperature 96 F L Pulse Rate 93 H 92 H 92 H Respiratory Rate 20 21 20 Blood Pressure 80/44 L 92/41 L 99/59 L Pulse Oximetry 100 100 100 08/09/18 04:15 08/09/18 04:31 08/09/18 05:00 Temperature Pulse Rate 91 H 90 Respiratory Rate 22 21 20 Blood Pressure 92/53 L Pulse Oximetry 100 100 100 08/09/18 05:01 08/09/18 05:31 08/09/18 06:00 Temperature Pulse Rate 90 86 87 Respiratory Rate 20 20 22 Blood Pressure 72/43 L 65/38 L Pulse Oximetry 100 100 100 08/09/18 06:01 08/09/18 06:31 08/09/18 07:00 Temperature Pulse Rate 87 87 87 Respiratory Rate 20 21 21 Blood Pressure 54/33 L 44/27 L Pulse Oximetry 100 100 100 08/09/18 07:31 08/09/18 08:00 08/09/18 08:01 Temperature 96.8 F L Pulse Rate 87 87 87 Respiratory Rate 25 H 22 20 Blood Pressure 115/51 L 107/52 L Pulse Oximetry 98 94 L 97 08/09/18 08:32 08/09/18 10:00 Temperature Pulse Rate 66 93 H Respiratory Rate 16 Blood Pressure 82/54 L Pulse Oximetry Intake & Output 08/08/18 08/09/18 08/09/18 18:59 06:59 18:59 Intake Total 5042 / 5042 9050 / 9050 3850 / 3850 Output Total 425 / 425 0 / 0 Balance 4617 / 4617 9050 / 9050 3850 / 3850 Weight 93.5 kg Intake: IV 5042 / 5042 9050 / 9050 3850 / 3850 Bumex Inj 25 mg In 100 ml @ 0.5 2 / 2 MG/HR 2 mls/hr IV.CONT .Q24H ANTHONY Rx#:[id number] EPINEPHrine (1:1000) Inj 4 MG 500 / 500 250 / 250 In D5W Inj 246 ML @ 3 MCG/MIN 11.25 mls/hr IV.CONT TITRATE PRN Rx#:[id number] Levophed Inj 16 MG In D5W Inj 500 / 500 234 ML @ 2 MCG/MIN 1.87 mls/hr IV.CONT TITRATE PRN Rx#: [id number] Protonix Inj 80 MG In NS Inj 100 / 100 100 / 100 100 ML @ 10 mls/hr IV.CONT Q10H ANTHONY Rx#:[id number] Neosynephrine Inj 40 MG In D5W 1999 / 1999 500 / 500 Inj 496 ML @ 40 MCG/MIN 30 mls/ hr IV.CONT TITRATE PRN Rx#: [id number] Sodium Bicarbonate 8.4% Inj 50 4200 / 4200 3000 / 3000 MEQ In 1/2 Normal Saline Inj 1, 000 ML @ 500 mls/hr IV.CONT . Q2H6M ANTHONY Rx#:[id number] Sodium Bicarbonate 8.4% Inj 150 1805 / 1805 MEQ In Sterile Water for Inj 850 ML @ 150 mls/hr IV.CONT . Q6H40M ANTHONY Rx#:[id number] Pitressin Inj 40 UNIT In D5W 100 / 100 Inj 98 ML @ 0.04 UNITS/MIN 6 mls/hr IV.CONT CONT ANTHONY Rx#: [id number] Flexbumin 25% Inj 100 ML @ 60 200 / 200 mls/hr IV.SIG Q100M ANTHONY Rx#: [id number] Cordarone Inj 150 MG In D5W Inj 100 / 100 97 ML @ 600 mls/hr IV.SIG ONCE ONE Rx#:[id number] Maxipime Inj 2,000 MG In NS Inj 100 / 100 100 / 100 100 ML @ 200 mls/hr IV.SIG Q24H ANTHONY Rx#:[id number] LR 1000 mL Inj 1,000 ML @ Wide 2000 / 2000 Open IV.SIG BOLUS ONE Rx#: [id number] Mycamine Inj 100 MG In NS Inj 100 / 100 100 / 100 100 ML @ 100 mls/hr IV.SIG Q24H ANTHONY Rx#:[id number] Levophed-Dextrose 4 mg/250 ml 500 / 500 250 / 250 Drip 4 mg In 250 ml @ 2 MCG/MIN 7.5 mls/hr IV.SIG TITRATE PRN Rx#:[id number] Protonix Inj 80 MG In NS Inj 35 35 / 35 ML @ 420 mls/hr IV.SIG BOLUS ONE Rx#:[id number] Flagyl 500 MG Inj 100 ML @ 100 200 / 200 200 / 200 mls/hr IV.SIG Q8H ANTHONY Rx#: [id number] Output: Urine Amount (Catheter) 125 / 125 0 / 0 Indwelling Urethral Catheter 125 / 125 0 / 0 Gastric Drainage 300 / 300 Oral Orogastric Tube 300 / 300 Other: Date of Last Bowel Movement 08/08/18 08/08/18 08/08/18 # Bowel Movements 2 # Incontinent Bowel Movements 2 08/08/18 05:20 Sputum - Endotracheal Gram Stain - Final 08/08/18 05:20 Sputum - Endotracheal Sputum Culture - Pending 08/07/18 23:30 Blood - Peripheral Aerobic Blood Culture - Preliminary No growth in 1 day 08/07/18 23:30 Blood - Peripheral Anaerobic Blood Culture - Preliminary No growth in 1 day 08/07/18 23:30 Blood - Peripheral Aerobic Blood Culture - Preliminary No growth in 1 day 08/07/18 23:30 Blood - Peripheral Anaerobic Blood Culture - Preliminary No growth in 1 day 08/03/18 16:10 Blood - Peripheral Aerobic Blood Culture - Final No growth in 5 days 08/03/18 16:10 Blood - Peripheral Anaerobic Blood Culture - Final No growth in 5 days 08/03/18 16:05 Blood - Peripheral Aerobic Blood Culture - Final No growth in 5 days 08/03/18 16:05 Blood - Peripheral Anaerobic Blood Culture - Final No growth in 5 days Lab - Hematology Results 08/07/18 08/08/18 08/08/18 17:11 03:59 12:00 CBC w Diff Slide review pending WBC 16.7 H 20.2 H 19.8 H RBC 4.41 L 3.85 L 3.89 L Hgb 14.0 12.1 L 12.2 L Hct 42.1 39.1 37.4 L MCV 95.5 101.5 H D 96.2 D MCH 31.8 31.5 31.3 MCHC 33.4 31.0 L 32.6 RDW 14.3 16.5 15.3 Plt Count 179 167 136 L MPV 8.8 9.3 9.5 Prelim Diff (Auto) Slide review pending Neut % (Auto) 81.7 H 74.6 H Lymph % (Auto) 13.8 19.5 [place] % (Auto) 2.8 4.7 Eos % (Auto) 0.5 0.3 Baso % (Auto) 1.2 0.9 Neut # (Auto) 13.6 H 15.1 H Lymph # (Auto) 2.3 3.9 [place] # (Auto) 0.5 1.0 H Eos # (Auto) 0.1 0.1 Baso # (Auto) 0.2 0.2 WBC Differential Manual diff final Manual diff final Seg Neuts % (Manual) 61 44 Band Neuts % (Manual) 2 14 H Lymphocytes % (Manual) 21 27 Monocytes % (Manual) 4 3 Metamyelocytes % (Man) 11 H 7 H Myelocytes % (Man) 1 H 5 H Abs Neuts (Manual) 12.5 H 14.1 H Nucleated RBCs/100 WBC 4 H 16 H Differential Comment . . Platelet Estimate Normal Normal Platelet Morphology Normal Normal RBC Morphology Normal 08/09/18 05:05 CBC w Diff WBC 18.8 H RBC 3.20 L Hgb 10.2 L D Hct 32.1 L MCV 100.5 H D MCH 32.0 MCHC 31.8 L RDW 16.2 Plt Count 90 L D MPV 9.4 Prelim Diff (Auto) Neut % (Auto) Lymph % (Auto) [place] % (Auto) Eos % (Auto) Baso % (Auto) Neut # (Auto) Lymph # (Auto) [place] # (Auto) Eos # (Auto) Baso # (Auto) WBC Differential Seg Neuts % (Manual) Band Neuts % (Manual) Lymphocytes % (Manual) Monocytes % (Manual) Metamyelocytes % (Man) Myelocytes % (Man) Abs Neuts (Manual) Nucleated RBCs/100 WBC Differential Comment Platelet Estimate Platelet Morphology RBC Morphology Lab - Chemistry Results 08/07/18 08/07/18 08/07/18 17:11 17:11 17:11 Sodium 151 H Potassium 4.1 D Chloride 118 H Carbon Dioxide 18.0 L Anion Gap 15 BUN 58 H Creatinine 2.20 H Estimated GFR 29 L POC Glucose Random Glucose 158 H Lactic Acid 4.1 H* Calcium 8.9 Prot Corrected Calcium Phosphorus Magnesium Total Bilirubin 1.3 H AST 277 H ALT 82 H Alkaline Phosphatase 275 H Ammonia Total Creatine Kinase 466 H CK-MB (CK-2) 31.3 H CK-MB (CK-2) % 6.7 H* Troponin I 0.04 Total Protein 6.1 L D Albumin 2.1 L Lipase 08/07/18 08/07/18 08/08/18 23:30 23:30 03:59 Sodium 151 H Potassium 3.9 Chloride 120 H Carbon Dioxide 13.0 L Anion Gap 18 H BUN 55 H Creatinine 2.78 H Estimated GFR 22 L POC Glucose Random Glucose 196 H Lactic Acid 6.0 H* Calcium 7.4 L* D Prot Corrected Calcium 8.7 Phosphorus 5.0 H Magnesium 2.1 Total Bilirubin 0.9 AST 378 H ALT 93 H Alkaline Phosphatase 220 H Ammonia 63 H Total Creatine Kinase 461 H CK-MB (CK-2) 35.7 H CK-MB (CK-2) % 7.7 H* Troponin I Total Protein 4.8 L D Albumin 1.7 L Lipase 547 H 08/08/18 08/08/18 08/08/18 03:59 03:59 09:50 Sodium Potassium Chloride Carbon Dioxide Anion Gap BUN Creatinine Estimated GFR POC Glucose Random Glucose Lactic Acid 10.0 H* 9.2 H* Calcium Prot Corrected Calcium Phosphorus Magnesium Total Bilirubin AST ALT Alkaline Phosphatase Ammonia Total Creatine Kinase CK-MB (CK-2) CK-MB (CK-2) % Troponin I 0.56 H Total Protein Albumin Lipase 08/08/18 08/08/18 08/08/18 12:00 12:00 12:03 Sodium 149 H Potassium 3.6 Chloride 113 H Carbon Dioxide 18.4 L Anion Gap 18 H BUN 56 H Creatinine 2.54 H Estimated GFR 25 L POC Glucose 152 H Random Glucose 177 H Lactic Acid 9.5 H* Calcium 7.4 L* Prot Corrected Calcium 8.7 Phosphorus Magnesium Total Bilirubin AST ALT Alkaline Phosphatase Ammonia Total Creatine Kinase CK-MB (CK-2) CK-MB (CK-2) % Troponin I Total Protein 4.8 L Albumin Lipase 08/08/18 08/08/18 08/08/18 16:35 17:24 22:18 Sodium Potassium Chloride Carbon Dioxide Anion Gap BUN Creatinine Estimated GFR POC Glucose 144 H 275 H Random Glucose Lactic Acid 10.5 H* Calcium Prot Corrected Calcium Phosphorus Magnesium Total Bilirubin AST ALT Alkaline Phosphatase Ammonia Total Creatine Kinase CK-MB (CK-2) CK-MB (CK-2) % Troponin I Total Protein Albumin Lipase 08/08/18 08/09/18 08/09/18 22:19 00:00 00:37 Sodium Potassium Chloride Carbon Dioxide Anion Gap BUN Creatinine Estimated GFR POC Glucose 193 H Random Glucose Lactic Acid 16.2 H* 15.5 H* Calcium Prot Corrected Calcium Phosphorus Magnesium Total Bilirubin AST ALT Alkaline Phosphatase Ammonia Total Creatine Kinase CK-MB (CK-2) CK-MB (CK-2) % Troponin I Total Protein Albumin Lipase 08/09/18 08/09/18 08/09/18 04:22 04:23 04:35 Sodium Potassium Chloride Carbon Dioxide Anion Gap BUN Creatinine Estimated GFR POC Glucose 278 H 224 H Random Glucose Lactic Acid 16.6 H* Calcium Prot Corrected Calcium Phosphorus Magnesium Total Bilirubin AST ALT Alkaline Phosphatase Ammonia Total Creatine Kinase CK-MB (CK-2) CK-MB (CK-2) % Troponin I Total Protein Albumin Lipase 08/09/18 08/09/18 08/09/18 05:05 07:58 07:58 Sodium 132 L D Potassium 5.3 H D Chloride 96 L D Carbon Dioxide 8.7 L D Anion Gap 27 H BUN 42 H Creatinine 2.53 H Estimated GFR 25 L POC Glucose 343 H Random Glucose 297 H D Lactic Acid 16.1 H* Calcium 6.5 L* D Prot Corrected Calcium 7.3 L* D Phosphorus 6.1 H D Magnesium 1.9 Total Bilirubin 2.0 H AST 4315 H ALT 667 H Alkaline Phosphatase 226 H Ammonia Total Creatine Kinase CK-MB (CK-2) CK-MB (CK-2) % Troponin I Total Protein 5.5 L D Albumin 2.7 L D Lipase 08/09/18 08:42 Sodium Potassium Chloride Carbon Dioxide Anion Gap BUN Creatinine Estimated GFR POC Glucose 369 H Random Glucose Lactic Acid Calcium Prot Corrected Calcium Phosphorus Magnesium Total Bilirubin AST ALT Alkaline Phosphatase Ammonia Total Creatine Kinase CK-MB (CK-2) CK-MB (CK-2) % Troponin I Total Protein Albumin Lipase Imaging: ITS Impressions Chest CTA 08/03/18 14:48 CONCLUSION: 1. Minimal pleural-parenchymal scarring or atelectasis in the right upper lobe. Lungs are otherwise clear. 2. No pulmonary embolus. 3. Atherosclerotic calcification of the coronary arteries. 4. Probable hepatic cysts in the left hepatic lobe. Ultrasound could be performed for confirmation if clinically warranted. Liver Ultrasound 08/03/18 16:43 CONCLUSION: 1. Hepatic and renal cysts. 2. Findings suggesting cirrhosis. 3. Small volume ascites. 4. Sonographic findings suggesting underlying medical renal disease. Bile Acid Absorption NM 08/05/18 00:00 CONCLUSION: 1. Negative examination. 2. Normal gallbladder ejection fraction. Patient was asymptomatic during CCK demonstration. Videofluoroscopic Swallow 08/05/18 00:00 CONCLUSION: Recurrent penetration of the supraglottic larynx with thin barium and nectar thick barium with significant pooling in the paired valleculae and piriform sinuses with both substances. Abdomen X-Ray 08/05/18 06:00 CONCLUSION: 1. Bilateral renal calculi demonstrated on CT exam are noted on radiograph, as above. Carotid Doppler Study 08/06/18 00:00 CONCLUSION: 1. Right Internal Carotid Artery: Findings indicate <50% stenosis. 2. Left Internal Carotid Artery: Findings indicate <50% stenosis. Cervical Spine CT 08/06/18 00:00 CONCLUSION: 1. No acute findings. 2. Broad-based disc protrusions with some osteophytic ridging at C5-7 with mild AP canal and lateral recess stenosis. Head CT 08/06/18 00:00 CONCLUSION: 1. No acute intracranial abnormalities. Remote lacunar infarct right basal ganglia. . Cervical Spine MRI 08/07/18 00:00 CONCLUSION: 1. MRI confirms mild spinal canal stenosis at C5-C6 and C6-C7, as above. 2. No acute cervical spine abnormality is identified. Head MRI 08/07/18 07:07 CONCLUSION: 1. No acute intracranial abnormality is identified. There are no findings to indicate recent ischemia. 2. Chronic findings include generalized atrophy and chronic periventricular white matter change characteristic of chronic microvascular ischemia. Abdomen/Pelvis CT 08/08/18 07:07 CONCLUSION: 1. There is an 8 mm stone in the left extrarenal pelvis. It is not causing any hydronephrosis. 2. There is increased free fluid in the abdomen and pelvis and there are new small bilateral pleural effusions. 3. Liver demonstrates appearance characteristic of cirrhosis. There are a few cysts and incompletely characterized small lesions but there are diffuse nodular hypodensities that are new since 03/22/2018. These are incompletely characterized and nonspecific but could represent regenerative nodules, atypical appearance of steatosis, or multiple liver lesions including metastatic disease. The liver should ideally be further characterized at some point with liver protocol MRI with and without intravenous contrast. 4. 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 Chest CT 08/08/18 07:07 CONCLUSION: 1. Very small bilateral pleural effusions, left slightly larger than right with associated compressive atelectasis. Mild centrilobular emphysema is present. 2. Abnormal mediastinal lymphadenopathy, as above. Etiology is uncertain but metastatic disease is one consideration given the abnormal liver. 3. Severe coronary artery calcification and atherosclerotic disease of the aorta. Abdomen/Bladder Ultrasound 08/08/18 18:59 CONCLUSION: 1. There is no hydronephrosis or acute renal abnormality. Bilateral benign- appearing renal cysts are present. 2. The 7 mm nonobstructing left renal stone is not appreciated on this ultrasound but was documented on the CT from earlier today. Chest X-Ray 08/09/18 00:00 CONCLUSION: 1. Mild left base consolidation and small effusion not significantly changed. 2. Appropriately positioned lines and tubes as above, also not significantly changed. Physical Exam: PHYSICAL EXAMINATION: GENERAL: Unresponsive. HEENT: Unable to assess due to the patient is on a ventilator. Oropharynx is intubated. NECK: Supple without adenopathy. No swelling. LUNGS: Decreased breath sounds. HEART: Irregular rate and rhythm. No audible murmurs, rubs or gallops. ABDOMEN: Bowel sounds markedly diminished, soft. EXTREMITIES: No clubbing or cyanosis. Trace edema of the upper extremities. Feet are cold. SKIN: No rash. NEUROLOGIC: Unable to assess. PSYCHIATRIC: Unable to assess. Assessment and Plan - Plan ASSESSMENT: 1. Septic shock. Multiorgan failure. 2. Acute respiratory failure. 3. Urinary tract infection. 4. Clostridium difficile colitis. 5. Acute kidney disease. Anuric. 6. Shock liver. She is very critically ill and given the multiorgan failure he is unlikely to survive. RECOMMENDATIONS: 1. Continue p.o. vancomycin for C. difficile. 2. Continue Flagyl for C. difficile. 3. Continue cefepime. 4. Continue micafungin. 5. Monitor blood cultures. 6. Monitor sputum culture.
[2018-08-09] MEDS: Sodium Bicarbonate 8.4% Inj 100 MEQ in Sodium Chloride 0.45 % Inj 1,000 ML IV.CONT SCH ×9 (11:45→20:50)
[2018-08-09] MEDS: Vasopressin Inj 40 UNIT in Dextrose 5% in Water Inj 98 ML IV.CONT SCH ×2 (12:14)
[2018-08-09 12:23] VITALS: O2SAT 98
[2018-08-09 14:41] VITALS: RESP 20
[2018-08-09 14:58] LABS: Anti-Nuclear Antibody Screen Pos (Neg)
--- NOTE | 2018-08-09 16:19 | P.PNNP ---
Subjective Interval history: Remains of ventilator with maximin pressor support. <Peggy Ring - Last Filed: 08/09/18 16:12> Physical Exam Vital signs: Vital Signs 08/08/18 16:55 08/08/18 17:47 08/08/18 19:00 Temperature Pulse Rate 120 H 127 H 119 H Respiratory Rate 20 23 Blood Pressure 87/56 L Pulse Oximetry 100 100 08/08/18 19:01 08/08/18 19:30 08/08/18 20:00 Temperature Pulse Rate 119 H 115 H 102 H Respiratory Rate 23 22 22 Blood Pressure 119/81 113/75 Pulse Oximetry 100 100 96 08/08/18 20:01 08/08/18 20:35 08/08/18 21:00 Temperature Pulse Rate 103 H 109 H Respiratory Rate 21 22 16 Blood Pressure 86/59 L 141/99 H Pulse Oximetry 97 92 L 08/08/18 21:11 08/08/18 21:31 08/08/18 22:00 Temperature Pulse Rate 109 H 106 H 105 H Respiratory Rate 22 16 17 Blood Pressure 139/59 L 129/57 L Pulse Oximetry 100 100 08/08/18 22:01 08/08/18 22:30 08/08/18 23:00 Temperature Pulse Rate 105 H 104 H 103 H Respiratory Rate 18 20 20 Blood Pressure 129/57 L 155/73 H Pulse Oximetry 100 100 100 08/08/18 23:31 08/08/18 23:50 08/09/18 00:00 Temperature Pulse Rate 100 H 100 H Respiratory Rate 21 20 21 Blood Pressure 132/99 H Pulse Oximetry 100 100 97 08/09/18 00:01 08/09/18 00:10 08/09/18 00:31 Temperature 94 F L 94 F L Pulse Rate 99 H 99 H Respiratory Rate 21 20 Blood Pressure 116/90 89/55 L Pulse Oximetry 94 L 100 08/09/18 01:00 08/09/18 01:01 08/09/18 02:00 Temperature Pulse Rate 97 H 97 H 90 Respiratory Rate 20 20 21 Blood Pressure 88/51 L Pulse Oximetry 100 100 100 08/09/18 02:01 08/09/18 02:30 08/09/18 03:00 Temperature Pulse Rate 96 H 95 H 94 H Respiratory Rate 21 21 22 Blood Pressure 107/55 L 111/78 Pulse Oximetry 100 100 100 08/09/18 03:01 08/09/18 03:31 08/09/18 04:00 Temperature 96 F L Pulse Rate 93 H 92 H 92 H Respiratory Rate 20 21 20 Blood Pressure 80/44 L 92/41 L 99/59 L Pulse Oximetry 100 100 100 08/09/18 04:15 08/09/18 04:31 08/09/18 05:00 Temperature Pulse Rate 91 H 90 Respiratory Rate 22 21 20 Blood Pressure 92/53 L Pulse Oximetry 100 100 100 08/09/18 05:01 08/09/18 05:31 08/09/18 06:00 Temperature Pulse Rate 90 86 87 Respiratory Rate 20 20 22 Blood Pressure 72/43 L 65/38 L Pulse Oximetry 100 100 100 08/09/18 06:01 08/09/18 06:31 08/09/18 07:00 Temperature Pulse Rate 87 87 87 Respiratory Rate 20 21 21 Blood Pressure 54/33 L 44/27 L Pulse Oximetry 100 100 100 08/09/18 07:31 08/09/18 08:00 08/09/18 08:01 Temperature 96.8 F L Pulse Rate 87 87 87 Respiratory Rate 25 H 22 20 Blood Pressure 115/51 L 107/52 L Pulse Oximetry 98 94 L 97 08/09/18 08:31 08/09/18 08:32 08/09/18 09:00 Temperature Pulse Rate 88 66 105 H Respiratory Rate 21 16 22 Blood Pressure 123/43 L Pulse Oximetry 97 100 08/09/18 09:01 08/09/18 09:31 08/09/18 10:00 Temperature Pulse Rate 104 H 96 H 94 H Respiratory Rate 21 22 20 Blood Pressure 117/64 121/82 115/74 Pulse Oximetry 100 100 98 08/09/18 10:31 08/09/18 11:00 08/09/18 11:01 Temperature Pulse Rate 93 H 93 H 93 H Respiratory Rate 21 21 21 Blood Pressure 119/80 169/67 H Pulse Oximetry 08/09/18 11:30 08/09/18 12:00 08/09/18 12:04 Temperature 97.4 F L Pulse Rate 92 H 92 H Respiratory Rate 22 20 21 Blood Pressure 143/118 H Pulse Oximetry 08/09/18 14:00 08/09/18 14:41 Temperature Pulse Rate 94 H 100 H Respiratory Rate 20 Blood Pressure 90/57 L Pulse Oximetry Intake & Output 08/08/18 08/09/18 08/09/18 18:59 06:59 18:59 Intake Total 5042 / 5042 9050 / 9050 15030 / 40120 Output Total 425 / 425 0 / 0 Balance 4617 / 4617 9050 / 9050 87791 / 41954 Weight 93.5 kg Intake: IV 5042 / 5042 9050 / 9050 63889 / 16056 Cordarone Inj 450 MG In D5W Inj 27 / 27 241 ML @ 1 MG/MIN 33.33 mls/hr IV.CONT TITRATE PRN Rx#: [id number] Bumex Inj 25 mg In 100 ml @ 0.5 2 / 2 MG/HR 2 mls/hr IV.CONT .Q24H [facility] Rx#:[id number] EPINEPHrine (1:1000) Inj 4 MG 500 / 500 500 / 500 In D5W Inj 246 ML @ 3 MCG/MIN 11.25 mls/hr IV.CONT TITRATE PRN Rx#:[id number] Levophed Inj 16 MG In D5W Inj 500 / 500 250 / 250 234 ML @ 2 MCG/MIN 1.87 mls/hr IV.CONT TITRATE PRN Rx#: [id number] Protonix Inj 80 MG In NS Inj 100 / 100 100 / 100 100 / 100 100 ML @ 10 mls/hr IV.CONT Q10H [facility] Rx#:[id number] Neosynephrine Inj 40 MG In D5W 1999 / 1999 1500 / 1500 Inj 496 ML @ 40 MCG/MIN 30 mls/ hr IV.CONT TITRATE PRN Rx#: [id number] Sodium Bicarbonate 8.4% Inj 100 4200 / 4200 8400 / 8400 MEQ In 1/2 Normal Saline Inj 1 ,000 ML @ 1000 mls/hr IV.CONT . Q1H6M [facility] Rx#:[id number] Sodium Bicarbonate 8.4% Inj 150 1805 / 1805 MEQ In Sterile Water for Inj 850 ML @ 150 mls/hr IV.CONT . Q6H40M [facility] Rx#:[id number] Pitressin Inj 40 UNIT In D5W 100 / 100 100 / 100 Inj 98 ML @ 0.04 UNITS/MIN 6 mls/hr IV.CONT CONT [facility] Rx#: [id number] Flexbumin 25% Inj 100 ML @ 60 200 / 200 mls/hr IV.SIG Q100M [facility] Rx#: [id number] Cordarone Inj 150 MG In D5W Inj 100 / 100 97 ML @ 600 mls/hr IV.SIG ONCE ONE Rx#:[id number] Maxipime Inj 2,000 MG In NS Inj 100 / 100 100 / 100 100 ML @ 200 mls/hr IV.SIG Q24H [facility] Rx#:[id number] LR 1000 mL Inj 1,000 ML @ Wide 2000 / 2000 Open IV.SIG BOLUS ONE Rx#: [id number] Mycamine Inj 100 MG In NS Inj 100 / 100 100 / 100 100 ML @ 100 mls/hr IV.SIG Q24H [facility] Rx#:[id number] Levophed-Dextrose 4 mg/250 ml 500 / 500 250 / 250 Drip 4 mg In 250 ml @ 2 MCG/MIN 7.5 mls/hr IV.SIG TITRATE PRN Rx#:[id number] Protonix Inj 80 MG In NS Inj 35 35 / 35 ML @ 420 mls/hr IV.SIG BOLUS ONE Rx#:[id number] Flagyl 500 MG Inj 100 ML @ 100 200 / 200 200 / 200 100 / 100 mls/hr IV.SIG Q8H [facility] Rx#: [id number] Output: Urine Amount (Catheter) 125 / 125 0 / 0 Indwelling Urethral Catheter 125 / 125 0 / 0 Gastric Drainage 300 / 300 Oral Orogastric Tube 300 / 300 Other: Date of Last Bowel Movement 08/08/18 08/08/18 08/08/18 # Bowel Movements 2 # Incontinent Bowel Movements 2 - Urinary Catheter Management Indwelling Urethral Catheter Cath placed during this visit: yes, but has since been removed by the nurse Reason for continuing: Terminally ill/Comfort care Insertion date: 08/04/18 Removal date: 07/30/18 Removal time: 00:00 <Peggy Ring - Last Filed: 08/09/18 16:12> - Urinary Catheter Management Indwelling Urethral Catheter Cath placed during this visit: no <Teresa Dawn - Last Filed: 08/11/18 17:37> Assessment and Plan - Assessment (1) DAVID (acute kidney injury) Code(s): N17.9 - Acute kidney failure, unspecified Status: Acute Plan: Acute renal failure, acute tubular necrosis from hypotension. Renal US noted. Chest CT with small bilateral pleural effusions. Avoid nephrotoxic agents. Maintain MAP of 65 mmg if possible. On maximum pressor support. Maintain strict I+O, indwelling Aggarwal catheter continues to be anuric. Creatinine essentially unchanged from yesterday. Hyperkalemia at 5.3, on CRRT potassium altered. Severe metabolic acidosis bicarbonate given. Patient is now a DNR, palliative care is following. (2) Respiratory failure Code(s): J96.90 - Respiratory failure, unspecified, unspecified whether with hypoxia or hypercapnia Status: Acute (3) Septic shock Code(s): A41.9 - Sepsis, unspecified organism; R65.21 - Severe sepsis with septic shock Status: Acute Plan: ID consulted. Continue antibiotics per recommendation. Renal dose as appropriate <Peggy Ring - Last Filed: 08/09/18 16:12> - Assessment (1) DAVID (acute kidney injury) Code(s): N17.9 - Acute kidney failure, unspecified Status: Acute Plan: Patient seen and examined, agree with above. K is elevated, decrease K in CRRT. Hco3 is low, increase Dialysate flow and increase NaHco3 in replacement. (2) Respiratory failure Code(s): J96.90 - Respiratory failure, unspecified, unspecified whether with hypoxia or hypercapnia Status: Acute (3) Septic shock Code(s): A41.9 - Sepsis, unspecified organism; R65.21 - Severe sepsis with septic shock Status: Acute <Teresa Dawn - Last Filed: 08/11/18 17:37>
[2018-08-09] MEDS ORDERED: Phenylephrine Inj 160 MG in Dextrose 5% in Water Inj 484 ML IV.CONT PRN ×2 (18:00)
[2018-08-09 21:21] VITALS: BP 117/56; PULSE 63; TEMP 96
[2018-08-09] MEDS: Midazolam 50 MG/50 ML Inj 50 MG/50 ML BAG IV.CONT PRN (21:34)
[2018-08-11 09:43] LABS: Methylmalonic Acid 0.29 nmol/mL (<=0.40)
== END 2018-08-09 22:19 | disposition expired ==
LOC: PHED 14:41 → PHEDH 18:18 → PHICU 21:15 → HIMC 08-08 02:10
PROVIDERS: ADMIT Hospitalist; ATTEND Hospitalist
PROC: PANENDO (2018-08-06 07:41)